=== PATIENT | female | born 1985 | race African-American/Black ===

== ENCOUNTER 2019-06-08 19:51 | Observation (INO) | payer MEDICARE, MEDICAID ==
[2019-06-08] MEDS ORDERED: Aspirin Chewable 81 MG TAB ONE (20:58)
[2019-06-08] MEDS ORDERED: Dextrose 50% Abboject 50 ML SYRINGE SLOW IVP PRN (22:31)
[2019-06-08] MEDS ORDERED: Dextrose 5% in Water 1,000 ML IV PRN (22:31)
[2019-06-08] MEDS ORDERED: HumaLOG 300 UNITS/3 ML VIAL SC PRN ×2 (22:31)
[2019-06-08] MEDS ORDERED: Aspirin 325 mg Enteric Coated Tablet PO SCH (22:45)
--- NOTE | 2019-06-08 23:50 | HP ---
PRIMARY CARE PHYSICIAN: Unknown. CHIEF COMPLAINT: Altered mental status. HISTORY OF PRESENT ILLNESS: This is a 33-year-old obese female, who is a bilateral above-knee amputee for unclear reasons with past medical history of stroke, ESRD, on hemodialysis, and with colostomy and urostomy in place, who was initially sent to [facility] for evaluation of altered mental status while at the dialysis unit and brought to the ER for further evaluation. The patient reports her blood sugar was 35 this morning, but reliability is unclear. She was reported to have an initial NIH Stroke Scale of 10, which improved to [address] without contrast and CTA head and neck were negative. The patient was transferred to [facility] ER for further evaluation. Empiric blood cultures were obtained and the patient was administered 1 g IV vancomycin and oral aspirin 324 mg. According to ER records, the patient actually had an initial NIH Stroke Scale of 15, which significantly improved, but upon ER evaluation, the patient was noted to have episodes of repetitive speech, but no other focal deficits of upper extremity noted. Initial Accu-Chek was euglycemic. Blood pressures ranged from 180s to 200s over 90s to 120s. At bedside, the patient is oriented to person and place. She intermittently answers questions appropriately, but then is noted to have repetitive speech and deviates into tangential conversation. She denies any acute complaints of pain. She denies any headaches. Multiple attempts to obtain collateral information from the patient are difficult. The patient denies any illicit drug use. A toxicology screen for alcohol, Tylenol, and salicylate were negative. Chemistries were unremarkable. No fevers were noted. PAST MEDICAL HISTORY: Morbid obesity, stroke, ESRD on hemodialysis, bilateral above-knee amputation for unclear reasons with notable colostomy and urostomy, and stroke. PAST SURGICAL HISTORY: Bilateral above-knee amputation. Right chest wall tunneled dialysis catheter, colostomy, urostomy, and prior PEG. SOCIAL HISTORY: The patient reports that she lives at home with her mother. She denies tobacco, alcohol, illicit drug use. ALLERGIES: NONE DOCUMENTED. REVIEW OF SYSTEMS: Limited due to patient's mentation. Pertinent positives as per HPI. Remainder of review of systems negative. MEDICATIONS: Home medications are currently unavailable, but will need to be reviewed as per admission medication reconciliation. FAMILY HISTORY: Unable to obtain from the patient at this time. PHYSICAL EXAMINATION: VITAL SIGNS: Temperature maximum, afebrile, 98.0, pulse 94 to 96, sinus rhythm, blood pressure 182/94 to 195/126, oxygen saturation 99% on room air, respirations 18, unlabored. GENERAL APPEARANCE: This is a young obese female, who is awake, alert, oriented, who intermittently speaks fluently, but then is noted to have repetitive speech and tangential conversation, difficult to understand. HEENT: Normocephalic, atraumatic. No facial asymmetry. Pupils equally round. Extraocular muscles intact. Moist mucous membranes. NECK: Supple. CARDIOVASCULAR: S1 and S2. Regular rate and rhythm. No harsh murmurs. No chest wall tenderness to palpation. There is a right chest wall tunneled dialysis catheter noted. LUNGS: Bilateral equal air entry on anterior auscultation. Nonlabored respiration. No wheezing or rales. ABDOMEN: Soft, nontender, nondistended. There is evidence of prior PEG site scar noted. There is a left lower quadrant colostomy. There is a right lower quadrant urostomy. EXTREMITIES: No edema of the bilateral upper extremities. There is bilateral lower extremity above-knee amputations noted with no obvious skin breakdown and back was not visualized. SKIN: Warm to touch without any obvious rash or pallor or abrasions with again noted right chest wall tunneled dialysis catheter. NEUROLOGIC: On evaluation, no facial asymmetry. Symmetrical smile. Symmetrical muscle facial expression. No drift of upper extremities. 2+ hand border measurer intact. Speech fluent, but often times with repetitive speech noted. LABORATORY DATA: WBC 8.7, H and H 11.3/37.7, platelets 248. Sodium 139, potassium 4.3, chloride 95, bicarb 28, glucose 152, BUN and creatinine 60/3.25, GFR 20, albumin 3.8, and TSH 3.69. Toxicology, salicylate level is less than 8. Tylenol level is less than 6. Alcohol level less than 10. Coagulation profile, INR 1.0. IMAGIN. Noncontrast head CT on 06/08/2019, reveals no acute intracranial abnormality. 2. CTA of the head and neck with and without contrast reveals no significant stenosis, occlusion, or areas of malformation. ASSESSMENT: 1. Altered mental status of unspecified etiology. The patient will be admitted to stroke telemetry floor unit. We will continue serial neurological checks to evaluate for acute focal neurological deficits. An initial noncontrast head CT and CTA head and neck with contrast were both unremarkable. We will obtain noncontrast MRI brain to evaluate for acute stroke. Noted history of prior stroke and unclear what anti-platelet agent the patient was previously on. We will monitor Accu-Cheks for euglycemia. Blood cultures were obtained in the ER and we will follow to evaluate for infection. We will monitor for improvement in mentation. Limited history obtained from the patient. ER notes the patient completed a full session of hemodialysis today and no obvious signs of uremia or metabolic acidosis. 2. End-stage renal disease, on hemodialysis. The patient completed a full round of hemodialysis on 06/08/2019. We will consult Nephrology for routine hemodialysis. I think the patient received contrast dye for CTA head and neck. 3. History of stroke, unspecified etiology. 4. History of bilateral above-knee amputation, but unclear etiology. 5. History of colostomy and urostomy status. 6. Morbid obesity, unspecified BMI. 7. Deep venous thrombosis prophylaxis: Subcutaneous heparin. 8. Check a.m. labs, 06/09/2019. 9. Code status: Full code. DISPOSITION: Admitted as observation status and placed on telemetry monitoring. Job ID: [id number]
[2019-06-09] MEDS: Acetaminophen 325 MG TAB PO PRN (04:05)
[2019-06-09] MEDS ORDERED: Aspirin 325 mg Enteric Coated Tablet PO SCH (09:00)
[2019-06-09] MEDS ORDERED: FLU VACC QS2019-20(6MOS UP)/PF 60 MCG/0.5 ML SYRINGE IM ONE (09:00)
[2019-06-09] MEDS: Heparin 5,000 UNITS/ML VIAL SC SCH ×2 (11:50→21:35)
--- NOTE | 2019-06-09 13:26 | MRI ---
Exam: Brain MRI without contrast HISTORY: Altered mental status. History of stroke. COMPARISON: None FINDINGS: Limited evaluation multiple sequences due to motion degradation Calvarial marrow signal intensity: Appropriate T1 signal Gradient echo sequence: No hemorrhage Brain parenchyma: No obvious mass, mass effect or midline shift. Brain volume, age-appropriate. Cortical barrow-white matter differentiation: Grossly preserved Restricted diffusion: Central arterial flow voids are maintained. Absent restricted diffusion White matter signal intensities: T2, FLAIR white matter hyperintensities due to chronic small vessel ischemic changes Sinuses: Adequate aeration of the paranasal sinuses and mastoid air cells. IMPRESSION: Limited evaluation due to motion degradation. Absent restricted diffusion. No definite acute infarct.
[2019-06-09 14:11] VITALS: BMI 27.2
--- NOTE | 2019-06-09 16:31 | PDOC.HOSPP ---
- Subjective Encounter Date: 06/09/19 Encounter Time: 16:29 Subjective: Ms. Richard was seen today in follow-up of altered mental status. She appears to be back to her baseline. She does not have any complaints. - Objective Vital Signs & Weight: Vital Signs (12 hours) Temp Pulse Resp BP Pulse Ox 06/09/19 16:05 99.4 F 103 H 18 198/83 H 98 06/09/19 12:00 98.7 F 99 18 189/118 H 97 06/09/19 08:50 98.6 F 98 22 H 150/101 H 93 L Weight Admit Weight 148 lb 12.8 oz Weight 148 lb 12.8 oz I&O: 06/08/19 06/09/19 06/10/19 06:59 06:59 06:59 Intake Total 100 Output Total 200 Balance -100 Additional Labs: Accuchecks 06/09/19 06/09/19 06/08/19 11:15 05:57 23:16 POC Glucose 88 106 198 H Hospitalist ROS - Medication Medications: Active Medications Generic Name Dose Route Start Last Admin Trade Name Freq PRN Reason Stop Dose Admin Acetaminophen 650 mg 06/08/19 22:28 06/09/19 04:05 Tylenol PO 650 mg Q4H PRN Administration Headache/Fever/Mild Pain (1-3) Aspirin 325 mg 06/09/19 09:00 06/09/19 11:50 Ecotrin PO 325 mg DAILY NICOLASA Administration Heparin Sodium (Porcine) 5,000 units 06/09/19 09:00 06/09/19 11:50 Heparin SC 5,000 units BID NICOLASA Administration - Exam Eye: PERRL Heart: RRR, no murmur, no gallops, no rubs, normal peripheral pulses Respiratory: CTAB, no wheezes, no rales, no ronchi, normal chest expansion, no tachypnea, normal percussion Gastrointestinal: soft, non-tender, non-distended, normal bowel sounds Hosp A/P (1) Metabolic encephalopathy Code(s): G93.41 - METABOLIC ENCEPHALOPATHY Status: Acute (2) Hypoglycemia Code(s): E16.2 - HYPOGLYCEMIA, UNSPECIFIED Status: Acute (3) Diabetes mellitus treated with insulin Code(s): E11.9 - TYPE 2 DIABETES MELLITUS WITHOUT COMPLICATIONS; Z79.4 - CUSTODIAL (CURRENT) USE OF INSULIN Status: Acute (4) End stage renal disease on dialysis Code(s): N18.6 - END STAGE RENAL DISEASE; Z99.2 - DEPENDENCE ON RENAL DIALYSIS Status: Acute (5) Hypertension Code(s): I10 - ESSENTIAL (PRIMARY) HYPERTENSION Status: Chronic - Plan * Metabolic encephalopathy- likely due to hypoglycemia. The patient admits that she did not eat much yesterday morning * MRI- was not an ideal study, but no obvious infarct was seen * HTN- blood pressure is very elevated- she does not have any blood pressure medications listed in her home medications- will start Amlodipine * ESRD- continue dialysis as indicated * Still await final culture results * Hopefully home tomorrow
[2019-06-09] MEDS: Labetalol HCl 100 MG/20 ML VIAL SLOW IVP PRN (19:55)
[2019-06-09] MEDS ORDERED: Insulin Glargine 20 UNITS in Pre-Filled Syringe 1 EACH SC SCH (21:00)
[2019-06-09] MEDS: Gabapentin 300 MG CAP PO SCH (21:34)
[2019-06-09] MEDS: Aggrenox 200-25mg CAP PO SCH (21:34)
[2019-06-10] MEDS: Labetalol HCl 100 MG/20 ML VIAL SLOW IVP PRN (03:52)
[2019-06-10] MEDS: Acetaminophen 325 MG TAB PO PRN (03:52)
[2019-06-10] MEDS ORDERED: Morphine 4 MG/ML VIAL SLOW IVP PRN (05:19)
[2019-06-10] MEDS ORDERED: cloNIDine 0.1 MG TAB PO PRN (05:20)
[2019-06-10] MEDS ORDERED: Non-Formulary Item 1 EACH (Insulin Detemir [Levemir] 18 UNIT) SQ SCH (09:00)
[2019-06-10] MEDS ORDERED: Alogliptin 6.25 MG TAB PO SCH (09:00)
[2019-06-10] MEDS ORDERED: Amlodipine 5 MG TAB PO SCH (09:00)
[2019-06-10] MEDS ORDERED: DULoxetine 60 MG CAP PO SCH (09:00)
[2019-06-10] MEDS ORDERED: Labetalol 100 MG TAB PO SCH (09:00)
[2019-06-10] MEDS ORDERED: Insulin Glargine 18 UNITS in Pre-Filled Syringe 1 EACH SC SCH (09:00)
--- NOTE | 2019-06-10 09:52 | PDOC.HOSPP ---
- Subjective Encounter Date: 06/10/19 Encounter Time: 09:50 Subjective: Ms. Menjivar was seen today in follow-up of metabolic encephalopathy. She does not have any new complaints. She is anxious to be discharged. She has a birthday alliance party planned at the longterm. - Objective Vital Signs & Weight: Vital Signs (12 hours) Temp Pulse Resp BP BP Pulse Ox 06/10/19 07:11 198/112 H 06/10/19 04:00 98.1 F 96 18 201/94 H 94 L 06/10/19 03:52 100 201/94 H 06/10/19 00:00 98.6 F 100 20 167/80 H 97 Weight Admit Weight 148 lb 12.8 oz Weight 148 lb 12.8 oz I&O: 06/09/19 06/10/19 06/11/19 06:59 06:59 06:59 Intake Total 100 1130 Output Total 200 11 Balance -100 1119 Additional Labs: Accuchecks 06/10/19 06/09/19 06/09/19 06:22 20:20 16:41 POC Glucose 89 230 H 254 H 06/09/19 11:15 POC Glucose 88 Hospitalist ROS - Medication Medications: Active Medications Generic Name Dose Route Start Last Admin Trade Name Freq PRN Reason Stop Dose Admin Acetaminophen 650 mg 06/08/19 22:28 06/10/19 03:52 Tylenol PO 650 mg Q4H PRN Administration Headache/Fever/Mild Pain (1-3) Clonidine 0.1 mg 06/10/19 05:20 06/10/19 07:11 Catapres PO 0.1 mg Q8H PRN Administration Hypertension Dipyridamole/Aspirin 1 cap 06/09/19 21:00 06/09/19 21:34 Aggrenox PO 1 cap BID NICOLASA Administration Gabapentin 600 mg 06/09/19 21:00 06/09/19 21:34 Neurontin PO 600 mg BID NICOLASA Administration Heparin Sodium (Porcine) 5,000 units 06/09/19 09:00 06/09/19 21:35 Heparin SC 5,000 units BID NICOLASA Administration Insulin Glargine 20 units/ 0.2 mls @ 0 mls/hr 06/09/19 21:00 06/09/19 21:33 Miscellaneous Medication SC 0.2 mls HS NICOLASA Administration Insulin Human Lispro 0 units 06/08/19 22:31 06/09/19 18:18 Humalog SC 4 unit .MILD SLIDING SCALE PRN Administration Mild Correctional Scale Labetalol HCl 10 mg 06/08/19 22:32 06/10/19 03:52 Normodyne SLOW IVP 10 mg Q4H PRN Administration Hypertension Morphine Sulfate 4 mg 06/10/19 05:19 06/10/19 05:32 Morphine SLOW IVP 4 mg Q4H PRN Administration Severe Pain (7-10) - Exam Eye: PERRL Heart: RRR, no murmur, no gallops, no rubs, normal peripheral pulses Respiratory: CTAB, no wheezes, no rales, no ronchi, normal chest expansion, no tachypnea, normal percussion Gastrointestinal: soft, non-tender, non-distended, normal bowel sounds, no palpable masses, no hepatomegaly Extremities: no edema (bilateral AKA) Hosp A/P (1) Metabolic encephalopathy Code(s): G93.41 - METABOLIC ENCEPHALOPATHY Status: Acute (2) Hypoglycemia Code(s): E16.2 - HYPOGLYCEMIA, UNSPECIFIED Status: Acute (3) Diabetes mellitus treated with insulin Code(s): E11.9 - TYPE 2 DIABETES MELLITUS WITHOUT COMPLICATIONS; 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 resolved- and blood glucose is stable * HTN- blood pressure is elevated- she has not been in her blood pressure medications- will contact the facility to find out what she was taking * ESRD- continue dialysis as indicated * Culture results- demonstrate 1/2 coag negative staph- this is likely a contaminant * Home today
[2019-06-10 10:02] VITALS: TEMP 98.9
[2019-06-10] MEDS: Heparin 5,000 UNITS/ML VIAL SC SCH (10:05)
[2019-06-10] MEDS: Aggrenox 200-25mg CAP PO SCH (10:06)
[2019-06-10] MEDS: Gabapentin 300 MG CAP PO SCH (10:06)
[2019-06-10 12:15] VITALS: BP 168/92
--- NOTE | 2019-06-11 14:10 | DIS ---
DATE OF ADMISSION: 06/08/2019 DATE OF DISCHARGE: 06/10/2019 DISCHARGE DISPOSITION: Back to the [facility]. DISCHARGE DIAGNOSES: 1. Metabolic encephalopathy, resolved. 2. Hypoglycemia. 3. End-stage renal disease, on hemodialysis. 4. Hypertension, uncontrolled. 5. History of bilateral [id number] amputations due to necrotizing fasciitis. 6. Status post colostomy and urostomy, these were done as a diverting colostomy and urostomy due to the infections. DISCHARGE MEDICATIONS: The patient will be placed on; 1. Amlodipine 5 mg daily as well as clonidine 0.1 mg q.8 as needed. 2. Continue;. a. Januvia 25 mg daily. b. Renvela 2.4 g with meals and at bedtime. c. Levemir insulin 18 units in the a.m. and 20 units in the p.m. d. daily. e. Gabapentin 600 mg p.o. twice daily. f. Folic acid and vitamin D one tablet daily. g. Pepcid 20 mg daily. h. Cymbalta 60 mg daily. i. Vitamin D3 of 5000 units daily. j. Aggrenox 1 capsule twice a day. IMAGING DONE DURING HOSPITAL STAY: The patient had an echocardiogram in which the ejection fraction was estimated at 50% to 55%. There was mild mitral regurgitation as well as mild tricuspid regurgitation. The patient had an MRI of the brain. The study was difficult due to motion artifact, but there was no evidence of any acute infarct. HOSPITAL COURSE: Ms. Menjivar is a pleasant 34-year-old female, who has a history of long-standing diabetes mellitus. According to the patient's mother, she has been diabetic since age 11. She also has a history of bilateral [id number] amputations. Her mother states this was the result of an infection in her foot that spread due to necrotizing fasciitis and ultimately lead to bilateral [id number] amputations. She also had a wound that went posteriorly and for this reason, she had to have a diverting colostomy as well as urostomy. She says her daughter was in the hospital for over several months. She resides in a nursing facility and she was sent over from the nursing facility due to an episode of altered mental status after dialysis. It was also noted that she was hypoglycemic with her blood sugars in the 50s. She was brought into observation. There was concern for possible stroke-like symptoms, and for this reason, an MRI was obtained and blood cultures were also obtained to rule out infection. Her symptoms resolved after her blood sugar was improved and on further questioning, the patient admits that she had fairly poor oral intake prior to the episode. We will keep her insulin doses the same. It was noted that her blood pressure was elevated and that she was not on any medications from the [place] [facility] for blood pressure. For this reason, we added amlodipine as well as a p.r.n. clonidine to her regimen and at the time of discharge, she was anxious to go home. Today was her birthday, and she had a birthday celebration planned at the nursing facility. Job ID: [id number]
== END 2019-06-10 12:56 ==
LOC: ERS 19:51 → INTOOBSV 22:31 → 2SE 22:31
PROVIDERS: ADMIT Hospitalist; ATTEND Hospitalist
DX: G93.41 Metabolic encephalopathy (principal); I12.0 Hypertensive chronic kidney disease with stage 5 chronic kidney disease or end stage renal disease; E11.649 Type 2 diabetes mellitus with hypoglycemia without coma; E11.22 Type 2 diabetes mellitus with diabetic chronic kidney disease; N18.6 End stage renal disease; Z79.4 Long term (current) use of insulin; Z79.82 Long term (current) use of aspirin; Z79.899 Other long term (current) drug therapy; Z89.611 Acquired absence of right leg above knee; Z89.612 Acquired absence of left leg above knee; Z99.2 Dependence on renal dialysis
CPT/HCPCS: 70551; 82962 ×3; 87040; 87149 ×2; 93005; 93306; 96365; 96372 ×2; 96375 ×2; 96376; 97139; 99285; G0378 ×3; 36415; 36416; J1644; J1815; J2270; J3370

== ENCOUNTER 2020-03-19 10:28 | Inpatient (IN) | payer MEDICARE, MEDICAID, OTHER ==
[2020-03-19] MEDS ORDERED: Vancomycin 1 GM/200 ML BAG ONE (10:53)
[2020-03-19] MEDS ORDERED: Cefepime 2 GM VIAL ONE (10:53)
[2020-03-19] MEDS ORDERED: Clindamycin/D5W 900 mg/50 ml Premix Bag ONE ×2 (10:53→13:01)
[2020-03-19 11:03] LABS: Bacteria/HPF 4+ HPF (None Seen); Bilirubin Negative (Negative); Blood, Urine 1+ (Negative); Clarity Extra Turbid (Clear); Glucose, Urine (Dipstick) Normal (Negative); Ketone, Urine Negative (Negative); Leukocyte 75 Leu/uL (Negative); Nitrite Negative (Negative); Protein, Urine (Dipstick) 200 mg/dL (Neg-Trace); Specific Gravity, Urine 1.007 (1.002-1.036); Squamous Epithelial 0-3 HPF (0-3); Urobilinogen Normal mg/dL (Less than 2)
[2020-03-19] MEDS ORDERED: Vancomycin 1.5 GRAM/300 ML BAG 1.5 GM in Premix Bag 1 BAG IVPB SCH (11:15)
[2020-03-19 11:44] LABS: #Monocytes 0.7 thou/uL (0.11-0.59); #Neutrophils 4.5 thou/uL (1.40-6.50); %Basophils 0.5 % (0.0-1.0); %Eosinophils 0.7 % (0.0-10.0); %Lymphocytes 16.3 % (21.0-51.0); %Monocytes 11.7 % (0.0-10.0); %Neutrophils 70.7 % (42.0-75.0); Mean Corpuscular HGB CONC 30.1 g/dL (32.0-36.0); Mean Corpuscular Volume 92.8 fL (78.0-98.0); Mean Platelet Volume 9.2 fL (7.4-10.4); Platelet Count 184 thou/uL (130-400); RBC Distribution Width 16.9 % (11.5-14.5); Red Blood Cell (RBC) Count 3.21 mill/uL (4.20-5.40); White Blood Cell (WBC) Count 6.3 thou/uL (4.8-10.8)
[2020-03-19 11:53] LABS: ALT (SGPT) 34 U/L (8-55); AST (SGOT) 32 U/L (5-34); Albumin 3.5 g/dL (3.5-5.0); Alkaline Phosphatase 86 U/L (40-110); Anion Gap 21 mmol/L (10-20); BUN (Urea Nitrogen) 59 mg/dL (7.0-18.7); Bilirubin, Total 0.3 mg/dL (0.2-1.2); Calc. Creatinine Clearance 0 mL/min (70-130); Carbon Dioxide 23 mmol/L (22-29); Chloride 102 mmol/L (98-107); Estimated GFR-MDRD 7; Globulin 3.8 g/dL (2.4-3.5); Glucose 72 mg/dL (70-105); Potassium 5.6 mmol/L (3.5-5.1); Protein, Total 7.3 g/dL (6.0-8.3); Sodium 140 mmol/L (136-145)
--- NOTE | 2020-03-19 11:58 | RAD ---
EXAM: CHEST ONE VIEW HISTORY: Cough. COMPARISON: 02/06/2020 FINDINGS: Right-sided hemodialysis catheter remains in place. This examination is obtained in a shallow depth i nspiration which in combination with portable technique accentuates the cardiac silhouette and bronchovascular markings. However, there are increased perihilar interstitial and patchy parenchymal airspace opacities greater in the right upper lung zone and in the left midlung zone and left lung base. Findings may be related to asymmetric pulmonary edema or possibly infectious process. No other interval change. IMPRESSION: Patchy parenchymal airspace opacities bilaterally which could be related to asymmetric pulmonary joshua a versus infectious process. Follow-up evaluation is recommended to ensure resolution.
[2020-03-19 13:43] LABS: Troponin I 0.063 ng/mL (< 0.028)
[2020-03-19] MEDS ORDERED: EPINEPHrine 1 MG/10 ML Abboject SYRINGE ONE ×2 (14:22→18:45)
[2020-03-19] MEDS ORDERED: Sodium Bicarb 50 MEQ/50 ML Abboject 8.4% SYRINGE ONE ×2 (14:22→19:02)
[2020-03-19] MEDS ORDERED: Calcium Chloride 1 GM/10 ML Abboject SYRINGE ONE ×2 (14:22→19:42)
[2020-03-19 15:40] LABS: SARS-CoV-2 NAA Rapid Test DETECTED (NotDetected)
[2020-03-19] MEDS ORDERED: Norepinephrine 8 MG/0.9% NS 250 ML ONE (18:34)
[2020-03-19] MEDS ORDERED: Calcium Gluc 4.6 MEQ/10 ML (100 MG/ML) ONE (18:51)
[2020-03-19] MEDS ORDERED: Ketamine 50 MG/ML (10ML VIAL) ONE (19:12)
[2020-03-19] MEDS ORDERED: Rocuronium Bromide 10 MG/ML (10ML VIAL) ONE (19:12)
[2020-03-19] MEDS ORDERED: Hydrocortisone Sod Succ/PF 100 mg/2 ml Vial ONE (19:41)
[2020-03-19 19:56] LABS: Actual Bicarbonate (HCO3a) 19.7 mEq/L (22-28); Analyzer IN Cardio ER; Base Excess (BEa) -8.9 mEq/L (-2.0 to +3.0); CO2 Tension 56.3 mmHg (35.0-45.0); Calcium, Ionized (arterial) 1.54 mmol/L (1.12-1.30); Carboxyhemoglobin (COHb) 0.2 gm% (0.0-3.0); O2 Tension (PaO2), arterial 158.6 mmHg (80.0-100.0); Potassium - ABG Lab 5.23 mmol/L (3.70-5.30)
[2020-03-19 19:58] LABS: Puncture Site RRA; pH, Arterial 7.16 (7.35-7.45)
[2020-03-19 19:59] LABS: ALV-art Gradient 484.025 mmHg (0-20)
[2020-03-19] MEDS ORDERED: fentaNYL Citrate/PF 2,000 MCG in Sodium Chloride 0.9% 60 ML IV SCH (20:15)
--- NOTE | 2020-03-19 20:22 | RAD ---
Chest AP view INDICATION: History of intubation COMPARISON: Prior exam dated March 19, 2020 at 11:31 AM FINDINGS: Lungs: There is worsening bilateral airspace disease. Cardiac silhouette: There is persisting cardiomegaly Pulmonary vasculature: There is worsening pulmonary vascular congestion Pleural spaces: There are small bilateral pleural effusions that persist. Upper abdomen: No abnormality seen. Osseous structures: No acute osseous abnormality. Additional findings: Patient is intubated. ET tube tip is seen 1.1 cm above the level of the gil. There is a new left IJ central venous catheter projecting region the right atrium. Right IJ dialysis catheter is unchanged in position. Gastric catheter projects below the left hemidiaphragm an d beyond the [id number]. There is a pacer pads now overlying the right anterior chest wall. IMPRESSION: Interval intubation with gastric catheter and left IJ central venous catheter placement. Worsening bi lateral perihilar airspace disease suspicious for worsening edema or pneumonia. Persistent cardiomegaly with small bilateral pleural effusions. No pneumothorax demonstrated.
[2020-03-19] MEDS ORDERED: Cefepime 2 GM VIAL IVPB SCH (20:35)
[2020-03-19] MEDS ORDERED: Dextrose 5% in Water 1,000 ML IV PRN (20:35)
[2020-03-19] MEDS ORDERED: Acetaminophen 650 MG Suppository PR PRN (20:35)
[2020-03-19] MEDS ORDERED: Dextrose 50% Abboject 50 ML SYRINGE SLOW IVP PRN (20:35)
[2020-03-19] MEDS ORDERED: Ondansetron ODT 4 MG TAB PO PRN (20:35)
[2020-03-19] MEDS ORDERED: [UNRECOGNIZED DRUG - REMARK] FS PRN (20:35)
[2020-03-19] MEDS ORDERED: Ondansetron PF 4 MG/2 ML Vial IVP PRN (20:35)
[2020-03-19] MEDS ORDERED: Ventilator Sedation Protocol 1 EACH FS ONE (20:35)
[2020-03-19] MEDS ORDERED: Electrolyte Replacement Protoc 1 EACH EACH FS PRN (20:43)
[2020-03-19 21:25] LABS: Magnesium 1.6 mg/dL (1.6-2.6); Phosphorus 8.8 mg/dL (2.3-4.7)
[2020-03-19] MEDS ORDERED: Propofol BOLUS 1,000 MG/100 ML VIAL IV PRN (21:30)
[2020-03-19] MEDS ORDERED: DISCONTINUE PREVIOUS NARCOTIC PAIN MEDICATIONS AND BENZODIAZEPINES FS SCH (21:30)
[2020-03-19] MEDS ORDERED: Morphine 2 MG/ML VIAL SLOW IVP PRN (21:30)
[2020-03-19] MEDS ORDERED: Fentanyl BOLUS 250 ML IVPB PRN (21:30)
[2020-03-19] MEDS ORDERED: Heparin 10,000 UNITS/ 10 ML VIAL ONE (22:07)
--- NOTE | 2020-03-19 22:07 | HP ---
PRIMARY CARE PROVIDER: Mio Mitchell. CHIEF COMPLAINT: Hypotension. HISTORY OF PRESENT ILLNESS: This is a 34-year-old female, who presented to [facility] Emergency Room and transferred by EMS personnel from [facility] in [place] after halfway personnel noted the patient with low blood pressure. The patient is a known dialysis patient and underwent hemodialysis on 03/18/2020 and apparently has not missed any dialysis sessions. The halfway reports the patient has been refusing to take her medicines because she is" tired of taking medicine." The patient admitted to [facility] for several days, however, underwent coronavirus testing within the last 24 hours and apparently was reported as negative. This history is obtained after review of the electronic medical record as well as discussions with the ER attending and ER staff as well as review of the electronic medical record as patient is currently unable to provide any history due to severe respiratory distress. No history of vomiting, diarrhea, or exposure history. The patient's history is significant for end-stage renal disease, on hemodialysis as well as diabetes mellitus with peripheral vascular disease, status post bilateral AKA. The patient has also history of colostomy and urostomy placement and chronic decubitus ulceration in the sacral region. In the emergency room, patient underwent sepsis screening and met all criteria, receiving aggressive IV fluid hydration of 2 L en route with an additional third liter of normal saline in the emergency room. The patient also received IV clindamycin, vancomycin, and cefepime due to concern for potential skin source of the sepsis. Chest imaging was also concerning for bilateral infiltrates as potential source. COVID screening in the emergency room was positive and patient was placed on precautions. During patient's ER stay, patient continued to decompensate with hypotension requiring a repeat bolus of normal saline as well as initiation on Levophed. The patient continued to have respiratory compromise and hypotension, at which point, patient underwent placement of a left internal jugular central venous catheter. The patient continued to decompensate and required intubation due to respiratory failure and acidosis. The patient went into cardiac arrest and pulseless electrical activity necessitating ACLS protocol in the emergency room. The patient received multiple rounds of epinephrine, vasopressin, and increased dosing of Levophed to mitigate hypotension. The patient also received multiple amps of sodium bicarbonate and calcium gluconate. Repeat chest imaging showed appropriate positioning of the endotracheal tube and central line placement. The patient with diffuse pulmonary infiltrates on repeat chest imaging. The patient will be transferred to the Critical Care Unit for further evaluation. PAST MEDICAL HISTORY: 1. End-stage renal disease with hemodialysis. 2. Morbid obesity and bed-bound status. 3. History of CVA. 4. Diabetes mellitus type 2 with peripheral vascular disease. 5. Gastroesophageal reflux disease. 6. Hypertension. PAST SURGICAL HISTORY: 1. Status post bilateral [id number] amputations due to severe peripheral vascular disease and gangrene and sepsis. 2. Status post urostomy. 3. Status post colostomy. 4. Status post hemodialysis catheter placement with AV fistula. CURRENT MEDICATIONS: 1. Abilify 2 mg p.o. daily. 2. Aggrenox 25/200 mg one tablet p.o. b.i.d. 3. Amlodipine 5 mg p.o. daily. 4. Calcium acetate 667 mg p.o. b.i.d. 5. Cymbalta 60 mg p.o. daily. 6. Gabapentin 600 mg p.o. b.i.d. 7. NPH insulin 34 units subcutaneously daily. 8. Medroxyprogesterone 10 mg p.o. daily. 9. Nephrocaps 1 mg p.o. daily. 10. Tradjenta 5 mg p.o. daily. 11. Vitamin D3 of 1000 units p.o. daily. 12. Albuterol/ipratropium nebulized solution 0.5/2.5 mg nebulized q.4 hours p.r.n. ALLERGIES: NO KNOWN DRUG ALLERGIES. FAMILY HISTORY: Positive for hypertension and diabetes mellitus. SOCIAL HISTORY: Resides in [facility] in [place], [place]. No current alcohol, tobacco, or illicit drug use. Bedbound status. Mother is medical power of collections attorney. REVIEW OF SYSTEMS: Unobtainable due to patient's respiratory failure. PHYSICAL EXAMINATION: VITAL SIGNS: On admission, blood pressure 90/56, pulse 110, respiratory rate 35, temperature 99.9 degrees Fahrenheit, O2 saturation 89% on Ventimask. GENERAL APPEARANCE: This is a 34-year-old female, obtunded, in respiratory distress, minimally responsive to painful stimuli in the emergency room. HEENT: Pupils are minimally reactive to light and accommodation. Extraocular muscles intact. No scleral icterus. Scalp atraumatic. OP is clear. Oral mucosa dry. Oxygen face mask in place. NECK: Supple. No cervical adenopathy. No thyromegaly. Left internal jugular central venous catheter in progress of placement. No JVD. CHEST: Coarse breath sounds bilaterally with diminished breath sounds bilaterally in all wynn. Positive crackles diffusely. Accessory muscle use. CARDIOVASCULAR: S1, S2 with tachycardia. No murmur appreciated. Distant heart sounds. ABDOMEN: Obese with urostomy and colostomy in place. Landmarks are difficult to palpate due to patient's body habitus. No fluid wave appreciated. EXTREMITIES: Bilateral [id number] amputation with intact stumps. NEUROLOGIC: Obtunded, minimally responsive to painful stimuli. Capillary refill less than 2 seconds. PERTINENT LABORATORY AND X-RAY FINDINGS: Sodium 140, potassium 5.6, chloride 102, CO2 of 23, BUN 59, creatinine 7.89, estimated GFR of 7, glucose 72, lactic acid level 1.2, calcium 8.0. LFTs within normal limits. Troponin I ranged between 0.050 to 0.063. Albumin 3.5. CBC showed a white blood cell count of 6.3, hemoglobin 9, hematocrit 30, platelet count 184 with 71% neutrophils. ABGs dated 03/19/2020 at 1910 showed a pH of 7.16, pCO2 of 56, PO2 of 159, bicarb 19.7, O2 saturation 98% on 100% FiO2. Urinalysis showed a turbid specimen with positive protein, blood, and leukocyte esterase with 11 to 20 rbc's per high-power field, 7 to 10 wbc's per high-power field, 4+ bacteria. COVID-19 PCR positive on 03/19/2020. Portable chest x-ray dated 03/19/2020 initially in the emergency room showed bilateral infiltrates, questionable asymmetric pulmonary edema versus infectious process. Repeat portable chest x-ray dated 03/19/2020 showed endotracheal tube in appropriate positioning. Left internal jugular central venous catheter in place. Worsening bilateral perihilar infiltrates. EKG dated 03/19/2020, by my interpretation shows sinus tachycardia with heart rates in the low 100s. Attenuated R-waves noted in the precordial leads. Normal axis. No acute ST-T wave changes noted. ASSESSMENT AND PLAN: 1. Cardiac arrest with return of spontaneous circulation. The patient will be admitted to the Critical Care Unit. Suspect secondarily to severe sepsis and respiratory failure with acidosis. We will continue aggressive cardiac support as outlined below. Consult Cardiology Service in the a.m. Check 2D transthoracic echocardiogram in the a.m. 2. Severe sepsis with septic shock. Continue sepsis protocol after initial IV fluid resuscitation in the emergency room. We will continue pressor support with Levophed and vasopressin. Continue IV antibiotic therapy with cefepime 1 g IV q.12 hours with additional Levaquin 750 mg IV q.48 hours. Blood and urine cultures pending. Serial lactic acid per protocol. 3. Acute hypoxic hypercapnic respiratory failure. Suspect multifactorial including developing pneumonia, likely due to COVID-19. We will continue mechanical ventilation with SIMV with FiO2 of 60%, PEEP of 5, pressure support of 10, and respiratory rate of 20. Consult Pulmonology Critical Care Service in the a.m. Repeat portable chest x-ray and ABGs in the a.m. 4. Pneumonia due to COVID-19. We will continue IV antibiotic therapy as outlined previously. Start Zithromax 500 mg IV daily, dexamethasone 10 mg IV daily. Add vitamin C and zinc per OG tube. Consult Infectious Disease Service in the a.m. for initiation of remdesivir. Consider convalescent plasma. Isolation protocol. 5. End-stage renal disease with hemodialysis. Consult Nephrology Service in the a.m. for timing of next hemodialysis session. The patient received last hemodialysis on 03/18/2020. 6. Diabetes mellitus type 2, insulin requiring. Insulin sliding scale for reflexive coverage. N.p.o. status currently. Serial Accu-Cheks q.2 hours. 7. Prophylaxis. SCDs. Heparin 5000 units subcutaneously b.i.d., Protonix 40 mg IV daily. Isolation protocol. CODE STATUS: Full. Surrogate medical decision maker is patient's mother. Total critical care time provided by me was 60 minutes. Job ID: [id number]
[2020-03-20] MEDS: Norepinephrine 8 MG/0.9% NS 250 ML IVPB SCH ×5 (00:11→22:44)
[2020-03-20] MEDS ORDERED: Propofol BOLUS 1,000 MG/100 ML VIAL IV PRN (00:15)
[2020-03-20] MEDS ORDERED: Morphine 2 MG/ML VIAL SLOW IVP PRN (00:15)
[2020-03-20] MEDS ORDERED: Fentanyl BOLUS 250 ML IVPB PRN (00:15)
[2020-03-20] MEDS ORDERED: Lorazepam 2 MG/ML VIAL SLOW IVP PRN (00:15)
[2020-03-20] MEDS ORDERED: DISCONTINUE PREVIOUS NARCOTIC PAIN MEDICATIONS AND BENZODIAZEPINES FS SCH (00:15)
[2020-03-20] MEDS ORDERED: Propofol 1,000 MG/100 ML VIAL IV PRN (00:15)
[2020-03-20] MEDS: Heparin 5,000 UNITS/ML VIAL SC SCH ×3 (02:21→21:58)
[2020-03-20] MEDS: Acetaminophen 650 MG/20.3 ML UDCUP PO PRN ×3 (02:22→16:39)
[2020-03-20 04:50] LABS: ALT (SGPT) 80 U/L (8-55); AST (SGOT) 77 U/L (5-34); Albumin 3.2 g/dL (3.5-5.0); Alkaline Phosphatase 92 U/L (40-110); Anion Gap 27 mmol/L (10-20); BUN (Urea Nitrogen) 69 mg/dL (7.0-18.7); Bilirubin, Total 0.5 mg/dL (0.2-1.2); Calc. Creatinine Clearance 15 mL/min (70-130); Calcium 8.7 mg/dL (7.8-10.44); Carbon Dioxide 17 mmol/L (22-29); Chloride 104 mmol/L (98-107); Estimated GFR-MDRD 7; Globulin 3.7 g/dL (2.4-3.5); Glucose 166 mg/dL (70-105); Potassium 5.3 mmol/L (3.5-5.1); Protein, Total 6.9 g/dL (6.0-8.3); Sodium 143 mmol/L (136-145)
[2020-03-20 04:57] LABS: Band 51 % (5-11); Eosinophils 1 % (0-10); Hemoglobin 10.2 g/dL (12.0-16.0); Lymphocytes 7 % (21-51); MDiff Complete? YES; Mean Corpuscular Hemoglobin 28.2 pg (27.0-31.0); Mean Corpuscular Volume 91.2 fL (78.0-98.0); Mean Platelet Volume 9.3 fL (7.4-10.4); Monocytes 4 % (0-10); Neutrophil 37 % (42-75); Platelet Count 253 thou/uL (130-400); Platelet Morphology Comment Appears Adequate; RBC Distribution Width 16.7 % (11.5-14.5); Red Blood Cell (RBC) Count 3.63 mill/uL (4.20-5.40); Reflex for Review?? NO
[2020-03-20] MEDS: Amiodarone 450 MG in Dextrose 5% in Water 250 ML IVPB SCH ×2 (05:10→22:44)
[2020-03-20] MEDS: fentaNYL Citrate/PF 2,000 MCG in Sodium Chloride 0.9% 60 ML IV SCH ×2 (05:55→16:30)
--- NOTE | 2020-03-20 08:17 | RAD ---
Portable frontal chest radiograph: 03/20/2020 COMPARISON: 03/19/2020 HISTORY: Respiratory failure, pneumonia FINDINGS: Endotracheal tube, nasogastric tube, left vascular catheter and right dialysis catheter not ed, in stable position. Blunting of the costophrenic angles noted, consistent with bilateral pleural effusions, stable. Extensive consolidative change/airspace disease is noted bilaterally as be fore, most prominent in the mid left lung zone/left perihilar region and within the right perihilar region/right upper lobe. IMPRESSION: Extensive airspace disease/consolidation with associated pleural effusions. Stable lines and tubes.
[2020-03-20] MEDS ORDERED: Prevnar 13-Val Conj/PF 0.5 ML SYRINGE IM ONE (09:00)
[2020-03-20] MEDS ORDERED: FLU VACC QS2020-21(6MOS UP)/PF 60 MCG/0.5 ML SYRINGE IM ONE (09:00)
[2020-03-20] MEDS: Pantoprazole 40 MG VIAL IVP SCH (09:28)
[2020-03-20] MEDS: Zinc Sulfate 220 MG CAP PER TUBE SCH (09:29)
[2020-03-20] MEDS: Ascorbic Acid 500 mg Chewable Tablet PER TUBE SCH (09:30)
[2020-03-20] MEDS: Dexamethasone 10 MG in Sodium Chloride 0.9% 50 ML IVPB SCH (09:35)
[2020-03-20] MEDS ORDERED: Cefepime 0.5 GM, Admixture Fee 1 EACH in Sodium Chloride 0.9% 100 ML IVPB SCH (11:00)
[2020-03-20 11:09] LABS: Actual Bicarbonate (HCO3a) 14.4 mEq/L (22-28); Base Excess (BEa) -11.7 mEq/L (-2.0 to +3.0); CO2 Tension 33.3 mmHg (35.0-45.0); Calcium, Ionized (arterial) 1.16 mmol/L (1.12-1.30); Carboxyhemoglobin (COHb) 1.1 gm% (0.0-3.0); Hemoglobin (Hb) 11.8 g/dL (12.0-16.0); Potassium - ABG Lab 4.98 mmol/L (3.70-5.30)
[2020-03-20 11:10] LABS: pH, Arterial 7.25 (7.35-7.45)
[2020-03-20 11:11] LABS: ALV-art Gradient 326.375 mmHg (0-20); O2 Tension (PaO2), arterial 59.8 mmHg (80.0-100.0); Puncture Site RRA
--- NOTE | 2020-03-20 14:06 | PDOC.HOSPP ---
- Subjective Encounter Date: 03/20/20 Encounter Time: 13:40 Subjective: f/u s/p cardiac arrest with ROSC/COVID PNA/UTI/Sepsis/Resp Failure on mech ventilation. Remains on vent with minimal response to voice/tactile stimulation. Receiving Levophed/Amiodarone currently. - Objective Vital Signs & Weight: Vital Signs (12 hours) Temp Pulse BP 03/20/20 10:42 109 H 108/63 03/20/20 08:00 101.9 F H 03/20/20 07:30 109 H 101/50 L 03/20/20 05:00 102.5 F H 03/20/20 02:07 120 H Weight Admit Weight 212 lb Weight 212 lb 11.937 oz Most Recent Monitor Data Heart Rate from ECG 110 NIBP 136/68 NIBP BP-Mean 90 Respiration from ECG 20 SpO2 99 I&O: 03/19/20 03/20/20 03/21/20 06:59 06:59 06:59 Intake Total 773.0 Output Total 0 Balance 773.0 0 Result Diagrams: 03/20/20 04:15 03/20/20 04:15 Additional Labs: Accuchecks 03/20/20 03/19/20 00:28 19:46 POC Glucose 136 H 82 Microbiology 03/19/20 10:49 Urine voided Urine Culture - Preliminary Gram Negative Jackson Presumptive Pseudomonas 03/19/20 10:47 Venous blood - Right Hand Blood Culture - Preliminary Specimen has been received and culture in progress. No Growth to date. 03/19/20 10:47 Venous blood - Right Arm Blood Culture - Preliminary Specimen has been received and culture in progress. No Growth to date. Laboratory Tests 03/19/20 03/19/20 03/19/20 11:12 11:12 13:53 WBC 6.3 Hgb 9.0 L Band Neuts % (Manual) Bicarbonate Actual ABG pH ABG pCO2 ABG pO2 ABG O2 Sat (Measured) Potassium 5.6 H Lactic Acid Phosphorus Magnesium AST 32 ALT 34 Procalcitonin SARS-CoV-2 Rap RNA(RT-PCR) DETECTED A* 03/19/20 03/19/20 03/19/20 20:46 20:46 20:46 WBC Hgb Band Neuts % (Manual) Bicarbonate Actual ABG pH ABG pCO2 ABG pO2 ABG O2 Sat (Measured) Potassium Lactic Acid 1.1 Phosphorus 8.8 H Magnesium 1.6 AST ALT Procalcitonin 1.87 SARS-CoV-2 Rap RNA(RT-PCR) 03/20/20 03/20/20 03/20/20 04:15 04:15 11:00 WBC Hgb Band Neuts % (Manual) 51 H Bicarbonate Actual 14.4 L ABG pH 7.25 L* ABG pCO2 33.3 L ABG pO2 59.8 L* ABG O2 Sat (Measured) 87.7 L Potassium Lactic Acid Phosphorus Magnesium AST 77 H ALT 80 H Procalcitonin SARS-CoV-2 Rap RNA(RT-PCR) Radiology Reviewed by me: Yes (PCXR - extensive bilat infiltrates, effusions, lines/tubes in place) EKG Reviewed by me: Yes (Tele - sinus tach in 110's) Hospitalist ROS - Medication Medications: Active Medications Generic Name Dose Route Start Last Admin Trade Name Freq PRN Reason Stop Dose Admin Acetaminophen 650 mg 03/20/20 01:14 03/20/20 09:29 Acetaminophen 650 Mg/20.3 Ml Udcup PO 650 mg Q4H PRN Administration Fever>101/(Mi/Mod/Sev) Pain Ascorbic Acid 1,000 mg 03/20/20 09:00 03/20/20 09:30 Ascorbic Acid 500 Mg Chewable Tablet PER TUBE 1,000 mg DAILY NICOLASA Administration Heparin Sodium (Porcine) 5,000 units 03/19/20 21:00 03/20/20 09:27 Heparin 5,000 Units/Ml Vial SC 5,000 units BID NICOLASA Administration Norepinephrine Bitartrate 250 mls @ 0 mls/hr 03/19/20 20:35 03/20/20 10:59 Levophed IVPB 250 mls INF NICOLASA Administration Protocol Titrate Amiodarone HCl 450 mg/ 259 mls @ 0 mls/hr 03/19/20 21:15 03/20/20 05:10 Dextrose/Water IVPB 259 mls INF NICOLASA Administration Protocol Per Protocol Dexamethasone 10 mg/ Sodium 51 mls @ 100 mls/hr 03/20/20 09:00 03/20/20 09:35 Chloride IVPB 51 mls DAILY NICOLASA Administration Fentanyl Citrate 2,000 mcg/ 100 mls @ 0 mls/hr 03/20/20 00:15 03/20/20 05:55 Sodium Chloride IV 04/19/20 00:15 100 mls INF NICOLASA Administration Protocol Per Protocol Pantoprazole Sodium 40 mg 03/20/20 09:00 03/20/20 09:28 Pantoprazole 40 Mg Vial IVP 40 mg DAILY NICOLASA Administration Zinc Sulfate 220 mg 03/20/20 09:00 03/20/20 09:29 Zinc Sulfate 220 Mg Cap PER TUBE 220 mg DAILY NICOLASA Administration - Exam General - other findings: sedate on [facility] ventilation Eye: PERRL, anicteric sclera Eye - other findings: blinks to hand ENT: normocephalic atraumatic, no oropharyngeal lesions ENT - other findings: ETT/OGT in place Neck: supple, symmetric, no JVD, no thyromegaly, no lymphadenopathy Heart: no murmur, no gallops, no rubs, normal peripheral pulses Heart - other findings: S1, S2 tachycardic Respiratory: no tachypnea Respiratory - other findings: coarse sounds bilat, diminished in bases Gastrointestinal: soft, normal bowel sounds, no guarding, no rigidity Gastrointestinal - other findings: obese, urostomy, colostomy in place Extremities: no cyanosis, no clubbing, no edema Extremities - other findings: Bilat AKA with intact stumps Skin: normal turgor Neurological - other findings: blinks eyes, minimal movement of the head Psychiatric: flat affect, somnolent, lethargic Hosp A/P (1) Cardiac arrest Code(s): I46.9 - CARDIAC ARREST, CAUSE UNSPECIFIED Status: Acute Plan: s/p cardiac arrest with ROSC, continue cardiac support, Cardiology consult, co ntinue Amiodarone gtt (2) Severe sepsis with septic shock Code(s): A41.9 - SEPSIS, UNSPECIFIED ORGANISM; R65.21 - SEVERE SEPSIS WITH SEPTIC SHOCK Status: Acute Plan: Continue Zithromax/Levaquin/Cefepime, Levophed for pressor support (3) Acute respiratory failure with hypoxia and hypercapnia Code(s): J96.01 - ACUTE RESPIRATORY FAILURE WITH HYPOXIA; J96.02 - ACUTE RESPIRATORY FAILURE WITH HYPERCAPNIA Status: Acute Plan: Continue [facility] ventilation, unable to wean, serial PCXR/ABG, consult Pulmonology service (4) Pneumonia due to COVID-19 virus Code(s): U07.1 - COVID-19; J12.89 - OTHER VIRAL PNEUMONIA Status: Acute Plan: Continue Zithromax, consult ID/Pulmonology, Remdesivir per protocol, Heparin 5K sc BID (5) UTI (urinary tract infection) Status: Acute Plan: Ucx with GNR and Pseudomonas spp, continue Cefepime/Levaquin (6) End stage renal disease on dialysis Code(s): N18.6 - END STAGE RENAL DISEASE; Z99.2 - DEPENDENCE ON RENAL DIALYSIS Status: Chronic Plan: Consult Nephrology for timing of next HD (7) Metabolic encephalopathy Code(s): G93.41 - METABOLIC ENCEPHALOPATHY Status: Acute Plan: Multifactorial, consider Neurology evaluation - Plan plan discussed w/ family, continue antibiotics, social media editor, respiratory therapy, DVT proph w/SCDs Continue aggressive critical care Continue Amiodarone gtt Continue Levophed for pressor support Continue Cefepime/Levaquin/Zithromax Consider Neurology consultation Consider Remdesivir AM lab: CMP, CBC, Ferritin/CRP/D-dimer, ABG PCXR in am Discussed with pt's mother/MPOA
[2020-03-20] MEDS ORDERED: Heparin 10,000 UNITS/ 10 ML VIAL ONE (14:43)
[2020-03-20] MEDS: Cefepime 0.5 GM, Admixture Fee 1 EACH in Sodium Chloride 0.9% 100 ML IVPB SCH (17:29)
--- NOTE | 2020-03-20 19:08 | CON ---
DATE OF CONSULTATION: 03/20/2020 HISTORY OF PRESENT ILLNESS: Ms. Menjivar is a 34-year-old female with severe peripheral vascular disease. She is a double amputee. She transferred from [place] for hypotension. Apparently, she has been noncompliant and not taking medicine. She reportedly had a COVID screen there. It was negative, but here it was positive. She is intubated and actually coded in the emergency department. PAST MEDICAL HISTORY: Remarkable for; 1. Dialysis. 2. History of CVA, being bed bound. 3. Diabetes. 4. Reflux disease. 5. Obesity. 6. Hypertension. 7. History of bilateral iwrdd-[id number] amputations. 8. Status post urostomy. 9. Status post colostomy. 10. History of hemodialysis catheter placement. She has history of hypertension and diabetes in her family. ALLERGIES: SHE REPORTS NO DRUG ALLERGIES. SOCIAL HISTORY: Not a smoker, not a drinker. PHYSICAL EXAMINATION: VITAL SIGNS: Heart rate is 110, blood pressure is 130/64, respiratory rate is 20. HEAD AND NECK: Unremarkable. LUNGS: Clear anteriorly. HEART: Regular rhythm. ABDOMEN: Soft. She is bilateral crtzg-owt-pkwf amputee. LABORATORY DATA: White count 20, hemoglobin 10.2, platelets 253. Sodium 143, potassium 5.3, chloride 104, bicarb 17, BUN 69, creatinine 8.05. pH 7.25, CO2 of 33, PO2 of 59. pH last night was 7.16, CO2 of 56, PO2 of 158. IMPRESSION: 1. Respiratory failure, status post respiratory arrest. 2. COVID pneumonia. 3. End-stage renal disease. 4. Bilateral lower extremity amputations. 5. Pseudomonas isolated from her urine. If she has a chronic indwelling catheter, this may just be a colonizer. Her blood cultures are negative so far. 6. If she is bed-bound and not taking medicines in a full-time care environment, it is very likely that she is intravascularly volume depleted. We will continue with current support. Prognosis is terrible. This is a 70 min consult with greater than 50% of the time spent on the unit with coordination of care. Job ID: [id number] MTDD
--- NOTE | 2020-03-20 19:08 | CON ---
DATE OF CONSULTATION: 03/20/2020 REASON FOR CONSULTATION: COVID pneumonia. HISTORY OF PRESENT ILLNESS: A 34-year-old with history of end-stage renal disease, hypertension, peripheral vascular disease with bilateral AKAs, cardiomyopathy, and prior CVAs, who is a [facility] resident and developed hypotension, had not been taking medications or drinking much for the past 2 days before admission. She was having also some respiratory symptoms with coughing spells for the past few days, had a coronavirus test, not exactly sure what type of test, negative the day before [facility] done at the [facility]. The patient has a colostomy and a urostomy. The patient has a tunneled catheter in the right IJ location. On arrival; BP 87/34, pulse 107, and O2 saturation 95 on 2 L. She was given IV fluids. The blood pressure improved to 170, but was very labile and then she has sustained a cardiac arrest and lost her pulse, had to have epinephrine and CPR with recovery, not clear if it was ventricular fibrillation or a different rhythm. She was then intubated and transferred to the ICU. Currently, she is sedated. She is starting to move a little bit and opened her eyes, but does not establish eye contact yet. Does not follow commands. MEDICAL HISTORY: 1. End-stage renal disease. 2. Obesity. 3. Hypertension. 4. Cardiomyopathy. 5. Peripheral vascular disease. 6. Bilateral AKAs. 7. Type 2 diabetes. 8. Schizophrenia. 9. CVA. ALLERGIES: NONE. MEDICATIONS: She had been on: 1. Abilify. 2. Aggrenox. 3. Norvasc. 4. Calcium. 5. Cymbalta. 6. Gabapentin. 7. Insulin. 8. Inhalers. 9. Megace. 10. Tradjenta. Here, she is receivin. Amiodarone. 2. Azithromycin. 3. Cefepime. 4. Decadron. 5. Levofloxacin. SOCIAL HISTORY: A [facility] resident. No smoking history. FAMILY HISTORY: Diabetes type 2 and coronary artery disease. PHYSICAL EXAMINATION: VITAL SIGNS: T-max 103.5 and 101.1 at the moment, BP 130/60, heart rate 110, respiratory rate 20, and O2 saturation 99. SKIN: The right-sided urostomy and the left-sided colostomy. She has a tunneled catheter in the right IJ position. No lymphadenopathy. HEENT: Ocular movements are conjugate. No chemosis. Pupils are equal, constricted. Orotracheal intubation. LUNGS: Diminished breath sounds at the bases with faint inspiratory crackles. HEART: S1 and S2 with a soft aortic murmur. ABDOMEN: Not distended. No ascites. No organomegaly or bladder distention. EXTREMITIES: Bilateral AKAs with healed amputation sites. NEUROLOGIC: Not feasible at the moment. LABORATORY DATA: White cell count 6.3 yesterday at 11:00 a.m. and now is 20,000, the bands went up to 51, hemoglobin 10, and platelets 253. A pH of 7.25, pCO2 of 33, PO2 of 59. Creatinine 8.05, sodium 143, AST 77, ALT 80, and albumin 3.2. Urinalysis, 7-10 wbc's. SARS-CoV RNA PCR detected. Urine culture, gram- negative rods and presumptively Pseudomonas. Two sets of blood cultures pending. Chest x-ray with bilateral airspace disease, pleural effusions. Abdomen and pelvis CT, this was done in January, about a month ago, with chronic appearing findings including IVC filter, calcification of branches of the abdominal aorta. There is a lymph node, which is mildly enlarged. Spinal dysraphism, which is congenital. ASSESSMENT: End-stage renal disease secondary to type 2 diabetes. SARS-CoV infection for the past few days' duration, probably around 7 days approximately with initial negative test [facility] and then progression in admission, during which process the patient developed cardiac arrhythmia with cardiac arrest and responded to advanced cardiac life support intervention. The patient has been intubated, now is in the ICU. She is a not eligible for antiviral treatment and not a lot of options for management other than supportive care plus corticosteroids and antimicrobial therapy due to possible associated pneumonia. The bandemia is likely a response to the aftermath of the cardiac arrest in view of the findings immediately before the event on the . Job ID: [id number] [facility]
[2020-03-20] MEDS: Azithromycin 500 MG in Sodium Chloride 0.9% 250 ML 250 ML IVPB SCH (21:59)
[2020-03-21 00:06] LABS: HBSAg Index 0.14 S/CO (0-0.99); Hep B Surf Ag NonReactive S/CO (NonReactive)
--- NOTE | 2020-03-21 00:23 | CON ---
DATE OF CONSULTATION: CONSULTING PHYSICIAN: Shayla Weaver MD. REQUESTING PHYSICIAN: Dr. Ellison. REASON FOR CONSULTATION: Need for maintenance dialysis in a patient with end-stage renal disease. IMPRESSION: 1. End-stage renal disease, the schedule is unknown. 2. Hyperkalemia in the context of problem #1. 3. Metabolic acidosis. 4. Cardiopulmonary failure in the context of COVID infection. 5. Type 2 diabetes. PLAN: 1. The patient to be dialyzed today to address the hyperkalemia and metabolic acidosis. 2. Renally dose all medications. 3. Further management will be dependent on the clinical course. HISTORY OF PRESENT ILLNESS: History is that of a 34-year-old female patient with end-stage renal disease, who necessarily does not have any particular date for her dialysis treatment, hypertension, peripheral vascular disease, cardiomyopathy with prior CVAs, residential resident, became hypotensive with some cough and respiratory symptoms, presented here and tested positive for COVID. The patient is currently intubated and on life support, will not offer much of any further history. ALLERGIES: NONE. MEDICATIONS: As documented in [employer]. SOCIAL HISTORY: group home resident. No tobacco. FAMILY HISTORY: Nonsignificantly related to present illness. REVIEW OF SYSTEMS: Could not be obtained given the fact that this patient is on life support. PHYSICAL EXAMINATION: GENERAL: Patient noted with the following vital signs; blood pressure 121/56, pulse of 109, O2 sat 100% on FiO2 of 60. HEENT EXAMINATION: Unremarkable. CARDIOVASCULAR SYSTEM: First and second heart sounds were heard. RESPIRATORY SYSTEM: Reveals vented sounds. DIGESTIVE SYSTEM: Reveals a benign abdomen with positive bowel sounds. EXTREMITIES: No peripheral edema. In summary, a 34-year-old female patient with end-stage renal disease, hemodialysis dependent, now on life support secondary to cardiopulmonary failure from COVID infestation. Thank you for this consultation. We will follow with you. Job ID: [id number]
[2020-03-21] MEDS: fentaNYL Citrate/PF 2,000 MCG in Sodium Chloride 0.9% 60 ML IV SCH ×3 (02:39→22:24)
[2020-03-21 05:09] LABS: ALT (SGPT) 58 U/L (8-55); AST (SGOT) 53 U/L (5-34); Albumin 3.2 g/dL (3.5-5.0); Alkaline Phosphatase 98 U/L (40-110); Anion Gap 28 mmol/L (10-20); BUN (Urea Nitrogen) 47 mg/dL (7.0-18.7); Bilirubin, Total 0.5 mg/dL (0.2-1.2); Calc. Creatinine Clearance 18 mL/min (70-130); Calcium 9.1 mg/dL (7.8-10.44); Carbon Dioxide 16 mmol/L (22-29); Chloride 102 mmol/L (98-107); Estimated GFR-MDRD 8; Globulin 3.8 g/dL (2.4-3.5); Glucose 147 mg/dL (70-105); Potassium 4.7 mmol/L (3.5-5.1); Sodium 141 mmol/L (136-145)
[2020-03-21 05:43] LABS: Anisocytosis SLIGHT = 6-15 cells (100X) (0-5/hpf); Band 41 % (5-11); Hemoglobin 9.7 g/dL (12.0-16.0); Lymphocytes 5 % (21-51); MDiff Complete? YES; Mean Corpuscular HGB CONC 29.6 g/dL (32.0-36.0); Mean Corpuscular Hemoglobin 26.7 pg (27.0-31.0); Mean Corpuscular Volume 90.1 fL (78.0-98.0); Mean Platelet Volume 10.3 fL (7.4-10.4); Monocytes 1 % (0-10); Myelocyte 1 % (0-0); Neutrophil 52 % (42-75); Platelet Count 234 thou/uL (130-400); RBC Distribution Width 17.2 % (11.5-14.5); Red Blood Cell (RBC) Count 3.62 mill/uL (4.20-5.40); White Blood Cell (WBC) Count 26.4 thou/uL (4.8-10.8)
[2020-03-21] MEDS: Heparin 5,000 UNITS/ML VIAL SC SCH ×2 (07:33→22:23)
[2020-03-21] MEDS: Zinc Sulfate 220 MG CAP PER TUBE SCH (07:34)
[2020-03-21] MEDS: Ascorbic Acid 500 mg Chewable Tablet PER TUBE SCH (07:34)
[2020-03-21] MEDS: Pantoprazole 40 MG VIAL IVP SCH (07:35)
--- NOTE | 2020-03-21 09:08 | RAD ---
CHEST 1 VIEW: Date: 03/21/2020 HISTORY: Respiratory failure. Pneumonia. COMPARISON: Radiograph prior day. FINDINGS: Endotracheal tube tip above the gil 2.3 cm. Improved aeration of the right upper lobe. Similar con solidation of the remainder of the lungs. Effusions are similar. IMPRESSION: 1. Slight interval increased lung aeration right upper lobe. Remainder of exam is similar. 2. Similar appearance of the endotracheal, enteric, and left IJ central venous catheters, as well as right IJ dialysis catheter. POS: HOME
[2020-03-21] MEDS: Norepinephrine 8 MG/0.9% NS 250 ML IVPB SCH ×2 (09:40→16:45)
[2020-03-21] MEDS: Dexamethasone 10 MG in Sodium Chloride 0.9% 50 ML IVPB SCH (09:40)
--- NOTE | 2020-03-21 12:02 | PRG ---
DATE OF SERVICE: 03/21/2020 SUBJECTIVE: Ms. Menjivar is stable overnight. She is not following commands. OBJECTIVE: VITAL SIGNS: Heart rate is 105, blood pressure , respiratory rate is 20. LUNGS: Distant and clear. HEART: Regular rhythm. ABDOMEN: Soft. EXTREMITIES: She has bilateral extremity amputations. LABORATORY DATA: White count 26.4, hemoglobin 9.7, platelets 234. Sodium 141, potassium 4.7, chloride 102, bicarb 16, BUN 47, creatinine 6.67. IMAGING: Chest x-ray is reviewed. She has diffuse bilateral infiltrates. IMPRESSION: 1. Status post cardiorespiratory arrest. 2. COVID-19 pneumonia. 3. Renal failure that is chronic on dialysis. 4. Hypertension. 5. History of cardiomyopathy. 6. History of bilateral [id number] amputations. 7. Diabetes. 8. History of cerebrovascular accident. 9. History of being chronically bedridden. 10. She has a prognosis that is not consistent with survival in my opinion. My feeling is that the best option would be to proceed forward with comfort care, if family can be located and this can be sorted out. No other suggestions at this time. Job ID: [id number]
[2020-03-21] MEDS: Acetaminophen 650 MG/20.3 ML UDCUP PO PRN (13:55)
[2020-03-21] MEDS ORDERED: Heparin 10,000 UNITS/ 10 ML VIAL ONE (14:39)
--- NOTE | 2020-03-21 15:55 | PDOC.HOSPP ---
- Subjective Encounter Date: 03/21/20 Encounter Time: 15:30 Subjective: f/u for COVID PNA/Sepsis with shock/s/p Cardiac arrest with ROSC/ESRD with HD. Receiving HD currently remaining on Levophed/Amiodarone gtt. - Objective Vital Signs & Weight: Vital Signs (12 hours) Temp Pulse Resp BP Pulse Ox 03/21/20 14:00 101.3 F H 03/21/20 12:32 103 H 139/97 H 03/21/20 12:00 102.3 F H 03/21/20 10:00 20 03/21/20 09:00 101.5 F H 03/21/20 08:00 20 96 03/21/20 04:00 100.7 F H Weight Admit Weight 212 lb Weight 212 lb 11.937 oz Most Recent Monitor Data Heart Rate from ECG 101 NIBP 121/83 NIBP BP-Mean 95 Respiration from ECG 20 SpO2 94 I&O: 03/20/20 03/21/20 03/22/20 06:59 06:59 06:59 Intake Total 773.0 1759.3 100 Output Total 100 105 Balance 773.0 1659.3 -5 Result Diagrams: 03/21/20 04:14 03/21/20 04:14 Additional Labs: Accuchecks 03/20/20 16:55 POC Glucose 172 H Microbiology 03/19/20 10:49 Urine voided Urine Culture - Preliminary Gram Negative Jackson Presumptive Pseudomonas 03/19/20 10:47 Venous blood - Right Hand Blood Culture - Preliminary Specimen has been received and culture in progress. No Growth to date. 03/19/20 10:47 Venous blood - Right Arm Blood Culture - Preliminary Specimen has been received and culture in progress. No Growth to date. Laboratory Tests 03/19/20 03/19/20 03/19/20 11:12 11:12 13:53 WBC 6.3 Hgb 9.0 L Band Neuts % (Manual) Bicarbonate Actual ABG pH ABG pCO2 ABG pO2 ABG O2 Sat (Measured) Potassium 5.6 H Lactic Acid Phosphorus Magnesium AST 32 ALT 34 Procalcitonin SARS-CoV-2 Rap RNA(RT-PCR) DETECTED A* 03/19/20 03/19/20 03/19/20 20:46 20:46 20:46 WBC Hgb Band Neuts % (Manual) Bicarbonate Actual ABG pH ABG pCO2 ABG pO2 ABG O2 Sat (Measured) Potassium Lactic Acid 1.1 Phosphorus 8.8 H Magnesium 1.6 AST ALT Procalcitonin 1.87 SARS-CoV-2 Rap RNA(RT-PCR) 03/20/20 03/20/20 03/20/20 04:15 04:15 11:00 WBC Hgb Band Neuts % (Manual) 51 H Bicarbonate Actual 14.4 L ABG pH 7.25 L* ABG pCO2 33.3 L ABG pO2 59.8 L* ABG O2 Sat (Measured) 87.7 L Potassium Lactic Acid Phosphorus Magnesium AST 77 H ALT 80 H Procalcitonin SARS-CoV-2 Rap RNA(RT-PCR) Radiology Reviewed by me: Yes (PCXR - diffuse infiltrates bilat, lines/tubes in place) EKG Reviewed by me: Yes (Tele - SR) Hospitalist ROS - Medication Medications: Active Medications Generic Name Dose Route Start Last Admin Trade Name Freq PRN Reason Stop Dose Admin Acetaminophen 650 mg 03/20/20 01:14 03/21/20 13:55 Acetaminophen 650 Mg/20.3 Ml Udcup PO 650 mg Q4H PRN Administration Fever>101/(Mi/Mod/Sev) Pain Ascorbic Acid 1,000 mg 03/20/20 09:00 03/21/20 07:34 Ascorbic Acid 500 Mg Chewable Tablet PER TUBE 1,000 mg DAILY NICOLASA Administration Heparin Sodium (Porcine) 5,000 units 03/19/20 21:00 03/21/20 07:33 Heparin 5,000 Units/Ml Vial SC 5,000 units BID NICOLASA Administration Norepinephrine Bitartrate 250 mls @ 0 mls/hr 03/19/20 20:35 03/21/20 09:40 Levophed IVPB 250 mls INF NICOLASA Administration Protocol Titrate Azithromycin 500 mg/ Sodium 250 mls @ 250 mls/hr 03/20/20 21:00 03/20/20 21:59 Chloride IVPB 250 mls 2100 NICOLASA Administration Amiodarone HCl 450 mg/ 259 mls @ 0 mls/hr 03/19/20 21:15 03/20/20 22:44 Dextrose/Water IVPB 259 mls INF NICOLASA Administration Protocol Per Protocol Dexamethasone 10 mg/ Sodium 51 mls @ 100 mls/hr 03/20/20 09:00 03/21/20 09:40 Chloride IVPB 51 mls DAILY NICOLASA Administration Fentanyl Citrate 2,000 mcg/ 100 mls @ 0 mls/hr 03/20/20 00:15 03/21/20 12:36 Sodium Chloride IV 04/19/20 00:15 100 mls INF NICOLASA Administration Protocol Per Protocol Cefepime HCl 0.5 gm/ 100 mls @ 200 mls/hr 03/20/20 17:00 03/20/20 17:29 Miscellaneous Medication 1 IVPB Not Given each/ Sodium Chloride 1700 NICOLASA Pantoprazole Sodium 40 mg 03/20/20 09:00 03/21/20 07:35 Pantoprazole 40 Mg Vial IVP 40 mg DAILY NICOLASA Administration Zinc Sulfate 220 mg 03/20/20 09:00 03/21/20 07:34 Zinc Sulfate 220 Mg Cap PER TUBE 220 mg DAILY NICOLASA Administration - Exam General - other findings: eyes open/blinks to hand Eye: PERRL, anicteric sclera ENT: normocephalic atraumatic, no oropharyngeal lesions ENT - other findings: ETT/OGT in place Neck: supple, symmetric, no JVD, no thyromegaly, no lymphadenopathy Heart: RRR, no gallops, no rubs, normal peripheral pulses Heart - other findings: S1, S2 Respiratory: no tachypnea Respiratory - other findings: coarse sounds bilat, no wheezes Gastrointestinal: soft, non-distended, normal bowel sounds, no palpable masses Gastrointestinal - other findings: urostomy/colostomy in place, obese Extremities: no cyanosis, no clubbing Extremities - other findings: bilat AKA, stumps intact Skin: normal turgor Neurological - other findings: blinks spontaneously and to startle Psychiatric: somnolent, lethargic Hosp A/P (1) Cardiac arrest Code(s): I46.9 - CARDIAC ARREST, CAUSE UNSPECIFIED Status: Acute Plan: s/p continue cardiac support, Amiodarone gtt (2) Severe sepsis with septic shock Code(s): A41.9 - SEPSIS, UNSPECIFIED ORGANISM; R65.21 - SEVERE SEPSIS WITH SEPTIC SHOCK Status: Acute Plan: Continue Zithromax/Levaquin/Cefepime, continue Levophed gtt (3) Acute respiratory failure with hypoxia and hypercapnia Code(s): J96.01 - ACUTE RESPIRATORY FAILURE WITH HYPOXIA; J96.02 - ACUTE RESPIRATORY FAILURE WITH HYPERCAPNIA Status: Acute Plan: Continue SIMV, pulmonary support, serial PCXR, not weanable (4) Pneumonia due to COVID-19 virus Code(s): U07.1 - COVID-19; J12.89 - OTHER VIRAL PNEUMONIA Status: Acute Plan: continue Dexamethasone/Zithromax/Vit C/Zinc, not a candidate for Remdesivir due to ESRD (5) UTI (urinary tract infection) Status: Acute (6) End stage renal disease on dialysis Code(s): N18.6 - END STAGE RENAL DISEASE; Z99.2 - DEPENDENCE ON RENAL DIALYSIS Status: Chronic Plan: HD per Renal service (7) Metabolic encephalopathy Code(s): G93.41 - METABOLIC ENCEPHALOPATHY Status: Acute - Plan continue antibiotics, social welfare administrator, respiratory therapy Consults: Palliative Care Continue aggressive critical care Continue Amiodarone gtt Continue Levophed for pressor support Continue Cefepime/Levaquin/Zithromax Consider Neurology consultation Not a candidate for Remdesivir due to ESRD AM lab: CMP, CBC, Ferritin/CRP/D-dimer, ABG PCXR in am
[2020-03-21] MEDS: Cefepime 0.5 GM, Admixture Fee 1 EACH in Sodium Chloride 0.9% 100 ML IVPB SCH (16:45)
[2020-03-21] MEDS: Azithromycin 500 MG in Sodium Chloride 0.9% 250 ML 250 ML IVPB SCH (22:23)
[2020-03-22] MEDS: Norepinephrine 8 MG/0.9% NS 250 ML IVPB SCH ×2 (00:12→20:59)
[2020-03-22] MEDS: HumaLOG 300 UNITS/3 ML VIAL SC PRN ×4 (00:18→23:43)
[2020-03-22] MEDS: Acetaminophen 650 MG/20.3 ML UDCUP PO PRN ×3 (00:22→23:23)
[2020-03-22] MEDS: Amiodarone 450 MG in Dextrose 5% in Water 250 ML IVPB SCH ×2 (02:53→18:25)
[2020-03-22 04:35] LABS: ALT (SGPT) 51 U/L (8-55); AST (SGOT) 62 U/L (5-34); Alkaline Phosphatase 109 U/L (40-110); Anion Gap 21 mmol/L (10-20); BUN (Urea Nitrogen) 39 mg/dL (7.0-18.7); Bilirubin, Total 0.5 mg/dL (0.2-1.2); Calc. Creatinine Clearance 24 mL/min (70-130); Calcium 9.4 mg/dL (7.8-10.44); Carbon Dioxide 21 mmol/L (22-29); Chloride 98 mmol/L (98-107); Estimated GFR-MDRD 12; Globulin 4.1 g/dL (2.4-3.5); Glucose 239 mg/dL (70-105); Potassium 3.7 mmol/L (3.5-5.1); Protein, Total 7.1 g/dL (6.0-8.3); Sodium 136 mmol/L (136-145)
[2020-03-22 04:38] LABS: Band 36 % (5-11); Hemoglobin 9.6 g/dL (12.0-16.0); Lymphocytes 4 % (21-51); MDiff Complete? YES; Mean Corpuscular HGB CONC 31.3 g/dL (32.0-36.0); Mean Corpuscular Hemoglobin 28.3 pg (27.0-31.0); Mean Corpuscular Volume 90.6 fL (78.0-98.0); Mean Platelet Volume 10.2 fL (7.4-10.4); Monocytes 2 % (0-10); Neutrophil 58 % (42-75); Platelet Count 216 thou/uL (130-400); RBC Distribution Width 17.3 % (11.5-14.5); White Blood Cell (WBC) Count 20.7 thou/uL (4.8-10.8)
[2020-03-22] MEDS: Ascorbic Acid 500 mg Chewable Tablet PER TUBE SCH (08:15)
[2020-03-22] MEDS: Zinc Sulfate 220 MG CAP PER TUBE SCH (08:15)
[2020-03-22] MEDS: Heparin 5,000 UNITS/ML VIAL SC SCH ×2 (08:16→20:59)
[2020-03-22] MEDS: Pantoprazole 40 MG VIAL IVP SCH (08:16)
[2020-03-22] MEDS: fentaNYL Citrate/PF 2,000 MCG in Sodium Chloride 0.9% 60 ML IV SCH (08:37)
--- NOTE | 2020-03-22 09:08 | PDOC.HOSPP ---
- Subjective Encounter Date: 03/22/20 Encounter Time: 11:00 non-verbal Subjective: Patient a bit more responsive on the vent. Weaning down Levophed. - Objective Vital Signs & Weight: Vital Signs (12 hours) Temp Pulse Resp BP 03/22/20 07:23 91 03/22/20 06:00 20 03/22/20 04:00 101.3 F H 20 03/22/20 03:15 101 H 03/22/20 02:00 20 03/22/20 00:01 100 126/73 03/22/20 00:00 101.5 F H 20 03/21/20 22:00 20 Weight Admit Weight 212 lb Weight 212 lb 11.937 oz Most Recent Monitor Data Heart Rate from ECG 93 NIBP 123/82 NIBP BP-Mean 95 Respiration from ECG 20 SpO2 89 I&O: 03/21/20 03/22/20 03/23/20 06:59 06:59 06:59 Intake Total 1759.3 1338 Output Total 100 205 Balance 1659.3 1133 Result Diagrams: 03/22/20 03:43 03/22/20 03:43 Additional Labs: Accuchecks 03/22/20 03/22/20 05:35 00:21 POC Glucose 190 H 246 H Hospitalist ROS - Review of Systems ROS unobtainable: due to endotracheal tube - Medication Medications: Active Medications Generic Name Dose Route Start Last Admin Trade Name Freq PRN Reason Stop Dose Admin Acetaminophen 650 mg 03/20/20 01:14 03/22/20 08:16 Acetaminophen 650 Mg/20.3 Ml Udcup PO 650 mg Q4H PRN Administration Fever>101/(Mi/Mod/Sev) Pain Ascorbic Acid 1,000 mg 03/20/20 09:00 03/22/20 08:15 Ascorbic Acid 500 Mg Chewable Tablet PER TUBE 1,000 mg DAILY NICOLASA Administration Heparin Sodium (Porcine) 5,000 units 03/19/20 21:00 03/22/20 08:16 Heparin 5,000 Units/Ml Vial SC 5,000 units BID NICOLASA Administration Levofloxacin 500 mg/ Device 100 mls @ 100 mls/hr 03/21/20 21:00 03/21/20 22:23 IVPB 100 mls Q2D NICOLASA Administration Norepinephrine Bitartrate 250 mls @ 0 mls/hr 03/19/20 20:35 03/22/20 00:12 Levophed IVPB 250 mls INF NICOLASA Administration Protocol Titrate Azithromycin 500 mg/ Sodium 250 mls @ 250 mls/hr 03/20/20 21:00 03/21/20 22:23 Chloride IVPB 250 mls 2100 NICOLASA Administration Amiodarone HCl 450 mg/ 259 mls @ 0 mls/hr 03/19/20 21:15 03/22/20 02:53 Dextrose/Water IVPB 259 mls INF NICOLASA Administration Protocol Per Protocol Dexamethasone 10 mg/ Sodium 51 mls @ 100 mls/hr 03/20/20 09:00 03/21/20 09:40 Chloride IVPB 51 mls DAILY NICOLASA Administration Fentanyl Citrate 2,000 mcg/ 100 mls @ 0 mls/hr 03/20/20 00:15 03/22/20 08:37 Sodium Chloride IV 04/19/20 00:15 100 mls INF NICOLASA Administration Protocol Per Protocol Cefepime HCl 0.5 gm/ 100 mls @ 200 mls/hr 03/20/20 17:00 03/21/20 16:45 Miscellaneous Medication 1 IVPB 100 mls each/ Sodium Chloride 1700 NICOLASA Administration Insulin Human Lispro 0 units 03/19/20 20:35 03/22/20 05:45 Humalog 300 Units/3 Ml Vial SC 2 unit .MILD SLIDING SCALE PRN Administration Mild Correctional Scale Pantoprazole Sodium 40 mg 03/20/20 09:00 03/22/20 08:16 Pantoprazole 40 Mg Vial IVP 40 mg DAILY NICOLASA Administration Zinc Sulfate 220 mg 03/20/20 09:00 03/22/20 08:15 Zinc Sulfate 220 Mg Cap PER TUBE 220 mg DAILY NICOLASA Administration - Exam General Appearance: ill appearing General - other findings: on vent, opening and moving eyes, not really following commands Heart: RRR, no murmur, no gallops, no rubs Respiratory: CTAB, no wheezes, no rales, no ronchi Gastrointestinal: soft, non-tender, non-distended, normal bowel sounds Extremities - other findings: Bilateral lower extremites amputated up to hips Psychiatric - other findings: moving some but not following commands Hosp A/P (1) Cardiac arrest Code(s): I46.9 - CARDIAC ARREST, CAUSE UNSPECIFIED Status: Acute (2) Acute respiratory failure with hypoxia and hypercapnia Code(s): J96.01 - ACUTE RESPIRATORY FAILURE WITH HYPOXIA; J96.02 - ACUTE RESPIRATORY FAILURE WITH HYPERCAPNIA Status: Acute (3) Pneumonia due to COVID-19 virus Code(s): U07.1 - COVID-19; J12.89 - OTHER VIRAL PNEUMONIA Status: Acute (4) Severe sepsis with septic shock Code(s): A41.9 - SEPSIS, UNSPECIFIED ORGANISM; R65.21 - SEVERE SEPSIS WITH SEPTIC SHOCK Status: Acute (5) UTI (urinary tract infection) Status: Ruled-out (6) Metabolic encephalopathy Code(s): G93.41 - METABOLIC ENCEPHALOPATHY Status: Acute (7) End stage renal disease on dialysis Code(s): N18.6 - END STAGE RENAL DISEASE; Z99.2 - DEPENDENCE ON RENAL DIALYSIS Status: Chronic - Plan continue antibiotics, executive secretary social welfare, respiratory therapy Consults: Palliative Care- spoke with VASQUEZ patient's mother Continue aggressive critical care Continue Amiodarone gtt Continue Levophed for pressor support Continue Cefepime/Levaquin/Zithromax Not a candidate for Remdesivir due to ESRD Prognosis grave, unlikely to recover
[2020-03-22] MEDS: Dexamethasone 10 MG in Sodium Chloride 0.9% 50 ML IVPB SCH (10:26)
--- NOTE | 2020-03-22 10:26 | RAD ---
XR Chest 1 View Portable History: Respiratory failure. Pneumonia Comparison: Radiograph prior day Findings: Worsening lung aeration with diffuse airspace opacities. Small effusions. Dialysis catheter tip inferior SVC. Endotracheal tube tip above the gil. Enteric tube tip below diaphragm although out of field of vie w. Left IJ central venous catheter tip projects over the right atrium. Impression: Worsening diffuse airspace consolidation.
--- NOTE | 2020-03-22 10:56 | PRG ---
DATE OF SERVICE: 03/22/2020 35 minutes critical care time SUBJECTIVE: This patient remains intubated on mechanical ventilation, receiving dialysis for COVID-19 pneumonia. OBJECTIVE: VITAL SIGNS: Her temperature is 101.3 with a T-max of 102.3, heart rate of 93, blood pressure 123/82, O2 saturation in the low 90s. She had a total of 1759 in yesterday and 1800 out via dialysis. Neurologically, she will open her eyes and blink, but does not follow any commands. She is intubated orally. NECK: No JVD. LUNGS: Coarse breath sounds. CARDIOVASCULAR: S1 and S2. Regular. ABDOMEN: Obese, soft. She has an ileostomy, urostomy and looks like a colostomy. EXTREMITIES: She has no legs. LABORATORY DATA: White blood cell count 20.7, hematocrit 30.8, and platelet count 216, with 58% neutrophils, 36% bands. D-dimer is 14.7, pH 7.25, pCO2 of 33, pO2 of 59, on SIMV rate 18, tidal volume 500, PEEP 10, pressure support 10, and FiO2 of 60%. Sodium 136, potassium 3.7, chloride 98, CO2 of 21, BUN 39, creatinine 4.5, glucose 239. Ferritin . C-reactive protein 15. Her x-ray demonstrates almost total opacification of both lungs. ASSESSMENT: 1. COVID-19 pneumonia. 2. Status post prolonged cardiopulmonary arrest. 3. History of chronic renal failure requiring dialysis. 4. History of cardiomyopathy. 5. Severe peripheral vascular disease. 6. Likely anoxic brain injury. PLAN: I think Ms. Menjivar has an almost zero chance of surviving current illness. She is being treated appropriately with broad-spectrum IV antibiotics, vasopressors, anticoagulation, anti- arrhythmics, and IV corticosteroids. Her mechanical ventilation is now on bilevel ventilation with maximum support. There really is not much more to add or to escalate in terms of care. Apparently, her family wants everything done, so we will continue with current measures. Job ID: [id number]
[2020-03-22] MEDS ORDERED: Heparin 10,000 UNITS/ 10 ML VIAL ONE (14:30)
[2020-03-22] MEDS: Cefepime 0.5 GM, Admixture Fee 1 EACH in Sodium Chloride 0.9% 100 ML IVPB SCH (18:25)
--- NOTE | 2020-03-22 19:36 | PRG ---
DATE OF SERVICE: 03/22/2020 SUBJECTIVE: The patient is seen and examined, still on life support. Noted with the following vital signs. OBJECTIVE: VITAL SIGNS: Afebrile, blood pressure 128/60, heart rate of 92, O2 saturation of 95%. HEENT: Remarkable for endotracheal tube in place. CARDIOVASCULAR SYSTEM: First and second heart sounds were heard. RESPIRATORY SYSTEM: Revealed vented sounds. DIGESTIVE SYSTEM: Revealed a benign abdomen with positive bowel sounds. EXTREMITIES: No significant peripheral edema. SKIN: No new gross rash. LYMPHATICS: No peripheral lymphadenopathy. LABORATORY INVESTIGATION: Showed a white count of 20,700, with hemoglobin of 9.6. Chemistry showed creatinine down to 4.96 with BUN of 39. IMPRESSION: 1. End-stage renal disease, on dialysis. 2. Cardiopulmonary failure in the context of COVID infestation. 3. Mild metabolic acidosis. 4. Anemia of chronic kidney disease. PLAN: 1. The patient did undergo hemodialysis today. We will likely allow this patient to rest tomorrow and allow re-equilibration of the body and mobilization of fluid prior to reinitiating hemodialysis on Tuesday with ultrafiltration as tolerated by hemodynamics. 2. Further management will be dependent on the clinical course. The prognosis of this patient is very poor. Job ID: [id number]
[2020-03-22] MEDS: Azithromycin 500 MG in Sodium Chloride 0.9% 250 ML 250 ML IVPB SCH (20:59)
[2020-03-23] MEDS: fentaNYL Citrate/PF 2,000 MCG in Sodium Chloride 0.9% 60 ML IV SCH ×2 (03:55→23:13)
[2020-03-23] MEDS: Acetaminophen 650 MG/20.3 ML UDCUP PO PRN ×2 (04:30→09:49)
[2020-03-23 04:42] LABS: #Basophils 0.2 thou/uL (0.0-0.2); #Lymphocytes 0.5 thou/uL (1.20-3.40); #Monocytes 0.4 thou/uL (0.11-0.59); #Neutrophils 16.4 thou/uL (1.40-6.50); %Basophils 0.9 % (0.0-1.0); %Monocytes 2.5 % (0.0-10.0); %Neutrophils 93.5 % (42.0-75.0); Hemoglobin 9.6 g/dL (12.0-16.0); Mean Corpuscular HGB CONC 31.3 g/dL (32.0-36.0); Mean Corpuscular Hemoglobin 28.4 pg (27.0-31.0); Mean Corpuscular Volume 90.8 fL (78.0-98.0); Mean Platelet Volume 10.5 fL (7.4-10.4); Platelet Count 215 thou/uL (130-400); RBC Distribution Width 17.4 % (11.5-14.5); Red Blood Cell (RBC) Count 3.37 mill/uL (4.20-5.40); White Blood Cell (WBC) Count 17.5 thou/uL (4.8-10.8)
[2020-03-23 05:03] LABS: ALT (SGPT) 37 U/L (8-55); AST (SGOT) 57 U/L (5-34); Albumin 3.1 g/dL (3.5-5.0); Alkaline Phosphatase 120 U/L (40-110); Anion Gap 21 mmol/L (10-20); BUN (Urea Nitrogen) 36 mg/dL (7.0-18.7); Bilirubin, Total 0.4 mg/dL (0.2-1.2); Calc. Creatinine Clearance 30 mL/min (70-130); Calcium 9.5 mg/dL (7.8-10.44); Carbon Dioxide 23 mmol/L (22-29); Chloride 98 mmol/L (98-107); Estimated GFR-MDRD 16; Glucose 262 mg/dL (70-105); Potassium 3.6 mmol/L (3.5-5.1); Protein, Total 7.1 g/dL (6.0-8.3); Sodium 138 mmol/L (136-145)
[2020-03-23] MEDS: HumaLOG 300 UNITS/3 ML VIAL SC PRN ×3 (06:17→23:54)
[2020-03-23 07:24] LABS: CO2 Tension 47.6 mmHg (35.0-45.0); Calcium, Ionized (arterial) 1.18 mmol/L (1.12-1.30); Carboxyhemoglobin (COHb) 0.9 gm% (0.0-3.0); Hemoglobin (Hb) 10.6 g/dL (12.0-16.0); Potassium - ABG Lab 3.42 mmol/L (3.70-5.30); pH, Arterial 7.34 (7.35-7.45)
[2020-03-23 07:50] LABS: O2 Tension (PaO2), arterial 46.6 mmHg (80.0-100.0)
[2020-03-23 07:51] LABS: Puncture Site RRAD
--- NOTE | 2020-03-23 08:30 | RAD ---
XR Chest 1 View Portable History: Respiratory failure with pneumonia Comparison: Radiograph prior day Findings: Left IJ central venous catheter tip projects over the right atrium. Endotracheal tube tip a rosita the gil 2.3 cm. Enteric tube tip below diaphragm although out of field of view. Dialysis catheter is similar. Slightly improved right lung aeration. Left lung aeration is similar. Small effusions. Impression: Slight improvement right lung aeration.
--- NOTE | 2020-03-23 09:12 | PDOC.HOSPP ---
- Subjective Encounter Date: 03/23/20 Encounter Time: 10:30 Subjective: Patient remains on the vent. Will open eyes and look around. - Objective Vital Signs & Weight: Vital Signs (12 hours) Temp Pulse Resp BP 03/23/20 07:51 84 03/23/20 06:00 20 03/23/20 04:00 101.5 F H 03/23/20 03:54 88 99/34 L 03/23/20 02:00 20 03/23/20 00:00 101.2 F H 03/22/20 23:18 91 03/22/20 22:00 20 Weight Admit Weight 212 lb Weight 212 lb 11.937 oz Most Recent Monitor Data Heart Rate from ECG 83 NIBP 105/53 NIBP BP-Mean 70 Respiration from ECG 20 SpO2 94 I&O: 03/22/20 03/23/20 03/24/20 06:59 06:59 06:59 Intake Total 1338 1151 Output Total 205 350 Balance 1133 801 Result Diagrams: 03/23/20 04:02 03/23/20 04:02 Additional Labs: Accuchecks 03/23/20 03/22/20 03/22/20 06:09 23:33 18:35 POC Glucose 243 H 233 H 252 H 03/22/20 03/21/20 03/21/20 11:12 10:16 10:07 POC Glucose 141 H 113 H 167 H 03/21/20 04:27 POC Glucose 146 H Hospitalist ROS - Review of Systems ROS unobtainable: due to endotracheal tube - Medication Medications: Active Medications Generic Name Dose Route Start Last Admin Trade Name Freq PRN Reason Stop Dose Admin Acetaminophen 650 mg 03/20/20 01:14 03/23/20 04:30 Acetaminophen 650 Mg/20.3 Ml Udcup PO 650 mg Q4H PRN Administration Fever>101/(Mi/Mod/Sev) Pain Ascorbic Acid 1,000 mg 03/20/20 09:00 03/22/20 08:15 Ascorbic Acid 500 Mg Chewable Tablet PER TUBE 1,000 mg DAILY NICOLASA Administration Heparin Sodium (Porcine) 5,000 units 03/19/20 21:00 03/22/20 20:59 Heparin 5,000 Units/Ml Vial SC 5,000 units BID NICOLASA Administration Levofloxacin 500 mg/ Device 100 mls @ 100 mls/hr 03/21/20 21:00 03/21/20 22:23 IVPB 100 mls Q2D NICOLASA Administration Norepinephrine Bitartrate 250 mls @ 0 mls/hr 03/19/20 20:35 03/22/20 20:59 Levophed IVPB 250 mls INF NICOLASA Administration Protocol Titrate Azithromycin 500 mg/ Sodium 250 mls @ 250 mls/hr 03/20/20 21:00 03/22/20 20:59 Chloride IVPB 250 mls 2100 NICOLASA Administration Amiodarone HCl 450 mg/ 259 mls @ 0 mls/hr 03/19/20 21:15 03/22/20 18:25 Dextrose/Water IVPB 259 mls INF NICOLASA Administration Protocol Per Protocol Dexamethasone 10 mg/ Sodium 51 mls @ 100 mls/hr 03/20/20 09:00 03/22/20 10:26 Chloride IVPB 51 mls DAILY NICOLASA Administration Fentanyl Citrate 2,000 mcg/ 100 mls @ 0 mls/hr 03/20/20 00:15 03/23/20 03:55 Sodium Chloride IV 04/19/20 00:15 100 mls INF NICOLASA Administration Protocol Per Protocol Cefepime HCl 0.5 gm/ 100 mls @ 200 mls/hr 03/20/20 17:00 03/22/20 18:25 Miscellaneous Medication 1 IVPB 100 mls each/ Sodium Chloride 1700 NICOLASA Administration Insulin Human Lispro 0 units 03/19/20 20:35 03/23/20 06:17 Humalog 300 Units/3 Ml Vial SC 3 unit .MILD SLIDING SCALE PRN Administration Mild Correctional Scale Pantoprazole Sodium 40 mg 03/20/20 09:00 03/22/20 08:16 Pantoprazole 40 Mg Vial IVP 40 mg DAILY NICOLASA Administration Zinc Sulfate 220 mg 03/20/20 09:00 03/22/20 08:15 Zinc Sulfate 220 Mg Cap PER TUBE 220 mg DAILY NICOLASA Administration - Exam General - other findings: sedated on vent, opens eyes some ENT: moist mucosa Heart: RRR, no murmur, no gallops, no rubs Respiratory: CTAB, no wheezes, no rales, no ronchi Gastrointestinal: soft, non-tender, non-distended, normal bowel sounds Extremities - other findings: lower extremities absent Psychiatric - other findings: opens eyes, not following commands for me Hosp A/P (1) Cardiac arrest Code(s): I46.9 - CARDIAC ARREST, CAUSE UNSPECIFIED Status: Acute (2) Acute respiratory failure with hypoxia and hypercapnia Code(s): J96.01 - ACUTE RESPIRATORY FAILURE WITH HYPOXIA; J96.02 - ACUTE RESPIRATORY FAILURE WITH HYPERCAPNIA Status: Acute (3) Pneumonia due to COVID-19 virus Code(s): U07.1 - COVID-19; J12.89 - OTHER VIRAL PNEUMONIA Status: Acute (4) Severe sepsis with septic shock Code(s): A41.9 - SEPSIS, UNSPECIFIED ORGANISM; R65.21 - SEVERE SEPSIS WITH SEPTIC SHOCK Status: Acute (5) UTI (urinary tract infection) Status: Ruled-out (6) Metabolic encephalopathy Code(s): G93.41 - METABOLIC ENCEPHALOPATHY Status: Acute (7) End stage renal disease on dialysis Code(s): N18.6 - END STAGE RENAL DISEASE; Z99.2 - DEPENDENCE ON RENAL DIALYSIS Status: Chronic - Plan continue antibiotics, social service agency director, respiratory therapy Consults: Palliative Care- spoke with VASQUEZ patient's mother Patient declining overnight with decreased sats on full ventilatory support, doing better now Continue aggressive critical care Continue Amiodarone gtt Continue Levophed for pressor support Continue Cefepime/Levaquin/Zithromax Not a candidate for Remdesivir due to ESRD Prognosis grave, unlikely to recover
[2020-03-23] MEDS: Dexamethasone 10 MG in Sodium Chloride 0.9% 50 ML IVPB SCH (09:46)
[2020-03-23] MEDS: Pantoprazole 40 MG VIAL IVP SCH (09:46)
[2020-03-23] MEDS: Zinc Sulfate 220 MG CAP PER TUBE SCH (09:47)
[2020-03-23] MEDS: Heparin 5,000 UNITS/ML VIAL SC SCH ×2 (09:47→20:40)
[2020-03-23] MEDS: Ascorbic Acid 500 mg Chewable Tablet PER TUBE SCH (09:47)
--- NOTE | 2020-03-23 11:28 | PRG ---
DATE OF SERVICE: 03/23/2020 35 minutes of critical care time. SUBJECTIVE: This patient remains intubated on mechanical ventilation. I believe she does wake up. She is tracking me across the room. I did get her to move her left hand to command. OBJECTIVE: VITAL SIGNS: Temperature is 101.5 with low-grade fever most of the night, pulse 83, blood pressure 105/53, O2 saturation 94%, 24-hour intake 1151, output 350. HEENT: Unremarkable. NECK: No JVD. LUNGS: Coarse breath sounds. CARDIAC: S1 and S2. Regular. ABDOMEN: Soft. EXTREMITIES: . DIAGNOSTIC STUDIES: She has an x-ray, which shows bilateral infiltrates-unchanged from yesterday. LABORATORY DATA: White blood cell count 17.5, hematocrit 30.6, and platelet count 215. D-dimer is 9.9. PH 7.34, pCO2 of 47, pO2 of 46. Sodium 138, potassium 3.6, chloride 98, CO2 of 23, BUN 36, creatinine 3.9, glucose 262. Ferritin 10,653 and C-reactive protein 34. ASSESSMENT: 1. COVID-19 pneumonia. 2. Acute respiratory failure requiring mechanical ventilation. 3. peripheral vascular disease. 4. Acute renal failure with stable potassium and slightly decreased BUN and creatinine. PLAN: 1. Not weanable at this time. 2. Continue steroids, anticoagulation, and other supportive care. Prognosis remains poor. Job ID: [id number]
[2020-03-23] MEDS: Cefepime 0.5 GM, Admixture Fee 1 EACH in Sodium Chloride 0.9% 100 ML IVPB SCH (16:47)
--- NOTE | 2020-03-23 20:04 | PRG ---
DATE OF SERVICE: 03/23/2020 SUBJECTIVE: The patient is seen and examined. Feeling better today with the following vital signs. OBJECTIVE: VITAL SIGNS: Blood pressure 124/74, heart rate of 82, respiratory rate of 20, O2 saturation of 100%. HEENT EXAMINATION: Unremarkable. CARDIOVASCULAR SYSTEM: First and second heart sounds were heard. RESPIRATORY SYSTEM: Clear to auscultation. DIGESTIVE SYSTEM: Revealed a benign abdomen. EXTREMITIES: No peripheral edema. SKIN EXAMINATION: Showed evidence of recent fistula placement with thrill. IMPRESSION: 1. End-stage renal disease, hemodialysis dependent. 2. Anemia of chronic kidney disease. 3. Secondary hyperparathyroidism with hypocalcemia. PLAN: 1. We will begin the coordination of outpatient dialysis placement with the correctional case records supervisor tomorrow. Suspect this patient is going to pose some degree of disposition challenge given the insurance status of this patient. 2. Continue with active vitamin D supplementation. 3. Further management to be dependent on the clinical course. Job ID: [id number]
--- NOTE | 2020-03-23 20:14 | PRG ---
DATE OF SERVICE: 03/23/2020 SUBJECTIVE: The patient is noted with the following vital signs afebrile. OBJECTIVE: VITAL SIGNS: Afebrile, blood pressure 124/74, pulse of 72, respiratory rate of 18, O2 saturation of 100% on life support. HEENT: Remarkable for endotracheal tube in place. CARDIOVASCULAR SYSTEM: First and second heart sounds were heard. EXTREMITIES: No peripheral edema. SKIN: No new gross rash. LYMPHATIC: No peripheral lymphadenopathy. IMPRESSION: 1. End-stage renal disease. 2. Cardiopulmonary failure in the context of COVID infection. PLAN: 1. The patient will continue with COVID-19 supportive measures. 2. Outpatient Nephrology followup status post discharge recommended. Job ID: [id number]
[2020-03-23] MEDS: Azithromycin 500 MG in Sodium Chloride 0.9% 250 ML 250 ML IVPB SCH (20:40)
[2020-03-23] MEDS: Amiodarone 450 MG in Dextrose 5% in Water 250 ML IVPB SCH (23:30)
[2020-03-24] MEDS: HumaLOG 300 UNITS/3 ML VIAL SC PRN ×3 (03:55→23:00)
--- NOTE | 2020-03-24 08:09 | PDOC.HOSPP ---
- Subjective Encounter Date: 03/24/20 Encounter Time: 10:00 Subjective: Patient remains sedated on the vent. Is opening her eyes and tracking around the room. - Objective Vital Signs & Weight: Vital Signs (12 hours) Temp Pulse Resp BP Pulse Ox 03/24/20 07:00 100.1 F H 03/24/20 06:00 20 03/24/20 04:00 100.2 F H 03/24/20 02:46 73 113/55 L 03/24/20 02:00 20 03/24/20 00:00 100.2 F H 03/23/20 23:50 71 03/23/20 22:00 20 03/23/20 20:30 90 L Weight Admit Weight 212 lb Weight 212 lb 11.937 oz Most Recent Monitor Data Heart Rate from ECG 74 NIBP 101/77 NIBP BP-Mean 85 Respiration from ECG 19 SpO2 92 I&O: 03/23/20 03/24/20 03/25/20 06:59 06:59 06:59 Intake Total 1151 1652.8 Output Total 350 525 Balance 801 1127.8 Result Diagrams: 03/23/20 04:02 03/23/20 04:02 Additional Labs: Accuchecks 03/24/20 03/23/20 03/23/20 03:46 23:40 15:31 POC Glucose 223 H 257 H 228 H Hospitalist ROS - Review of Systems ROS unobtainable: due to endotracheal tube - Medication Medications: Active Medications Generic Name Dose Route Start Last Admin Trade Name Freq PRN Reason Stop Dose Admin Acetaminophen 650 mg 03/20/20 01:14 03/23/20 09:49 Acetaminophen 650 Mg/20.3 Ml Udcup PO 650 mg Q4H PRN Administration Fever>101/(Mi/Mod/Sev) Pain Ascorbic Acid 1,000 mg 03/20/20 09:00 03/23/20 09:47 Ascorbic Acid 500 Mg Chewable Tablet PER TUBE 1,000 mg DAILY NICOLASA Administration Heparin Sodium (Porcine) 5,000 units 03/19/20 21:00 03/23/20 20:40 Heparin 5,000 Units/Ml Vial SC 5,000 units BID NICOLASA Administration Levofloxacin 500 mg/ Device 100 mls @ 100 mls/hr 03/21/20 21:00 03/23/20 20:40 IVPB 100 mls Q2D NICOLASA Administration Norepinephrine Bitartrate 250 mls @ 0 mls/hr 03/19/20 20:35 03/22/20 20:59 Levophed IVPB 250 mls INF NICOLASA Administration Protocol Titrate Azithromycin 500 mg/ Sodium 250 mls @ 250 mls/hr 03/20/20 21:00 03/23/20 20:40 Chloride IVPB 250 mls 2100 NICOLASA Administration Amiodarone HCl 450 mg/ 259 mls @ 0 mls/hr 03/19/20 21:15 03/23/20 23:30 Dextrose/Water IVPB 259 mls INF NICOLASA Administration Protocol Per Protocol Dexamethasone 10 mg/ Sodium 51 mls @ 100 mls/hr 03/20/20 09:00 03/23/20 09:46 Chloride IVPB 51 mls DAILY NICOLASA Administration Fentanyl Citrate 2,000 mcg/ 100 mls @ 0 mls/hr 03/20/20 00:15 03/23/20 23:13 Sodium Chloride IV 04/19/20 00:15 100 mls INF NICOLASA Administration Protocol Per Protocol Cefepime HCl 0.5 gm/ 100 mls @ 200 mls/hr 03/20/20 17:00 03/23/20 16:47 Miscellaneous Medication 1 IVPB 100 mls each/ Sodium Chloride 1700 NICOLASA Administration Insulin Human Lispro 0 units 03/19/20 20:35 03/24/20 03:55 Humalog 300 Units/3 Ml Vial SC 3 unit .MILD SLIDING SCALE PRN Administration Mild Correctional Scale Pantoprazole Sodium 40 mg 03/20/20 09:00 03/23/20 09:46 Pantoprazole 40 Mg Vial IVP 40 mg DAILY NICOLASA Administration Zinc Sulfate 220 mg 03/20/20 09:00 03/23/20 09:47 Zinc Sulfate 220 Mg Cap PER TUBE 220 mg DAILY NICOLASA Administration - Exam General - other findings: sedated, arousable on the vent ENT: moist mucosa Heart: RRR, no murmur, no gallops, no rubs Respiratory - other findings: coarse breath sounds worse on the right than the left Gastrointestinal: soft, non-tender, non-distended, normal bowel sounds Psychiatric - other findings: sedated on the vent Hosp A/P (1) Cardiac arrest Code(s): I46.9 - CARDIAC ARREST, CAUSE UNSPECIFIED Status: Acute (2) Acute respiratory failure with hypoxia and hypercapnia Code(s): J96.01 - ACUTE RESPIRATORY FAILURE WITH HYPOXIA; J96.02 - ACUTE RESPIRATORY FAILURE WITH HYPERCAPNIA Status: Acute (3) Pneumonia due to COVID-19 virus Code(s): U07.1 - COVID-19; J12.89 - OTHER VIRAL PNEUMONIA Status: Acute (4) Severe sepsis with septic shock Code(s): A41.9 - SEPSIS, UNSPECIFIED ORGANISM; R65.21 - SEVERE SEPSIS WITH SE PTIC SHOCK Status: Acute (5) UTI (urinary tract infection) Status: Ruled-out (6) Metabolic encephalopathy Code(s): G93.41 - METABOLIC ENCEPHALOPATHY Status: Acute (7) End stage renal disease on dialysis Code(s): N18.6 - END STAGE RENAL DISEASE; Z99.2 - DEPENDENCE ON RENAL DIALYSIS Status: Chronic - Plan continue antibiotics, neonatal social worker, respiratory therapy Consults: Palliative Care- spoke with [facility] [place] patient's mother Patient still requiring full ventilatory support Continue aggressive critical care Continue Amiodarone gtt Continue Levophed for pressor support Continue Cefepime/Levaquin/Zithromax Not a candidate for Remdesivir due to ESRD Prognosis grave, unlikely to recover
[2020-03-24] MEDS: Pantoprazole 40 MG VIAL IVP SCH (09:03)
[2020-03-24] MEDS: Zinc Sulfate 220 MG CAP PER TUBE SCH (09:03)
[2020-03-24] MEDS: Heparin 5,000 UNITS/ML VIAL SC SCH ×2 (09:03→20:58)
[2020-03-24] MEDS: Ascorbic Acid 500 mg Chewable Tablet PER TUBE SCH (09:03)
[2020-03-24] MEDS: Dexamethasone 10 MG in Sodium Chloride 0.9% 50 ML IVPB SCH (09:04)
[2020-03-24] MEDS ORDERED: Heparin 10,000 UNITS/ 10 ML VIAL ONE (10:05)
--- NOTE | 2020-03-24 15:12 | PRG ---
DATE OF SERVICE: 03/24/2020 SUBJECTIVE: Razia Menjivar remains mechanically ventilated. Hemodynamics are stable. OBJECTIVE: LUNGS: Unchanged. HEART: Unchanged. ABDOMEN: Unchanged. LABORATORY DATA: Glucose has been between 146 and 257. Blood gas yesterday showed pH of 7.34, CO2 of 47, pO2 of 46 on 100% oxygen. IMPRESSION: COVID pneumonia. She has extremely poor prognosis for surviving this given her multiple medical problems. We will continue supportive care. Job ID: [id number]
[2020-03-24] MEDS: fentaNYL Citrate/PF 2,000 MCG in Sodium Chloride 0.9% 60 ML IV SCH (15:23)
[2020-03-24] MEDS: Cefepime 0.5 GM, Admixture Fee 1 EACH in Sodium Chloride 0.9% 100 ML IVPB SCH (16:38)
--- NOTE | 2020-03-24 18:45 | PRG ---
DATE OF SERVICE: 03/24/2020 SUBJECTIVE: The patient is still on life support. Noted with the following vital signs. OBJECTIVE: VITAL SIGNS: Blood pressure 101/50, heart rate of 86, HEENT: Remarkable for endotracheal tube in place. CARDIOVASCULAR SYSTEM: First and second heart sounds were heard. RESPIRATORY SYSTEM: Revealed vented sounds. DIGESTIVE SYSTEM: Revealed an obese abdomen. EXTREMITIES: Upper extremities, no peripheral edema. IMPRESSION: 1. End-stage renal disease, on hemodialysis. 2. COVID pneumonitis. 3. Respiratory failure in the context of problem #2. PLAN: The patient to be dialyzed today, and we will continue to monitor on daily basis for continued need for dialysis. Job ID: [id number]
[2020-03-24] MEDS: Mometasone 200 MCG/Formoterol 5 MCG 120 PUFF INHALER INH SCH (19:05)
[2020-03-24] MEDS: PROVENTIL INHALER 6.7 G (200 INHALATIONS) INH SCH (19:06)
[2020-03-24] MEDS: Azithromycin 500 MG in Sodium Chloride 0.9% 250 ML 250 ML IVPB SCH (20:58)
--- NOTE | 2020-03-24 22:00 | RAD ---
PORTABLE CHEST: Indications: Assess ET tube placement. Comparison: 03-23-2020 FINDINGS: ET tube has tip above the gil. NG tube is in place. Both lungs show diffuse bilateral alveolar infiltrates. Not significantly changed in appearance. POS: AGW
[2020-03-25] MEDS: PROVENTIL INHALER 6.7 G (200 INHALATIONS) INH SCH ×4 (00:22→18:59)
[2020-03-25] MEDS: Amiodarone 450 MG in Dextrose 5% in Water 250 ML IVPB SCH ×2 (05:40→20:01)
[2020-03-25] MEDS: HumaLOG 300 UNITS/3 ML VIAL SC PRN ×4 (06:16→22:45)
[2020-03-25] MEDS: Mometasone 200 MCG/Formoterol 5 MCG 120 PUFF INHALER INH SCH ×2 (08:01→18:59)
--- NOTE | 2020-03-25 08:14 | PDOC.HOSPP ---
- Subjective Encounter Date: 03/25/20 Encounter Time: 10:30 Subjective: Patient unchanged on the vent. No longer on pressors. - Objective Vital Signs & Weight: Vital Signs (12 hours) Temp Pulse Resp BP 03/25/20 08:02 73 111/45 L 03/25/20 06:00 26 H 03/25/20 04:00 99.1 F 23 H 03/25/20 02:49 70 03/25/20 02:00 24 H 03/25/20 00:26 75 138/90 03/25/20 00:00 99.5 F 20 03/24/20 22:00 26 H Weight Admit Weight 212 lb Weight 212 lb 11.937 oz Most Recent Monitor Data Heart Rate from ECG 73 NIBP 99/59 NIBP BP-Mean 72 Respiration from ECG 20 SpO2 89 I&O: 03/24/20 03/25/20 03/26/20 06:59 06:59 06:59 Intake Total 1652.8 1480 Output Total 525 100 Balance 1127.8 1380 Result Diagrams: 03/23/20 04:02 03/23/20 04:02 Additional Labs: Accuchecks 03/24/20 03/24/20 03/24/20 21:20 15:20 15:20 POC Glucose 285 H 300 H 300 H 03/24/20 03/23/20 03/20/20 11:10 12:23 10:28 POC Glucose 146 H 203 H 151 H Hospitalist ROS - Review of Systems ROS unobtainable: due to endotracheal tube - Medication Medications: Active Medications Generic Name Dose Route Start Last Admin Trade Name Freq PRN Reason Stop Dose Admin Acetaminophen 650 mg 03/20/20 01:14 03/23/20 09:49 Acetaminophen 650 Mg/20.3 Ml Udcup PO 650 mg Q4H PRN Administration Fever>101/(Mi/Mod/Sev) Pain Albuterol Sulfate 4 puff 03/24/20 19:00 03/25/20 08:01 Proventil Inhaler 6.7 G (200 Inhalations) INH 4 puff [id number] NICOLASA Administration Ascorbic Acid 1,000 mg 03/20/20 09:00 03/24/20 09:03 Ascorbic Acid 500 Mg Chewable Tablet PER TUBE 1,000 mg DAILY NICOLASA Administration Heparin Sodium (Porcine) 5,000 units 03/19/20 21:00 03/24/20 20:58 Heparin 5,000 Units/Ml Vial SC 5,000 units BID NICOLASA Administration Levofloxacin 500 mg/ Device 100 mls @ 100 mls/hr 03/21/20 21:00 03/23/20 20:40 IVPB 100 mls Q2D NICOLASA Administration Norepinephrine Bitartrate 250 mls @ 0 mls/hr 03/19/20 20:35 03/22/20 20:59 Levophed IVPB 250 mls INF NICOLASA Administration Protocol Titrate Azithromycin 500 mg/ Sodium 250 mls @ 250 mls/hr 03/20/20 21:00 03/24/20 20:58 Chloride IVPB 250 mls 2100 NICOLASA Administration Amiodarone HCl 450 mg/ 259 mls @ 0 mls/hr 03/19/20 21:15 03/25/20 05:40 Dextrose/Water IVPB 259 mls INF NICOLASA Administration Protocol Per Protocol Dexamethasone 10 mg/ Sodium 51 mls @ 100 mls/hr 03/20/20 09:00 03/24/20 09:04 Chloride IVPB 51 mls DAILY NICOLASA Administration Fentanyl Citrate 2,000 mcg/ 100 mls @ 0 mls/hr 03/20/20 00:15 03/24/20 15:23 Sodium Chloride IV 04/19/20 00:15 100 mls INF NICOLASA Administration Protocol Per Protocol Cefepime HCl 0.5 gm/ 100 mls @ 200 mls/hr 03/20/20 17:00 03/24/20 16:38 Miscellaneous Medication 1 IVPB 100 mls each/ Sodium Chloride 1700 NICOLASA Administration Insulin Human Lispro 0 units 03/19/20 20:35 03/25/20 06:16 Humalog 300 Units/3 Ml Vial SC 3 unit .MILD SLIDING SCALE PRN Administration Mild Correctional Scale Mometasone Furoate/Formoterol Fumar 2 puff 03/24/20 18:30 03/25/20 08:01 Mometasone 200 Mcg/Formoterol 5 Mcg 120 Puff Inhaler INH 2 puff BID-RT NICOLASA Administration Pantoprazole Sodium 40 mg 03/20/20 09:00 03/24/20 09:03 Pantoprazole 40 Mg Vial IVP 40 mg DAILY NICOLASA Administration Zinc Sulfate 220 mg 03/20/20 09:00 03/24/20 09:03 Zinc Sulfate 220 Mg Cap PER TUBE 220 mg DAILY NICOLASA Administration - Exam General - other findings: sedated on vent, opens eyes and looks around ENT: moist mucosa Heart: RRR, no murmur, no gallops, no rubs Respiratory: no wheezes, no ronchi Respiratory - other findings: coarse breath sounds bilaterally Gastrointestinal: soft, non-tender, non-distended, normal bowel sounds Neurological - other findings: moving both arms some Psychiatric - other findings: sedated on vent Hosp A/P (1) Cardiac arrest Code(s): I46.9 - CARDIAC ARREST, CAUSE UNSPECIFIED Status: Acute (2) Acute respiratory failure with hypoxia and hypercapnia Code(s): J96.01 - ACUTE RESPIRATORY FAILURE WITH HYPOXIA; J96.02 - ACUTE RESPIRATORY FAILURE WITH HYPERCAPNIA Status: Acute (3) Pneumonia due to COVID-19 virus Code(s): U07.1 - COVID-19; J12.89 - OTHER VIRAL PNEUMONIA Status: Acute (4) Severe sepsis with septic shock Code(s): A41.9 - SEPSIS, UNSPECIFIED ORGANISM; R65.21 - SEVERE SEPSIS WITH SEPTIC SHOCK Status: Acute (5) UTI (urinary tract infection) Status: Ruled-out (6) Metabolic encephalopathy Code(s): G93.41 - METABOLIC ENCEPHALOPATHY Status: Acute (7) End stage renal disease on dialysis Code(s): N18.6 - END STAGE RENAL DISEASE; Z99.2 - DEPENDENCE ON RENAL DIALYSIS Status: Chronic - Plan continue antibiotics, licensed clinical social worker, respiratory therapy Consults: Palliative Care- [facility] [place] Patient still requiring full ventilatory support, off pressors Continue aggressive critical care Continue Amiodarone gtt Continue Cefepime/Levaquin/Zithromax Not a candidate for Remdesivir due to ESRD Prognosis grave, unlikely to recover
[2020-03-25] MEDS ORDERED: Heparin 10,000 UNITS/ 10 ML VIAL ONE (09:35)
[2020-03-25] MEDS: Heparin 5,000 UNITS/ML VIAL SC SCH ×2 (10:05→20:01)
[2020-03-25] MEDS: Zinc Sulfate 220 MG CAP PER TUBE SCH (10:05)
[2020-03-25] MEDS: Dexamethasone 10 MG in Sodium Chloride 0.9% 50 ML IVPB SCH (10:06)
[2020-03-25] MEDS: Pantoprazole 40 MG VIAL IVP SCH (10:06)
[2020-03-25] MEDS: Ascorbic Acid 500 mg Chewable Tablet PER TUBE SCH (10:18)
[2020-03-25] MEDS: fentaNYL Citrate/PF 2,000 MCG in Sodium Chloride 0.9% 60 ML IV SCH ×2 (10:23→23:04)
[2020-03-25] MEDS: Cefepime 0.5 GM, Admixture Fee 1 EACH in Sodium Chloride 0.9% 100 ML IVPB SCH ×2 (17:00→18:27)
--- NOTE | 2020-03-25 19:32 | PRG ---
DATE OF SERVICE: 03/25/2020 SUBJECTIVE: Ms. Menjivar remains mechanically ventilated on high-flow oxygen. Her FiO2 is 100%. OBJECTIVE: VITAL SIGNS: Blood pressure 115/79, heart rate is in 80s. LUNGS: Unchanged. HEART: Unchanged. ABDOMEN: Unchanged. LABORATORY DATA: White count is at 17.5 two days ago. We will get labs tomorrow. IMPRESSION: 1. COVID pneumonia. 2. Bedridden. 3. Bilateral amputee. PROGNOSIS: Close to zero for survival given her inability to ambulate and exercise to recover from this. Family apparently still wants everything done. Job ID: [id number]
[2020-03-25] MEDS: Azithromycin 500 MG in Sodium Chloride 0.9% 250 ML 250 ML IVPB SCH (20:01)
--- NOTE | 2020-03-25 21:46 | PRG ---
DATE OF SERVICE: 03/25/2020 SUBJECTIVE: The patient is still on life support with following vital signs. OBJECTIVE: VITAL SIGNS: Blood pressure 115/59, heart rate of 70, O2 saturation 98%. HEENT: Remarkable for endotracheal tube in place. CARDIOVASCULAR SYSTEM: First and second heart sounds were heard. RESPIRATORY SYSTEM: Reveals vented sounds. DIGESTIVE SYSTEM: Reveals an obese abdomen. IMPRESSION: 1. End-stage renal disease, on hemodialysis. 2. Cardiopulmonary failure in the context of . 3. COVID pneumonitis. PLAN: 1. Patient's dialysis today will every other day, Tuesday, Tuesday, Tuesday with ultrafiltration only on Tuesday's and 's. 2. Further management to be dependent on the clinical course. Condition of patient still remains critical. Job ID: [id number]
[2020-03-26] MEDS: PROVENTIL INHALER 6.7 G (200 INHALATIONS) INH SCH ×4 (01:56→18:27)
[2020-03-26 05:24] LABS: Anion Gap 20 mmol/L (10-20); BUN (Urea Nitrogen) 63 mg/dL (7.0-18.7); Calc. Creatinine Clearance 26 mL/min (70-130); Calcium 9.5 mg/dL (7.8-10.44); Carbon Dioxide 21 mmol/L (22-29); Chloride 97 mmol/L (98-107); Estimated GFR-MDRD 13; Glucose 296 mg/dL (70-105); Potassium 3.9 mmol/L (3.5-5.1); Sodium 134 mmol/L (136-145)
[2020-03-26 05:30] LABS: Band 13 % (5-11); Hemoglobin 7.7 g/dL (12.0-16.0); Hypochromia SLIGHT = 6-15 cells (100X) (0-5/hpf); Lymphocytes 6 % (21-51); MDiff Complete? YES; Mean Corpuscular HGB CONC 31.4 g/dL (32.0-36.0); Mean Corpuscular Hemoglobin 28.1 pg (27.0-31.0); Mean Corpuscular Volume 89.7 fL (78.0-98.0); Mean Platelet Volume 11.1 fL (7.4-10.4); Monocytes 6 % (0-10); Neutrophil 75 % (42-75); Platelet Count 247 thou/uL (130-400); RBC Distribution Width 17.2 % (11.5-14.5); Red Blood Cell (RBC) Count 2.73 mill/uL (4.20-5.40); Target Cells SLIGHT = 2-5 cells (100X) (0-1/hpf); White Blood Cell (WBC) Count 16.8 thou/uL (4.8-10.8)
[2020-03-26] MEDS: HumaLOG 300 UNITS/3 ML VIAL SC PRN ×3 (06:46→23:38)
[2020-03-26] MEDS: Mometasone 200 MCG/Formoterol 5 MCG 120 PUFF INHALER INH SCH ×2 (07:32→18:27)
--- NOTE | 2020-03-26 08:02 | RAD ---
Portable frontal chest radiograph: 03/26/2020 COMPARISON: 03/24/2020 HISTORY: Pneumonia, intubated patient FINDINGS: Body habitus and portable technique limits detailed assessment. Stable endotracheal tube, n asogastric tube, right-sided dialysis catheter, and left-sided vascular catheter. Stable prominence of the cardiac silhouette. Extensive interstitial and alveolar opacity noted bilaterally with small bilateral pleural effusions suspected, not significantly changed. IMPRESSION: No significant interval change.
[2020-03-26] MEDS ORDERED: Heparin 10,000 UNITS/ 10 ML VIAL ONE (08:57)
[2020-03-26] MEDS: Heparin 5,000 UNITS/ML VIAL SC SCH ×2 (09:32→20:24)
[2020-03-26] MEDS: Ascorbic Acid 500 mg Chewable Tablet PER TUBE SCH (09:32)
[2020-03-26] MEDS: Zinc Sulfate 220 MG CAP PER TUBE SCH (09:32)
[2020-03-26] MEDS: Pantoprazole 40 MG VIAL IVP SCH (09:33)
[2020-03-26] MEDS: Dexamethasone 10 MG in Sodium Chloride 0.9% 50 ML IVPB SCH (09:35)
--- NOTE | 2020-03-26 16:44 | PRG ---
DATE OF SERVICE: 03/26/2020 SUBJECTIVE: Razia Menjivar was dialyzed today. OBJECTIVE: VITAL SIGNS: Blood pressure 118/51, heart rate 72, respiratory rate per mechanical ventilation, oximetry is in the mid 90s. FiO2 was turned down to 90%. LUNGS: Unchanged. HEART: Unchanged. ABDOMEN: Unchanged. LABORATORY DATA: White count 16.8, hemoglobin 7.7, and platelets 247. Sodium 134, potassium 3.9, chloride 97, bicarb 21, BUN 63, and creatinine 4.6. IMPRESSION: 1. Double amputee. 2. COVID pneumonia. 3. End-stage renal disease. 4. Diabetes. PLAN: Continue supportive care. Prognosis is quite guarded. Job ID: [id number]
[2020-03-26] MEDS: Cefepime 0.5 GM, Admixture Fee 1 EACH in Sodium Chloride 0.9% 100 ML IVPB SCH (17:04)
--- NOTE | 2020-03-26 17:09 | PDOC.HOSPP ---
- Subjective Encounter Date: 03/26/20 Encounter Time: 17:00 Subjective: f/u for COVID PNA/Resp failure/s/p cardiac arrest/ESRD [facility]. - Objective Vital Signs & Weight: Vital Signs (12 hours) Temp Pulse Resp BP Pulse Ox 03/26/20 16:00 98.5 F 20 03/26/20 15:23 72 118/51 L 03/26/20 14:00 20 03/26/20 13:00 98.7 F 03/26/20 12:57 70 115/51 L 03/26/20 12:00 20 03/26/20 10:15 80 03/26/20 10:00 98.6 F 20 03/26/20 08:00 98.7 F 20 95 03/26/20 07:33 69 113/67 03/26/20 06:00 20 Weight Admit Weight 212 lb Weight 212 lb 11.937 oz Most Recent Monitor Data Heart Rate from ECG 77 NIBP 122/57 NIBP BP-Mean 78 Respiration from ECG 10 SpO2 93 I&O: 03/25/20 03/26/20 03/27/20 06:59 06:59 06:59 Intake Total 1480 2056.5 240 Output Total 100 80 0 Balance 1380 1976.5 240 Result Diagrams: 03/26/20 04:20 03/26/20 04:20 Additional Labs: Accuchecks 03/26/20 03/25/20 03/25/20 09:59 18:38 05:47 POC Glucose 185 H 264 H 213 H Microbiology 03/19/20 10:49 Urine voided Urine Culture - Preliminary Gram Negative Jackson Presumptive Pseudomonas 03/19/20 10:47 Venous blood - Right Hand Blood Culture - Preliminary Specimen has been received and culture in progress. No Growth to date. 03/19/20 10:47 Venous blood - Right Arm Blood Culture - Preliminary Specimen has been received and culture in progress. No Growth to date. Laboratory Tests 03/19/20 03/19/20 03/19/20 11:12 11:12 13:53 WBC 6.3 Hgb 9.0 L Band Neuts % (Manual) D-Dimer Bicarbonate Actual ABG pH ABG pCO2 ABG pO2 ABG O2 Sat (Measured) Potassium 5.6 H Lactic Acid Phosphorus Magnesium Ferritin AST 32 ALT 34 C-Reactive Protein Procalcitonin SARS-CoV-2 Rap RNA(RT-PCR) DETECTED A* 03/19/20 03/19/20 03/19/20 20:46 20:46 20:46 WBC Hgb Band Neuts % (Manual) D-Dimer Bicarbonate Actual ABG pH ABG pCO2 ABG pO2 ABG O2 Sat (Measured) Potassium Lactic Acid 1.1 Phosphorus 8.8 H Magnesium 1.6 Ferritin AST ALT C-Reactive Protein Procalcitonin 1.87 SARS-CoV-2 Rap RNA(RT-PCR) 03/20/20 03/20/20 03/20/20 04:15 04:15 11:00 WBC Hgb Band Neuts % (Manual) 51 H D-Dimer Bicarbonate Actual 14.4 L ABG pH 7.25 L* ABG pCO2 33.3 L ABG pO2 59.8 L* ABG O2 Sat (Measured) 87.7 L Potassium Lactic Acid Phosphorus Magnesium Ferritin AST 77 H ALT 80 H C-Reactive Protein Procalcitonin SARS-CoV-2 Rap RNA(RT-PCR) 03/22/20 03/22/20 03/22/20 03:43 03:43 03:43 WBC 20.7 H Hgb 9.6 L Band Neuts % (Manual) 36 H D-Dimer Bicarbonate Actual ABG pH ABG pCO2 ABG pO2 ABG O2 Sat (Measured) Potassium Lactic Acid Phosphorus Magnesium Ferritin 8484.27 H AST ALT C-Reactive Protein 50.02 H Procalcitonin SARS-CoV-2 Rap RNA(RT-PCR) 03/22/20 03/23/20 03/23/20 03:43 04:02 04:02 WBC 17.5 H Hgb 9.6 L Band Neuts % (Manual) D-Dimer 14.77 H Bicarbonate Actual ABG pH ABG pCO2 ABG pO2 ABG O2 Sat (Measured) Potassium Lactic Acid Phosphorus Magnesium Ferritin AST ALT C-Reactive Protein 34.61 H Procalcitonin SARS-CoV-2 Rap RNA(RT-PCR) 03/23/20 03/23/20 03/24/20 04:02 04:02 03:27 WBC Hgb Band Neuts % (Manual) D-Dimer 9.98 H Bicarbonate Actual ABG pH ABG pCO2 ABG pO2 ABG O2 Sat (Measured) Potassium Lactic Acid Phosphorus Magnesium Ferritin 70551.38 H AST ALT C-Reactive Protein 20.02 H Procalcitonin SARS-CoV-2 Rap RNA(RT-PCR) 03/24/20 03/24/20 03/26/20 03:27 03:27 04:20 WBC Hgb Band Neuts % (Manual) 13 H D-Dimer 7.27 H Bicarbonate Actual ABG pH ABG pCO2 ABG pO2 ABG O2 Sat (Measured) Potassium Lactic Acid Phosphorus Magnesium Ferritin 21366.65 H AST ALT C-Reactive Protein Procalcitonin SARS-CoV-2 Rap RNA(RT-PCR) Radiology Reviewed by me: Yes (PCXR - diffuse bilat infiltrates, lines/tubes in place) EKG Reviewed by me: Yes (Tele - SR) Hospitalist ROS - Medication Medications: Active Medications Generic Name Dose Route Start Last Admin Trade Name Freq PRN Reason Stop Dose Admin Acetaminophen 650 mg 03/20/20 01:14 03/23/20 09:49 Acetaminophen 650 Mg/20.3 Ml Udcup PO 650 mg Q4H PRN Administration Fever>101/(Mi/Mod/Sev) Pain Albuterol Sulfate 4 puff 03/24/20 19:00 03/26/20 12:56 Proventil Inhaler 6.7 G (200 Inhalations) INH 4 puff [id number] NICOLASA Administration Ascorbic Acid 1,000 mg 03/20/20 09:00 03/26/20 09:32 Ascorbic Acid 500 Mg Chewable Tablet PER TUBE 1,000 mg DAILY NICOLASA Administration Heparin Sodium (Porcine) 5,000 units 03/19/20 21:00 03/26/20 09:32 Heparin 5,000 Units/Ml Vial SC 5,000 units BID NICOLASA Administration Levofloxacin 500 mg/ Device 100 mls @ 100 mls/hr 03/21/20 21:00 03/25/20 20:00 IVPB 03/27/20 21:59 100 mls Q2D NICOLASA Administration Norepinephrine Bitartrate 250 mls @ 0 mls/hr 03/19/20 20:35 03/22/20 20:59 Levophed IVPB 250 mls INF NICOLASA Administration Protocol Titrate Azithromycin 500 mg/ Sodium 250 mls @ 250 mls/hr 03/20/20 21:00 03/25/20 20:01 Chloride IVPB 03/26/20 23:59 250 mls 2100 NICOLASA Administration Amiodarone HCl 450 mg/ 259 mls @ 0 mls/hr 03/19/20 21:15 03/25/20 20:01 Dextrose/Water IVPB 259 mls INF NICOLASA Administration Protocol Per Protocol Dexamethasone 10 mg/ Sodium 51 mls @ 100 mls/hr 03/20/20 09:00 03/26/20 09:35 Chloride IVPB 51 mls DAILY NICOLASA Administration Fentanyl Citrate 2,000 mcg/ 100 mls @ 0 mls/hr 03/20/20 00:15 03/25/20 23:04 Sodium Chloride IV 04/19/20 00:15 100 mls INF NICOLASA Administration Protocol Per Protocol Cefepime HCl 0.5 gm/ 100 mls @ 200 mls/hr 03/20/20 17:00 03/26/20 17:04 Miscellaneous Medication 1 IVPB 03/26/20 21:00 100 mls each/ Sodium Chloride 1700 NICOLASA Administration Insulin Human Lispro 0 units 03/19/20 20:35 03/26/20 16:32 Humalog 300 Units/3 Ml Vial SC 2 unit .MILD SLIDING SCALE PRN Administration Mild Correctional Scale Mometasone Furoate/Formoterol Fumar 2 puff 03/24/20 18:30 03/26/20 07:32 Mometasone 200 Mcg/Formoterol 5 Mcg 120 Puff Inhaler INH 2 puff BID-RT NICOLASA Administration Pantoprazole Sodium 40 mg 03/20/20 09:00 03/26/20 09:33 Pantoprazole 40 Mg Vial IVP 40 mg DAILY NICOLASA Administration Zinc Sulfate 220 mg 03/20/20 09:00 03/26/20 09:32 Zinc Sulfate 220 Mg Cap PER TUBE 220 mg DAILY NICOLASA Administration - Exam General Appearance: awake alert General - other findings: tracks with eyes, turns head, moves arms spontaneously Eye: PERRL, anicteric sclera ENT: normocephalic atraumatic, no oropharyngeal lesions ENT - other findings: ETT/OGT in place Neck: supple, symmetric, no JVD, no thyromegaly Heart: RRR, no gallops, no rubs, normal peripheral pulses Heart - other findings: S1, S2 Respiratory: normal chest expansion Respiratory - other findings: coarse sounds bilat, diminished in bases Gastrointestinal: soft, non-tender, non-distended, normal bowel sounds, no palpable masses Gastrointestinal - other findings: colostomy in place Extremities: no cyanosis Extremities - other findings: Bilat AKA, stumps intact Skin: normal turgor Neurological: no new deficit Neurological - other findings: tracks with eyes, rotates head Musculoskeletal: generalized weakness Psychiatric: oriented to person, flat affect, somnolent Hosp A/P (1) Cardiac arrest Code(s): I46.9 - CARDIAC ARREST, CAUSE UNSPECIFIED Status: Acute Plan: s/p cardiac arrest with ROSC (2) Severe sepsis with septic shock Code(s): A41.9 - SEPSIS, UNSPECIFIED ORGANISM; R65.21 - SEVERE SEPSIS WITH SEPTIC SHOCK Status: Acute Plan: Continue IV Cefepime/Levaquin/Zithromax, off pressor support (3) Acute respiratory failure with hypoxia and hypercapnia Code(s): J96.01 - ACUTE RESPIRATORY FAILURE WITH HYPOXIA; J96.02 - ACUTE RESPIRATORY FAILURE WITH HYPERCAPNIA Status: Acute Plan: Remains on mech vent with BiLevel with FIO2 90% (4) Pneumonia due to COVID-19 virus Code(s): U07.1 - COVID-19; J12.89 - OTHER VIRAL PNEUMONIA Status: Acute Plan: See above, continue Dexamethasone/Vit C/Zinc/Zithromax (5) UTI (urinary tract infection) Status: Ruled-out Plan: mixed cx (6) End stage renal disease on dialysis Code(s): N18.6 - END STAGE RENAL DISEASE; Z99.2 - DEPENDENCE ON RENAL DIALYSIS Status: Chronic Plan: Continue HD per Renal service (7) Metabolic encephalopathy Code(s): G93.41 - METABOLIC ENCEPHALOPATHY Status: Acute - Plan continue antibiotics, social work program coordinator, respiratory therapy Continue aggressive critical care Continue Amiodarone gtt Continue Cefepime/Levaquin/Zithromax Not a candidate for Remdesivir due to ESRD Nutritional support with TF's AM lab: CMP, CBC, Ferritin/CRP/D-dimer PCXR in am
--- NOTE | 2020-03-26 17:51 | PDOC.PALPN ---
Palliative Progress Note - Subjective Status post respiratory failure/cardiac arrest. Mechanical ventilation. Tolerated dialysis today. Covid pneumonia - Objective Vital Signs: Vital Signs - Most Recent Temp Pulse Resp BP Pulse Ox 98.5 F 72 20 118/51 L 95 03/26/20 16:00 03/26/20 15:23 03/26/20 16:00 03/26/20 15:23 03/26/20 08:00 - Physical Exam Constitutional: ill appearing HEENT: EOMI, sclera anicteric Deviation from normal: Tracks to voice with eyes Respiratory: diminished lung sound Deviation from normal: Mildly adventicious bilaterally Cardiovascular: RRR Gastrointestinal: soft Deviation from normal: mildly distended, ostomy Deviation from normal: ostomy Deviation from normal: bilateral amputation to lower extremities above the knee Deviation from normal: Moves upper extremities Skin: fragile Deviation from normal: wound to sacrum, wound photo - Assessment (1) Palliative care encounter Code(s): Z51.5 - ENCOUNTER FOR PALLIATIVE CARE Current Visit: Yes Status: Acute (2) Acute respiratory failure with hypoxia and hypercapnia Code(s): J96.01 - ACUTE RESPIRATORY FAILURE WITH HYPOXIA; J96.02 - ACUTE RESPIRATORY FAILURE WITH HYPERCAPNIA Current Visit: Yes Status: Acute (3) Cardiac arrest Code(s): I46.9 - CARDIAC ARREST, CAUSE UNSPECIFIED Current Visit: Yes Status: Acute (4) Pneumonia due to COVID-19 virus Code(s): U07.1 - COVID-19; J12.89 - OTHER VIRAL PNEUMONIA Current Visit: Yes Status: Acute (5) Diabetes mellitus treated with insulin Code(s): E11.9 - TYPE 2 DIABETES MELLITUS WITHOUT COMPLICATIONS; Z79.4 - SKILLED NURSING (CURRENT) USE OF INSULIN Current Visit: No Status: Acute (6) Metabolic encephalopathy Code(s): G93.41 - METABOLIC ENCEPHALOPATHY Current Visit: No Status: Acute (7) End stage renal disease on dialysis Code(s): N18.6 - END STAGE RENAL DISEASE; Z99.2 - DEPENDENCE ON RENAL DIALYSIS Current Visit: No Status: Chronic - Plan Plan: Spoke with patient MPOA/Mother Marysol. Reviewed current status. No questions, grateful for care. Reviewed patient directive to physician, patient mother confirms to continue to pursue all aggressive measures to sustain patient life. Goal of care is to discharge to a SNF. Discussed that Carinas prognosis is guarded and we may need to revisit Goal of care depending on trajectory of disease processes. Patient mother is caring for patients three young children. Spiritual care consult placed. [55] minutes spent on this encounter with >50% of the time in counseling and coordination of care. - ROS Non Response: due to endotracheal tube
--- NOTE | 2020-03-26 18:50 | PRG ---
DATE OF SERVICE: 03/26/2020 SUBJECTIVE: The patient is still on life support. Noted with the following vital signs. OBJECTIVE: VITAL SIGNS: Afebrile, temperature 98.5, blood pressure 122/57. HEENT: Remarkable for endotracheal tube in place. CARDIOVASCULAR SYSTEM: First and second heart sounds were heard. RESPIRATORY SYSTEM: Revealed vented sounds. DIGESTIVE SYSTEM: Revealed obese abdomen. IMPRESSION: 1. End-stage renal disease, on hemodialysis. The patient to be dialyzed today with ultrafiltration as tolerated by hemodynamics. 2. Renally dose all medications. 3. We will initiate erythropoiesis-stimulating agent to address the anemia of chronic kidney disease. 4. Further management to be dependent on the clinical course. Job ID: [id number]
[2020-03-26] MEDS: fentaNYL Citrate/PF 2,000 MCG in Sodium Chloride 0.9% 60 ML IV SCH (20:20)
[2020-03-26] MEDS: Azithromycin 500 MG in Sodium Chloride 0.9% 250 ML 250 ML IVPB SCH (21:22)
[2020-03-27] MEDS: Amiodarone 450 MG in Dextrose 5% in Water 250 ML IVPB SCH ×2 (00:21→13:13)
[2020-03-27] MEDS: PROVENTIL INHALER 6.7 G (200 INHALATIONS) INH SCH ×4 (00:23→18:36)
[2020-03-27] MEDS: HumaLOG 300 UNITS/3 ML VIAL SC PRN ×4 (05:47→23:54)
[2020-03-27 06:52] LABS: Chloride 98 mmol/L (98-107); Potassium 3.3 mmol/L (3.5-5.1); Sodium 137 mmol/L (136-145)
[2020-03-27 06:53] LABS: Calcium 9.3 mg/dL (7.8-10.44); Glucose 211 mg/dL (70-105)
[2020-03-27 06:55] LABS: Anion Gap 17 mmol/L (10-20); Carbon Dioxide 25 mmol/L (22-29)
[2020-03-27 06:57] LABS: Calc. Creatinine Clearance 33 mL/min (70-130); Estimated GFR-MDRD 17
[2020-03-27 06:58] LABS: BUN (Urea Nitrogen) 41 mg/dL (7.0-18.7)
[2020-03-27] MEDS: Mometasone 200 MCG/Formoterol 5 MCG 120 PUFF INHALER INH SCH ×2 (07:35→18:36)
[2020-03-27 07:37] LABS: Anisocytosis SLIGHT = 6-15 cells (100X) (0-5/hpf); Band 8 % (5-11); Hemoglobin 7.5 g/dL (12.0-16.0); Hypochromia SLIGHT = 6-15 cells (100X) (0-5/hpf); Lymphocytes 5 % (21-51); MDiff Complete? YES; Mean Corpuscular HGB CONC 31.5 g/dL (32.0-36.0); Mean Corpuscular Hemoglobin 28.1 pg (27.0-31.0); Mean Corpuscular Volume 89.2 fL (78.0-98.0); Mean Platelet Volume 10.5 fL (7.4-10.4); Metamyelocyte 3 % (0-0); Monocytes 6 % (0-10); Neutrophil 78 % (42-75); Platelet Count 259 thou/uL (130-400); Platelet Morphology Comment Appears Adequate; RBC Distribution Width 16.8 % (11.5-14.5); Red Blood Cell (RBC) Count 2.66 mill/uL (4.20-5.40); White Blood Cell (WBC) Count 13.6 thou/uL (4.8-10.8)
[2020-03-27] MEDS: EPOETIN ALFA-EPBX (ESRD) 4,000 UNIT/ML VIAL IVP SCH ×2 (09:59→12:40)
[2020-03-27] MEDS ORDERED: Heparin 10,000 UNITS/ 10 ML VIAL ONE (10:01)
[2020-03-27] MEDS: Ascorbic Acid 500 mg Chewable Tablet PER TUBE SCH (10:06)
[2020-03-27] MEDS: Pantoprazole 40 MG VIAL IVP SCH (10:06)
[2020-03-27] MEDS: Zinc Sulfate 220 MG CAP PER TUBE SCH (10:06)
[2020-03-27] MEDS: Heparin 5,000 UNITS/ML VIAL SC SCH ×2 (10:06→19:35)
[2020-03-27] MEDS: Dexamethasone 10 MG in Sodium Chloride 0.9% 50 ML IVPB SCH (10:10)
[2020-03-27] MEDS: Lorazepam 2 MG/ML VIAL SLOW IVP PRN ×2 (10:40→19:35)
[2020-03-27] MEDS: fentaNYL Citrate/PF 2,000 MCG in Sodium Chloride 0.9% 60 ML IV SCH (15:15)
--- NOTE | 2020-03-27 16:27 | PRG ---
DATE OF SERVICE: 03/27/2020 SUBJECTIVE: Ms. Menjivar remains mechanically ventilated. OBJECTIVE: VITAL SIGNS: Blood pressure 118/57, heart rates in the 60s, respiratory rate per mechanical ventilation. LUNGS: Unchanged. HEART: Unchanged. ABDOMEN: Unchanged. LABORATORY DATA: White count 13.6, hemoglobin 7.5, platelets 259. Sodium 137, potassium 3.3, chloride 98, bicarb 25, BUN 41, creatinine 3.59, glucose 211. Blood gas had not been done since the . We will get a blood gas in the morning. IMPRESSION: 1. COVID pneumonia with respiratory failure. 2. Double amputee, bedridden. 3. Obesity. 4. Diabetes. 5. End-stage renal disease, on dialysis. PLAN: Continue current care. Prognosis is quite guarded. Job ID: [id number]
[2020-03-27] MEDS ORDERED: Sterile Water 10 ML VIAL IVP SCH (17:15)
[2020-03-27] MEDS ORDERED: Activase 2 MG VIAL CATH SCH (17:15)
[2020-03-27] MEDS: Propofol 1,000 MG/100 ML VIAL IV PRN (19:34)
--- NOTE | 2020-03-27 20:38 | PDOC.HOSPP ---
- Subjective Encounter Date: 03/27/20 Encounter Time: 20:35 Subjective: f/u for COVID PNA/Sepsis/ESRD on HD/Resp failure on mech ventilation receiving Levaquin/Dexamethasone/Vit C/Zinc. Unable to wean off ventilatory support. - Objective Vital Signs & Weight: Vital Signs (12 hours) Temp Pulse Resp BP 03/27/20 18:24 66 145/61 H 03/27/20 18:00 20 03/27/20 16:00 98.5 F 03/27/20 14:33 69 118/57 L 03/27/20 14:00 20 03/27/20 12:00 98.9 F 03/27/20 10:50 73 101/84 03/27/20 10:30 73 101/54 L 03/27/20 10:00 20 03/27/20 09:00 84 101/54 L Weight Admit Weight 212 lb Weight 212 lb 11.937 oz Most Recent Monitor Data Heart Rate from ECG 71 NIBP 138/81 NIBP BP-Mean 100 Respiration from ECG 16 SpO2 97 I&O: 03/26/20 03/27/20 03/28/20 06:59 06:59 06:59 Intake Total 2056.5 1530.4 905.5 Output Total 80 520 Balance 1976.5 1010.4 905.5 Result Diagrams: 03/27/20 06:10 03/27/20 06:10 Additional Labs: Accuchecks 03/26/20 22:51 POC Glucose 157 H Microbiology 03/19/20 10:49 Urine voided Urine Culture - Preliminary Gram Negative Jackson Presumptive Pseudomonas 03/19/20 10:47 Venous blood - Right Hand Blood Culture - Preliminary Specimen has been received and culture in progress. No Growth to date. 03/19/20 10:47 Venous blood - Right Arm Blood Culture - Preliminary Specimen has been received and culture in progress. No Growth to date. Laboratory Tests 03/19/20 03/19/20 03/19/20 11:12 11:12 13:53 WBC 6.3 Hgb 9.0 L Band Neuts % (Manual) D-Dimer Bicarbonate Actual ABG pH ABG pCO2 ABG pO2 ABG O2 Sat (Measured) Sodium Potassium 5.6 H Lactic Acid Phosphorus Magnesium Ferritin AST 32 ALT 34 C-Reactive Protein Procalcitonin SARS-CoV-2 Rap RNA(RT-PCR) DETECTED A* 03/19/20 03/19/20 03/19/20 20:46 20:46 20:46 WBC Hgb Band Neuts % (Manual) D-Dimer Bicarbonate Actual ABG pH ABG pCO2 ABG pO2 ABG O2 Sat (Measured) Sodium Potassium Lactic Acid 1.1 Phosphorus 8.8 H Magnesium 1.6 Ferritin AST ALT C-Reactive Protein Procalcitonin 1.87 SARS-CoV-2 Rap RNA(RT-PCR) 03/20/20 03/20/20 03/20/20 04:15 04:15 11:00 WBC Hgb Band Neuts % (Manual) 51 H D-Dimer Bicarbonate Actual 14.4 L ABG pH 7.25 L* ABG pCO2 33.3 L ABG pO2 59.8 L* ABG O2 Sat (Measured) 87.7 L Sodium Potassium Lactic Acid Phosphorus Magnesium Ferritin AST 77 H ALT 80 H C-Reactive Protein Procalcitonin SARS-CoV-2 Rap RNA(RT-PCR) 03/22/20 03/22/20 03/22/20 03:43 03:43 03:43 WBC 20.7 H Hgb 9.6 L Band Neuts % (Manual) 36 H D-Dimer Bicarbonate Actual ABG pH ABG pCO2 ABG pO2 ABG O2 Sat (Measured) Sodium Potassium Lactic Acid Phosphorus Magnesium Ferritin 8484.27 H AST ALT C-Reactive Protein 50.02 H Procalcitonin SARS-CoV-2 Rap RNA(RT-PCR) 03/22/20 03/23/20 03/23/20 03:43 04:02 04:02 WBC 17.5 H Hgb 9.6 L Band Neuts % (Manual) D-Dimer 14.77 H Bicarbonate Actual ABG pH ABG pCO2 ABG pO2 ABG O2 Sat (Measured) Sodium Potassium Lactic Acid Phosphorus Magnesium Ferritin AST ALT C-Reactive Protein 34.61 H Procalcitonin SARS-CoV-2 Rap RNA(RT-PCR) 03/23/20 03/23/20 03/24/20 04:02 04:02 03:27 WBC Hgb Band Neuts % (Manual) D-Dimer 9.98 H Bicarbonate Actual ABG pH ABG pCO2 ABG pO2 ABG O2 Sat (Measured) Sodium Potassium Lactic Acid Phosphorus Magnesium Ferritin 99149.38 H AST ALT C-Reactive Protein 20.02 H Procalcitonin SARS-CoV-2 Rap RNA(RT-PCR) 03/24/20 03/24/20 03/26/20 03:27 03:27 04:20 WBC Hgb Band Neuts % (Manual) D-Dimer 7.27 H Bicarbonate Actual ABG pH ABG pCO2 ABG pO2 ABG O2 Sat (Measured) Sodium 134 L Potassium 3.9 Lactic Acid Phosphorus Magnesium Ferritin 69524.65 H AST ALT C-Reactive Protein Procalcitonin SARS-CoV-2 Rap RNA(RT-PCR) 03/26/20 04:20 WBC 16.8 H Hgb 7.7 L Band Neuts % (Manual) 13 H D-Dimer Bicarbonate Actual ABG pH ABG pCO2 ABG pO2 ABG O2 Sat (Measured) Sodium Potassium Lactic Acid Phosphorus Magnesium Ferritin AST ALT C-Reactive Protein Procalcitonin SARS-CoV-2 Rap RNA(RT-PCR) EKG Reviewed by me: Yes (Tele - SR) Hospitalist ROS - Medication Medications: Active Medications Generic Name Dose Route Start Last Admin Trade Name Freq PRN Reason Stop Dose Admin Acetaminophen 650 mg 03/20/20 01:14 03/23/20 09:49 Acetaminophen 650 Mg/20.3 Ml Udcup PO 650 mg Q4H PRN Administration Fever>101/(Mi/Mod/Sev) Pain Albuterol Sulfate 4 puff 03/24/20 19:00 03/27/20 18:36 Proventil Inhaler 6.7 G (200 Inhalations) INH 4 puff [id number] NICOLASA Administration Ascorbic Acid 1,000 mg 03/20/20 09:00 03/27/20 10:06 Ascorbic Acid 500 Mg Chewable Tablet PER TUBE 1,000 mg DAILY NICOLASA Administration Epoetin Raman-epbx 7,500 unit 03/27/20 09:00 03/27/20 12:40 Epoetin Raman-Epbx (Esrd) 4,000 Unit/Ml Vial IVP 7,500 unit TuThSa NICOLASA Administration Heparin Sodium (Porcine) 5,000 units 03/19/20 21:00 03/27/20 19:35 Heparin 5,000 Units/Ml Vial SC 5,000 units BID NICOLASA Administration Levofloxacin 500 mg/ Device 100 mls @ 100 mls/hr 03/21/20 21:00 03/25/20 20:00 IVPB 03/27/20 21:59 100 mls Q2D NICOLASA Administration Norepinephrine Bitartrate 250 mls @ 0 mls/hr 03/19/20 20:35 03/22/20 20:59 Levophed IVPB 250 mls INF NICOLASA Administration Protocol Titrate Amiodarone HCl 450 mg/ 259 mls @ 0 mls/hr 03/19/20 21:15 03/27/20 13:13 Dextrose/Water IVPB 259 mls INF NICOLASA Administration Protocol Per Protocol Dexamethasone 10 mg/ Sodium 51 mls @ 100 mls/hr 03/20/20 09:00 03/27/20 10:10 Chloride IVPB 51 mls DAILY NICOLASA Administration Fentanyl Citrate 2,000 mcg/ 100 mls @ 0 mls/hr 03/20/20 00:15 03/27/20 15:15 Sodium Chloride IV 04/19/20 00:15 100 mls INF NICOLASA Administration Protocol Per Protocol Insulin Human Lispro 0 units 03/19/20 20:35 03/27/20 12:10 Humalog 300 Units/3 Ml Vial SC 2 unit .MILD SLIDING SCALE PRN Administration Mild Correctional Scale Lorazepam 2 mg 03/19/20 21:30 03/27/20 19:35 Lorazepam 2 Mg/Ml Vial SLOW IVP 04/18/20 21:30 2 mg Q1H PRN Administration Breakthrough agitation Mometasone Furoate/Formoterol Fumar 2 puff 03/24/20 18:30 03/27/20 18:36 Mometasone 200 Mcg/Formoterol 5 Mcg 120 Puff Inhaler INH 2 puff BID-RT NICOLASA Administration Pantoprazole Sodium 40 mg 03/20/20 09:00 03/27/20 10:06 Pantoprazole 40 Mg Vial IVP 40 mg DAILY NICOLASA Administration Propofol 1,000 mg 03/19/20 21:30 03/27/20 19:34 Propofol 1,000 Mg/100 Ml Vial IV 04/18/20 21:30 1,000 mg INF PRN Administration TO ACHIEVE GOAL RASS Protocol Zinc Sulfate 220 mg 03/20/20 09:00 03/27/20 10:06 Zinc Sulfate 220 Mg Cap PER TUBE 220 mg DAILY NICOLASA Administration - Exam General - other findings: sedate on mech ventilation, opens eyes to name Eye: PERRL, anicteric sclera ENT: normocephalic atraumatic, no oropharyngeal lesions ENT - other findings: ETT/OGT in place Neck: supple, symmetric, no JVD, no thyromegaly Heart: RRR, no gallops, no rubs, normal peripheral pulses Heart - other findings: S1, S2 Respiratory: no wheezes Respiratory - other findings: diminished bilat wynn Gastrointestinal: soft, non-tender, non-distended, normal bowel sounds, no palpable masses Gastrointestinal - other findings: + colostomy/urostomy in place Extremities - other findings: bilat AKA with intact stumps Skin: normal turgor Neurological: no new deficit Psychiatric: oriented to person, flat affect, somnolent, lethargic Hosp A/P (1) Pneumonia due to COVID-19 virus Code(s): U07.1 - COVID-19; J12.89 - OTHER VIRAL PNEUMONIA Status: Acute Plan: Continue Levaquin/Dexamethasone/Mech ventilation/Vit C/Zinc (2) Acute respiratory failure with hypoxia and hypercapnia Code(s): J96.01 - ACUTE RESPIRATORY FAILURE WITH HYPOXIA; J96.02 - ACUTE RESPIRATORY FAILURE WITH HYPERCAPNIA Status: Acute Plan: Unable to wean off mech ventilation (3) Severe sepsis with septic shock Code(s): A41.9 - SEPSIS, UNSPECIFIED ORGANISM; R65.21 - SEVERE SEPSIS WITH SEPTIC SHOCK Status: Acute Plan: Resolving, continue Levaquin (4) Cardiac arrest Code(s): I46.9 - CARDIAC ARREST, CAUSE UNSPECIFIED Status: Acute (5) UTI (urinary tract infection) Status: Ruled-out Plan: Suspected but no dominant organism identified (6) End stage renal disease on dialysis Code(s): N18.6 - END STAGE RENAL DISEASE; Z99.2 - DEPENDENCE ON RENAL DIALYSIS Status: Chronic Plan: HD per Renal service (7) Metabolic encephalopathy Code(s): G93.41 - METABOLIC ENCEPHALOPATHY Status: Acute - Plan continue antibiotics, [employer]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
--- NOTE | 2020-03-27 21:01 | PRG ---
DATE OF SERVICE: 03/27/2020 SUBJECTIVE: The patient is seen and examined, seems still on life support, still requiring high oxygen to weaning down. Noted with following vital signs. OBJECTIVE: VITAL SIGNS: Pulse of 66 and blood pressure 145/61. HEENT: Remarkable for endotracheal tube in place. CARDIOVASCULAR SYSTEM: First and second heart sounds were heard. RESPIRATORY SYSTEM: Event revealed vented sounds. DIGESTIVE SYSTEM: Revealed a benign abdomen. EXTREMITIES: No peripheral edema. SKIN: No new gross rash. LYMPHATICS: No peripheral lymphadenopathy. LABORATORY INVESTIGATION: Showed hemoglobin of 7.5. Chemistry showed a potassium of 3.3, creatinine of 3.59. IMPRESSION: 1. End-stage renal disease. 2. Cardiopulmonary failure. 3. Hypokalemia. 4. COVID pneumonitis. PLAN: 1. The patient to be dialyzed with ultrafiltration today hours given the level of hemodynamics of this patient. 2. Replete potassium, possibly dialyze this patient with high potassium bath. 3. Further management to be dependent on the clinical course. We will continue with erythropoiesis stimulating agent. Job ID: [id number]
[2020-03-28] MEDS: PROVENTIL INHALER 6.7 G (200 INHALATIONS) INH SCH ×4 (00:26→18:19)
[2020-03-28] MEDS: Amiodarone 450 MG in Dextrose 5% in Water 250 ML IVPB SCH ×2 (02:56→19:59)
[2020-03-28] MEDS: Propofol 1,000 MG/100 ML VIAL IV PRN ×2 (03:01→20:30)
[2020-03-28 04:00] LABS: Anion Gap 20 mmol/L (10-20); BUN (Urea Nitrogen) 61 mg/dL (7.0-18.7); Calc. Creatinine Clearance 27 mL/min (70-130); Calcium 9.3 mg/dL (7.8-10.44); Carbon Dioxide 21 mmol/L (22-29); Chloride 95 mmol/L (98-107); Estimated GFR-MDRD 14; Glucose 303 mg/dL (70-105); Potassium 3.6 mmol/L (3.5-5.1); Sodium 132 mmol/L (136-145)
[2020-03-28 04:02] LABS: Band 1 % (5-11); Hemoglobin 9.1 g/dL (12.0-16.0); Hypochromia SLIGHT = 6-15 cells (100X) (0-5/hpf); Lymphocytes 8 % (21-51); MDiff Complete? YES; Mean Corpuscular HGB CONC 31.6 g/dL (32.0-36.0); Mean Corpuscular Hemoglobin 28.2 pg (27.0-31.0); Mean Platelet Volume 10.8 fL (7.4-10.4); Monocytes 9 % (0-10); Neutrophil 82 % (42-75); Platelet Count 227 thou/uL (130-400); Platelet Morphology Comment Appears Adequate; RBC Distribution Width 16.8 % (11.5-14.5); Red Blood Cell (RBC) Count 3.22 mill/uL (4.20-5.40); White Blood Cell (WBC) Count 11.1 thou/uL (4.8-10.8)
[2020-03-28] MEDS: HumaLOG 300 UNITS/3 ML VIAL SC PRN ×3 (04:51→21:50)
[2020-03-28 07:30] LABS: Base Excess (BEa) -2.7 mEq/L (-2.0 to +3.0); CO2 Tension 31.2 mmHg (35.0-45.0); Calcium, Ionized (arterial) 1.12 mmol/L (1.12-1.30); Carboxyhemoglobin (COHb) 1.5 gm% (0.0-3.0); Hemoglobin (Hb) 7.6 g/dL (12.0-16.0); O2 Tension (PaO2), arterial 123.8 mmHg (80.0-100.0); Potassium - ABG Lab 3.77 mmol/L (3.70-5.30); pH, Arterial 7.45 (7.35-7.45)
[2020-03-28 07:31] LABS: Puncture Site LRA
[2020-03-28] MEDS: Mometasone 200 MCG/Formoterol 5 MCG 120 PUFF INHALER INH SCH ×2 (07:35→18:19)
[2020-03-28] MEDS: Heparin 5,000 UNITS/ML VIAL SC SCH ×2 (09:42→19:57)
[2020-03-28] MEDS: Zinc Sulfate 220 MG CAP PER TUBE SCH (09:43)
[2020-03-28] MEDS: Pantoprazole 40 MG VIAL IVP SCH (09:43)
[2020-03-28] MEDS: Ascorbic Acid 500 mg Chewable Tablet PER TUBE SCH (09:43)
[2020-03-28] MEDS: Dexamethasone 10 MG in Sodium Chloride 0.9% 50 ML IVPB SCH (09:49)
--- NOTE | 2020-03-28 09:51 | PRG ---
DATE OF SERVICE: 03/28/2020 SUBJECTIVE: Ms. Menjivar is stable. Gas exchange appears to be improving. OBJECTIVE: VITAL SINGS: Blood pressure 137/92, heart rate 70, FiO2 is down to 60%. LUNGS: ABDOMEN: Unchanged. LABORATORY DATA: White count 11.1, hemoglobin 9.1, platelets 227. Sodium 132, potassium 3.6, chloride 95, bicarb 21, BUN 61, creatinine 4.45. PH 7.45, CO2 of 31, PO2 of 123. We will decrease her bilevel support, decrease her FiO2 today. IMPRESSION: 1. COVID pneumonia. 2. Double amputee, above the knees. 3. Obesity. 4. End-stage renal disease. PLAN: Continue supportive care. Job ID: [id number]
[2020-03-28] MEDS: fentaNYL Citrate/PF 2,000 MCG in Sodium Chloride 0.9% 60 ML IV SCH (12:47)
[2020-03-28] MEDS ORDERED: Heparin 10,000 UNITS/ 10 ML VIAL ONE (13:52)
--- NOTE | 2020-03-28 17:57 | PRG ---
DATE OF SERVICE: 03/28/2020 SUBJECTIVE: The patient is still on life support. Noted with the following vital signs. OBJECTIVE: VITAL SIGNS: Blood pressure 126/83, pulse of 82. HEENT: Remarkable for endotracheal tube in place. CARDIOVASCULAR SYSTEM: First and second heart sounds were heard. RESPIRATORY SYSTEM: Revealed vented sounds. DIGESTIVE SYSTEM: Revealed an obese abdomen. IMPRESSION: 1. End-stage renal disease, on dialysis. 2. Cardiopulmonary failure in the context of COVID pneumonitis. 3. COVID pneumonitis. PLAN: Continue hemodialysis with ultrafiltration as tolerated by hemodynamics. Job ID: [id number]
[2020-03-28] MEDS: Lorazepam 2 MG/ML VIAL SLOW IVP PRN (19:58)
[2020-03-29] MEDS: PROVENTIL INHALER 6.7 G (200 INHALATIONS) INH SCH ×4 (01:06→18:15)
[2020-03-29 04:04] LABS: Band 12 % (5-11); Hemoglobin 7.6 g/dL (12.0-16.0); Lymphocytes 2 % (21-51); MDiff Complete? YES; Mean Corpuscular HGB CONC 32.3 g/dL (32.0-36.0); Mean Corpuscular Hemoglobin 28.2 pg (27.0-31.0); Mean Corpuscular Volume 87.5 fL (78.0-98.0); Mean Platelet Volume 10.5 fL (7.4-10.4); Metamyelocyte 3 % (0-0); Monocytes 3 % (0-10); Neutrophil 80 % (42-75); Platelet Count 249 thou/uL (130-400); Platelet Morphology Comment Appears Adequate; RBC Distribution Width 16.9 % (11.5-14.5); Red Blood Cell (RBC) Count 2.67 mill/uL (4.20-5.40); White Blood Cell (WBC) Count 15.1 thou/uL (4.8-10.8)
[2020-03-29 04:12] LABS: Anion Gap 21 mmol/L (10-20); BUN (Urea Nitrogen) 46 mg/dL (7.0-18.7); Calc. Creatinine Clearance 36 mL/min (70-130); Calcium 9.1 mg/dL (7.8-10.44); Carbon Dioxide 22 mmol/L (22-29); Chloride 94 mmol/L (98-107); Estimated GFR-MDRD 19; Glucose 251 mg/dL (70-105); Potassium 3.5 mmol/L (3.5-5.1); Sodium 133 mmol/L (136-145)
[2020-03-29] MEDS: Propofol 1,000 MG/100 ML VIAL IV PRN ×3 (04:25→23:46)
[2020-03-29] MEDS: HumaLOG 300 UNITS/3 ML VIAL SC PRN ×4 (04:56→22:15)
[2020-03-29] MEDS: Mometasone 200 MCG/Formoterol 5 MCG 120 PUFF INHALER INH SCH ×2 (06:47→18:16)
[2020-03-29 06:58] LABS: Actual Bicarbonate (HCO3a) 20.4 mEq/L (22-28); Base Excess (BEa) -3.5 mEq/L (-2.0 to +3.0); CO2 Tension 31.7 mmHg (35.0-45.0); Calcium, Ionized (arterial) 1.16 mmol/L (1.12-1.30); Carboxyhemoglobin (COHb) 2.2 gm% (0.0-3.0); Hemoglobin (Hb) 7.7 g/dL (12.0-16.0); pH, Arterial 7.43 (7.35-7.45)
[2020-03-29 07:48] LABS: O2 Tension (PaO2), arterial 54.8 mmHg (80.0-100.0)
[2020-03-29 07:49] LABS: Puncture Site LRA
[2020-03-29 07:51] LABS: ALV-art Gradient 262.075 mmHg (0-20)
[2020-03-29] MEDS: Ascorbic Acid 500 mg Chewable Tablet PER TUBE SCH (09:51)
[2020-03-29] MEDS: Zinc Sulfate 220 MG CAP PER TUBE SCH (09:52)
[2020-03-29] MEDS: Heparin 5,000 UNITS/ML VIAL SC SCH ×2 (09:52→20:36)
[2020-03-29] MEDS: Pantoprazole 40 MG VIAL IVP SCH (09:52)
[2020-03-29] MEDS: EPOETIN ALFA-EPBX (ESRD) 4,000 UNIT/ML VIAL IVP SCH (09:59)
[2020-03-29] MEDS: Dexamethasone 10 MG in Sodium Chloride 0.9% 50 ML IVPB SCH (10:01)
[2020-03-29] MEDS: fentaNYL Citrate/PF 2,000 MCG in Sodium Chloride 0.9% 60 ML IV SCH (10:33)
[2020-03-29] MEDS: Amiodarone 450 MG in Dextrose 5% in Water 250 ML IVPB SCH ×2 (10:34→11:01)
[2020-03-29] MEDS ORDERED: Heparin 10,000 UNITS/ 10 ML VIAL ONE (13:55)
--- NOTE | 2020-03-29 14:50 | PRG ---
DATE OF SERVICE: 03/29/2020 SUBJECTIVE: There has been no significant exchange teller the course of the night. She remains on a rate of 20, with bilevel support 33/12 with FiO2 of 50%. PHYSICAL EXAMINATION: VITAL SIGNS: Blood pressure 97/66, FiO2 of 50%, heart rate is 77, pulse ox is 92. GENERAL: There is no JVD. LUNGS: Show bilateral coarse rales without wheezes. HEART: Regular rate and rhythm. ABDOMEN: Soft, obese, no organomegaly. EXTREMITIES: She has bilateral [id number] amputation. LABORATORY DATA: White count 15,100, hemoglobin is 7.6 with hematocrit 23.4, and platelet count 249,000. Differential includes 80 segs and 12 bands. Blood gas includes pH 7.43, CO2 of 32, pO2 of 55, and bicarbonate 20. Electrolytes include sodium 133, potassium 3.5, chloride 94, CO2 is 22, BUN 46, creatinine 3.3. This is improved actually compared to earlier this day. She has not had an x-ray in approximately one week. IMPRESSION: 1. COVID pneumonia. 2. History of severe peripheral vascular disease with bilateral [id number] amputation. 3. Renal insufficiency, on maintenance hemodialysis. PLAN: We will continue current therapies. We will monitor her hemoglobin and hematocrit and transfusion may be required. Unfortunately, her prognosis is very poor in light of severe multisystemic disease and superimposed COVID at such a young age. No changes made in her ventilator at this time. ADDENDUM: Critical care, 33 minutes. Job ID: [id number]
--- NOTE | 2020-03-29 15:14 | PDOC.HOSPP ---
- Subjective Encounter Date: 03/28/20 Encounter Time: 15:00 Subjective: pt intubated - Objective Vital Signs & Weight: Vital Signs (12 hours) Temp Pulse Resp BP Pulse Ox 03/29/20 14:26 75 144/66 H 03/29/20 14:00 20 03/29/20 12:00 98.4 F 20 03/29/20 10:01 77 97/66 03/29/20 10:00 20 03/29/20 08:00 98.0 F 20 98 03/29/20 06:48 75 87/67 L 03/29/20 06:00 20 03/29/20 04:00 20 Weight Admit Weight 212 lb Weight 202 lb 9.677 oz Most Recent Monitor Data Heart Rate from ECG 78 NIBP 104/66 NIBP BP-Mean 78 Respiration from ECG 20 SpO2 94 I&O: 03/28/20 03/29/20 03/30/20 06:59 06:59 05:59 Intake Total 1520.8 1847.3 240 Output Total 0 Balance 1520.8 1847.3 240 Result Diagrams: 03/30/20 04:05 03/30/20 04:05 Additional Labs: Accuchecks 03/29/20 03/28/20 03/28/20 11:22 21:41 18:14 POC Glucose 199 H 247 H 249 H 03/28/20 03/27/20 03/27/20 14:24 23:19 16:27 POC Glucose 132 H 262 H 222 H 03/27/20 03/27/20 12:08 04:15 POC Glucose 186 H 223 H Hospitalist ROS - Medication Medications: Active Medications Generic Name Dose Route Start Last Admin Trade Name Freq PRN Reason Stop Dose Admin Acetaminophen 650 mg 03/20/20 01:14 03/23/20 09:49 Acetaminophen 650 Mg/20.3 Ml Udcup PO 650 mg Q4H PRN Administration Fever>101/(Mi/Mod/Sev) Pain Albuterol Sulfate 4 puff 03/24/20 19:00 03/29/20 13:26 Proventil Inhaler 6.7 G (200 Inhalations) INH 4 puff [id number] NICOLASA Administration Ascorbic Acid 1,000 mg 03/20/20 09:00 03/29/20 09:51 Ascorbic Acid 500 Mg Chewable Tablet PER TUBE 1,000 mg DAILY NICOLASA Administration Epoetin Raman-epbx 7,500 unit 03/27/20 09:00 03/29/20 09:59 Epoetin Raman-Epbx (Esrd) 4,000 Unit/Ml Vial IVP Not Given TuThSa NICOLASA Heparin Sodium (Porcine) 5,000 units 03/19/20 21:00 03/29/20 09:52 Heparin 5,000 Units/Ml Vial SC 5,000 units BID NICOLASA Administration Norepinephrine Bitartrate 250 mls @ 0 mls/hr 03/19/20 20:35 03/22/20 20:59 Levophed IVPB 250 mls INF NICOLASA Administration Protocol Titrate Amiodarone HCl 450 mg/ 259 mls @ 0 mls/hr 03/19/20 21:15 03/29/20 11:01 Dextrose/Water IVPB 259 mls INF NICOLASA Administration Protocol Per Protocol Dexamethasone 10 mg/ Sodium 51 mls @ 100 mls/hr 03/20/20 09:00 03/29/20 10:01 Chloride IVPB 51 mls DAILY NICOLASA Administration Fentanyl Citrate 2,000 mcg/ 100 mls @ 0 mls/hr 03/20/20 00:15 03/29/20 10:33 Sodium Chloride IV 04/19/20 00:15 100 mls INF NICOLASA Administration Protocol Per Protocol Insulin Human Lispro 0 units 03/19/20 20:35 03/29/20 11:30 Humalog 300 Units/3 Ml Vial SC 2 unit .MILD SLIDING SCALE PRN Administration Mild Correctional Scale Lorazepam 2 mg 03/19/20 21:30 03/28/20 19:58 Lorazepam 2 Mg/Ml Vial SLOW IVP 04/18/20 21:30 2 mg Q1H PRN Administration Breakthrough agitation Mometasone Furoate/Formoterol Fumar 2 puff 03/24/20 18:30 03/29/20 06:47 Mometasone 200 Mcg/Formoterol 5 Mcg 120 Puff Inhaler INH 2 puff BID-RT NICOLASA Administration Pantoprazole Sodium 40 mg 03/20/20 09:00 03/29/20 09:52 Pantoprazole 40 Mg Vial IVP 40 mg DAILY NICOLASA Administration Propofol 1,000 mg 03/19/20 21:30 03/29/20 15:08 Propofol 1,000 Mg/100 Ml Vial IV 04/18/20 21:30 1,000 mg INF PRN Administration TO ACHIEVE GOAL RASS Protocol Zinc Sulfate 220 mg 03/20/20 09:00 03/29/20 09:52 Zinc Sulfate 220 Mg Cap PER TUBE 220 mg DAILY NICOLASA Administration Hosp A/P (1) Acute respiratory failure with hypoxia and hypercapnia Code(s): J96.01 - ACUTE RESPIRATORY FAILURE WITH HYPOXIA; J96.02 - ACUTE RESPIRATORY FAILURE WITH HYPERCAPNIA Status: Acute (2) Pneumonia due to COVID-19 virus Code(s): U07.1 - COVID-19; J12.89 - OTHER VIRAL PNEUMONIA Status: Acute (3) Severe sepsis with septic shock Code(s): A41.9 - SEPSIS, UNSPECIFIED ORGANISM; R65.21 - SEVERE SEPSIS WITH SEPTIC SHOCK Status: Acute (4) Diabetes mellitus treated with insulin Code(s): E11.9 - TYPE 2 DIABETES MELLITUS WITHOUT COMPLICATIONS; Z79.4 - MCC (CURRENT) USE OF INSULIN Status: Acute (5) End stage renal disease on dialysis Code(s): N18.6 - END STAGE RENAL DISEASE; Z99.2 - DEPENDENCE ON RENAL DIALYSIS Status: Chronic (6) Hypertension Code(s): I10 - ESSENTIAL (PRIMARY) HYPERTENSION Status: Chronic - Plan pt intubated. will continue abx for now. ESRD on dialysis.
--- NOTE | 2020-03-29 16:30 | PDOC.HOSPP ---
- Subjective Encounter Date: 03/29/20 Subjective: Remains intubated. - Objective Vital Signs & Weight: Vital Signs (12 hours) Temp Pulse Resp BP Pulse Ox 03/29/20 16:00 20 03/29/20 14:26 75 144/66 H 03/29/20 14:00 20 03/29/20 12:00 98.4 F 20 03/29/20 10:01 77 97/66 03/29/20 10:00 20 03/29/20 08:00 98.0 F 20 98 03/29/20 06:48 75 87/67 L 03/29/20 06:00 20 Weight Admit Weight 212 lb Weight 202 lb 9.677 oz Most Recent Monitor Data Heart Rate from ECG 77 NIBP 120/67 NIBP BP-Mean 84 Respiration from ECG 20 SpO2 91 I&O: 03/28/20 03/29/20 03/30/20 06:59 06:59 05:59 Intake Total 1520.8 1847.3 360 Output Total 0 Balance 1520.8 1847.3 360 Result Diagrams: 03/29/20 03:11 03/29/20 03:11 Additional Labs: Accuchecks 03/29/20 03/28/20 03/28/20 11:22 21:41 18:14 POC Glucose 199 H 247 H 249 H 03/28/20 03/27/20 03/27/20 14:24 23:19 16:27 POC Glucose 132 H 262 H 222 H 03/27/20 03/27/20 12:08 04:15 POC Glucose 186 H 223 H Hospitalist ROS - Medication Medications: Active Medications Generic Name Dose Route Start Last Admin Trade Name Freq PRN Reason Stop Dose Admin Acetaminophen 650 mg 03/20/20 01:14 03/23/20 09:49 Acetaminophen 650 Mg/20.3 Ml Udcup PO 650 mg Q4H PRN Administration Fever>101/(Mi/Mod/Sev) Pain Albuterol Sulfate 4 puff 03/24/20 19:00 03/29/20 13:26 Proventil Inhaler 6.7 G (200 Inhalations) INH 4 puff [id number] NICOLASA Administration Ascorbic Acid 1,000 mg 03/20/20 09:00 03/29/20 09:51 Ascorbic Acid 500 Mg Chewable Tablet PER TUBE 1,000 mg DAILY NICOLASA Administration Epoetin Raman-epbx 7,500 unit 03/27/20 09:00 03/29/20 09:59 Epoetin Raman-Epbx (Esrd) 4,000 Unit/Ml Vial IVP Not Given TuThSa NICOLASA Heparin Sodium (Porcine) 5,000 units 03/19/20 21:00 03/29/20 09:52 Heparin 5,000 Units/Ml Vial SC 5,000 units BID NICOLASA Administration Norepinephrine Bitartrate 250 mls @ 0 mls/hr 03/19/20 20:35 03/22/20 20:59 Levophed IVPB 250 mls INF NICOLASA Administration Protocol Titrate Amiodarone HCl 450 mg/ 259 mls @ 0 mls/hr 03/19/20 21:15 03/29/20 11:01 Dextrose/Water IVPB 259 mls INF NICOLASA Administration Protocol Per Protocol Dexamethasone 10 mg/ Sodium 51 mls @ 100 mls/hr 03/20/20 09:00 03/29/20 10:01 Chloride IVPB 51 mls DAILY NICOLASA Administration Fentanyl Citrate 2,000 mcg/ 100 mls @ 0 mls/hr 03/20/20 00:15 03/29/20 10:33 Sodium Chloride IV 04/19/20 00:15 100 mls INF NICOLASA Administration Protocol Per Protocol Insulin Human Lispro 0 units 03/19/20 20:35 03/29/20 11:30 Humalog 300 Units/3 Ml Vial SC 2 unit .MILD SLIDING SCALE PRN Administration Mild Correctional Scale Lorazepam 2 mg 03/19/20 21:30 03/28/20 19:58 Lorazepam 2 Mg/Ml Vial SLOW IVP 04/18/20 21:30 2 mg Q1H PRN Administration Breakthrough agitation Mometasone Furoate/Formoterol Fumar 2 puff 03/24/20 18:30 03/29/20 06:47 Mometasone 200 Mcg/Formoterol 5 Mcg 120 Puff Inhaler INH 2 puff BID-RT NICOLASA Administration Pantoprazole Sodium 40 mg 03/20/20 09:00 03/29/20 09:52 Pantoprazole 40 Mg Vial IVP 40 mg DAILY NICOLASA Administration Propofol 1,000 mg 03/19/20 21:30 03/29/20 15:08 Propofol 1,000 Mg/100 Ml Vial IV 04/18/20 21:30 1,000 mg INF PRN Administration TO ACHIEVE GOAL RASS Protocol Zinc Sulfate 220 mg 03/20/20 09:00 03/29/20 09:52 Zinc Sulfate 220 Mg Cap PER TUBE 220 mg DAILY NICOLASA Administration Hosp A/P - Plan Hosp A/P (1) Pneumonia due to COVID-19 virus Code(s): U07.1 - COVID-19; J12.89 - OTHER VIRAL PNEUMONIA Status: Acute Plan: Continue Levaquin/Dexamethasone/Mech ventilation/Vit C/Zinc (2) Acute respiratory failure with hypoxia and hypercapnia Code(s): J96.01 - ACUTE RESPIRATORY FAILURE WITH HYPOXIA; J96.02 - ACUTE RESPIRATORY FAILURE WITH HYPERCAPNIA Status: Acute Plan: Unable to wean off mech ventilation (3) Severe sepsis with septic shock Code(s): A41.9 - SEPSIS, UNSPECIFIED ORGANISM; R65.21 - SEVERE SEPSIS WITH SEPTIC SHOCK Status: Acute Plan: Resolving, continue Levaquin (4) Cardiac arrest Code(s): I46.9 - CARDIAC ARREST, CAUSE UNSPECIFIED Status: Acute (5) UTI (urinary tract infection) Status: Ruled-out Plan: Suspected but no dominant organism identified (6) End stage renal disease on dialysis Code(s): N18.6 - END STAGE RENAL DISEASE; Z99.2 - DEPENDENCE ON RENAL DIALYSIS Status: Chronic Plan: HD per Renal service (7) Metabolic encephalopathy Code(s): G93.41 - METABOLIC ENCEPHALOPATHY Status: Acute - Plan The patient remains on the ventilator. Continue management per critical care team. She is requiring 50% FiO2. Continue dexamethasone. Continue heparin for DVT phylaxis.
[2020-03-30] MEDS: Amiodarone 450 MG in Dextrose 5% in Water 250 ML IVPB SCH ×2 (00:48→15:13)
[2020-03-30] MEDS: PROVENTIL INHALER 6.7 G (200 INHALATIONS) INH SCH ×4 (01:18→18:18)
[2020-03-30 04:54] LABS: Band 3 % (5-11); Lymphocytes 7 % (21-51); MDiff Complete? YES; Mean Corpuscular HGB CONC 33.3 g/dL (32.0-36.0); Mean Corpuscular Hemoglobin 28.9 pg (27.0-31.0); Mean Corpuscular Volume 86.9 fL (78.0-98.0); Mean Platelet Volume 10.4 fL (7.4-10.4); Metamyelocyte 1 % (0-0); Monocytes 5 % (0-10); Neutrophil 83 % (42-75); Platelet Count 256 thou/uL (130-400); Platelet Morphology Comment Appears Adequate; RBC Distribution Width 17.2 % (11.5-14.5); RBC Morphology Normal; Red Blood Cell (RBC) Count 2.41 mill/uL (4.20-5.40); White Blood Cell (WBC) Count 17.4 thou/uL (4.8-10.8)
[2020-03-30 04:57] LABS: Anion Gap 19 mmol/L (10-20); BUN (Urea Nitrogen) 63 mg/dL (7.0-18.7); Calc. Creatinine Clearance 27 mL/min (70-130); Calcium 8.4 mg/dL (7.8-10.44); Carbon Dioxide 20 mmol/L (22-29); Chloride 96 mmol/L (98-107); Estimated GFR-MDRD 15; Glucose 233 mg/dL (70-105); Potassium 3.4 mmol/L (3.5-5.1); Sodium 132 mmol/L (136-145)
[2020-03-30] MEDS: HumaLOG 300 UNITS/3 ML VIAL SC PRN ×4 (05:58→21:22)
[2020-03-30] MEDS ORDERED: Fentanyl BOLUS 250 ML IVPB PRN (06:06)
[2020-03-30] MEDS: fentaNYL Citrate/PF 2,000 MCG in Sodium Chloride 0.9% 60 ML IV SCH (06:30)
[2020-03-30] MEDS: Mometasone 200 MCG/Formoterol 5 MCG 120 PUFF INHALER INH SCH ×2 (06:53→18:19)
[2020-03-30 07:01] LABS: Actual Bicarbonate (HCO3a) 20.9 mEq/L (22-28); Base Excess (BEa) -3.6 mEq/L (-2.0 to +3.0); CO2 Tension 34.8 mmHg (35.0-45.0); Calcium, Ionized (arterial) 1.14 mmol/L (1.12-1.30); Carboxyhemoglobin (COHb) 1.6 gm% (0.0-3.0); Hemoglobin (Hb) 6.6 g/dL (12.0-16.0); O2 Tension (PaO2), arterial 72.3 mmHg (80.0-100.0)
[2020-03-30 07:02] LABS: Puncture Site LRA
[2020-03-30] MEDS: Propofol 1,000 MG/100 ML VIAL IV PRN ×2 (08:41→19:15)
[2020-03-30] MEDS: Ascorbic Acid 500 mg Chewable Tablet PER TUBE SCH (09:28)
[2020-03-30] MEDS: Pantoprazole 40 MG VIAL IVP SCH (09:29)
[2020-03-30] MEDS: Zinc Sulfate 220 MG CAP PER TUBE SCH (09:29)
[2020-03-30] MEDS: Heparin 5,000 UNITS/ML VIAL SC SCH ×2 (09:32→20:39)
[2020-03-30] MEDS: Dexamethasone 10 MG in Sodium Chloride 0.9% 50 ML IVPB SCH (09:36)
--- NOTE | 2020-03-30 11:36 | PRG ---
DATE OF SERVICE: 03/30/2020 SUBJECTIVE: There has been no significant change in her status overnight. She continues to require significant ventilatory support with a rate of 20, bilevel 33/12, and FiO2 of 0.8. OBJECTIVE: VITAL SIGNS: Blood pressure 100/45. LUNGS: Coarse rhonchi, but no wheezing. HEART: Regular rate and rhythm. Rate is 71. ABDOMEN: Soft. There is no cords or tenderness. EXTREMITIES: Bilateral lower extremities, bilateral [id number] amputation. LABORATORY DATA: White count 17,400, hemoglobin is 7 with hematocrit of 21, she was about 9, when she was admitted and has been running in the 7 since. Blood gas includes pH of 7.4, CO2 of 34.8, pO2 of 72, and bicarbonate of 21. Sodium 132, potassium 2.4, chloride 96, CO2 is 20, BUN 63, and creatinine 4.2. This was 8 upon admission improved down to 3.3 and now is trending upward again. No x-ray today. IMPRESSION: COVID pneumonia requiring ventilatory support. Renal failure on maintenance hemodialysis. PLAN: We will continue current therapies. Prognosis remains very poor. Critical care, 32 minutes. Job ID: [id number]
--- NOTE | 2020-03-30 15:18 | PDOC.HOSPP ---
- Subjective Encounter Date: 03/30/20 non-verbal (Remains on the ventilator) - Objective Vital Signs & Weight: Vital Signs (12 hours) Temp Pulse Resp BP Pulse Ox 03/30/20 14:24 75 127/65 03/30/20 12:00 99.2 F 20 03/30/20 10:10 71 100/45 L 03/30/20 10:00 20 03/30/20 08:00 98.8 F 20 99 03/30/20 06:53 64 115/72 03/30/20 06:00 20 03/30/20 04:19 66 03/30/20 04:00 98.7 F 20 Weight Admit Weight 212 lb Weight 202 lb 9.677 oz Most Recent Monitor Data Heart Rate from ECG 67 NIBP 127/86 NIBP BP-Mean 99 Respiration from ECG 20 SpO2 96 I&O: 03/29/20 03/30/20 03/31/20 07:59 06:59 06:59 Intake Total Output Total 1 Balance -1 Result Diagrams: 03/30/20 04:05 03/30/20 04:05 Additional Labs: Accuchecks 03/29/20 18:14 POC Glucose 334 H Hospitalist ROS - Medication Medications: Active Medications Generic Name Dose Route Start Last Admin Trade Name Freq PRN Reason Stop Dose Admin Acetaminophen 650 mg 03/20/20 01:14 03/23/20 09:49 Acetaminophen 650 Mg/20.3 Ml Udcup PO 650 mg Q4H PRN Administration Fever>101/(Mi/Mod/Sev) Pain Albuterol Sulfate 4 puff 03/24/20 19:00 03/30/20 14:24 Proventil Inhaler 6.7 G (200 Inhalations) INH 4 puff [id number] NICOLASA Administration Ascorbic Acid 1,000 mg 03/20/20 09:00 03/30/20 09:28 Ascorbic Acid 500 Mg Chewable Tablet PER TUBE 1,000 mg DAILY NICOLASA Administration Epoetin Raman-epbx 7,500 unit 03/27/20 09:00 03/29/20 09:59 Epoetin Raman-Epbx (Esrd) 4,000 Unit/Ml Vial IVP Not Given TuTa [facility] Heparin Sodium (Porcine) 5,000 units 03/19/20 21:00 03/30/20 09:32 Heparin 5,000 Units/Ml Vial SC 5,000 units BID NICOLASA Administration Norepinephrine Bitartrate 250 mls @ 0 mls/hr 03/19/20 20:35 03/22/20 20:59 Levophed IVPB 250 mls INF NICOLASA Administration Protocol Titrate Amiodarone HCl 450 mg/ 259 mls @ 0 mls/hr 03/19/20 21:15 03/30/20 15:13 Dextrose/Water IVPB 259 mls INF NICOLASA Administration Protocol Per Protocol Dexamethasone 10 mg/ Sodium 51 mls @ 100 mls/hr 03/20/20 09:00 03/30/20 09:36 Chloride IVPB 51 mls DAILY NICOLASA Administration Fentanyl Citrate 2,000 mcg/ 100 mls @ 0 mls/hr 03/30/20 06:15 03/30/20 06:30 Sodium Chloride IV 100 mls INF NICOLASA Administration Protocol Per Protocol Insulin Human Lispro 0 units 03/19/20 20:35 03/30/20 05:58 Humalog 300 Units/3 Ml Vial SC 3 unit .MILD SLIDING SCALE PRN Administration Mild Correctional Scale Mometasone Furoate/Formoterol Fumar 2 puff 03/24/20 18:30 03/30/20 06:53 Mometasone 200 Mcg/Formoterol 5 Mcg 120 Puff Inhaler INH 2 puff BID-RT NICOLASA Administration Pantoprazole Sodium 40 mg 03/20/20 09:00 03/30/20 09:29 Pantoprazole 40 Mg Vial IVP 40 mg DAILY NICOLASA Administration Propofol 1,000 mg 03/19/20 21:30 03/30/20 08:41 Propofol 1,000 Mg/100 Ml Vial IV 04/18/20 21:30 1,000 mg INF PRN Administration TO ACHIEVE GOAL RASS Protocol Zinc Sulfate 220 mg 03/20/20 09:00 03/30/20 09:29 Zinc Sulfate 220 Mg Cap PER TUBE 220 mg DAILY NICOLASA Administration Hosp A/P - Plan Hosp A/P (1) Pneumonia due to COVID-19 virus Code(s): U07.1 - COVID-19; J12.89 - OTHER VIRAL PNEUMONIA Status: Acute Plan: Continue Levaquin/Dexamethasone/Mech ventilation/Vit C/Zinc (2) Acute respiratory failure with hypoxia and hypercapnia Code(s): J96.01 - ACUTE RESPIRATORY FAILURE WITH HYPOXIA; J96.02 - ACUTE RESPIRATORY FAILURE WITH HYPERCAPNIA Status: Acute Plan: Unable to wean off mech ventilation (3) Severe sepsis with septic shock Code(s): A41.9 - SEPSIS, UNSPECIFIED ORGANISM; R65.21 - SEVERE SEPSIS WITH SEPTIC SHOCK Status: Acute Plan: Resolving, continue Levaquin (4) Cardiac arrest Code(s): I46.9 - CARDIAC ARREST, CAUSE UNSPECIFIED Status: Acute (5) UTI (urinary tract infection) Status: Ruled-out Plan: Suspected but no dominant organism identified (6) End stage renal disease on dialysis Code(s): N18.6 - END STAGE RENAL DISEASE; Z99.2 - DEPENDENCE ON RENAL DIALYSIS Status: Chronic Plan: HD per Renal service (7) Metabolic encephalopathy Code(s): G93.41 - METABOLIC ENCEPHALOPATHY Status: Acute - Plan The patient remains on the ventilator. Continue management per critical care team. Continue dialysis per nephrology. Continue dexamethasone. Continue heparin for DVT phylaxis.
[2020-03-30] MEDS: Scopolamine 1.5 mg/72 hour Patch TOP SCH (17:20)
--- NOTE | 2020-03-30 21:00 | PRG ---
DATE OF SERVICE: 03/30/2020 SUBJECTIVE: The patient is seen, still on life support. Noted with the following vital signs. OBJECTIVE: VITAL SIGNS: Blood pressure /73, pulse of 72, respiratory rate of 18, O2 saturation 100% HEENT: Remarkable for endotracheal tube in place. CARDIOVASCULAR SYSTEM: First and second heart sounds were heard. RESPIRATORY SYSTEM: Revealed vented sounds. DIGESTIVE SYSTEM: Obese abdomen. LABORATORY INVESTIGATIONS: 7.0. White count is 17,000. Chemistry showed a potassium of 3.4, sodium of 132, creatinine 4.17, BUN of 63. IMPRESSION: 1. End-stage renal disease. 2. Cardiopulmonary failure in the context of COVID. 3. COVID pneumonitis. 4. Morbid obesity. 5. Anemia. 6. Mild hypokalemia. PLAN: 1. No dialysis today. We will plan on dialyzing this patient tomorrow with ultrafiltration as tolerated by hemodynamics. 2. Erythropoiesis, stimulating agents to be continued. 3. Further management to be dependent on the clinical course. Job ID: [id number]
[2020-03-31] MEDS: Propofol 1,000 MG/100 ML VIAL IV PRN ×2 (01:20→19:27)
[2020-03-31] MEDS: PROVENTIL INHALER 6.7 G (200 INHALATIONS) INH SCH ×4 (01:44→18:29)
[2020-03-31] MEDS: fentaNYL Citrate/PF 2,000 MCG in Sodium Chloride 0.9% 60 ML IV SCH ×2 (02:35→23:00)
[2020-03-31 05:00] LABS: Band 8 % (5-11); Hemoglobin 7.5 g/dL (12.0-16.0); Lymphocytes 8 % (21-51); MDiff Complete? YES; Mean Corpuscular HGB CONC 33.5 g/dL (32.0-36.0); Mean Corpuscular Hemoglobin 28.8 pg (27.0-31.0); Mean Platelet Volume 10.5 fL (7.4-10.4); Metamyelocyte 4 % (0-0); Monocytes 4 % (0-10); Myelocyte 1 % (0-0); Neutrophil 75 % (42-75); Platelet Count 284 thou/uL (130-400); Platelet Morphology Comment Appears Adequate; RBC Distribution Width 16.9 % (11.5-14.5); Red Blood Cell (RBC) Count 2.62 mill/uL (4.20-5.40); White Blood Cell (WBC) Count 20.8 thou/uL (4.8-10.8)
[2020-03-31 05:05] LABS: Carbon Dioxide 19 mmol/L (22-29); Chloride 91 mmol/L (98-107); Potassium 3.4 mmol/L (3.5-5.1); Sodium 129 mmol/L (136-145)
[2020-03-31 05:06] LABS: Anion Gap 22 mmol/L (10-20); BUN (Urea Nitrogen) 87 mg/dL (7.0-18.7); Calc. Creatinine Clearance 22 mL/min (70-130); Calcium 8.9 mg/dL (7.8-10.44); Estimated GFR-MDRD 11; Glucose 219 mg/dL (70-105)
[2020-03-31] MEDS: HumaLOG 300 UNITS/3 ML VIAL SC PRN ×2 (05:25→22:20)
[2020-03-31] MEDS: Heparin 5,000 UNITS/ML VIAL SC SCH ×2 (08:26→21:34)
[2020-03-31] MEDS: Ascorbic Acid 500 mg Chewable Tablet PER TUBE SCH (08:27)
[2020-03-31] MEDS: Dexamethasone 10 MG in Sodium Chloride 0.9% 50 ML IVPB SCH (08:28)
[2020-03-31] MEDS: Zinc Sulfate 220 MG CAP PER TUBE SCH (08:32)
[2020-03-31] MEDS: Pantoprazole 40 MG VIAL IVP SCH (08:33)
[2020-03-31] MEDS: Mometasone 200 MCG/Formoterol 5 MCG 120 PUFF INHALER INH SCH ×2 (09:07→18:29)
[2020-03-31 09:32] LABS: Actual Bicarbonate (HCO3a) 19.6 mEq/L (22-28); Base Excess (BEa) -5.4 mEq/L (-2.0 to +3.0); CO2 Tension 35.6 mmHg (35.0-45.0); Calcium, Ionized (arterial) 1.11 mmol/L (1.12-1.30); Carboxyhemoglobin (COHb) 0.8 gm% (0.0-3.0); Hemoglobin (Hb) 7.9 g/dL (12.0-16.0); O2 Tension (PaO2), arterial 60.6 mmHg (80.0-100.0); Potassium - ABG Lab 3.26 mmol/L (3.70-5.30); pH, Arterial 7.36 (7.35-7.45)
[2020-03-31 09:34] LABS: Puncture Site LB
[2020-03-31] MEDS ORDERED: Heparin 10,000 UNITS/ 10 ML VIAL ONE (11:42)
[2020-03-31] MEDS ORDERED: Amiodarone 200 MG TAB PO SCH ×2 (14:00→21:00)
--- NOTE | 2020-03-31 14:35 | PDOC.HOSPP ---
- Subjective Encounter Date: 03/31/20 non-verbal - Objective Vital Signs & Weight: Vital Signs (12 hours) Temp Pulse Resp BP Pulse Ox 03/31/20 13:20 64 142/91 H 03/31/20 10:00 20 03/31/20 09:07 63 106/77 03/31/20 08:00 98.8 F 20 100 03/31/20 06:00 20 03/31/20 04:00 98.4 F 20 03/31/20 03:31 73 Weight Admit Weight 212 lb Weight 201 lb 11.567 oz Most Recent Monitor Data Heart Rate from ECG 69 NIBP 138/92 NIBP BP-Mean 107 Respiration from ECG 20 SpO2 100 I&O: 03/30/20 03/31/20 04/01/20 06:59 06:59 06:59 Intake Total 1407 45 Output Total 51 0 Balance 1356 45 Result Diagrams: 03/31/20 04:30 03/31/20 04:30 Additional Labs: Accuchecks 03/30/20 03/30/20 03/30/20 21:05 18:08 10:44 POC Glucose 298 H 320 H 195 H 03/29/20 22:11 POC Glucose 297 H Hospitalist ROS - Medication Medications: Active Medications Generic Name Dose Route Start Last Admin Trade Name Freq PRN Reason Stop Dose Admin Acetaminophen 650 mg 03/20/20 01:14 03/23/20 09:49 Acetaminophen 650 Mg/20.3 Ml Udcup PO 650 mg Q4H PRN Administration Fever>101/(Mi/Mod/Sev) Pain Albuterol Sulfate 4 puff 03/24/20 19:00 03/31/20 13:20 Proventil Inhaler 6.7 G (200 Inhalations) INH 4 puff [id number] NICOLASA Administration Ascorbic Acid 1,000 mg 03/20/20 09:00 03/31/20 08:27 Ascorbic Acid 500 Mg Chewable Tablet PER TUBE 1,000 mg DAILY NICOLASA Administration Epoetin Raman-epbx 7,500 unit 03/27/20 09:00 03/29/20 09:59 Epoetin Raman-Epbx (Esrd) 4,000 Unit/Ml Vial IVP Not Given TuTa [facility] Heparin Sodium (Porcine) 5,000 units 03/19/20 21:00 11/02/20 08:26 Heparin 5,000 Units/Ml Vial SC 5,000 units BID NICOLASA Administration Norepinephrine Bitartrate 250 mls @ 0 mls/hr 03/19/20 20:35 03/22/20 20:59 Levophed IVPB 250 mls INF NICOLASA Administration Protocol Titrate Dexamethasone 10 mg/ Sodium 51 mls @ 100 mls/hr 03/20/20 09:00 03/31/20 08:28 Chloride IVPB 51 mls DAILY NICOLASA Administration Fentanyl Citrate 2,000 mcg/ 100 mls @ 0 mls/hr 03/30/20 06:15 03/31/20 02:35 Sodium Chloride IV 100 mls INF NICOLASA Administration Protocol Per Protocol Insulin Human Lispro 0 units 03/19/20 20:35 03/31/20 05:25 Humalog 300 Units/3 Ml Vial SC 3 unit .MILD SLIDING SCALE PRN Administration Mild Correctional Scale Mometasone Furoate/Formoterol Fumar 2 puff 03/24/20 18:30 03/31/20 09:07 Mometasone 200 Mcg/Formoterol 5 Mcg 120 Puff Inhaler INH 2 puff BID-RT NICOLASA Administration Pantoprazole Sodium 40 mg 03/20/20 09:00 03/31/20 08:33 Pantoprazole 40 Mg Vial IVP 40 mg DAILY NICOLASA Administration Propofol 1,000 mg 03/19/20 21:30 03/31/20 01:20 Propofol 1,000 Mg/100 Ml Vial IV 04/18/20 21:30 1,000 mg INF PRN Administration TO ACHIEVE GOAL RASS Protocol Scopolamine 1.5 mg 03/30/20 15:00 03/30/20 17:20 Scopolamine 1.5 Mg/72 Hour Patch TOP 1.5 mg Q3D NICOLASA Administration Zinc Sulfate 220 mg 03/20/20 09:00 03/31/20 08:32 Zinc Sulfate 220 Mg Cap PER TUBE 220 mg DAILY NICOLASA Administration Hosp A/P - Plan Hosp A/P (1) Pneumonia due to COVID-19 virus Code(s): U07.1 - COVID-19; J12.89 - OTHER VIRAL PNEUMONIA Status: Acute Plan: Continue Levaquin/Dexamethasone/Mech ventilation/Vit C/Zinc (2) Acute respiratory failure with hypoxia and hypercapnia Code(s): J96.01 - ACUTE RESPIRATORY FAILURE WITH HYPOXIA; J96.02 - ACUTE RESPIRATORY FAILURE WITH HYPERCAPNIA Status: Acute Plan: Unable to wean off mech ventilation (3) Severe sepsis with septic shock Code(s): A41.9 - SEPSIS, UNSPECIFIED ORGANISM; R65.21 - SEVERE SEPSIS WITH SEPTIC SHOCK Status: Acute Plan: Resolving, continue Levaquin (4) Cardiac arrest Code(s): I46.9 - CARDIAC ARREST, CAUSE UNSPECIFIED Status: Acute (5) UTI (urinary tract infection) Status: Ruled-out Plan: Suspected but no dominant organism identified (6) End stage renal disease on dialysis Code(s): N18.6 - END STAGE RENAL DISEASE; Z99.2 - DEPENDENCE ON RENAL DIALYSIS Status: Chronic Plan: HD per Renal service (7) Metabolic encephalopathy Code(s): G93.41 - METABOLIC ENCEPHALOPATHY Status: Acute - Plan The patient remains on the ventilator. Continue management per critical care team. Continue dialysis per nephrology. Continue dexamethasone. Continue heparin for DVT phylaxis. There is no evidence of arrhythmias. IV amiodarone has been discontinued.
--- NOTE | 2020-03-31 16:42 | PRG ---
DATE OF SERVICE: 03/31/2020 OBJECTIVE: VITAL SIGNS: The patient is noted with the following vital signs, blood pressure 127/79, respiratory rate of 20, O2 saturation 100%. HEENT: Remarkable for endotracheal tube in place. CARDIOVASCULAR SYSTEM: First and second heart sounds were heard. RESPIRATORY SYSTEM: Showed vented sounds. DIGESTIVE SYSTEM: Revealed obese abdomen. IMPRESSION: 1. End-stage renal disease, on dialysis. Plan, the patient to be dialyzed today in accordance with the schedule with ultrafiltration as tolerated by hemodynamics. 2. COVID pneumonitis. 3. Cardiopulmonary failure secondary to problem #2. Job ID: [id number]
--- NOTE | 2020-03-31 20:49 | PRG ---
DATE OF SERVICE: 03/31/2020 SUBJECTIVE: Razia Menjivar remains ventilated. OBJECTIVE: VITAL SIGNS: Heart rate 70, blood pressure 140/54, and respiratory rate is 20. LUNGS: Clear. HEART: Regular rhythm. ABDOMEN: Soft. LABORATORY DATA: White count hemoglobin 7.5, platelets 284,000. Sodium 129, potassium 3.4, chloride 91, bicarb 19, BUN 87, creatinine 5.17. IMPRESSION: 1. COVID pneumonia, respiratory failure. 2. End-stage renal disease. 3. Bilateral mjtat-eik-yizp amputations. 4. Life-threatening obesity. Surprisingly, her gas exchange is gradually improving. PH 7.36, CO2 35, PO2 of 60. Her FiO2 is down to 50%. She is still on bilevel of 33/12. We will continue supportive care. CRITICAL CARE TIME: 30 minutes. Job ID: [id number]
[2020-04-01] MEDS: PROVENTIL INHALER 6.7 G (200 INHALATIONS) INH SCH ×4 (00:12→18:47)
[2020-04-01 04:33] LABS: Hemoglobin 7.5 g/dL (12.0-16.0); Mean Corpuscular HGB CONC 32.7 g/dL (32.0-36.0); Mean Corpuscular Hemoglobin 28.2 pg (27.0-31.0); Mean Corpuscular Volume 86.2 fL (78.0-98.0); Mean Platelet Volume 10.2 fL (7.4-10.4); Platelet Count 303 thou/uL (130-400); RBC Distribution Width 17.1 % (11.5-14.5); Red Blood Cell (RBC) Count 2.67 mill/uL (4.20-5.40); White Blood Cell (WBC) Count 18.3 thou/uL (4.8-10.8)
[2020-04-01 04:34] LABS: Band 5 % (5-11); Hypochromia SLIGHT = 6-15 cells (100X) (0-5/hpf); Lymphocytes 9 % (21-51); MDiff Complete? YES; Metamyelocyte 1 % (0-0); Monocytes 20 % (0-10); Neutrophil 62 % (42-75); Platelet Morphology Comment Appears Adequate; Polychromasia SLIGHT = 2-3 cells (100X) (0-2/hpf); Reactive Lymphocytes 3 % (0-10)
[2020-04-01 04:43] LABS: Anion Gap 19 mmol/L (10-20); BUN (Urea Nitrogen) 49 mg/dL (7.0-18.7); Calc. Creatinine Clearance 32 mL/min (70-130); Calcium 9.3 mg/dL (7.8-10.44); Carbon Dioxide 23 mmol/L (22-29); Chloride 95 mmol/L (98-107); Estimated GFR-MDRD 18; Glucose 140 mg/dL (70-105); Sodium 134 mmol/L (136-145)
[2020-04-01] MEDS: Mometasone 200 MCG/Formoterol 5 MCG 120 PUFF INHALER INH SCH ×2 (07:10→18:47)
[2020-04-01 07:17] LABS: Actual Bicarbonate (HCO3a) 21.7 mEq/L (22-28); Base Excess (BEa) -1.3 mEq/L (-2.0 to +3.0); Calcium, Ionized (arterial) 1.13 mmol/L (1.12-1.30); Carboxyhemoglobin (COHb) 0.7 gm% (0.0-3.0); Hemoglobin (Hb) 7.7 g/dL (12.0-16.0); pH, Arterial 7.49 (7.35-7.45)
[2020-04-01 07:22] LABS: Puncture Site RRA
[2020-04-01] MEDS: Heparin 5,000 UNITS/ML VIAL SC SCH ×2 (07:44→20:20)
[2020-04-01] MEDS: Pantoprazole 40 MG VIAL IVP SCH (07:44)
[2020-04-01] MEDS: Zinc Sulfate 220 MG CAP PER TUBE SCH (07:44)
[2020-04-01] MEDS: Ascorbic Acid 500 mg Chewable Tablet PER TUBE SCH (07:44)
[2020-04-01] MEDS: EPOETIN ALFA-EPBX (ESRD) 4,000 UNIT/ML VIAL IVP SCH (08:56)
[2020-04-01] MEDS: Dexamethasone 10 MG in Sodium Chloride 0.9% 50 ML IVPB SCH (09:02)
[2020-04-01] MEDS: Potassium Chloride 20 MEQ TAB PO SCH ×2 (09:03→17:02)
[2020-04-01] MEDS ORDERED: Heparin 10,000 UNITS/ 10 ML VIAL ONE (13:30)
[2020-04-01] MEDS: Propofol 1,000 MG/100 ML VIAL IV PRN (14:45)
--- NOTE | 2020-04-01 16:29 | PRG ---
DATE OF SERVICE: 04/01/2020 SUBJECTIVE: Razia Menjivar remains unchanged. OBJECTIVE: VITAL SIGNS: Heart rate is 80, respiratory rate is 20, FiO2 is at 50%. We have turned her PEEP down today, blood pressure 136/62. Intake and outputs, positive 991. LUNGS: Remarkable for coarse equal breath sounds. HEART: Regular rhythm. ABDOMEN: Soft. EXTREMITIES: Still double amputee. IMPRESSION: 1. COVID pneumonia, slowly improving. 2. End-stage renal disease. 3. Bilateral hrglu-zdb-pjdt amputations. 4. Obesity, this is life threatening. PLAN: We will continue supportive care and slow weaning from ventilation. Job ID: [id number]
--- NOTE | 2020-04-01 16:30 | PDOC.HOSPP ---
- Subjective Encounter Date: 04/01/20 non-verbal (Intubated) - Objective Vital Signs & Weight: Vital Signs (12 hours) Temp Pulse Resp BP Pulse Ox 04/01/20 14:25 80 04/01/20 14:00 20 04/01/20 12:00 98.2 F 20 04/01/20 10:30 80 110/61 04/01/20 10:00 20 04/01/20 08:00 98.3 F 20 99 04/01/20 07:10 71 04/01/20 06:00 20 Weight Admit Weight 212 lb Weight 201 lb 11.567 oz Most Recent Monitor Data Heart Rate from ECG 76 NIBP 136/62 NIBP BP-Mean 86 Respiration from ECG 20 SpO2 100 I&O: 03/31/20 04/01/20 04/02/20 06:59 06:59 06:59 Intake Total 1407 1191 240 Output Total 51 200 Balance 1356 991 240 Result Diagrams: 04/01/20 03:00 04/01/20 03:00 Additional Labs: Accuchecks 04/01/20 04/01/20 04/01/20 10:15 10:12 03:37 POC Glucose 138 H 118 H 125 H 03/31/20 03/31/20 21:44 12:29 POC Glucose 191 H 228 H Hospitalist ROS - Medication Medications: Active Medications Generic Name Dose Route Start Last Admin Trade Name Freq PRN Reason Stop Dose Admin Acetaminophen 650 mg 03/20/20 01:14 03/23/20 09:49 Acetaminophen 650 Mg/20.3 Ml Udcup PO 650 mg Q4H PRN Administration Fever>101/(Mi/Mod/Sev) Pain Albuterol Sulfate 4 puff 03/24/20 19:00 04/01/20 14:20 Proventil Inhaler 6.7 G (200 Inhalations) INH 4 puff [id number] NICOLASA Administration Ascorbic Acid 1,000 mg 03/20/20 09:00 04/01/20 07:44 Ascorbic Acid 500 Mg Chewable Tablet PER TUBE 1,000 mg DAILY NICOLASA Administration Epoetin Raman-epbx 7,500 unit 03/27/20 09:00 04/01/20 08:56 Epoetin Raman-Epbx (Esrd) 4,000 Unit/Ml Vial IVP 7,500 unit TuThSa NICOLASA Administration Heparin Sodium (Porcine) 5,000 units 03/19/20 21:00 04/01/20 07:44 Heparin 5,000 Units/Ml Vial SC 5,000 units BID NICOLASA Administration Norepinephrine Bitartrate 250 mls @ 0 mls/hr 03/19/20 20:35 03/22/20 20:59 Levophed IVPB 250 mls INF NICOLASA Administration Protocol Titrate Dexamethasone 10 mg/ Sodium 51 mls @ 100 mls/hr 03/20/20 09:00 04/01/20 09:02 Chloride IVPB 51 mls DAILY NICOLASA Administration Fentanyl Citrate 2,000 mcg/ 100 mls @ 0 mls/hr 03/30/20 06:15 03/31/20 23:00 Sodium Chloride IV 100 mls INF NICOLASA Administration Protocol Per Protocol Insulin Human Lispro 0 units 03/19/20 20:35 03/31/20 22:20 Humalog 300 Units/3 Ml Vial SC 2 unit .MILD SLIDING SCALE PRN Administration Mild Correctional Scale Mometasone Furoate/Formoterol Fumar 2 puff 03/24/20 18:30 04/01/20 07:10 Mometasone 200 Mcg/Formoterol 5 Mcg 120 Puff Inhaler INH 2 puff BID-RT NICOLASA Administration Pantoprazole Sodium 40 mg 03/20/20 09:00 04/01/20 07:44 Pantoprazole 40 Mg Vial IVP 40 mg DAILY NICOLASA Administration Potassium Chloride 40 meq 04/01/20 08:00 04/01/20 09:03 Potassium Chloride 20 Meq Tab PO 04/01/20 21:00 40 meq BID-WM NICOLASA Administration Propofol 1,000 mg 03/19/20 21:30 04/01/20 14:45 Propofol 1,000 Mg/100 Ml Vial IV 04/18/20 21:30 1,000 mg INF PRN Administration TO ACHIEVE GOAL RASS Protocol Scopolamine 1.5 mg 03/30/20 15:00 03/30/20 17:20 Scopolamine 1.5 Mg/72 Hour Patch TOP 1.5 mg Q3D NICOLASA Administration Zinc Sulfate 220 mg 03/20/20 09:00 04/01/20 07:44 Zinc Sulfate 220 Mg Cap PER TUBE 220 mg DAILY NICOLASA Administration Hosp A/P - Plan Hosp A/P (1) Pneumonia due to COVID-19 virus Code(s): U07.1 - COVID-19; J12.89 - OTHER VIRAL PNEUMONIA Status: Acute Plan: Continue Levaquin/Dexamethasone/Mech ventilation/Vit C/Zinc (2) Acute respiratory failure with hypoxia and hypercapnia Code(s): J96.01 - ACUTE RESPIRATORY FAILURE WITH HYPOXIA; J96.02 - ACUTE RESPIRATORY FAILURE WITH HYPERCAPNIA Status: Acute Plan: Unable to wean off mech ventilation (3) Severe sepsis with septic shock Code(s): A41.9 - SEPSIS, UNSPECIFIED ORGANISM; R65.21 - SEVERE SEPSIS WITH SEPTIC SHOCK Status: Acute Plan: Resolving, continue Levaquin (4) Cardiac arrest Code(s): I46.9 - CARDIAC ARREST, CAUSE UNSPECIFIED Status: Acute (5) UTI (urinary tract infection) Status: Ruled-out Plan: Suspected but no dominant organism identified (6) End stage renal disease on dialysis Code(s): N18.6 - END STAGE RENAL DISEASE; Z99.2 - DEPENDENCE ON RENAL DIALYSIS Status: Chronic Plan: HD per Renal service (7) Metabolic encephalopathy Code(s): G93.41 - METABOLIC ENCEPHALOPATHY Status: Acute - Plan The patient is on 50% FiO2 today. The patient remains on the ventilator. Continue management per critical care team. Continue dialysis per nephrology. Continue dexamethasone. Continue heparin for DVT phylaxis. There is no evidence of arrhythmias. IV amiodarone has been discontinued.
[2020-04-01] MEDS: HumaLOG 300 UNITS/3 ML VIAL SC PRN ×2 (17:50→21:13)
--- NOTE | 2020-04-01 19:26 | PRG ---
DATE OF SERVICE: 04/01/2020 SUBJECTIVE: The patient is still on life support. Noted with the following vital signs. OBJECTIVE: VITAL SIGNS: Afebrile, temperature 98.4, pulse 72, respiratory rate of 20, and blood pressure 131/82. HEENT: Remarkable for endotracheal tube in place. CARDIOVASCULAR SYSTEM: First and second heart sounds were heard. RESPIRATORY SYSTEM: Revealed vented sounds. DIGESTIVE SYSTEM: Revealed obese abdomen. LABORATORY INVESTIGATION: Showed a potassium of 3.0, BUN 49, and creatinine 3.54. CBC showed hemoglobin of 7.5 with a white count of 18,000. IMPRESSION: 1. Cardiopulmonary failure in the context of problem #2. 2. COVID pneumonitis. 3. End-stage renal disease. 4. Anemia of chronic kidney disease. 5. Hypokalemia. PLAN: 1. Replete potassium. 2. Erythropoiesis stimulating agents as ordered. 3. Dialysis on a Tuesday, Tuesday, and Tuesday schedule. 4. Further management to be dependent on the clinical course. Job ID: [id number]
[2020-04-02] MEDS: PROVENTIL INHALER 6.7 G (200 INHALATIONS) INH SCH ×5 (00:41→23:36)
[2020-04-02] MEDS: Propofol 1,000 MG/100 ML VIAL IV PRN ×2 (03:31→08:08)
[2020-04-02] MEDS: HumaLOG 300 UNITS/3 ML VIAL SC PRN ×3 (04:50→23:15)
[2020-04-02 05:01] LABS: Band 7 % (5-11); Hemoglobin 7.9 g/dL (12.0-16.0); Lymphocytes 8 % (21-51); MDiff Complete? YES; Mean Corpuscular HGB CONC 32.7 g/dL (32.0-36.0); Mean Corpuscular Hemoglobin 28.3 pg (27.0-31.0); Mean Corpuscular Volume 86.5 fL (78.0-98.0); Mean Platelet Volume 10.3 fL (7.4-10.4); Metamyelocyte 4 % (0-0); Monocytes 4 % (0-10); Myelocyte 1 % (0-0); Neutrophil 76 % (42-75); Platelet Count 279 thou/uL (130-400); Platelet Morphology Comment Appears Adequate; RBC Distribution Width 17.4 % (11.5-14.5); Red Blood Cell (RBC) Count 2.79 mill/uL (4.20-5.40); White Blood Cell (WBC) Count 20.6 thou/uL (4.8-10.8)
[2020-04-02 05:17] LABS: Anion Gap 21 mmol/L (10-20); BUN (Urea Nitrogen) 66 mg/dL (7.0-18.7); Calc. Creatinine Clearance 25 mL/min (70-130); Calcium 9.4 mg/dL (7.8-10.44); Carbon Dioxide 21 mmol/L (22-29); Chloride 95 mmol/L (98-107); Estimated GFR-MDRD 13; Glucose 209 mg/dL (70-105); Potassium 4.3 mmol/L (3.5-5.1); Sodium 133 mmol/L (136-145)
[2020-04-02] MEDS: Mometasone 200 MCG/Formoterol 5 MCG 120 PUFF INHALER INH SCH ×2 (06:45→19:23)
[2020-04-02 07:39] LABS: Base Excess (BEa) -3.1 mEq/L (-2.0 to +3.0); CO2 Tension 33.6 mmHg (35.0-45.0); Calcium, Ionized (arterial) 1.19 mmol/L (1.12-1.30); Carboxyhemoglobin (COHb) 0.8 gm% (0.0-3.0); Hemoglobin (Hb) 8.4 g/dL (12.0-16.0); O2 Tension (PaO2), arterial 98.7 mmHg (80.0-100.0); Potassium - ABG Lab 4.19 mmol/L (3.70-5.30); pH, Arterial 7.41 (7.35-7.45)
[2020-04-02] MEDS: Heparin 5,000 UNITS/ML VIAL SC SCH ×2 (07:53→21:36)
[2020-04-02] MEDS: Zinc Sulfate 220 MG CAP PER TUBE SCH (07:53)
[2020-04-02] MEDS: Pantoprazole 40 MG VIAL IVP SCH (07:53)
[2020-04-02] MEDS: Ascorbic Acid 500 mg Chewable Tablet PER TUBE SCH (07:54)
[2020-04-02] MEDS: Dexamethasone 10 MG in Sodium Chloride 0.9% 50 ML IVPB SCH (08:46)
[2020-04-02] MEDS ORDERED: Activase 2 MG VIAL CATH SCH (11:30)
[2020-04-02] MEDS ORDERED: Sterile Water 10 ML VIAL IVP SCH (11:30)
[2020-04-02 12:39] LABS: Puncture Site L.B.
[2020-04-02] MEDS: Scopolamine 1.5 mg/72 hour Patch TOP SCH (14:31)
--- NOTE | 2020-04-02 15:53 | PRG ---
DATE OF SERVICE: 04/02/2020 SUBJECTIVE: Razia Menjivar remains hemodynamically stable. OBJECTIVE: VITAL SIGNS: Blood pressure 141/87, heart rates in 70s, respiratory rates in the teens to low 20s. LUNGS: Remarkable for coarse equal breath sounds. HEART: Regular rhythm. ABDOMEN: Soft. LABORATORY DATA: White count 20.6, hemoglobin 7.9, platelets 279. Sodium 133, potassium 4.3, chloride 95, bicarb 21, BUN 66, creatinine 4.53. PH 7.41, pCO2 of 33, pO2 of 98. She remains on 33/10 bilevel support. She is not really following commands. She did have a in the emergency department, but woke up several days later, but now certainly is not alert. Precedex started yesterday to try to eliminate other drugs. At some point, she may need an EEG to make sure she is not having seizures, although it seems unlikely. She is clinically improved. Her prognosis is extremely guarded, given her multiple medical problems. Job ID: [id number]
--- NOTE | 2020-04-02 16:42 | PDOC.HOSPP ---
- Subjective Encounter Date: 04/02/20 non-verbal (Remains on the vent.) - Objective Vital Signs & Weight: Vital Signs (12 hours) Temp Pulse Resp BP Pulse Ox 04/02/20 14:00 75 139/90 04/02/20 11:58 98 F 04/02/20 11:00 98 F 04/02/20 10:50 74 123/68 04/02/20 07:59 98.9 F 04/02/20 07:14 22 H 98 04/02/20 07:00 98.9 F 04/02/20 06:45 65 148/65 H 04/02/20 06:00 20 04/02/20 05:00 96.9 F L Weight Admit Weight 212 lb Weight 202 lb 13.204 oz Most Recent Monitor Data Heart Rate from ECG 67 NIBP 146/88 NIBP BP-Mean 107 Respiration from ECG 20 SpO2 97 I&O: 04/01/20 04/02/20 04/03/20 06:59 06:59 06:59 Intake Total 1191 939.5 180 Output Total 200 215 400 Balance 991 724.5 -220 Result Diagrams: 04/02/20 03:30 04/02/20 03:30 Additional Labs: Accuchecks 04/02/20 04/02/20 04/01/20 10:09 04:31 20:57 POC Glucose 161 H 191 H 252 H 04/01/20 17:43 POC Glucose 262 H Hospitalist ROS - Medication Medications: Active Medications Generic Name Dose Route Start Last Admin Trade Name Freq PRN Reason Stop Dose Admin Acetaminophen 650 mg 03/20/20 01:14 03/23/20 09:49 Acetaminophen 650 Mg/20.3 Ml Udcup PO 650 mg Q4H PRN Administration Fever>101/(Mi/Mod/Sev) Pain Albuterol Sulfate 4 puff 03/24/20 19:00 04/02/20 13:59 Proventil Inhaler 6.7 G (200 Inhalations) INH 4 puff [id number] NICOLASA Administration Ascorbic Acid 1,000 mg 03/20/20 09:00 04/02/20 07:54 Ascorbic Acid 500 Mg Chewable Tablet PER TUBE 1,000 mg DAILY NICOALSA Administration Epoetin Raman-epbx 7,500 unit 03/27/20 09:00 04/01/20 08:56 Epoetin Raman-Epbx (Esrd) 4,000 Unit/Ml Vial IVP 7,500 unit TuThSa NICOLASA Administration Heparin Sodium (Porcine) 5,000 units 03/19/20 21:00 04/02/20 07:53 Heparin 5,000 Units/Ml Vial SC 5,000 units BID NICOLASA Administration Norepinephrine Bitartrate 250 mls @ 0 mls/hr 03/19/20 20:35 03/22/20 20:59 Levophed IVPB 250 mls INF NICOLASA Administration Protocol Titrate Dexamethasone 10 mg/ Sodium 51 mls @ 100 mls/hr 03/20/20 09:00 04/02/20 08:46 Chloride IVPB 51 mls DAILY NICOLASA Administration Dexmedetomidine HCl 400 mcg/ 100 mls @ 0 mls/hr 04/01/20 13:45 04/02/20 13:54 Sodium Chloride IVPB 100 mls INF NICOLASA Administration Protocol Per Protocol Insulin Human Lispro 0 units 03/19/20 20:35 04/02/20 16:37 Humalog 300 Units/3 Ml Vial SC 4 unit .MILD SLIDING SCALE PRN Administration Mild Correctional Scale Mometasone Furoate/Formoterol Fumar 2 puff 03/24/20 18:30 04/02/20 06:45 Mometasone 200 Mcg/Formoterol 5 Mcg 120 Puff Inhaler INH 2 puff BID-RT NICOLASA Administration Pantoprazole Sodium 40 mg 03/20/20 09:00 04/02/20 07:53 Pantoprazole 40 Mg Vial IVP 40 mg DAILY NICOLASA Administration Scopolamine 1.5 mg 03/30/20 15:00 04/02/20 14:31 Scopolamine 1.5 Mg/72 Hour Patch TOP 1.5 mg Q3D NICOLASA Administration Zinc Sulfate 220 mg 03/20/20 09:00 04/02/20 07:53 Zinc Sulfate 220 Mg Cap PER TUBE 220 mg DAILY NICOLASA Administration Hosp A/P - Plan Hosp A/P (1) Pneumonia due to COVID-19 virus Code(s): U07.1 - COVID-19; J12.89 - OTHER VIRAL PNEUMONIA Status: Acute Plan: Continue Levaquin/Dexamethasone/Mech ventilation/Vit C/Zinc (2) Acute respiratory failure with hypoxia and hypercapnia Code(s): J96.01 - ACUTE RESPIRATORY FAILURE WITH HYPOXIA; J96.02 - ACUTE RESPIRATORY FAILURE WITH HYPERCAPNIA Status: Acute Plan: [facility] (3) Severe sepsis with septic shock Code(s): A41.9 - SEPSIS, UNSPECIFIED ORGANISM; R65.21 - SEVERE SEPSIS WITH SEPTIC SHOCK Status: Acute Plan: Resolving, continue Levaquin (4) Cardiac arrest Code(s): I46.9 - CARDIAC ARREST, CAUSE UNSPECIFIED Status: Acute (5) UTI (urinary tract infection) Status: Ruled-out Plan: Suspected but no dominant organism identified (6) End stage renal disease on dialysis Code(s): N18.6 - END STAGE RENAL DISEASE; Z99.2 - DEPENDENCE ON RENAL DIALYSIS Status: Chronic Plan: HD per Renal service (7) Metabolic encephalopathy Code(s): G93.41 - METABOLIC ENCEPHALOPATHY Status: Acute - Plan The patient is on 50% FiO2 today. The patient remains on the ventilator. Continue management per critical care team. She is getting hemodialysis today. Continue dexamethasone. Continue heparin for DVT phylaxis. There is no evidence of arrhythmias. IV amiodarone was discontinued.
--- NOTE | 2020-04-02 18:41 | PRG ---
DATE OF SERVICE: 04/02/2020 SUBJECTIVE: The patient noted with the following vital signs. OBJECTIVE: GENERAL: Still on life support. VITAL SIGNS: Blood pressure 152/89, pulse 68, respiratory rate of 20, O2 saturation of 100%, on life support. HEENT: Remarkable for endotracheal tube in place. CARDIOVASCULAR SYSTEM: First and second heart sounds. RESPIRATORY SYSTEM: Vented sounds. DIGESTIVE SYSTEM: Revealed an obese abdomen. IMPRESSION: 1. End-stage renal disease. 2. Cardiopulmonary failure . 3. COVID pneumonitis. PLAN: 1. The patient undergoing dialysis today. However, the catheter stopped working, so dialysis was cut short by almost 2 hours. We will plan on and plan on dialyzing this patient tomorrow again, possibly with emphasis on ultrafiltration. 2. Further management to be dependent on the clinical course. Job ID: [id number]
[2020-04-03 05:01] LABS: Band 1 % (5-11); Hemoglobin 7.9 g/dL (12.0-16.0); Hypochromia SLIGHT = 6-15 cells (100X) (0-5/hpf); Lymphocytes 11 % (21-51); MDiff Complete? YES; Mean Corpuscular HGB CONC 32.8 g/dL (32.0-36.0); Mean Corpuscular Hemoglobin 28.8 pg (27.0-31.0); Mean Corpuscular Volume 87.9 fL (78.0-98.0); Mean Platelet Volume 10.1 fL (7.4-10.4); Metamyelocyte 1 % (0-0); Monocytes 15 % (0-10); Neutrophil 72 % (42-75); Platelet Count 263 thou/uL (130-400); Platelet Morphology Comment Appears Adequate; Polychromasia SLIGHT = 2-3 cells (100X) (0-2/hpf); RBC Distribution Width 17.4 % (11.5-14.5); Red Blood Cell (RBC) Count 2.73 mill/uL (4.20-5.40); White Blood Cell (WBC) Count 17.7 thou/uL (4.8-10.8)
[2020-04-03 05:03] LABS: Anion Gap 20 mmol/L (10-20); BUN (Urea Nitrogen) 51 mg/dL (7.0-18.7); Calc. Creatinine Clearance 28 mL/min (70-130); Calcium 9.5 mg/dL (7.8-10.44); Carbon Dioxide 21 mmol/L (22-29); Chloride 96 mmol/L (98-107); Estimated GFR-MDRD 15; Glucose 205 mg/dL (70-105); Sodium 133 mmol/L (136-145)
[2020-04-03] MEDS: HumaLOG 300 UNITS/3 ML VIAL SC PRN ×2 (05:46→21:45)
[2020-04-03] MEDS: Mometasone 200 MCG/Formoterol 5 MCG 120 PUFF INHALER INH SCH ×2 (08:19→19:30)
[2020-04-03] MEDS: PROVENTIL INHALER 6.7 G (200 INHALATIONS) INH SCH ×4 (08:20→23:15)
[2020-04-03] MEDS ORDERED: Amlodipine 10 MG TAB PO SCH (09:00)
[2020-04-03] MEDS: Dexamethasone 10 MG in Sodium Chloride 0.9% 50 ML IVPB SCH (09:05)
[2020-04-03] MEDS: Ascorbic Acid 500 mg Chewable Tablet PER TUBE SCH (09:29)
[2020-04-03] MEDS: Zinc Sulfate 220 MG CAP PER TUBE SCH (09:29)
[2020-04-03] MEDS: Pantoprazole 40 MG VIAL IVP SCH (09:29)
[2020-04-03] MEDS: Heparin 5,000 UNITS/ML VIAL SC SCH ×2 (09:29→21:17)
--- NOTE | 2020-04-03 11:09 | PRG ---
DATE OF SERVICE: 04/03/2020 SUBJECTIVE: Razia Menjivar awakens easily, makes eye contact and tracks. She weakly follows commands. OBJECTIVE: VITAL SIGNS: Blood pressure 140/80, heart rate 67, respiratory rate 23. LUNGS: Clear. HEART: Regular rhythm. ABDOMEN: Soft. Given that she had a cough 3 to 4 days prior to her admission, she probably had a false negative COVID screen at that time. I suspect she is 18 or 19 days into this illness and probably this weekend, we can discontinue her isolation. We are switching her to volume ventilation, see how she does. LABORATORY DATA: White count 17.7, hemoglobin 7.9, and platelets 263. Sodium 133, potassium 4, chloride 96, bicarb 21, BUN 51, creatinine 4.03. It would be nice if you could avoid a tracheostomy in her, but given her extreme deconditioning and morbid obesity, it is likely she will require successfully wean from mechanical ventilation. We will continue to follow closely. Critical care time 30 min. Job ID: [id number] MTDD
[2020-04-03] MEDS: EPOETIN ALFA-EPBX (ESRD) 4,000 UNIT/ML VIAL IVP SCH ×2 (12:51→12:53)
[2020-04-03] MEDS ORDERED: Midazolam HCl 2 mg/2 ml Vial ONE (14:09)
[2020-04-03] MEDS ORDERED: Lidocaine 1% w/Epinephrine 1:100K 20 ML VIAL ONE (14:14)
[2020-04-03] MEDS ORDERED: Vecuronium 10 MG VIAL ONE (16:34)
--- NOTE | 2020-04-03 17:05 | RAD ---
Portable frontal chest radiograph: 04/03/2020 COMPARISON: 03/26/2020 HISTORY: Pneumonia, intubated patient, line placement FINDINGS: Stable endotracheal tube and nasogastric tube. Left-sided vascular catheter present, distal tip overlying the region of the proximal right atrium. Right-sided dialysis catheter present distal tip overlying the lower right atrium. There is dense consolidation in the right upper lobe, mi d right lung zone, right lung base, and the medial aspect of the left base. Bilateral pleural effusions are suspected, stable. IMPRESSION: Lines and tubes as detailed above. Findings suggesting bilateral pleural effusions with nonspecific multi lobar dense consolidation/airs pace disease.
--- NOTE | 2020-04-03 17:14 | PDOC.HOSPP ---
- Subjective Encounter Date: 04/03/20 non-verbal (Intubated) - Objective Vital Signs & Weight: Vital Signs (12 hours) Temp Pulse Resp BP Pulse Ox 04/03/20 14:53 70 168/88 H 04/03/20 13:34 69 147/76 H 04/03/20 11:20 70 142/64 H 04/03/20 08:01 70 147/113 H 04/03/20 08:00 100 04/03/20 07:57 20 04/03/20 07:00 98 F 04/03/20 06:00 20 Weight Admit Weight 212 lb Weight 201 lb 15.095 oz Most Recent Monitor Data Heart Rate from ECG 69 NIBP 165/89 NIBP BP-Mean 114 Respiration from ECG 23 SpO2 100 I&O: 04/02/20 04/03/20 04/04/20 06:59 06:59 06:59 Intake Total 939.5 1367 Output Total 215 700 0 Balance 724.5 667 0 Result Diagrams: 04/03/20 04:00 04/03/20 04:00 Additional Labs: Accuchecks 04/03/20 04/02/20 04/02/20 11:30 21:52 16:35 POC Glucose 189 H 203 H 260 H Hospitalist ROS - Medication Medications: Active Medications Generic Name Dose Route Start Last Admin Trade Name Freq PRN Reason Stop Dose Admin Acetaminophen 650 mg 03/20/20 01:14 03/23/20 09:49 Acetaminophen 650 Mg/20.3 Ml Udcup PO 650 mg Q4H PRN Administration Fever>101/(Mi/Mod/Sev) Pain Albuterol Sulfate 4 puff 03/24/20 19:00 04/03/20 13:34 Proventil Inhaler 6.7 G (200 Inhalations) INH 4 puff [id number] NICOLASA Administration Ascorbic Acid 1,000 mg 03/20/20 09:00 04/03/20 09:29 Ascorbic Acid 500 Mg Chewable Tablet PER TUBE 1,000 mg DAILY NICOLASA Administration Epoetin Raman-epbx 7,500 unit 03/27/20 09:00 04/03/20 12:53 Epoetin Raman-Epbx (Esrd) 4,000 Unit/Ml Vial IVP 7,500 unit TuThSa NICOLASA Administration Heparin Sodium (Porcine) 5,000 units 03/19/20 21:00 04/03/20 09:29 Heparin 5,000 Units/Ml Vial SC 5,000 units BID NICOLASA Administration Norepinephrine Bitartrate 250 mls @ 0 mls/hr 03/19/20 20:35 03/22/20 20:59 Levophed IVPB 250 mls INF NICOLASA Administration Protocol Titrate Dexamethasone 10 mg/ Sodium 51 mls @ 100 mls/hr 03/20/20 09:00 04/03/20 09:05 Chloride IVPB 51 mls DAILY NICOLASA Administration Dexmedetomidine HCl 400 mcg/ 100 mls @ 0 mls/hr 04/01/20 13:45 04/03/20 14:21 Sodium Chloride IVPB 100 mls INF NICOLASA Administration Protocol Per Protocol Insulin Human Lispro 0 units 03/19/20 20:35 04/03/20 05:46 Humalog 300 Units/3 Ml Vial SC 3 unit .MILD SLIDING SCALE PRN Administration Mild Correctional Scale Mometasone Furoate/Formoterol Fumar 2 puff 03/24/20 18:30 04/03/20 08:19 Mometasone 200 Mcg/Formoterol 5 Mcg 120 Puff Inhaler INH 2 puff BID-RT NICOLASA Administration Pantoprazole Sodium 40 mg 03/20/20 09:00 04/03/20 09:29 Pantoprazole 40 Mg Vial IVP 40 mg DAILY NICOLASA Administration Scopolamine 1.5 mg 03/30/20 15:00 04/02/20 14:31 Scopolamine 1.5 Mg/72 Hour Patch TOP 1.5 mg Q3D NICOLASA Administration Zinc Sulfate 220 mg 03/20/20 09:00 04/03/20 09:29 Zinc Sulfate 220 Mg Cap PER TUBE 220 mg DAILY NICOLASA Administration Hosp A/P - Plan Hosp A/P (1) Pneumonia due to COVID-19 virus Code(s): U07.1 - COVID-19; J12.89 - OTHER VIRAL PNEUMONIA Status: Acute Plan: Continue Levaquin/Dexamethasone/Mech ventilation/Vit C/Zinc (2) Acute respiratory failure with hypoxia and hypercapnia Code(s): J96.01 - ACUTE RESPIRATORY FAILURE WITH HYPOXIA; J96.02 - ACUTE RESPIRATORY FAILURE WITH HYPERCAPNIA Status: Acute Plan: Unable to wean off mech ventilation (3) Severe sepsis with septic shock Code(s): A41.9 - SEPSIS, UNSPECIFIED ORGANISM; R65.21 - SEVERE SEPSIS WITH SEPTIC SHOCK Status: Acute Plan: Resolving, continue Levaquin (4) Cardiac arrest Code(s): I46.9 - CARDIAC ARREST, CAUSE UNSPECIFIED Status: Acute (5) UTI (urinary tract infection) Status: Ruled-out Plan: Suspected but no dominant organism identified (6) End stage renal disease on dialysis Code(s): N18.6 - END STAGE RENAL DISEASE; Z99.2 - DEPENDENCE ON RENAL DIALYSIS Status: Chronic Plan: HD per Renal service (7) Metabolic encephalopathy Code(s): G93.41 - METABOLIC ENCEPHALOPATHY Status: Acute - Plan Chest x-ray showing bilateral infiltrates and effusions. The patient remains on the ventilator. Continue management per critical care team. She is getting hemodialysis today. Continue dexamethasone. Continue heparin for DVT phylaxis. There is no evidence of arrhythmias. IV amiodarone was discontinued.
--- NOTE | 2020-04-03 18:42 | PRG ---
DATE OF SERVICE: 04/03/2020 OBJECTIVE: VITAL SIGNS: The patient noted with the following vital signs. Blood pressure 165/89, pulse of 70, O2 saturation is 100%. HEENT: Endotracheal tube in place. CARDIOVASCULAR SYSTEM: First and second heart sounds. RESPIRATORY SYSTEM: Revealed vented sounds. DIGESTIVE SYSTEM: Revealed an obese abdomen. IMPRESSION: 1. End-stage renal disease. 2. Clotted dialysis access. 3. COVID pneumonitis . 4. Cardiopulmonary failure. 5. Obesity. PLAN: 1. We will consult the access surgeon today to possibly replace the dialysis catheter as the patient did not have to declog the catheter. 2. Dialysis is on hold pending when access is established. Job ID: [id number]
[2020-04-03] MEDS ORDERED: Midazolam HCl 2 mg/2 ml Vial SLOW IVP PRN (20:17)
[2020-04-03] MEDS: Propofol 1,000 MG/100 ML VIAL IV PRN (20:35)
[2020-04-03] MEDS ORDERED: Heparin 10,000 UNITS/ 10 ML VIAL CATH SCH (20:45)
--- NOTE | 2020-04-04 00:04 | CON ---
DATE OF CONSULTATION: HISTORY OF PRESENT ILLNESS: Razia Menjivar is a 34-year-old black female, bilateral high [id number] amputations with a cuffed tunneled dialysis catheter placed elsewhere. She has a left IJ central line. She is intubated from COVID pneumonia. I have been asked to see her regarding the dysfunctional right IJ cuffed tunneled dialysis catheter. She has a colostomy and urostomy. The patient is intubated, sedated, and there is no family available and history taken from the chart. She has been hospitalized at multiple hospitals around the [facility]. She lives in [facility] in [place]. PAST MEDICAL HISTORY: End-stage renal disease, on maintenance dialysis; morbid obesity; immobile; history of stroke; diabetes mellitus; GERD; hypertension. PAST SURGICAL HISTORY: Bilateral high [id number] amputations, urostomy, colostomy, hemodialysis catheter right IJ. Family has requested everything be done. Mother has power of commercial litigation attorney. Consents have been obtained for hemodialysis catheter. PHYSICAL EXAMINATION: VITAL SIGNS: Blood pressure 168/88, heart rate 69. GENERAL: The patient is on the ventilator, sedated, hemodialysis catheter cuffed tunneled right IJ, left IJ central line, urostomy, colostomy. LUNGS: Clear to auscultation. Rhonchi. No wheezing. CARDIAC: Regular rate and rhythm. ABDOMEN: Obese, soft. EXTREMITIES: Bilateral high bylgk-juo-[id number] amputations. ASSESSMENT AND PLAN: End-stage renal disease with dysfunctional hemodialysis catheter. Apparently, there is no fistula in her arm. I am uncertain how long she has been on dialysis. Due to her COVID pneumonia and to avoid trips to OR, we will remove her old hemodialysis catheter and place a new cuffed tunneled hemodialysis catheter as I do not feel that I am able to place a femoral vein catheter due to her large pannus and high AKAs and ostomy appliances. Job ID: [id number]
[2020-04-04] MEDS ORDERED: Amlodipine 5 MG TAB PO SCH (00:15)
[2020-04-04 04:43] LABS: Anion Gap 21 mmol/L (10-20); BUN (Urea Nitrogen) 68 mg/dL (7.0-18.7); Calc. Creatinine Clearance 23 mL/min (70-130); Calcium 9.5 mg/dL (7.8-10.44); Carbon Dioxide 20 mmol/L (22-29); Chloride 97 mmol/L (98-107); Estimated GFR-MDRD 12; Glucose 177 mg/dL (70-105); Potassium 4.1 mmol/L (3.5-5.1); Sodium 134 mmol/L (136-145)
[2020-04-04 05:32] LABS: Band 4 % (5-11); Hemoglobin 8.2 g/dL (12.0-16.0); Large Platelets SLIGHT; Lymphocytes 8 % (21-51); MDiff Complete? YES; Mean Corpuscular HGB CONC 32.2 g/dL (32.0-36.0); Mean Corpuscular Hemoglobin 28.4 pg (27.0-31.0); Mean Corpuscular Volume 88.1 fL (78.0-98.0); Mean Platelet Volume 10.4 fL (7.4-10.4); Metamyelocyte 5 % (0-0); Monocytes 4 % (0-10); Myelocyte 2 % (0-0); Neutrophil 77 % (42-75); Platelet Count 264 thou/uL (130-400); Platelet Morphology Comment Appears Adequate; RBC Distribution Width 17.5 % (11.5-14.5); Red Blood Cell (RBC) Count 2.89 mill/uL (4.20-5.40); White Blood Cell (WBC) Count 16.3 thou/uL (4.8-10.8)
[2020-04-04] MEDS: HumaLOG 300 UNITS/3 ML VIAL SC PRN ×3 (05:35→22:02)
[2020-04-04] MEDS: Mometasone 200 MCG/Formoterol 5 MCG 120 PUFF INHALER INH SCH ×2 (08:21→18:40)
[2020-04-04] MEDS: PROVENTIL INHALER 6.7 G (200 INHALATIONS) INH SCH ×3 (08:21→18:40)
[2020-04-04] MEDS: Heparin 5,000 UNITS/ML VIAL SC SCH ×2 (08:25→19:45)
[2020-04-04] MEDS: Pantoprazole 40 MG VIAL IVP SCH (08:25)
[2020-04-04] MEDS: Ascorbic Acid 500 mg Chewable Tablet PER TUBE SCH (08:26)
[2020-04-04] MEDS: Zinc Sulfate 220 MG CAP PER TUBE SCH (08:26)
[2020-04-04] MEDS: Dexamethasone 10 MG in Sodium Chloride 0.9% 50 ML IVPB SCH (08:51)
--- NOTE | 2020-04-04 09:12 | OP ---
DATE OF PROCEDURE: 04/03/2020 PREOPERATIVE DIAGNOSES: End-stage renal disease, COVID pneumonia, dysfunctional hemodialysis catheter right IJ, morbid obesity, colostomy, urostomy, high [id number] amputations. POSTOPERATIVE DIAGNOSES: End-stage renal disease, COVID pneumonia, dysfunctional hemodialysis catheter right IJ, morbid obesity, colostomy, urostomy, high [id number] amputations. PROCEDURES PERFORMED: Removal of right IJ cuffed tunneled dialysis catheter. Placement of new right IJ cuffed tunneled dialysis catheter. ANESTHESIA: 1% Xylocaine with epinephrine. Paralytic, Versed and propofol sedation. DESCRIPTION OF PROCEDURE: With the patient at bedside in the ICU, the old sutures removed from her cuffed tunneled dialysis catheter. The cuff was free. The area prepared with ChloraPrep and draped in routine fashion. Local anesthetic was infiltrated in the skin and subcutaneous tissue. Using sterile technique, an incision was made over the lower right neck above the clavicle, carried out down to the skin, platysma, dissecting the old catheter free, pulling it up into the wound, transecting, and controlling the other one with a hemostat, removing the old catheter and prepping the area with ChloraPrep again. A new stab incision was made infraclavicular right, and using a tunneling device, the pre-curved [employer] cuffed tunneled hemodialysis catheter tunneled between the 2 incisions, placed the fabric cuff beneath the skin exit site. Catheter secured with 2 interrupted sutures of 3-0 nylon and a CHD dressing applied. With the catheter controlled with a hemostat, J-wire was inserted. Catheter removed over the J wire. The dilator and Peel-Away sheath placed and dilator and J-wire removed. Catheter placed with Peel-Away sheath. Peel-Away sheath removed. Platysma was approximated with 4-0 Monocryl, skin with subdermal 4-0 Monocryl, and [place] glue applied. Each port aspirated with blood, flushed with saline solution and heparinized saline solution. Sterile dressings applied. Chest x-ray confirmed placement. Job ID: [id number]
[2020-04-04] MEDS ORDERED: Heparin 10,000 UNITS/ 10 ML VIAL ONE (13:01)
[2020-04-04] MEDS ORDERED: DISCONTINUE PREVIOUS NARCOTIC PAIN MEDICATIONS AND BENZODIAZEPINES FS SCH (13:15)
[2020-04-04] MEDS ORDERED: Propofol BOLUS 1,000 MG/100 ML VIAL IV PRN (13:15)
[2020-04-04] MEDS ORDERED: Propofol 1,000 MG/100 ML VIAL IV PRN (13:15)
[2020-04-04] MEDS ORDERED: Fentanyl BOLUS 250 ML IVPB PRN (13:15)
[2020-04-04] MEDS: Lorazepam 2 MG/ML VIAL SLOW IVP PRN (13:19)
--- NOTE | 2020-04-04 17:10 | PDOC.HOSPP ---
- Subjective Encounter Date: 04/04/20 non-verbal (Remains intubated) - Objective Vital Signs & Weight: Vital Signs (12 hours) Temp Pulse Resp BP Pulse Ox 04/04/20 16:00 98.9 F 18 04/04/20 14:24 68 152/90 H 04/04/20 14:00 20 04/04/20 12:00 98.2 F 30 H 04/04/20 10:32 74 152/114 H 04/04/20 10:00 31 H 04/04/20 08:22 65 158/87 H 04/04/20 08:00 29 H 100 04/04/20 06:00 32 H Weight Admit Weight 212 lb Weight 199 lb 1.239 oz Most Recent Monitor Data Heart Rate from ECG 66 NIBP 163/94 NIBP BP-Mean 117 Respiration from ECG 17 SpO2 100 I&O: 04/03/20 04/04/20 04/05/20 06:59 06:59 06:59 Intake Total 1367 1030 150 Output Total 700 295 50 Balance 667 735 100 Result Diagrams: 04/04/20 03:55 04/04/20 03:55 Additional Labs: Accuchecks 04/04/20 04/04/20 04/03/20 16:21 10:12 21:37 POC Glucose 253 H 148 H 248 H 04/03/20 17:29 POC Glucose 284 H Hospitalist ROS - Medication Medications: Active Medications Generic Name Dose Route Start Last Admin Trade Name Freq PRN Reason Stop Dose Admin Acetaminophen 650 mg 03/20/20 01:14 03/23/20 09:49 Acetaminophen 650 Mg/20.3 Ml Udcup PO 650 mg Q4H PRN Administration Fever>101/(Mi/Mod/Sev) Pain Albuterol Sulfate 4 puff 03/24/20 19:00 04/04/20 14:24 Proventil Inhaler 6.7 G (200 Inhalations) INH 4 puff [id number] NICOLASA Administration Ascorbic Acid 1,000 mg 03/20/20 09:00 04/04/20 08:26 Ascorbic Acid 500 Mg Chewable Tablet PER TUBE 1,000 mg DAILY NICOLASA Administration Epoetin Raman-epbx 7,500 unit 03/27/20 09:00 04/03/20 12:53 Epoetin Raman-Epbx (Esrd) 4,000 Unit/Ml Vial IVP 7,500 unit TuThSa NICOLASA Administration Heparin Sodium (Porcine) 5,000 units 03/19/20 21:00 04/04/20 08:25 Heparin 5,000 Units/Ml Vial SC 5,000 units BID NICOLASA Administration Norepinephrine Bitartrate 250 mls @ 0 mls/hr 03/19/20 20:35 03/22/20 20:59 Levophed IVPB 250 mls INF NICOLASA Administration Protocol Titrate Dexamethasone 10 mg/ Sodium 51 mls @ 100 mls/hr 03/20/20 09:00 04/04/20 08:51 Chloride IVPB 51 mls DAILY NICOLASA Administration Dexmedetomidine HCl 400 mcg/ 100 mls @ 0 mls/hr 04/01/20 13:45 04/04/20 12:06 Sodium Chloride IVPB 100 mls INF NICOLASA Administration Protocol Per Protocol Insulin Human Lispro 0 units 03/19/20 20:35 04/04/20 05:35 Humalog 300 Units/3 Ml Vial SC 2 unit .MILD SLIDING SCALE PRN Administration Mild Correctional Scale Lorazepam 2 mg 04/04/20 13:15 04/04/20 13:19 Lorazepam 2 Mg/Ml Vial SLOW IVP 05/04/20 13:15 2 mg Q1H PRN Administration Breakthrough agitation Mometasone Furoate/Formoterol Fumar 2 puff 03/24/20 18:30 04/04/20 08:21 Mometasone 200 Mcg/Formoterol 5 Mcg 120 Puff Inhaler INH 2 puff BID-RT NICOLASA Administration Pantoprazole Sodium 40 mg 03/20/20 09:00 04/04/20 08:25 Pantoprazole 40 Mg Vial IVP 40 mg DAILY NICOLASA Administration Scopolamine 1.5 mg 03/30/20 15:00 04/02/20 14:31 Scopolamine 1.5 Mg/72 Hour Patch TOP 1.5 mg Q3D NICOLASA Administration Zinc Sulfate 220 mg 03/20/20 09:00 04/04/20 08:26 Zinc Sulfate 220 Mg Cap PER TUBE 220 mg DAILY NICOLASA Administration Hosp A/P - Plan Hosp A/P (1) Pneumonia due to COVID-19 virus Code(s): U07.1 - COVID-19; J12.89 - OTHER VIRAL PNEUMONIA Status: Acute Plan: Continue Levaquin/Dexamethasone/Mech ventilation/Vit C/Zinc (2) Acute respiratory failure with hypoxia and hypercapnia Code(s): J96.01 - ACUTE RESPIRATORY FAILURE WITH HYPOXIA; J96.02 - ACUTE RESPIRATORY FAILURE WITH HYPERCAPNIA Status: Acute Plan: Unable to wean off mech ventilation (3) Severe sepsis with septic shock Code(s): A41.9 - SEPSIS, UNSPECIFIED ORGANISM; R65.21 - SEVERE SEPSIS WITH SEPTIC SHOCK Status: Acute Plan: Resolving, continue Levaquin (4) Cardiac arrest Code(s): I46.9 - CARDIAC ARREST, CAUSE UNSPECIFIED Status: Acute (5) UTI (urinary tract infection) Status: Ruled-out Plan: Suspected but no dominant organism identified (6) End stage renal disease on dialysis Code(s): N18.6 - END STAGE RENAL DISEASE; Z99.2 - DEPENDENCE ON RENAL DIALYSIS Status: Chronic Plan: HD per Renal service (7) Metabolic encephalopathy Code(s): G93.41 - METABOLIC ENCEPHALOPATHY Status: Acute - Plan The patient is agitated despite being on Precedex. Start ICU sedation protocol. Surgery replaced the dysfunctional hemodialysis catheter today. Chest x-ray showing bilateral infiltrates and effusions. The patient remains on the ventilator. Continue management per critical care team. She is getting hemodialysis today. Continue dexamethasone. Continue heparin for DVT phylaxis. There is no evidence of arrhythmias. IV amiodarone was discontinued.
--- NOTE | 2020-04-04 17:11 | PRG ---
DATE OF SERVICE: 04/04/2020 SUBJECTIVE: Ms. Menjivar is clinically unchanged. OBJECTIVE: VITAL SIGNS: She is afebrile. Respiratory rate is 18, FiO2 is at 50, heart rate is in 70s, and blood pressures have been stable. LUNGS: Clear. HEART: Regular rhythm. ABDOMEN: Soft. EXTREMITIES: She has a new right internal jugular cuffed tunneled dialysis catheter placed today. PLAN: Because of her obesity and deconditioning, it is highly likely she will require tracheostomy next week to wean from mechanical ventilation. Job ID: [id number] [facility]
[2020-04-04] MEDS: Morphine 2 MG/ML VIAL SLOW IVP PRN (18:37)
[2020-04-05] MEDS: PROVENTIL INHALER 6.7 G (200 INHALATIONS) INH SCH ×5 (00:40→23:36)
[2020-04-05 03:58] LABS: Anion Gap 16 mmol/L (10-20); BUN (Urea Nitrogen) 38 mg/dL (7.0-18.7); Calc. Creatinine Clearance 34 mL/min (70-130); Calcium 9.5 mg/dL (7.8-10.44); Carbon Dioxide 27 mmol/L (22-29); Chloride 99 mmol/L (98-107); Estimated GFR-MDRD 20; Glucose 175 mg/dL (70-105); Potassium 3.9 mmol/L (3.5-5.1); Sodium 138 mmol/L (136-145)
[2020-04-05 04:10] LABS: Band 11 % (5-11); Hemoglobin 7.7 g/dL (12.0-16.0); Lymphocytes 10 % (21-51); MDiff Complete? YES; Mean Corpuscular HGB CONC 32.3 g/dL (32.0-36.0); Mean Corpuscular Hemoglobin 28.8 pg (27.0-31.0); Mean Corpuscular Volume 89.2 fL (78.0-98.0); Mean Platelet Volume 10.1 fL (7.4-10.4); Monocytes 6 % (0-10); Myelocyte 1 % (0-0); Neutrophil 72 % (42-75); Platelet Count 224 thou/uL (130-400); RBC Distribution Width 17.8 % (11.5-14.5); Red Blood Cell (RBC) Count 2.66 mill/uL (4.20-5.40); White Blood Cell (WBC) Count 13.3 thou/uL (4.8-10.8)
[2020-04-05] MEDS: Pantoprazole 40 MG VIAL IVP SCH (07:29)
[2020-04-05] MEDS: Heparin 5,000 UNITS/ML VIAL SC SCH ×2 (07:29→19:29)
[2020-04-05] MEDS: Ascorbic Acid 500 mg Chewable Tablet PER TUBE SCH (07:30)
[2020-04-05] MEDS: Zinc Sulfate 220 MG CAP PER TUBE SCH (07:30)
[2020-04-05] MEDS: Mometasone 200 MCG/Formoterol 5 MCG 120 PUFF INHALER INH SCH ×2 (08:09→19:10)
[2020-04-05] MEDS: Dexamethasone 10 MG in Sodium Chloride 0.9% 50 ML IVPB SCH (09:13)
[2020-04-05] MEDS: EPOETIN ALFA-EPBX (ESRD) 4,000 UNIT/ML VIAL IVP SCH (09:46)
[2020-04-05] MEDS: HumaLOG 300 UNITS/3 ML VIAL SC PRN ×3 (09:53→21:51)
--- NOTE | 2020-04-05 12:25 | PRG ---
DATE OF SERVICE: 04/05/2020 SUBJECTIVE: Ms. Menjivar remains mechanically ventilated. OBJECTIVE: VITAL SIGNS: Blood pressure 125/86, heart rate 73, respiratory rate 14. Intake and output are positive 1027. LUNGS: Remarkable for coarse equal breath sounds. HEART: Regular rhythm. ABDOMEN: Soft. LABORATORY DATA: White count 13.3, hemoglobin 7.7, and platelets 224. Sodium 138, potassium 3.9, chloride 99, bicarb 27, BUN 38, and creatinine 3.24. IMPRESSION: 1. Respiratory failure with COVID pneumonia. 2. End-stage renal disease. She is 17 days in the hospital with symptomatic several days prior, so she is likely no longer infectious. She will need a tracheostomy and a feeding tube early next week. Job ID: [id number]
[2020-04-05] MEDS: Morphine 2 MG/ML VIAL SLOW IVP PRN ×2 (12:51→16:57)
[2020-04-05] MEDS ORDERED: Heparin 10,000 UNITS/ 10 ML VIAL ONE (12:58)
--- NOTE | 2020-04-05 13:09 | EKG ---
Test Reason : Blood Pressure : / mmHG Vent. Rate : 102 BPM Atrial Rate : 102 BPM P-R Int : 122 ms QRS Dur : 086 ms QT Int : 348 ms P-R-T Axes : 057 005 060 degrees QTc Int : 453 ms Sinus tachycardia Otherwise normal ECG Confirmed by CARL REVELES DO ([id number]), editor producer RJ DEMPSEY ([id number]) on 04/05/2020 1:08:35 PM Referred By: Confirmed By:CARL REVELES DO
[2020-04-05] MEDS: Scopolamine 1.5 mg/72 hour Patch TOP SCH (14:50)
--- NOTE | 2020-04-05 17:20 | PDOC.HOSPP ---
- Subjective Subjective: pt remains intubated, but open her eyes, followed some commands - Objective Vital Signs & Weight: Vital Signs (12 hours) Temp Pulse Resp BP Pulse Ox 04/05/20 14:00 24 H 04/05/20 13:27 63 157/63 H 04/05/20 12:00 98.8 F 16 04/05/20 10:37 60 127/73 04/05/20 10:00 26 H 04/05/20 08:07 64 159/99 H 04/05/20 08:00 98.1 F 04/05/20 07:51 16 100 04/05/20 06:00 18 Weight Admit Weight 212 lb Weight 199 lb 1.239 oz Most Recent Monitor Data Heart Rate from ECG 66 NIBP 150/95 NIBP BP-Mean 113 Respiration from ECG 1 SpO2 100 I&O: 04/04/20 04/05/20 04/06/20 06:59 06:59 06:59 Intake Total 1030 1077 170 Output Total 295 50 100 Balance 735 1027 70 Result Diagrams: 04/05/20 03:11 04/05/20 03:11 Additional Labs: Accuchecks 04/05/20 04/05/20 04/04/20 17:01 09:41 21:53 POC Glucose 278 H 222 H 221 H Radiology Reviewed by me: Yes EKG Reviewed by me: Yes Hospitalist ROS - Medication Medications: Active Medications Generic Name Dose Route Start Last Admin Trade Name Freq PRN Reason Stop Dose Admin Acetaminophen 650 mg 03/20/20 01:14 03/23/20 09:49 Acetaminophen 650 Mg/20.3 Ml Udcup PO 650 mg Q4H PRN Administration Fever>101/(Mi/Mod/Sev) Pain Albuterol Sulfate 4 puff 03/24/20 19:00 04/05/20 13:30 Proventil Inhaler 6.7 G (200 Inhalations) INH 4 puff [id number] NICOLASA Administration Ascorbic Acid 1,000 mg 03/20/20 09:00 04/05/20 07:30 Ascorbic Acid 500 Mg Chewable Tablet PER TUBE 1,000 mg DAILY NICOLASA Administration Epoetin Raman-epbx 7,500 unit 03/27/20 09:00 04/05/20 09:46 Epoetin Raman-Epbx (Esrd) 4,000 Unit/Ml [facility] Administration Heparin Sodium (Porcine) 5,000 units 03/19/20 21:00 04/05/20 07:29 Heparin 5,000 Units/Ml Vial SC 5,000 units BID NICOLASA Administration Norepinephrine Bitartrate 250 mls @ 0 mls/hr 03/19/20 20:35 03/22/20 20:59 Levophed IVPB 250 mls INF NICOLASA Administration Protocol Titrate Dexamethasone 10 mg/ Sodium 51 mls @ 100 mls/hr 03/20/20 09:00 04/05/20 09:13 Chloride IVPB 51 mls DAILY NICOLASA Administration Dexmedetomidine HCl 400 mcg/ 100 mls @ 0 mls/hr 04/01/20 13:45 04/05/20 14:35 Sodium Chloride IVPB 100 mls INF NICOLASA Administration Protocol Per Protocol Insulin Human Lispro 0 units 03/19/20 20:35 04/05/20 09:53 Humalog 300 Units/3 Ml Vial SC 3 unit .MILD SLIDING SCALE PRN Administration Mild Correctional Scale Lorazepam 2 mg 04/04/20 13:15 04/04/20 13:19 Lorazepam 2 Mg/Ml Vial SLOW IVP 05/04/20 13:15 2 mg Q1H PRN Administration Breakthrough agitation Mometasone Furoate/Formoterol Fumar 2 puff 03/24/20 18:30 04/05/20 08:09 Mometasone 200 Mcg/Formoterol 5 Mcg 120 Puff Inhaler INH 2 puff BID-RT NICOLSAA Administration Morphine Sulfate 2 mg 04/04/20 13:15 04/05/20 16:57 Morphine 2 Mg/Ml Vial SLOW IVP 05/04/20 13:15 2 mg Q1H PRN Administration Breakthrough Pain/Agitation Pantoprazole Sodium 40 mg 03/20/20 09:00 04/05/20 07:29 Pantoprazole 40 Mg Vial IVP 40 mg DAILY NICOLASA Administration Scopolamine 1.5 mg 03/30/20 15:00 04/05/20 14:50 Scopolamine 1.5 Mg/72 Hour Patch TOP 1.5 mg Q3D NICOLASA Administration Zinc Sulfate 220 mg 03/20/20 09:00 04/05/20 07:30 Zinc Sulfate 220 Mg Cap PER TUBE 220 mg DAILY NICOLASA Administration - Exam General - other findings: remains intubated Eye: PERRL ENT: normocephalic atraumatic Neck: supple Heart: RRR Respiratory: CTAB Gastrointestinal: soft Extremities - other findings: b/l amputee Skin: normal turgor Musculoskeletal: normal tone Psychiatric: normal affect Hosp A/P - Plan (1) Pneumonia due to COVID-19 virus Code(s): U07.1 - COVID-19; J12.89 - OTHER VIRAL PNEUMONIA Status: Acute (2) Acute respiratory failure with hypoxia and hypercapnia Code(s): J96.01 - ACUTE RESPIRATORY FAILURE WITH HYPOXIA; J96.02 - ACUTE RESPIRATORY FAILURE WITH HYPERCAPNIA Status: Acute Plan: (3) Severe sepsis with septic shock Code(s): A41.9 - SEPSIS, UNSPECIFIED ORGANISM; R65.21 - SEVERE SEPSIS WITH SEPTIC SHOCK Status: Acute (4) Cardiac arrest Code(s): I46.9 - CARDIAC ARREST, CAUSE UNSPECIFIED Status: Acute (5) UTI (urinary tract infection) (6) End stage renal disease on dialysis Code(s): N18.6 - END STAGE RENAL DISEASE; Z99.2 - DEPENDENCE ON RENAL DIALYSIS Status: Chronic (7) Metabolic encephalopathy Code(s): G93.41 - METABOLIC ENCEPHALOPATHY Status: Acute - Plan The patient remains on the ventilator. Continue management per critical care team. Possible trach and peg next week She is getting hemodialysis today. Continue dexamethasone. Continue heparin for DVT phylaxis. Resume home psych medications
[2020-04-05] MEDS: Gabapentin 300 MG CAP PO SCH (19:29)
[2020-04-05] MEDS: DULoxetine 60 MG CAP PO SCH (19:30)
[2020-04-05] MEDS: Aripiprazole 2 MG TAB PO SCH (19:30)
[2020-04-05] MEDS ORDERED: Aggrenox 200-25mg CAP PO SCH (21:00)
[2020-04-06 04:40] LABS: Band 3 % (5-11); Hemoglobin 7.7 g/dL (12.0-16.0); Lymphocytes 16 % (21-51); MDiff Complete? YES; Mean Corpuscular HGB CONC 32.3 g/dL (32.0-36.0); Mean Corpuscular Hemoglobin 29.3 pg (27.0-31.0); Mean Corpuscular Volume 90.9 fL (78.0-98.0); Mean Platelet Volume 9.8 fL (7.4-10.4); Monocytes 5 % (0-10); Neutrophil 76 % (42-75); Platelet Count 199 thou/uL (130-400); RBC Distribution Width 17.2 % (11.5-14.5); Red Blood Cell (RBC) Count 2.64 mill/uL (4.20-5.40); White Blood Cell (WBC) Count 12.1 thou/uL (4.8-10.8)
[2020-04-06 04:44] LABS: Anion Gap 17 mmol/L (10-20); BUN (Urea Nitrogen) 53 mg/dL (7.0-18.7); Calc. Creatinine Clearance 26 mL/min (70-130); Calcium 9.3 mg/dL (7.8-10.44); Carbon Dioxide 25 mmol/L (22-29); Chloride 98 mmol/L (98-107); Estimated GFR-MDRD 14; Glucose 182 mg/dL (70-105); Potassium 4.1 mmol/L (3.5-5.1); Sodium 136 mmol/L (136-145)
[2020-04-06] MEDS: Mometasone 200 MCG/Formoterol 5 MCG 120 PUFF INHALER INH SCH ×2 (08:17→18:23)
[2020-04-06] MEDS: PROVENTIL INHALER 6.7 G (200 INHALATIONS) INH SCH ×4 (08:17→23:44)
[2020-04-06] MEDS: Dexamethasone 10 MG in Sodium Chloride 0.9% 50 ML IVPB SCH (09:37)
[2020-04-06] MEDS: Ascorbic Acid 500 mg Chewable Tablet PER TUBE SCH (09:38)
[2020-04-06] MEDS: Pantoprazole 40 MG VIAL IVP SCH (09:38)
[2020-04-06] MEDS: Heparin 5,000 UNITS/ML VIAL SC SCH ×2 (09:38→21:57)
[2020-04-06] MEDS: Gabapentin 300 MG CAP PO SCH ×2 (09:38→21:56)
[2020-04-06] MEDS: Zinc Sulfate 220 MG CAP PER TUBE SCH (09:40)
[2020-04-06] MEDS: HumaLOG 300 UNITS/3 ML VIAL SC PRN ×3 (10:00→23:10)
--- NOTE | 2020-04-06 15:43 | PDOC.HOSPP ---
- Subjective Subjective: pt was seen and examined at bedside. discussed with nursing staff. Pt appears more calm since her psych meds resumed. - Objective Vital Signs & Weight: Vital Signs (12 hours) Temp Pulse Resp BP Pulse Ox 04/06/20 14:57 78 04/06/20 14:00 30 H 04/06/20 13:30 77 126/81 04/06/20 12:00 33 H 04/06/20 11:20 69 121/70 04/06/20 10:00 32 H 04/06/20 08:18 72 132/108 H 04/06/20 08:00 97.0 F L 28 H 100 04/06/20 06:00 12 04/06/20 04:00 97.7 F 12 Weight Admit Weight 212 lb Weight 199 lb 1.239 oz Most Recent Monitor Data Heart Rate from ECG 78 NIBP 157/92 NIBP BP-Mean 113 Respiration from ECG 7 SpO2 98 I&O: 04/05/20 04/06/20 04/07/20 06:59 06:59 06:59 Intake Total 1077 1431 120 Output Total 50 100 55 Balance 1027 1331 65 Result Diagrams: 04/06/20 03:48 04/06/20 03:48 Additional Labs: Accuchecks 04/06/20 04/05/20 04/05/20 09:51 21:46 17:01 POC Glucose 184 H 213 H 278 H Radiology Reviewed by me: Yes EKG Reviewed by me: Yes Hospitalist ROS - Medication Medications: Active Medications Generic Name Dose Route Start Last Admin Trade Name Freq PRN Reason Stop Dose Admin Acetaminophen 650 mg 03/20/20 01:14 03/23/20 09:49 Acetaminophen 650 Mg/20.3 Ml Udcup PO 650 mg Q4H PRN Administration Fever>101/(Mi/Mod/Sev) Pain Albuterol Sulfate 4 puff 03/24/20 19:00 04/06/20 13:57 Proventil Inhaler 6.7 G (200 Inhalations) INH 4 puff [id number] NICOLASA Administration Aripiprazole 2 mg 04/05/20 21:00 04/05/20 19:30 Aripiprazole 2 Mg Tab PO 2 mg HS NICOLASA Administration Ascorbic Acid 1,000 mg 03/20/20 09:00 04/06/20 09:38 Ascorbic Acid 500 Mg Chewable Tablet PER TUBE 1,000 mg DAILY NICOLASA Administration Duloxetine HCl 60 mg 04/05/20 21:00 04/05/20 19:30 Duloxetine 60 Mg Cap PO 60 mg HS NICOLASA Administration Epoetin Raman-epbx 7,500 unit 03/27/20 09:00 04/05/20 09:46 Epoetin Raman-Epbx (Esrd) 4,000 Unit/Ml Vial IVP 7,500 unit [facility] NICOLASA Administration Gabapentin 600 mg 04/05/20 21:00 04/06/20 09:38 Gabapentin 300 Mg Cap PO 600 mg BID NICOLASA Administration Heparin Sodium (Porcine) 5,000 units 03/19/20 21:00 04/06/20 09:38 Heparin 5,000 Units/Ml Vial SC 5,000 units BID NICOLASA Administration Norepinephrine Bitartrate 250 mls @ 0 mls/hr 03/19/20 20:35 03/22/20 20:59 Levophed IVPB 250 mls INF NICOLASA Administration Protocol Titrate Dexamethasone 10 mg/ Sodium 51 mls @ 100 mls/hr 03/20/20 09:00 04/06/20 09:37 Chloride IVPB 51 mls DAILY NICOLASA Administration Dexmedetomidine HCl 400 mcg/ 100 mls @ 0 mls/hr 04/01/20 13:45 04/06/20 09:38 Sodium Chloride IVPB 100 mls INF NICOLASA Administration Protocol Per Protocol Insulin Human Lispro 0 units 03/19/20 20:35 04/06/20 10:00 Humalog 300 Units/3 Ml Vial SC 2 unit .MILD SLIDING SCALE PRN Administration Mild Correctional Scale Lorazepam 2 mg 04/04/20 13:15 04/04/20 13:19 Lorazepam 2 Mg/Ml Vial SLOW IVP 05/04/20 13:15 2 mg Q1H PRN Administration Breakthrough agitation Mometasone Furoate/Formoterol Fumar 2 puff 03/24/20 18:30 04/06/20 08:17 Mometasone 200 Mcg/Formoterol 5 Mcg 120 Puff Inhaler INH 2 puff BID-RT NICOLASA Administration Morphine Sulfate 2 mg 04/04/20 13:15 04/05/20 16:57 Morphine 2 Mg/Ml Vial SLOW IVP 05/04/20 13:15 2 mg Q1H PRN Administration Breakthrough Pain/Agitation Pantoprazole Sodium 40 mg 03/20/20 09:00 11/08/20 09:38 Pantoprazole 40 Mg Vial IVP 40 mg DAILY NICOLASA Administration Scopolamine 1.5 mg 03/30/20 15:00 04/05/20 14:50 Scopolamine 1.5 Mg/72 Hour Patch TOP 1.5 mg Q3D NICOLASA Administration Zinc Sulfate 220 mg 03/20/20 09:00 04/06/20 09:40 Zinc Sulfate 220 Mg Cap PER TUBE 220 mg DAILY NICOLASA Administration - Exam General - other findings: intubated, follow some commands Eye: PERRL ENT: normocephalic atraumatic Neck: supple Heart: RRR Respiratory: CTAB Gastrointestinal: soft Extremities: no cyanosis Skin: normal turgor Psychiatric - other findings: intubated Hosp A/P - Plan (1) Pneumonia due to COVID-19 virus Code(s): U07.1 - COVID-19; J12.89 - OTHER VIRAL PNEUMONIA Status: Acute (2) Acute respiratory failure with hypoxia and hypercapnia Code(s): J96.01 - ACUTE RESPIRATORY FAILURE WITH HYPOXIA; J96.02 - ACUTE RESPIRATORY FAILURE WITH HYPERCAPNIA Status: Acute Plan: (3) Severe sepsis with septic shock Code(s): A41.9 - SEPSIS, UNSPECIFIED ORGANISM; R65.21 - SEVERE SEPSIS WITH SEPTIC SHOCK Status: Acute (4) Cardiac arrest Code(s): I46.9 - CARDIAC ARREST, CAUSE UNSPECIFIED Status: Acute (5) UTI (urinary tract infection) (6) End stage renal disease on dialysis Code(s): N18.6 - END STAGE RENAL DISEASE; Z99.2 - DEPENDENCE ON RENAL DIALYSIS Status: Chronic (7) Metabolic encephalopathy Code(s): G93.41 - METABOLIC ENCEPHALOPATHY Status: Acute - Plan The patient remains on the ventilator. Continue management per critical care team. Possible trach and peg next week Continue dialysis as per nephrology Continue dexamethasone. Continue heparin for DVT phylaxis. Resume home psych medications. Cont Supportive cares.
--- NOTE | 2020-04-06 17:58 | PRG ---
DATE OF SERVICE: 04/06/2020 SUBJECTIVE: Razia Menjivar remains hemodynamically stable. OBJECTIVE: VITAL SIGNS: Respiratory rates in 20s, FiO2 is at 40, blood pressure 158/98. Heart rates in the 80s. LUNGS: Clear. HEART: Regular rhythm. ABDOMEN: Soft. NEUROLOGICAL: She makes eye contact and nods. LABORATORY DATA: White count is 12.1, hemoglobin 7.7, platelets 199. Electrolytes are unremarkable. BUN 53, creatinine 4.3. IMPRESSION: COVID pneumonia with respiratory failure. Her isolation can probably be discontinued in the next 24-48 hours. She needs a tracheostomy to successfully wean and will likely need a percutaneous endoscopic gastrostomy as well. Job ID: [id number] [facility]
[2020-04-06] MEDS: DULoxetine 60 MG CAP PO SCH (21:57)
[2020-04-06] MEDS: Aripiprazole 2 MG TAB PO SCH (21:57)
[2020-04-07 03:58] LABS: Anion Gap 20 mmol/L (10-20); BUN (Urea Nitrogen) 68 mg/dL (7.0-18.7); Calc. Creatinine Clearance 22 mL/min (70-130); Calcium 9.3 mg/dL (7.8-10.44); Carbon Dioxide 21 mmol/L (22-29); Chloride 98 mmol/L (98-107); Estimated GFR-MDRD 12; Glucose 177 mg/dL (70-105); Potassium 4.2 mmol/L (3.5-5.1); Sodium 135 mmol/L (136-145)
[2020-04-07] MEDS: HumaLOG 300 UNITS/3 ML VIAL SC PRN ×3 (04:34→17:55)
[2020-04-07 06:00] LABS: Band 18 % (5-11); Hemoglobin 7.2 g/dL (12.0-16.0); Lymphocytes 6 % (21-51); MDiff Complete? YES; Mean Corpuscular Hemoglobin 28.6 pg (27.0-31.0); Mean Corpuscular Volume 89.3 fL (78.0-98.0); Monocytes 2 % (0-10); Neutrophil 74 % (42-75); Platelet Count 186 thou/uL (130-400); Red Blood Cell (RBC) Count 2.53 mill/uL (4.20-5.40); White Blood Cell (WBC) Count 34.8 thou/uL (4.8-10.8)
[2020-04-07] MEDS: PROVENTIL INHALER 6.7 G (200 INHALATIONS) INH SCH ×4 (08:23→23:59)
[2020-04-07] MEDS: Mometasone 200 MCG/Formoterol 5 MCG 120 PUFF INHALER INH SCH ×2 (08:23→18:45)
[2020-04-07] MEDS: Pantoprazole 40 MG VIAL IVP SCH (09:00)
[2020-04-07] MEDS ORDERED: Heparin 10,000 UNITS/ 10 ML VIAL ONE (09:29)
[2020-04-07] MEDS: Heparin 5,000 UNITS/ML VIAL SC SCH ×2 (10:00→20:57)
[2020-04-07] MEDS: Ascorbic Acid 500 mg Chewable Tablet PER TUBE SCH (10:00)
[2020-04-07] MEDS: Zinc Sulfate 220 MG CAP PER TUBE SCH (10:00)
[2020-04-07] MEDS: Dexamethasone 10 MG in Sodium Chloride 0.9% 50 ML IVPB SCH (10:01)
[2020-04-07] MEDS: Gabapentin 300 MG CAP PO SCH ×2 (10:01→20:56)
[2020-04-07] MEDS: Pantoprazole 40 MG GRANULES PACKET PER TUBE SCH (10:01)
--- NOTE | 2020-04-07 16:59 | PRG ---
DATE OF SERVICE: 04/07/2020 SUBJECTIVE: Ms. Menjivar makes eye contact. She is awake and alert. She moves left side more than the right. Hemodynamically, she has been stable. OBJECTIVE: LUNGS: Clear. HEART: Regular rhythm. ABDOMEN: Soft. VITAL SIGNS: Blood pressure 104/61, heart rate 84, FiO2 is at 40%. LABORATORY STUDIES: White count 34.8, hemoglobin 7.2, platelets 186,000, she has 18% bands on peripheral smear. Sodium 135, potassium 4.2, chloride 98, bicarb 21, BUN 68, and creatinine 5.05. Check a chest x-ray tomorrow. ASSESSMENT AND PLAN: With her increased white count, worried about secondary infection. Draw blood cultures today. At some point in time, she needs a tracheostomy and a PEG. Isolation can be discontinued. Job ID: [id number]
--- NOTE | 2020-04-07 17:20 | PDOC.HOSPP ---
- Subjective Subjective: remains intubated. worsened leukocytosis noted. afebrile. She is currently on IV steroid. - Objective Vital Signs & Weight: Vital Signs (12 hours) Temp Pulse Resp BP Pulse Ox 04/07/20 14:32 84 104/61 04/07/20 12:00 24 H 04/07/20 10:31 98.2 F 87 24 H 107/66 04/07/20 10:26 75 107/66 04/07/20 10:00 24 H 04/07/20 08:00 98.2 F 25 H 97 04/07/20 06:53 78 124/74 04/07/20 06:00 99.4 F 24 H Weight Admit Weight 212 lb Weight 199 lb 1.239 oz Most Recent Monitor Data Heart Rate from ECG 83 NIBP 112/85 NIBP BP-Mean 94 Respiration from ECG 26 SpO2 96 I&O: 04/06/20 04/07/20 04/08/20 06:59 06:59 06:59 Intake Total 1431 946 120 Output Total 100 115 Balance 1331 831 120 Result Diagrams: 04/07/20 03:30 04/07/20 03:30 Additional Labs: Accuchecks 04/07/20 04/06/20 04/06/20 12:03 22:37 17:20 POC Glucose 163 H 222 H 244 H Radiology Reviewed by me: Yes EKG Reviewed by me: Yes Hospitalist ROS - Medication Medications: Active Medications Generic Name Dose Route Start Last Admin Trade Name Freq PRN Reason Stop Dose Admin Acetaminophen 650 mg 03/20/20 01:14 03/23/20 09:49 Acetaminophen 650 Mg/20.3 Ml Udcup PO 650 mg Q4H PRN Administration Fever>101/(Mi/Mod/Sev) Pain Albuterol Sulfate 4 puff 03/24/20 19:00 04/07/20 14:32 Proventil Inhaler 6.7 G (200 Inhalations) INH Not Given [id number] NICOLASA Aripiprazole 2 mg 04/05/20 21:00 04/06/20 21:57 Aripiprazole 2 Mg Tab PO 2 mg HS NICOLASA Administration Ascorbic Acid 1,000 mg 03/20/20 09:00 04/07/20 10:00 Ascorbic Acid 500 Mg Chewable Tablet PER TUBE 1,000 mg DAILY NICOLASA Administration Duloxetine HCl 60 mg 04/05/20 21:00 04/06/20 21:57 Duloxetine 60 Mg Cap PO 60 mg HS NICOLASA Administration Epoetin Raman-epbx 7,500 unit 03/27/20 09:00 04/05/20 09:46 Epoetin Raman-Epbx (Esrd) 4,000 Unit/Ml Vial IVP 7,500 unit [facility] NICOLASA Administration Gabapentin 600 mg 04/05/20 21:00 04/07/20 10:01 Gabapentin 300 Mg Cap PO 600 mg BID NICOLASA Administration Heparin Sodium (Porcine) 5,000 units 03/19/20 21:00 04/07/20 10:00 Heparin 5,000 Units/Ml Vial SC 5,000 units BID NICOLASA Administration Norepinephrine Bitartrate 250 mls @ 0 mls/hr 03/19/20 20:35 03/22/20 20:59 Levophed IVPB 250 mls INF NICOLASA Administration Protocol Titrate Dexamethasone 10 mg/ Sodium 51 mls @ 100 mls/hr 03/20/20 09:00 04/07/20 10:01 Chloride IVPB 51 mls DAILY NICOLASA Administration Dexmedetomidine HCl 400 mcg/ 100 mls @ 0 mls/hr 04/01/20 13:45 04/07/20 14:59 Sodium Chloride IVPB 100 mls INF NICOLASA Administration Protocol Per Protocol Insulin Human Lispro 0 units 03/19/20 20:35 04/07/20 04:34 Humalog 300 Units/3 Ml Vial SC 2 unit .MILD SLIDING SCALE PRN Administration Mild Correctional Scale Lorazepam 2 mg 04/04/20 13:15 04/04/20 13:19 Lorazepam 2 Mg/Ml Vial SLOW IVP 05/04/20 13:15 2 mg Q1H PRN Administration Breakthrough agitation Mometasone Furoate/Formoterol Fumar 2 puff 03/24/20 18:30 04/07/20 08:23 Mometasone 200 Mcg/Formoterol 5 Mcg 120 Puff Inhaler INH 2 puff BID-RT NICOLASA Administration Morphine Sulfate 2 mg 04/04/20 13:15 04/05/20 16:57 Morphine 2 Mg/Ml Vial SLOW IVP 05/04/20 13:15 2 mg Q1H PRN Administration Breakthrough Pain/Agitation Pantoprazole Sodium 40 mg 04/07/20 09:00 04/07/20 10:01 Pantoprazole 40 Mg Granules Packet PER TUBE 40 mg DAILY NICOLASA Administration Scopolamine 1.5 mg 03/30/20 15:00 04/05/20 14:50 Scopolamine 1.5 Mg/72 Hour Patch TOP 1.5 mg Q3D NICOLASA Administration Zinc Sulfate 220 mg 03/20/20 09:00 04/07/20 10:00 Zinc Sulfate 220 Mg Cap PER TUBE 220 mg DAILY NICOLASA Administration - Exam General - other findings: awake, intubated. appears comfortable ENT: normocephalic atraumatic Neck: supple Heart: RRR Respiratory: CTAB Gastrointestinal: soft Extremities - other findings: b/l amputee Skin: normal turgor Psychiatric: A&O x 3 Hosp A/P (1) Leukocytosis (leucocytosis) Code(s): D72.829 - ELEVATED WHITE BLOOD CELL COUNT, UNSPECIFIED Status: Acute Qualifiers: Eosinophilia type: drug rash with eosinophilia and systemic symptoms (2) Acute respiratory failure with hypoxia and hypercapnia Code(s): J96.01 - ACUTE RESPIRATORY FAILURE WITH HYPOXIA; J96.02 - ACUTE RESPIRATORY FAILURE WITH HYPERCAPNIA Status: Acute (3) Cardiac arrest Code(s): I46.9 - CARDIAC ARREST, CAUSE UNSPECIFIED Status: Acute (4) Pneumonia due to COVID-19 virus Code(s): U07.1 - COVID-19; J12.89 - OTHER VIRAL PNEUMONIA Status: Acute (5) Severe sepsis with septic shock Code(s): A41.9 - SEPSIS, UNSPECIFIED ORGANISM; R65.21 - SEVERE SEPSIS WITH SEPTIC SHOCK Status: Acute (6) Diabetes mellitus treated with insulin Code(s): E11.9 - TYPE 2 DIABETES MELLITUS WITHOUT COMPLICATIONS; Z79.4 - RETIREMENT (CURRENT) USE OF INSULIN Status: Acute (7) Metabolic encephalopathy Code(s): G93.41 - METABOLIC ENCEPHALOPATHY Status: Acute (8) End stage renal disease on dialysis Code(s): N18.6 - END STAGE RENAL DISEASE; Z99.2 - DEPENDENCE ON RENAL DIALYSIS Status: Chronic (9) Hypertension Code(s): I10 - ESSENTIAL (PRIMARY) HYPERTENSION Status: Chronic - Plan Patient remains on ventilator. Her leukocytosis worsened this morning. Pt currently is on Decadron. Repeated blood cultures have been obtained. She r emained afebrile. She will require trach and PEG at some point whenever Dr. Qiu deems appropriate. Continue dialysis as per nephrology. Continue supportive cares. AM labs
--- NOTE | 2020-04-07 20:29 | ULT ---
ULTRASOUND VESSEL MAPPING DIALSYIS: History: End stage renal disease. Comparison: None FINDINGS: Real-time barrow scale and spectral analysis of the bilateral upper extremity venous system and arteria l systems were performed. Both the right and left subclavian veins were obscured by overlying badges. RIGHT UPPER EXTREMITY BRACHIAL ARTERY: 4.1 mm RADIAL ARTERY: 2.1 mm ULNAR ARTERY: 2.1 mm CEPHALIC VEIN Proximal Arm: 1.4 mm Mid Arm: 1.8 mm Distal Arm: 2.1 mm Antecubital Fossa: 1.7 mm Proximal Forearm: 0.8 mm Mid Forearm: 1.1 mm Distal Forearm: 0.7 mm BASILIC VEIN Proximal Arm: 2.2 mm Mid Arm: 1.9 mm Distal Arm: 2.4 mm Antecubital Fossa: 2.9 mm Proximal Forearm: 1.7 mm Mid Forearm: 1.5 mm Distal Forearm: not seen LEFT UPPER EXTREMITY BRACHIAL ARTERY: 4.7 mm RADIAL ARTERY: 2.8 mm ULNAR ARTERY: 1.8 mm CEPHALIC VEIN Proximal Arm: thrombosed Mid Arm: thrombosed Distal Arm: 2.1 mm Antecubital Fossa: 2.1 mm Proximal Forearm: thrombosed Mid Forearm: thrombosed Distal Forearm: thrombosed BASILIC VEIN Proximal Arm: 2.3 mm Mid Arm: 2.0 mm Distal Arm: 2.2 mm Antecubital Fossa: 2.0 mm Proximal Forearm: 1.1 mm Mid Forearm: 1.1 mm Distal Forearm: 1.7 mm IMPRESSION: 1. Thrombosed proximal and distal left cephalic vein. 2. Nonvisualization of the right distal basilic vein. 3. Nonvisualization of both subclavian veins due to obscuration from overlying bandages. IMPRESSION: POS: HOME
[2020-04-07] MEDS: Aripiprazole 2 MG TAB PO SCH (20:56)
[2020-04-07] MEDS: DULoxetine 60 MG CAP PO SCH (20:56)
--- NOTE | 2020-04-07 22:35 | PRG ---
DATE OF SERVICE: 04/07/2020 OBJECTIVE: VITAL SIGNS: The patient noted with the following vital signs. Blood pressure 125/92, pulse 85, respiratory rate of 22, O2 saturations . HEENT: Unremarkable except for endotracheal tube in place. CARDIOVASCULAR SYSTEM: First and second heart sounds were heard. RESPIRATORY SYSTEM: Revealed vented sounds. DIGESTIVE SYSTEM: Revealed an obese abdomen. IMPRESSION: 1. End-stage renal disease, on dialysis. 2. Cardiopulmonary failure secondary to COVID pneumonitis. 3. Life-threatening obesity. PLAN: 1. We will continue hemodialysis the patient for dialysis today with ultrafiltration as tolerated by hemodynamics. 2. Further management to be dependent on the clinical course. Job ID: [id number]
[2020-04-08 04:20] LABS: Anion Gap 20 mmol/L (10-20); BUN (Urea Nitrogen) 34 mg/dL (7.0-18.7); Calc. Creatinine Clearance 35 mL/min (70-130); Calcium 9.2 mg/dL (7.8-10.44); Carbon Dioxide 24 mmol/L (22-29); Chloride 97 mmol/L (98-107); Estimated GFR-MDRD 20; Glucose 178 mg/dL (70-105); Potassium 3.6 mmol/L (3.5-5.1); Sodium 137 mmol/L (136-145)
[2020-04-08 05:09] LABS: Band 6 % (5-11); Hemoglobin 7.1 g/dL (12.0-16.0); Lymphocytes 1 % (21-51); MDiff Complete? YES; Mean Corpuscular HGB CONC 31.2 g/dL (32.0-36.0); Mean Corpuscular Hemoglobin 28.4 pg (27.0-31.0); Mean Corpuscular Volume 91.1 fL (78.0-98.0); Mean Platelet Volume 9.9 fL (7.4-10.4); Monocytes 4 % (0-10); Neutrophil 89 % (42-75); Platelet Count 168 thou/uL (130-400); Red Blood Cell (RBC) Count 2.51 mill/uL (4.20-5.40); White Blood Cell (WBC) Count 31.2 thou/uL (4.8-10.8)
[2020-04-08] MEDS: HumaLOG 300 UNITS/3 ML VIAL SC PRN ×3 (06:15→22:17)
[2020-04-08] MEDS: PROVENTIL INHALER 6.7 G (200 INHALATIONS) INH SCH ×4 (08:20→23:38)
[2020-04-08] MEDS: Mometasone 200 MCG/Formoterol 5 MCG 120 PUFF INHALER INH SCH ×2 (08:20→18:39)
--- NOTE | 2020-04-08 08:23 | RAD ---
EXAM: Single view of the chest HISTORY: Covid pneumonia COMPARISON: 04/03/2020 FINDINGS: Single view of the chest shows an enlarged cardiomediastinal silhouette. The lines and tub es are unchanged in position. There are diffuse multifocal infiltrates in the lungs. This may have slightly worsened in the right lower lobe. No acute osseous abnormality. IMPRESSION: Multifocal pneumonia
[2020-04-08] MEDS: Gabapentin 300 MG CAP PO SCH ×2 (09:51→20:53)
[2020-04-08] MEDS: Pantoprazole 40 MG GRANULES PACKET PER TUBE SCH (09:51)
[2020-04-08] MEDS: Dexamethasone 10 MG in Sodium Chloride 0.9% 50 ML IVPB SCH (09:51)
[2020-04-08] MEDS: Heparin 5,000 UNITS/ML VIAL SC SCH ×2 (09:51→20:53)
[2020-04-08] MEDS: Ascorbic Acid 500 mg Chewable Tablet PER TUBE SCH (09:52)
[2020-04-08] MEDS: Zinc Sulfate 220 MG CAP PER TUBE SCH (09:52)
[2020-04-08] MEDS: EPOETIN ALFA-EPBX (ESRD) 4,000 UNIT/ML VIAL IVP SCH (09:55)
[2020-04-08] MEDS: Scopolamine 1.5 mg/72 hour Patch TOP SCH (14:26)
[2020-04-08] MEDS: Lorazepam 2 MG/ML VIAL SLOW IVP PRN (14:28)
--- NOTE | 2020-04-08 16:35 | PDOC.HOSPP ---
- Subjective Subjective: remains intubated, no new changed, wbc trending down slightly. no fever. rpt CXR showed multifocal PNA consistent with COVID. had dialysis done yesterday, about 800ml removed - Objective Vital Signs & Weight: Vital Signs (12 hours) Temp Pulse Resp Pulse Ox 04/08/20 15:00 98.8 F 04/08/20 14:37 100 04/08/20 14:00 33 H 04/08/20 12:00 23 H 04/08/20 11:08 88 04/08/20 11:00 98.6 F 04/08/20 10:00 26 H 04/08/20 08:21 88 04/08/20 08:00 33 H 94 L 04/08/20 07:00 98.7 F 04/08/20 05:59 35 H Weight Admit Weight 212 lb Weight 199 lb 1.239 oz Most Recent Monitor Data Heart Rate from ECG 93 NIBP 119/72 NIBP BP-Mean 87 Respiration from ECG 17 SpO2 95 I&O: 04/07/20 04/08/20 04/09/20 06:59 06:59 06:59 Intake Total 946 1247 50 Output Total 115 140 260 Balance 831 1107 -210 Result Diagrams: 04/08/20 03:30 04/08/20 03:30 Additional Labs: Accuchecks 04/08/20 04/07/20 10:27 17:49 POC Glucose 144 H 198 H Radiology Reviewed by me: Yes EKG Reviewed by me: Yes Hospitalist ROS - Medication Medications: Active Medications Generic Name Dose Route Start Last Admin Trade Name Freq PRN Reason Stop Dose Admin Acetaminophen 650 mg 03/20/20 01:14 03/23/20 09:49 Acetaminophen 650 Mg/20.3 Ml Udcup PO 650 mg Q4H PRN Administration Fever>101/(Mi/Mod/Sev) Pain Albuterol Sulfate 4 puff 03/24/20 19:00 04/08/20 14:37 Proventil Inhaler 6.7 G (200 Inhalations) INH 4 puff [id number] NICOLASA Administration Aripiprazole 2 mg 04/05/20 21:00 04/07/20 20:56 Aripiprazole 2 Mg Tab PO 2 mg HS NICOLASA Administration Ascorbic Acid 1,000 mg 03/20/20 09:00 04/08/20 09:52 Ascorbic Acid 500 Mg Chewable Tablet PER TUBE 1,000 mg DAILY NICOLASA Administration Duloxetine HCl 60 mg 04/05/20 21:00 04/07/20 20:56 Duloxetine 60 Mg Cap PO 60 mg HS NICOLASA Administration Epoetin Raman-epbx 7,500 unit 03/27/20 09:00 04/08/20 09:55 Epoetin Raman-Epbx (Esrd) 4,000 Unit/Ml Vial IVP 7,500 unit TuThSa NICOLASA Administration Gabapentin 600 mg 04/05/20 21:00 04/08/20 09:51 Gabapentin 300 Mg Cap PO 600 mg BID NICOLASA Administration Heparin Sodium (Porcine) 5,000 units 03/19/20 21:00 04/08/20 09:51 Heparin 5,000 Units/Ml Vial SC 5,000 units BID NICOLASA Administration Norepinephrine Bitartrate 250 mls @ 0 mls/hr 03/19/20 20:35 03/22/20 20:59 Levophed IVPB 250 mls INF NICOLASA Administration Protocol Titrate Dexamethasone 10 mg/ Sodium 51 mls @ 100 mls/hr 03/20/20 09:00 04/08/20 09:51 Chloride IVPB 51 mls DAILY NICOLASA Administration Dexmedetomidine HCl 400 mcg/ 100 mls @ 0 mls/hr 04/01/20 13:45 04/08/20 12:29 Sodium Chloride IVPB 100 mls INF NICOLASA Administration Protocol Per Protocol Insulin Human Lispro 0 units 03/19/20 20:35 04/08/20 06:15 Humalog 300 Units/3 Ml Vial SC 2 unit .MILD SLIDING SCALE PRN Administration Mild Correctional Scale Lorazepam 2 mg 04/04/20 13:15 04/08/20 14:28 Lorazepam 2 Mg/Ml Vial SLOW IVP 05/04/20 13:15 2 mg Q1H PRN Administration Breakthrough agitation Mometasone Furoate/Formoterol Fumar 2 puff 03/24/20 18:30 04/08/20 08:20 Mometasone 200 Mcg/Formoterol 5 Mcg 120 Puff Inhaler INH 2 puff BID-RT NICOLASA Administration Morphine Sulfate 2 mg 04/04/20 13:15 04/05/20 16:57 Morphine 2 Mg/Ml Vial SLOW IVP 05/04/20 13:15 2 mg Q1H PRN Administration Breakthrough Pain/Agitation Pantoprazole Sodium 40 mg 04/07/20 09:00 04/08/20 09:51 Pantoprazole 40 Mg Granules Packet PER TUBE 40 mg DAILY NICOLAAS Administration Scopolamine 1.5 mg 03/30/20 15:00 04/08/20 14:26 Scopolamine 1.5 Mg/72 Hour Patch TOP 1.5 mg Q3D NICOLASA Administration Zinc Sulfate 220 mg 03/20/20 09:00 04/08/20 09:52 Zinc Sulfate 220 Mg Cap PER TUBE 220 mg DAILY NICOLASA Administration - Exam General - other findings: pt is awake, appears comfortable. intubated. ENT: normocephalic atraumatic Neck: supple Heart: RRR Respiratory: rhonchi Gastrointestinal: soft Extremities - other findings: b/l amputee Hosp A/P (1) Acute respiratory failure with hypoxia and hypercapnia Code(s): J96.01 - ACUTE RESPIRATORY FAILURE WITH HYPOXIA; J96.02 - ACUTE RESPIRATORY FAILURE WITH HYPERCAPNIA Status: Acute (2) Pneumonia due to COVID-19 virus Code(s): U07.1 - COVID-19; J12.89 - OTHER VIRAL PNEUMONIA Status: Acute (3) Leukocytosis (leucocytosis) Code(s): D72.829 - ELEVATED WHITE BLOOD CELL COUNT, UNSPECIFIED Status: Acute Qualifiers: Eosinophilia type: drug rash with eosinophilia and systemic symptoms (4) Cardiac arrest Code(s): I46.9 - CARDIAC ARREST, CAUSE UNSPECIFIED Status: Acute (5) Severe sepsis with septic shock Code(s): A41.9 - SEPSIS, UNSPECIFIED ORGANISM; R65.21 - SEVERE SEPSIS WITH SEPTIC SHOCK Status: Acute (6) Diabetes mellitus treated with insulin Code(s): E11.9 - TYPE 2 DIABETES MELLITUS WITHOUT COMPLICATIONS; Z79.4 - TECHNICAL PROFESSIONAL (CURRENT) USE OF INSULIN Status: Acute (7) Metabolic encephalopathy Code(s): G93.41 - METABOLIC ENCEPHALOPATHY Status: Acute (8) End stage renal disease on dialysis Code(s): N18.6 - END STAGE RENAL DISEASE; Z99.2 - DEPENDENCE ON RENAL DIALYSIS Status: Chronic (9) Hypertension Code(s): I10 - ESSENTIAL (PRIMARY) HYPERTENSION Status: Chronic - Plan cont mechanical ventilatory support as per medical doctor nuclear medicine WBC is trending down, remains afebrile. Pt is on Decadron for COVID s/p dialysis yesterday BG stable. supportive cares.
--- NOTE | 2020-04-08 18:27 | PRG ---
DATE OF SERVICE: 04/08/2020 OBJECTIVE: VITAL SIGNS: The patient noted with the following vital signs. Blood pressure 137/74, respiratory rate of 28. HEENT: Remarkable for endotracheal tube in place. CARDIOVASCULAR SYSTEM: First and second heart sounds were heard. RESPIRATORY SYSTEM: Revealed vented sounds. DIGESTIVE SYSTEM: Revealed an obese abdomen. IMPRESSION: 1. End-stage renal disease. 2. Cardiopulmonary failure in the context of problem #3. 3. COVID pneumonitis. 4. Obesity. PLAN: Continue current hemodialysis schedule with ultrafiltration as tolerated by hemodynamics. Job ID: [id number]
--- NOTE | 2020-04-08 18:58 | PRG ---
DATE OF SERVICE: 04/08/2020 SUBJECTIVE: Ms. Menjivar remains clinically unchanged. OBJECTIVE: VITAL SIGNS: Respiratory rates in the 20s, FiO2 is 40, blood pressure 137/74, heart rate is 94, and oximetry is 99%. LUNGS: Clear. HEART: Regular rhythm. ABDOMEN: Soft. LABORATORY DATA: White count 31, hemoglobin 7, platelets 168. Electrolytes are unremarkable. BUN 34, creatinine 3.15, and potassium is 3.6. IMPRESSION: 1. COVID pneumonia with end-stage renal disease. 2. Bilateral kgkid-bbp-gbge amputations. 3. Diabetes. 4. History of a trach in the past. 5. Obesity. 6. Deconditioning. PLAN: We will continue with supportive care. She needs tracheostomy once she is out of isolation. She is far enough out of isolation now given that she is 20 days into this. Job ID: [id number]
[2020-04-08] MEDS: DULoxetine 60 MG CAP PO SCH (20:52)
[2020-04-08] MEDS: Aripiprazole 2 MG TAB PO SCH (20:52)
[2020-04-09 05:01] LABS: Anion Gap 17 mmol/L (10-20); BUN (Urea Nitrogen) 46 mg/dL (7.0-18.7); Calc. Creatinine Clearance 27 mL/min (70-130); Calcium 9.5 mg/dL (7.8-10.44); Carbon Dioxide 27 mmol/L (22-29); Chloride 97 mmol/L (98-107); Estimated GFR-MDRD 15; Glucose 169 mg/dL (70-105); Potassium 3.6 mmol/L (3.5-5.1); Sodium 137 mmol/L (136-145)
[2020-04-09 05:27] LABS: Band 15 % (5-11); Hemoglobin 6.7 g/dL (12.0-16.0); Lymphocytes 1 % (21-51); MDiff Complete? YES; Mean Corpuscular HGB CONC 31.1 g/dL (32.0-36.0); Mean Corpuscular Hemoglobin 28.9 pg (27.0-31.0); Mean Corpuscular Volume 92.9 fL (78.0-98.0); Mean Platelet Volume 9.8 fL (7.4-10.4); Monocytes 8 % (0-10); Myelocyte 1 % (0-0); Neutrophil 75 % (42-75); Platelet Count 156 thou/uL (130-400); RBC Distribution Width 16.8 % (11.5-14.5); Red Blood Cell (RBC) Count 2.33 mill/uL (4.20-5.40); White Blood Cell (WBC) Count 22.9 thou/uL (4.8-10.8)
[2020-04-09] MEDS: PROVENTIL INHALER 6.7 G (200 INHALATIONS) INH SCH ×3 (07:00→18:38)
[2020-04-09] MEDS: Mometasone 200 MCG/Formoterol 5 MCG 120 PUFF INHALER INH SCH ×2 (07:00→18:39)
[2020-04-09] MEDS: Gabapentin 300 MG CAP PO SCH ×2 (09:19→21:08)
[2020-04-09] MEDS: Heparin 5,000 UNITS/ML VIAL SC SCH ×2 (09:19→21:08)
[2020-04-09] MEDS: Pantoprazole 40 MG GRANULES PACKET PER TUBE SCH (09:20)
[2020-04-09] MEDS: Ascorbic Acid 500 mg Chewable Tablet PER TUBE SCH (09:20)
[2020-04-09] MEDS: Zinc Sulfate 220 MG CAP PER TUBE SCH (09:20)
[2020-04-09] MEDS: Lorazepam 2 MG/ML VIAL SLOW IVP PRN (10:17)
[2020-04-09] MEDS: Acetaminophen 650 MG/20.3 ML UDCUP PO PRN ×3 (10:30→21:14)
[2020-04-09] MEDS ORDERED: Heparin 10,000 UNITS/ 10 ML VIAL ONE (10:33)
[2020-04-09] MEDS: fentaNYL Citrate/PF 2,000 MCG in Sodium Chloride 0.9% 60 ML IV SCH (10:42)
[2020-04-09] MEDS: Dexamethasone 10 MG in Sodium Chloride 0.9% 50 ML IVPB SCH (11:07)
--- NOTE | 2020-04-09 11:29 | RAD ---
Exam: Chest one view HISTORY:Respiratory distress Comparison: 04/08/2020 FINDINGS: Lines and tubes: Redemonstration of endotracheal tube, incompletely evaluated nasogastric tube, right -sided HemoSplit dialysis catheter and left-sided. Minimal vascular catheter. Cardiac silhouette: Normal Aorta: Unremarkable Pulmonary vessels: Normal Costophrenic angles: Clear LUNGS: Worsening diffuse interstitial and alveolar opacities. Pneumothorax: None Osseous abnormalities: None IMPRESSION: Worsening interstitial and alveolar opacities. Correlate for multifocal pneumonia. Compon ent of pulmonary edema cannot be excluded.
[2020-04-09] MEDS: HumaLOG 300 UNITS/3 ML VIAL SC PRN ×3 (12:33→21:57)
[2020-04-09] MEDS: Norepinephrine 8 MG/0.9% NS 250 ML IVPB SCH (16:10)
--- NOTE | 2020-04-09 17:36 | PRG ---
DATE OF SERVICE: 04/09/2020 SUBJECTIVE: Razia Menjivar remains mechanically ventilated. She became more difficult to ventilate this afternoon and had to be switched back to pressure-controlled ventilation. She had to be sedated. She was awake prior. OBJECTIVE: LUNGS: Remarkable for coarse equal breath sounds. HEART: Regular rhythm. ABDOMEN: Soft. IMAGING STUDIES: Chest x-ray shows dense infiltrates consistent with pulmonary edema. IMPRESSION: 1. COVID pneumonia. 2. Volume overload. She is to have dialysis today. PLAN: Continue to support. Critical care time 30 min. Job ID: [id number] MTDD
--- NOTE | 2020-04-09 17:36 | PDOC.HOSPP ---
- Subjective Subjective: pt was seen and examined. d/w nursing staff. Leukocytosis is trending down, afebrile. CXR reviewed - multifocal PNA - Objective Vital Signs & Weight: Vital Signs (12 hours) Temp Pulse Resp Pulse Ox 04/09/20 16:25 101.5 F H 04/09/20 16:00 101.5 F H 04/09/20 14:43 119 H 04/09/20 14:00 40 H 04/09/20 12:14 116 H 04/09/20 12:00 100.4 F H 34 H 98 04/09/20 11:00 100.4 F H 04/09/20 10:30 100.3 F H 04/09/20 10:14 109 H 04/09/20 10:00 38 H 04/09/20 08:00 100.1 F H 35 H 95 04/09/20 07:00 102 H 04/09/20 06:00 34 H Weight Admit Weight 212 lb Weight 199 lb 1.239 oz Most Recent Monitor Data Heart Rate from ECG 106 NIBP 140/76 NIBP BP-Mean 97 Respiration from ECG 23 SpO2 98 I&O: 04/08/20 04/09/20 04/10/20 06:59 06:59 06:59 Intake Total 1247 881 320 Output Total 140 385 Balance 1107 496 320 Result Diagrams: 04/09/20 04:03 04/09/20 04:03 Additional Labs: Accuchecks 04/09/20 04/09/20 04/08/20 16:54 12:32 22:12 POC Glucose 264 H 290 H 217 H Radiology Reviewed by me: Yes EKG Reviewed by me: Yes Hospitalist ROS - Medication Medications: Active Medications Generic Name Dose Route Start Last Admin Trade Name Freq PRN Reason Stop Dose Admin Acetaminophen 650 mg 03/20/20 01:14 04/09/20 16:25 Acetaminophen 650 Mg/20.3 Ml Udcup PO 650 mg Q4H PRN Administration Fever>101/(Mi/Mod/Sev) Pain Albuterol Sulfate 4 puff 03/24/20 19:00 04/09/20 12:13 Proventil Inhaler 6.7 G (200 Inhalations) INH 4 puff [id number] NICOLASA Administration Aripiprazole 2 mg 04/05/20 21:00 04/08/20 20:52 Aripiprazole 2 Mg Tab PO 2 mg HS NICOLASA Administration Ascorbic Acid 1,000 mg 03/20/20 09:00 04/09/20 09:20 Ascorbic Acid 500 Mg Chewable Tablet PER TUBE 1,000 mg DAILY NICOLASA Administration Duloxetine HCl 60 mg 04/05/20 21:00 04/08/20 20:52 Duloxetine 60 Mg Cap PO 60 mg HS NICOLASA Administration Epoetin Raman-epbx 7,500 unit 03/27/20 09:00 04/08/20 09:55 Epoetin Arman-Epbx (Esrd) 4,000 Unit/Ml Vial IVP 7,500 unit TuThSa NICOLASA Administration Gabapentin 600 mg 04/05/20 21:00 04/09/20 09:19 Gabapentin 300 Mg Cap PO 600 mg BID NICOLASA Administration Heparin Sodium (Porcine) 5,000 units 03/19/20 21:00 04/09/20 09:19 Heparin 5,000 Units/Ml Vial SC 5,000 units BID NICOLASA Administration Norepinephrine Bitartrate 250 mls @ 0 mls/hr 03/19/20 20:35 04/09/20 16:10 Levophed IVPB 250 mls INF NICOLASA Administration Protocol Titrate Dexamethasone 10 mg/ Sodium 51 mls @ 100 mls/hr 03/20/20 09:00 04/09/20 11:07 Chloride IVPB 51 mls DAILY NICOLASA Administration Dexmedetomidine HCl 400 mcg/ 100 mls @ 0 mls/hr 04/01/20 13:45 04/09/20 16:50 Sodium Chloride IVPB 100 mls INF NICOLASA Administration Protocol Per Protocol Fentanyl Citrate 2,000 mcg/ 100 mls @ 0 mls/hr 04/04/20 13:15 04/09/20 10:42 Sodium Chloride IV 05/04/20 13:15 100 mls INF NICOLASA Administration Protocol Per Protocol Insulin Human Lispro 0 units 03/19/20 20:35 04/09/20 16:56 Humalog 300 Units/3 Ml Vial SC 4 unit .MILD SLIDING SCALE PRN Administration Mild Correctional Scale Insulin Human Lispro 0 units 03/19/20 20:35 04/08/20 22:17 Humalog 300 Units/3 Ml Vial SC 2 unit .BEDTIME SLIDING SC PRN Administration Bedtime Correctional Scale Lorazepam 2 mg 04/04/20 13:15 11/11/20 10:17 Lorazepam 2 Mg/Ml Vial SLOW IVP 05/04/20 13:15 2 mg Q1H PRN Administration Breakthrough agitation Mometasone Furoate/Formoterol Fumar 2 puff 03/24/20 18:30 04/09/20 07:00 Mometasone 200 Mcg/Formoterol 5 Mcg 120 Puff Inhaler INH 2 puff BID-RT NICOLASA Administration Morphine Sulfate 2 mg 04/04/20 13:15 04/05/20 16:57 Morphine 2 Mg/Ml Vial SLOW IVP 05/04/20 13:15 2 mg Q1H PRN Administration Breakthrough Pain/Agitation Pantoprazole Sodium 40 mg 04/07/20 09:00 04/09/20 09:20 Pantoprazole 40 Mg Granules Packet PER TUBE 40 mg DAILY NICOLASA Administration Scopolamine 1.5 mg 03/30/20 15:00 04/08/20 14:26 Scopolamine 1.5 Mg/72 Hour Patch TOP 1.5 mg Q3D NICOLASA Administration Sodium Chloride 10 ml 04/02/20 11:30 04/09/20 09:20 Flush - Normal Saline 10 Ml Syringe IVF 10 ml PRN PRN Administration Saline Flush Zinc Sulfate 220 mg 03/20/20 09:00 04/09/20 09:20 Zinc Sulfate 220 Mg Cap PER TUBE 220 mg DAILY NICOLASA Administration - Exam General - other findings: intubated, follow commands Eye: PERRL ENT: normocephalic atraumatic Neck: supple Heart: RRR Respiratory: CTAB Gastrointestinal: soft Extremities: no cyanosis Skin: normal turgor Neurological - other findings: intubated, follow commands Hosp A/P (1) Acute respiratory failure with hypoxia and hypercapnia Code(s): J96.01 - ACUTE RESPIRATORY FAILURE WITH HYPOXIA; J96.02 - ACUTE RESPIRATORY FAILURE WITH HYPERCAPNIA Status: Acute (2) Pneumonia due to COVID-19 virus Code(s): U07.1 - COVID-19; J12.89 - OTHER VIRAL PNEUMONIA Status: Acute (3) Leukocytosis (leucocytosis) Code(s): D72.829 - ELEVATED WHITE BLOOD CELL COUNT, UNSPECIFIED Status: Acute Qualifiers: Eosinophilia type: drug rash with eosinophilia and systemic symptoms (4) Cardiac arrest Code(s): I46.9 - CARDIAC ARREST, CAUSE UNSPECIFIED Status: Acute (5) Severe sepsis with septic shock Code(s): A41.9 - SEPSIS, UNSPECIFIED ORGANISM; R65.21 - SEVERE SEPSIS WITH SEPTIC SHOCK Status: Acute (6) Diabetes mellitus treated with insulin Code(s): E11.9 - TYPE 2 DIABETES MELLITUS WITHOUT COMPLICATIONS; Z79.4 - USP (CURRENT) USE OF INSULIN Status: Acute (7) Metabolic encephalopathy Code(s): G93.41 - METABOLIC ENCEPHALOPATHY Status: Acute (8) End stage renal disease on dialysis Code(s): N18.6 - END STAGE RENAL DISEASE; Z99.2 - DEPENDENCE ON RENAL DIALYSIS Status: Chronic (9) Hypertension Code(s): I10 - ESSENTIAL (PRIMARY) HYPERTENSION Status: Chronic - Plan cont mechanical ventilatory support as per manager business intelligence Pt will likely needs Trach and PEG when deems appropriate by Dr. Qiu WBC is trending down, remains afebrile. Pt is on Decadron for COVID Nephrology is following assisting with dialysis BG stable. supportive cares.
--- NOTE | 2020-04-09 18:50 | PRG ---
DATE OF SERVICE: 04/09/2020 SUBJECTIVE: The patient . OBJECTIVE: VITAL SIGNS: Blood pressure 129/74, respiratory rate up to 22, O2 saturations of 98%. HEENT: Remarkable for endotracheal tube in place. CARDIOVASCULAR SYSTEM: First and second heart sounds were heard. RESPIRATORY SYSTEM: Revealed vented sounds. DIGESTIVE SYSTEM: Revealed an obese abdomen. DIAGNOSTIC STUDIES: Chest x-ray showed worsening interstitial and alveolar opacities. IMPRESSION: 1. End-stage renal disease, on dialysis. 2. Cardiopulmonary failure in the context of COVID pneumonitis. 3. Obesity. PLAN: 1. The patient to undergo modified dialysis today to lay emphasis on ultrafiltration. Hopefully, we will be able to get up to 5 L of fluid off this patient today to hopefully improve the pulmonary status of this patient. 2. Further management to be dependent on the clinical course. Job ID: [id number]
[2020-04-09] MEDS: Aripiprazole 2 MG TAB PO SCH (21:08)
[2020-04-09] MEDS: DULoxetine 60 MG CAP PO SCH (21:08)
[2020-04-10] MEDS: PROVENTIL INHALER 6.7 G (200 INHALATIONS) INH SCH ×4 (00:21→18:25)
[2020-04-10 06:02] LABS: Anion Gap 21 mmol/L (10-20); BUN (Urea Nitrogen) 59 mg/dL (7.0-18.7); Calc. Creatinine Clearance 22 mL/min (70-130); Calcium 9.9 mg/dL (7.8-10.44); Carbon Dioxide 22 mmol/L (22-29); Chloride 97 mmol/L (98-107); Estimated GFR-MDRD 12; Glucose 229 mg/dL (70-105); Potassium 3.9 mmol/L (3.5-5.1); Sodium 136 mmol/L (136-145)
[2020-04-10 06:04] LABS: Band 11 % (5-11); Eosinophils 2 % (0-10); Lymphocytes 10 % (21-51); MDiff Complete? YES; Mean Corpuscular HGB CONC 31.9 g/dL (32.0-36.0); Mean Corpuscular Hemoglobin 29.1 pg (27.0-31.0); Mean Corpuscular Volume 91.2 fL (78.0-98.0); Mean Platelet Volume 10.4 fL (7.4-10.4); Monocytes 4 % (0-10); Neutrophil 73 % (42-75); Platelet Count 144 thou/uL (130-400); Red Blood Cell (RBC) Count 3.08 mill/uL (4.20-5.40); White Blood Cell (WBC) Count 19.7 thou/uL (4.8-10.8)
[2020-04-10] MEDS: HumaLOG 300 UNITS/3 ML VIAL SC PRN ×4 (06:17→22:02)
[2020-04-10] MEDS: Mometasone 200 MCG/Formoterol 5 MCG 120 PUFF INHALER INH SCH ×2 (07:13→18:26)
[2020-04-10] MEDS: Zinc Sulfate 220 MG CAP PER TUBE SCH (08:43)
[2020-04-10] MEDS: Gabapentin 300 MG CAP PO SCH ×2 (08:43→19:44)
[2020-04-10] MEDS: Dexamethasone 10 MG in Sodium Chloride 0.9% 50 ML IVPB SCH (08:43)
[2020-04-10] MEDS: Pantoprazole 40 MG GRANULES PACKET PER TUBE SCH (08:43)
[2020-04-10] MEDS: Heparin 5,000 UNITS/ML VIAL SC SCH ×2 (08:44→19:46)
[2020-04-10] MEDS: Ascorbic Acid 500 mg Chewable Tablet PER TUBE SCH (08:44)
[2020-04-10] MEDS: EPOETIN ALFA-EPBX (ESRD) 4,000 UNIT/ML VIAL IVP SCH (10:56)
[2020-04-10] MEDS: Acetaminophen 650 MG/20.3 ML UDCUP PO PRN (12:10)
[2020-04-10] MEDS ORDERED: Heparin 10,000 UNITS/ 10 ML VIAL ONE (13:42)
[2020-04-10] MEDS: Norepinephrine 8 MG/0.9% NS 250 ML IVPB SCH (15:08)
--- NOTE | 2020-04-10 17:49 | PDOC.HOSPP ---
- Subjective Subjective: pt was seen and examined. d/w nursing staff. afebrile. s/p HD - Objective Vital Signs & Weight: Vital Signs (12 hours) Temp Pulse Resp BP 04/10/20 16:00 99.2 F 04/10/20 14:51 97 94/63 04/10/20 12:10 101.1 F H 04/10/20 12:00 101.1 F H 04/10/20 10:23 102 H 155/71 H 04/10/20 10:00 24 H 04/10/20 09:00 99.4 F 04/10/20 08:00 22 H 04/10/20 07:14 99 114/86 04/10/20 06:00 22 H Weight Admit Weight 212 lb Weight 199 lb 1.239 oz Most Recent Monitor Data Heart Rate from ECG 102 NIBP 98/78 NIBP BP-Mean 84 Respiration from ECG 24 SpO2 100 I&O: 04/09/20 04/10/20 04/11/20 06:59 06:59 06:59 Intake Total 881 1861.5 240 Output Total 385 Balance 496 1861.5 240 Result Diagrams: 04/10/20 05:30 04/10/20 05:30 Additional Labs: Accuchecks 04/10/20 04/10/20 04/09/20 10:22 05:32 21:54 POC Glucose 174 H 212 H 303 H Radiology Reviewed by me: Yes EKG Reviewed by me: Yes Hospitalist ROS - Medication Medications: Active Medications Generic Name Dose Route Start Last Admin Trade Name Freq PRN Reason Stop Dose Admin Acetaminophen 650 mg 03/20/20 01:14 04/10/20 12:10 Acetaminophen 650 Mg/20.3 Ml Udcup PO 650 mg Q4H PRN Administration Fever>101/(Mi/Mod/Sev) Pain Albuterol Sulfate 4 puff 03/24/20 19:00 04/10/20 14:51 Proventil Inhaler 6.7 G (200 Inhalations) INH 4 puff [id number] NICOLASA Administration Aripiprazole 2 mg 04/05/20 21:00 04/09/20 21:08 Aripiprazole 2 Mg Tab PO 2 mg HS NICOLASA Administration Ascorbic Acid 1,000 mg 03/20/20 09:00 04/10/20 08:44 Ascorbic Acid 500 Mg Chewable Tablet PER TUBE 1,000 mg DAILY NICOLASA Administration Duloxetine HCl 60 mg 04/05/20 21:00 04/09/20 21:08 Duloxetine 60 Mg Cap PO 60 mg HS NICOLASA Administration Epoetin Raman-epbx 7,500 unit 03/27/20 09:00 04/10/20 10:56 Epoetin Raman-Epbx (Esrd) 4,000 Unit/Ml Vial IVP 7,500 unit TuThSa NICOLASA Administration Gabapentin 600 mg 04/05/20 21:00 04/10/20 08:43 Gabapentin 300 Mg Cap PO 600 mg BID NICOLASA Administration Heparin Sodium (Porcine) 5,000 units 03/19/20 21:00 04/10/20 08:44 Heparin 5,000 Units/Ml Vial SC 5,000 units BID NICOLASA Administration Norepinephrine Bitartrate 250 mls @ 0 mls/hr 03/19/20 20:35 04/10/20 15:08 Levophed IVPB 250 mls INF NICOLASA Administration Protocol Titrate Dexamethasone 10 mg/ Sodium 51 mls @ 100 mls/hr 03/20/20 09:00 04/10/20 08:43 Chloride IVPB 51 mls DAILY NICOLASA Administration Dexmedetomidine HCl 400 mcg/ 100 mls @ 0 mls/hr 04/01/20 13:45 04/10/20 12:08 Sodium Chloride IVPB 100 mls INF NICOLASA Administration Protocol Per Protocol Fentanyl Citrate 2,000 mcg/ 100 mls @ 0 mls/hr 04/04/20 13:15 04/09/20 10:42 Sodium Chloride IV 05/04/20 13:15 100 mls INF NICOLASA Administration Protocol Per Protocol Insulin Human Lispro 0 units 03/19/20 20:35 04/10/20 16:11 Humalog 300 Units/3 Ml Vial SC 3 unit .MILD SLIDING SCALE PRN Administration Mild Correctional Scale Insulin Human Lispro 0 units 03/19/20 20:35 04/08/20 22:17 Humalog 300 Units/3 Ml Vial SC 2 unit .BEDTIME SLIDING SC PRN Administration Bedtime Correctional Scale Lorazepam 2 mg 04/04/20 13:15 04/09/20 10:17 Lorazepam 2 Mg/Ml Vial SLOW IVP 05/04/20 13:15 2 mg Q1H PRN Administration Breakthrough agitation Mometasone Furoate/Formoterol Fumar 2 puff 03/24/20 18:30 04/10/20 07:13 Mometasone 200 Mcg/Formoterol 5 Mcg 120 Puff Inhaler INH 2 puff BID-RT NICOLASA Administration Morphine Sulfate 2 mg 04/04/20 13:15 04/05/20 16:57 Morphine 2 Mg/Ml Vial SLOW IVP 05/04/20 13:15 2 mg Q1H PRN Administration Breakthrough Pain/Agitation Pantoprazole Sodium 40 mg 04/07/20 09:00 04/10/20 08:43 Pantoprazole 40 Mg Granules Packet PER TUBE 40 mg DAILY NICOLASA Administration Scopolamine 1.5 mg 03/30/20 15:00 04/08/20 14:26 Scopolamine 1.5 Mg/72 Hour Patch TOP 1.5 mg Q3D NICOLASA Administration Sodium Chloride 10 ml 04/02/20 11:30 04/09/20 09:20 Flush - Normal Saline 10 Ml Syringe IVF 10 ml PRN PRN Administration Saline Flush Zinc Sulfate 220 mg 03/20/20 09:00 04/10/20 08:43 Zinc Sulfate 220 Mg Cap PER TUBE 220 mg DAILY NICOLASA Administration - Exam General - other findings: awake, follow command. intubated Eye: PERRL ENT: normocephalic atraumatic Neck: supple Heart: RRR Respiratory: CTAB Gastrointestinal: soft, non-tender Extremities: no cyanosis Skin: normal turgor Neurological - other findings: intubated, follow some commands Hosp A/P (1) Acute respiratory failure with hypoxia and hypercapnia Code(s): J96.01 - ACUTE RESPIRATORY FAILURE WITH HYPOXIA; J96.02 - ACUTE RESPIRATORY FAILURE WITH HYPERCAPNIA Status: Acute (2) Pneumonia due to COVID-19 virus Code(s): U07.1 - COVID-19; J12.89 - OTHER VIRAL PNEUMONIA Status: Acute (3) Leukocytosis (leucocytosis) Code(s): D72.829 - ELEVATED WHITE BLOOD CELL COUNT, UNSPECIFIED Status: Acute Qualifiers: Eosinophilia type: drug rash with eosinophilia and systemic symptoms (4) Cardiac arrest Code(s): I46.9 - CARDIAC ARREST, CAUSE UNSPECIFIED Status: Acute (5) Severe sepsis with septic shock Code(s): A41.9 - SEPSIS, UNSPECIFIED ORGANISM; R65.21 - SEVERE SEPSIS WITH SEPTIC SHOCK Status: Acute (6) Diabetes mellitus treated with insulin Code(s): E11.9 - TYPE 2 DIABETES MELLITUS WITHOUT COMPLICATIONS; Z79.4 - HALFWAY (CURRENT) USE OF INSULIN Status: Acute (7) Metabolic encephalopathy Code(s): G93.41 - METABOLIC ENCEPHALOPATHY Status: Acute (8) End stage renal disease on dialysis Code(s): N18.6 - END STAGE RENAL DISEASE; Z99.2 - DEPENDENCE ON RENAL DIALYSIS Status: Chronic (9) Hypertension Code(s): I10 - ESSENTIAL (PRIMARY) HYPERTENSION Status: Chronic - Plan cont mgt as per Dr. Qiu, possible trach/peg tomorrow WBC is trending down, remains afebrile. Pt is on Decadron for [facility] Nephrology is following assisting with dialysis BG stable. supportive cares.
[2020-04-10] MEDS: fentaNYL Citrate/PF 2,000 MCG in Sodium Chloride 0.9% 60 ML IV SCH (18:43)
--- NOTE | 2020-04-10 19:34 | PRG ---
DATE OF SERVICE: 04/10/2020 OBJECTIVE: VITAL SIGNS: The patient noted with the following vital signs; blood pressure 102/69, sats are 100% with FiO2 of 15. HEENT: Remarkable for endotracheal tube in place. CARDIOVASCULAR SYSTEM: First and second heart sounds were heard. RESPIRATORY SYSTEM: Revealed vented sounds. DIGESTIVE SYSTEM: Revealed obese abdomen. IMPRESSION: 1. End-stage renal disease. 2. Morbid obesity. 3. Cardiopulmonary failure in the context of COVID pneumonitis. PLAN: 1. The patient to undergo modified dialysis today with emphasis on ultrafiltration as tolerated by hemodynamics. 2. Further management to be dependent on the clinical course. Job ID: [id number]
[2020-04-10] MEDS: DULoxetine 60 MG CAP PO SCH (19:44)
[2020-04-10] MEDS: Aripiprazole 2 MG TAB PO SCH (19:44)
--- NOTE | 2020-04-10 19:46 | PRG ---
DATE OF SERVICE: 04/10/2020 SUBJECTIVE: Razia Menjivar makes eye contact and nods. She is tentatively on schedule for tracheostomy. Blood pressure 102/69, heart rate is 99. She required a low dose of Levophed for dialysis. Intake and output coming in today was positive 1860. OBJECTIVE: LUNGS: Remarkable for coarse equal breath sounds. HEART: Regular rhythm. ABDOMEN: Soft. She will have a tracheostomy tomorrow. We will probably go back to doing daily chest x-rays. Hopefully, she can make some progress with trach combined with frequent dialysis and keeping her in a negative fluid balance. Job ID: [id number]
[2020-04-11] MEDS: PROVENTIL INHALER 6.7 G (200 INHALATIONS) INH SCH ×4 (00:12→19:02)
[2020-04-11 05:06] LABS: Anion Gap 23 mmol/L (10-20); BUN (Urea Nitrogen) 74 mg/dL (7.0-18.7); Calc. Creatinine Clearance 20 mL/min (70-130); Calcium 10.3 mg/dL (7.8-10.44); Carbon Dioxide 20 mmol/L (22-29); Chloride 96 mmol/L (98-107); Estimated GFR-MDRD 11; Glucose 150 mg/dL (70-105); Sodium 135 mmol/L (136-145)
[2020-04-11 05:13] LABS: Band 19 % (5-11); Eosinophils 2 % (0-10); Hemoglobin 8.4 g/dL (12.0-16.0); Lymphocytes 6 % (21-51); MDiff Complete? YES; Mean Corpuscular HGB CONC 32.1 g/dL (32.0-36.0); Mean Corpuscular Hemoglobin 28.9 pg (27.0-31.0); Mean Corpuscular Volume 90.2 fL (78.0-98.0); Mean Platelet Volume 10.8 fL (7.4-10.4); Monocytes 4 % (0-10); Neutrophil 69 % (42-75); Platelet Count 147 thou/uL (130-400); Platelet Morphology Comment Appears Adequate; Red Blood Cell (RBC) Count 2.89 mill/uL (4.20-5.40); White Blood Cell (WBC) Count 18.4 thou/uL (4.8-10.8)
[2020-04-11] MEDS: Mometasone 200 MCG/Formoterol 5 MCG 120 PUFF INHALER INH SCH ×2 (07:14→19:02)
--- NOTE | 2020-04-11 08:18 | RAD ---
XR Chest 1 View Portable History: Ventilated patient Comparison: Radiograph 2 days prior Findings: Endotracheal tube tip at the clavicular level. Dialysis catheter tip in the right atrium. L eft IJ central venous catheter tip projects over the cavoatrial junction. Slight decreased volume overload. Improved pleural effusions and parenchymal opacities. Impression: Improving lung aeration.
[2020-04-11] MEDS ORDERED: Vancomycin 1 GM in Premix Bag 1 BAG IVPB SCH ×2 (09:00→10:00)
[2020-04-11] MEDS: Dexamethasone 10 MG in Sodium Chloride 0.9% 50 ML IVPB SCH (09:35)
[2020-04-11] MEDS: Ascorbic Acid 500 mg Chewable Tablet PER TUBE SCH (09:35)
[2020-04-11] MEDS: Heparin 5,000 UNITS/ML VIAL SC SCH ×2 (09:35→21:27)
[2020-04-11] MEDS: Pantoprazole 40 MG GRANULES PACKET PER TUBE SCH (09:37)
[2020-04-11] MEDS: Gabapentin 300 MG CAP PO SCH ×2 (09:37→21:28)
[2020-04-11] MEDS: Zinc Sulfate 220 MG CAP PER TUBE SCH (09:37)
[2020-04-11] MEDS: Acetaminophen 650 MG/20.3 ML UDCUP PO PRN ×2 (09:40→16:09)
[2020-04-11] MEDS ORDERED: VANCOMYCIN/CEFEPIME IVPB PRN (09:47)
[2020-04-11] MEDS ORDERED: Vancomycin HCl 1.25 GM in Sodium Chloride 0.9% 250 ML 250 ML IVPB SCH (10:00)
[2020-04-11] MEDS ORDERED: Vancomycin HCl 500 MG in Sodium Chloride 0.9% 100 ML IVPB SCH (10:00)
[2020-04-11] MEDS ORDERED: HOLD VANCOMYCIN FOR LEVEL >20 FS SCH (10:00)
[2020-04-11] MEDS ORDERED: Vancomycin HCl 750 MG in Sodium Chloride 0.9% 250 ML 250 ML IVPB SCH (10:00)
[2020-04-11] MEDS ORDERED: Vancomycin Sliding Scale 1 EACH FS ONE (10:00)
[2020-04-11] MEDS ORDERED: Vancomycin HCl 1.75 GM in Sodium Chloride 0.9% 500 ML IVPB SCH (12:00)
--- NOTE | 2020-04-11 14:24 | PRG ---
DATE OF SERVICE: 04/11/2020 SUBJECTIVE: Razia Menjivar is compliant today. On reviewing ventilator pressures, the volume ventilation is too poor to go downstairs for tracheostomy. I talked to Nephrology and they plan on continuing to take volume off every day with dialysis. I think this is the only way we can get her compliance down to an acceptable level where it would be safe to perform a tracheostomy. Hemodynamics have been reasonably stable. OBJECTIVE: LUNGS: Clear. HEART: Regular rhythm. ABDOMEN: Soft. NEUROLOGIC: She is awake and interacts and makes eye contact when I walk in the room. LABORATORY DATA: White count 18.4, hemoglobin 8.4, platelets 147. Sodium 135, potassium 4, chloride 96, bicarb 20, BUN 74, creatinine 5.45. IMPRESSION: COVID pneumonia with renal failure, bilateral lower extremity amputations above the knee, history of a CVA and pre-existing decubitus prior to admission. PLAN: Continue mechanical ventilation with daily dialysis over the weekend. Tracheostomy and PEG hopefully Tuesday or Tuesday. Job ID: [id number]
[2020-04-11] MEDS ORDERED: Heparin 10,000 UNITS/ 10 ML VIAL ONE (14:53)
[2020-04-11] MEDS: Scopolamine 1.5 mg/72 hour Patch TOP SCH (15:16)
--- NOTE | 2020-04-11 16:20 | PRG ---
DATE OF SERVICE: 04/11/2020 SUBJECTIVE: The patient noted with the following vital signs. OBJECTIVE: VITAL SIGNS: Blood pressure 124/61, pulse 86, and respiratory rate of 24. HEENT: Remarkable for endotracheal tube still in place. CARDIOVASCULAR SYSTEM: First and second heart sounds were heard. RESPIRATORY SYSTEM: Revealed vented sounds. DIGESTIVE SYSTEM: Revealed an obese abdomen. IMPRESSION: 1. End-stage renal disease. 2. Cardiopulmonary failure in the context of COVID pneumonitis. 3. Obesity. PLAN: 1. The patient to be dialyzed today with ultrafiltration as tolerated by hemodynamics. 2. The patient now remains on daily modified dialysis. Job ID: [id number]
[2020-04-11] MEDS: HumaLOG 300 UNITS/3 ML VIAL SC PRN ×2 (16:40→21:29)
[2020-04-11] MEDS ORDERED: Cefepime 1 GM in Sodium Chloride 0.9% 100 ML IVPB SCH (17:00)
--- NOTE | 2020-04-11 17:57 | PDOC.HOSPP ---
- Subjective Subjective: Patient still having intermittent fever, with a T-max of 102.7. Her trach and PEG was postponed due to poor lung compliance, and not safe to perform tracheotomy at this time. - Objective Vital Signs & Weight: Vital Signs (12 hours) Temp Pulse Resp BP Pulse Ox 04/11/20 16:00 24 H 04/11/20 14:23 93 100/61 04/11/20 14:00 25 H 04/11/20 12:00 101.9 F H 23 H 04/11/20 11:03 96 113/54 L 04/11/20 10:10 102.7 F H 95 22 H 112/63 04/11/20 10:00 22 H 04/11/20 09:40 101.3 F H 97 22 H 111/66 04/11/20 08:00 101.3 F H 22 H 100 04/11/20 07:16 97 104/53 L 04/11/20 06:00 22 H Weight Admit Weight 212 lb Weight 199 lb 1.239 oz Most Recent Monitor Data Heart Rate from ECG 103 NIBP 102/66 NIBP BP-Mean 78 Respiration from ECG 25 SpO2 100 I&O: 04/10/20 04/11/20 04/12/20 06:59 06:59 06:59 Intake Total 1861.5 891.3 330 Balance 1861.5 891.3 330 Result Diagrams: 04/11/20 04:05 04/11/20 04:05 Additional Labs: Accuchecks 04/11/20 04/11/20 04/10/20 16:33 10:46 21:59 POC Glucose 211 H 127 H 212 H 04/10/20 16:09 POC Glucose 244 H Radiology Reviewed by me: Yes EKG Reviewed by me: Yes Hospitalist ROS - Medication Medications: Active Medications Generic Name Dose Route Start Last Admin Trade Name Freq PRN Reason Stop Dose Admin Acetaminophen 650 mg 03/20/20 01:14 04/11/20 16:09 Acetaminophen 650 Mg/20.3 Ml Udcup PO 650 mg Q4H PRN Administration Fever>101/(Mi/Mod/Sev) Pain Albuterol Sulfate 4 puff 03/24/20 19:00 04/11/20 14:23 Proventil Inhaler 6.7 G (200 Inhalations) INH 4 puff [id number] NICOLASA Administration Aripiprazole 2 mg 04/05/20 21:00 04/10/20 19:44 Aripiprazole 2 Mg Tab PO 2 mg HS NICOLASA Administration Ascorbic Acid 1,000 mg 03/20/20 09:00 04/11/20 09:35 Ascorbic Acid 500 Mg Chewable Tablet PER TUBE 1,000 mg DAILY NICOLASA Administration Duloxetine HCl 60 mg 04/05/20 21:00 04/10/20 19:44 Duloxetine 60 Mg Cap PO 60 mg HS NICOLASA Administration Epoetin Raman-epbx 7,500 unit 03/27/20 09:00 04/10/20 10:56 Epoetin Raman-Epbx (Esrd) 4,000 Unit/Ml Vial IVP 7,500 unit TuThSa NICOLASA Administration Gabapentin 600 mg 04/05/20 21:00 04/11/20 09:37 Gabapentin 300 Mg Cap PO 600 mg BID NICOLASA Administration Heparin Sodium (Porcine) 5,000 units 03/19/20 21:00 04/11/20 09:35 Heparin 5,000 Units/Ml Vial SC 5,000 units BID NICOLASA Administration Norepinephrine Bitartrate 250 mls @ 0 mls/hr 03/19/20 20:35 04/10/20 15:08 Levophed IVPB 250 mls INF NICOLASA Administration Protocol Titrate Dexamethasone 10 mg/ Sodium 51 mls @ 100 mls/hr 03/20/20 09:00 04/11/20 09:35 Chloride IVPB 51 mls DAILY NICOLASA Administration Dexmedetomidine HCl 400 mcg/ 100 mls @ 0 mls/hr 04/01/20 13:45 04/11/20 14:25 Sodium Chloride IVPB 100 mls INF NICOLASA Administration Protocol Per Protocol Fentanyl Citrate 2,000 mcg/ 100 mls @ 0 mls/hr 04/04/20 13:15 04/10/20 18:43 Sodium Chloride IV 05/04/20 13:15 100 mls INF NICOLASA Administration Protocol Per Protocol Cefepime HCl 1 gm/ Sodium 100 mls @ 200 mls/hr 04/11/20 17:00 04/11/20 16:09 Chloride IVPB 04/11/20 20:00 100 mls 1700 NICOLASA Administration Insulin Human Lispro 0 units 03/19/20 20:35 04/11/20 16:40 Humalog 300 Units/3 Ml Vial SC 3 unit .MILD SLIDING SCALE PRN Administration Mild Correctional Scale Insulin Human Lispro 0 units 03/19/20 20:35 04/08/20 22:17 Humalog 300 Units/3 Ml Vial SC 2 unit .BEDTIME SLIDING SC PRN Administration Bedtime Correctional Scale Lorazepam 2 mg 04/04/20 13:15 04/09/20 10:17 Lorazepam 2 Mg/Ml Vial SLOW IVP 05/04/20 13:15 2 mg Q1H PRN Administration Breakthrough agitation Mometasone Furoate/Formoterol Fumar 2 puff 03/24/20 18:30 04/11/20 07:14 Mometasone 200 Mcg/Formoterol 5 Mcg 120 Puff Inhaler INH 2 puff BID-RT NICOLASA Administration Morphine Sulfate 2 mg 04/04/20 13:15 04/05/20 16:57 Morphine 2 Mg/Ml Vial SLOW IVP 05/04/20 13:15 2 mg Q1H PRN Administration Breakthrough Pain/Agitation Pantoprazole Sodium 40 mg 04/07/20 09:00 04/11/20 09:37 Pantoprazole 40 Mg Granules Packet PER TUBE 40 mg DAILY NICOLASA Administration Scopolamine 1.5 mg 03/30/20 15:00 04/11/20 15:16 Scopolamine 1.5 Mg/72 Hour Patch TOP 1.5 mg Q3D NICOLASA Administration Sodium Chloride 10 ml 04/02/20 11:30 04/09/20 09:20 Flush - Normal Saline 10 Ml Syringe IVF 10 ml PRN PRN Administration Saline Flush Zinc Sulfate 220 mg 03/20/20 09:00 04/11/20 09:37 Zinc Sulfate 220 Mg Cap PER TUBE 220 mg DAILY NICOLASA Administration - Exam General Appearance: NAD General - other findings: awake, follow command, intubated Eye: PERRL ENT: normocephalic atraumatic Neck: supple Heart: RRR Respiratory: rhonchi Gastrointestinal: soft, non-tender Extremities: no cyanosis, no clubbing, no edema Skin: normal turgor Neurological - other findings: awake, follow command, intubated Psychiatric: normal affect, normal behavior, A&O x 3 Hosp A/P (1) Acute respiratory failure with hypoxia and hypercapnia Code(s): J96.01 - ACUTE RESPIRATORY FAILURE WITH HYPOXIA; J96.02 - ACUTE RESPIRATORY FAILURE WITH HYPERCAPNIA Status: Acute (2) Pneumonia due to COVID-19 virus Code(s): U07.1 - COVID-19; J12.89 - OTHER VIRAL PNEUMONIA Status: Acute (3) Leukocytosis (leucocytosis) Code(s): D72.829 - ELEVATED WHITE BLOOD CELL COUNT, UNSPECIFIED Status: Acute Qualifiers: Eosinophilia type: drug rash with eosinophilia and systemic symptoms (4) Cardiac arrest Code(s): I46.9 - CARDIAC ARREST, CAUSE UNSPECIFIED Status: Acute (5) Severe sepsis with septic shock Code(s): A41.9 - SEPSIS, UNSPECIFIED ORGANISM; R65.21 - SEVERE SEPSIS WITH SEPTIC SHOCK Status: Acute (6) Diabetes mellitus treated with insulin Code(s): E11.9 - TYPE 2 DIABETES MELLITUS WITHOUT COMPLICATIONS; Z79.4 - NURSING HOME (CURRENT) USE OF INSULIN Status: Acute (7) Metabolic encephalopathy Code(s): G93.41 - METABOLIC ENCEPHALOPATHY Status: Acute (8) End stage renal disease on dialysis Code(s): N18.6 - END STAGE RENAL DISEASE; Z99.2 - DEPENDENCE ON RENAL DIALYSIS Status: Chronic (9) Hypertension Code(s): I10 - ESSENTIAL (PRIMARY) HYPERTENSION Status: Chronic - Plan Today is her hospital day#23. She remains intubated. Her trach and peg was scheduled for today but postponed d/t poor lung compliance. She was deemed not safe to perform that procedure at this time. She is still having intermittent fever with Tmax of 102.7. I would assume that she is no longer infectious from COVID-19 PNA; given her duration on ventilator, I'm concerning more of nosocomial infection. Will send respiratory culture and rpt BCx. start Cefepime/Vanc, consult pharmacy to dose and monitor Vanc trough rpt labs in AM Nephrology is following, assisting with dialysis appreciate nephrology and civil division deputy sheriff's help.
[2020-04-11] MEDS: DULoxetine 60 MG CAP PO SCH (21:29)
[2020-04-11] MEDS: Aripiprazole 2 MG TAB PO SCH (21:34)
[2020-04-12] MEDS: PROVENTIL INHALER 6.7 G (200 INHALATIONS) INH SCH ×4 (02:08→18:33)
[2020-04-12] MEDS: HumaLOG 300 UNITS/3 ML VIAL SC PRN ×4 (03:46→21:16)
[2020-04-12 04:16] LABS: #Lymphocytes 0.9 thou/uL (1.20-3.40); #Monocytes 1.2 thou/uL (0.11-0.59); #Neutrophils 15.5 thou/uL (1.40-6.50); %Basophils 0.2 % (0.0-1.0); %Eosinophils 0.2 % (0.0-10.0); %Neutrophils 87.5 % (42.0-75.0); Hemoglobin 8.4 g/dL (12.0-16.0); Mean Corpuscular HGB CONC 31.6 g/dL (32.0-36.0); Mean Corpuscular Hemoglobin 29.2 pg (27.0-31.0); Mean Corpuscular Volume 92.6 fL (78.0-98.0); Mean Platelet Volume 10.6 fL (7.4-10.4); Platelet Count 150 thou/uL (130-400); RBC Distribution Width 15.8 % (11.5-14.5); Red Blood Cell (RBC) Count 2.87 mill/uL (4.20-5.40); White Blood Cell (WBC) Count 17.7 thou/uL (4.8-10.8)
[2020-04-12 04:32] LABS: Anion Gap 22 mmol/L (10-20); BUN (Urea Nitrogen) 58 mg/dL (7.0-18.7); Calc. Creatinine Clearance 28 mL/min (70-130); Calcium 10.5 mg/dL (7.8-10.44); Carbon Dioxide 23 mmol/L (22-29); Chloride 96 mmol/L (98-107); Estimated GFR-MDRD 16; Glucose 202 mg/dL (70-105); Potassium 3.8 mmol/L (3.5-5.1); Sodium 137 mmol/L (136-145)
[2020-04-12] MEDS: Mometasone 200 MCG/Formoterol 5 MCG 120 PUFF INHALER INH SCH ×2 (07:43→18:33)
[2020-04-12] MEDS: Dexamethasone 10 MG in Sodium Chloride 0.9% 50 ML IVPB SCH (08:35)
[2020-04-12] MEDS: Gabapentin 300 MG CAP PO SCH ×2 (08:36→20:54)
[2020-04-12] MEDS: Ascorbic Acid 500 mg Chewable Tablet PER TUBE SCH (08:36)
[2020-04-12] MEDS: Pantoprazole 40 MG GRANULES PACKET PER TUBE SCH (08:37)
[2020-04-12] MEDS: Zinc Sulfate 220 MG CAP PER TUBE SCH (08:37)
[2020-04-12] MEDS: Heparin 5,000 UNITS/ML VIAL SC SCH ×2 (08:37→20:55)
--- NOTE | 2020-04-12 08:39 | RAD ---
CHEST 1 VIEW: Date: 04/12/2020 INDICATION: History of intubation. COMPARISON: Prior exam dated 04/11/2020. FINDINGS: There is worsening bilateral air space disease. Left IJ central venous catheter, ET tube, and gastric catheter are unchanged. No pneumothorax is evident. Osseous structures are unchanged. IMPRESSION: Worsening bilateral air space disease. POS: BH
[2020-04-12] MEDS: EPOETIN ALFA-EPBX (ESRD) 4,000 UNIT/ML VIAL IVP SCH (09:09)
[2020-04-12] MEDS: fentaNYL Citrate/PF 2,000 MCG in Sodium Chloride 0.9% 60 ML IV SCH (09:22)
[2020-04-12 09:38] LABS: Vancomycin, Random 16.1 ug/mL (See Comment)
--- NOTE | 2020-04-12 14:25 | PRG ---
DATE OF SERVICE: 04/12/2020 SUBJECTIVE: Ms. Menjivar continues to receive ventilatory support with bilevel at 36/8 with FiO2 of 50%. Saturation is adequate. She has continued to receive dialysis with a thought that she might ultimately be a candidate for trach and PEG, followed by LTAC. OBJECTIVE: VITAL SIGNS: Current blood pressure 143/77, heart rate is 89, respiratory rate 22, pulse ox 98%. She has been noted to have a low-grade fever of 100.4 degrees. GENERAL: She is orally intubated, not responsive to stimuli secondary to sedation. NECK: She has enlarged neck. LUNGS: Showed no wheezing. She does have a few scattered rhonchi. HEART: Regular rate and rhythm. ABDOMEN: Soft. EXTREMITIES: She has bilateral soyjq-nby-vyvi amputation. LABORATORY DATA: White count 17,700, hemoglobin is 8.4 with hematocrit of 26.6, and platelet count 150,000. No manual differential is done today, but she had previously been having low-grade band count of about 10%. Chemistries include sodium 137, potassium 3.8, chloride 96, CO2 is 23, BUN 58, creatinine 3.9. She is on dialysis. Her CRP is elevated at 26. IMPRESSION: 1. Respiratory failure, chronic, with hypoxia and continued need for ventilatory support. 2. COVID pneumonia, status post appropriate therapy without pulmonary recovery to the point of extubation. 3. Bilateral jxigq-loa-vhnl amputation. 4. Renal failure, requiring dialysis. PLAN: We will continue current ventilator support. At this point, it is anticipated that she will have a tracheostomy next week. I am quite concerned about her neurologic status and guarded recovery. Critical care time, 30 minutes. Job ID: [id number]
--- NOTE | 2020-04-12 14:45 | PDOC.HOSPP ---
- Subjective Encounter Date: 04/12/20 Encounter Time: 10:45 Subjective: Nursing at bedside. 1 out of 2 blood cultures positive with gram-negative bill. Patient still on vent. White count is trending down. Hemoglobin around 8.4. She was dialyzed yesterday. Anuric around 130 mL x 24 hours. - Objective Vital Signs & Weight: Vital Signs (12 hours) Temp Pulse Resp BP Pulse Ox 04/12/20 14:00 22 H 04/12/20 13:18 87 142/77 H 04/12/20 11:07 22 H 04/12/20 11:00 100.4 F H 04/12/20 10:39 85 04/12/20 10:00 22 H 04/12/20 08:00 22 H 100 04/12/20 07:43 83 04/12/20 07:00 98.3 F 04/12/20 06:00 22 H 04/12/20 04:00 99.8 F H 22 H Weight Admit Weight 212 lb Weight 199 lb 1.239 oz Most Recent Monitor Data Heart Rate from ECG 87 NIBP 140/74 NIBP BP-Mean 96 Respiration from ECG 22 SpO2 97 I&O: 04/11/20 04/12/20 04/13/20 06:59 06:59 06:59 Intake Total 891.3 1056 130 Output Total 0 3 Balance 891.3 1056 127 Result Diagrams: 04/12/20 03:46 04/12/20 03:46 Additional Labs: Accuchecks 04/12/20 04/11/20 04/11/20 03:45 21:25 16:33 POC Glucose 195 H 279 H 211 H Hospitalist ROS - Medication Medications: Active Medications Generic Name Dose Route Start Last Admin Trade Name Freq PRN Reason Stop Dose Admin Acetaminophen 650 mg 03/20/20 01:14 04/11/20 16:09 Acetaminophen 650 Mg/20.3 Ml Udcup PO 650 mg Q4H PRN Administration Fever>101/(Mi/Mod/Sev) Pain Albuterol Sulfate 4 puff 03/24/20 19:00 04/12/20 13:18 Proventil Inhaler 6.7 G (200 Inhalations) INH 4 puff [id number] NICOLASA Administration Aripiprazole 2 mg 04/05/20 21:00 04/11/20 21:34 Aripiprazole 2 Mg Tab PO 2 mg HS NICOLASA Administration Ascorbic Acid 1,000 mg 03/20/20 09:00 04/12/20 08:36 Ascorbic Acid 500 Mg Chewable Tablet PER TUBE 1,000 mg DAILY NICOLASA Administration Duloxetine HCl 60 mg 04/05/20 21:00 04/11/20 21:29 Duloxetine 60 Mg Cap PO 60 mg HS NICOLASA Administration Epoetin Raman-epbx 7,500 unit 03/27/20 09:00 04/12/20 09:09 Epoetin Raman-Epbx (Esrd) 4,000 Unit/Ml Vial IVP 7,500 unit TuThSa NICOLASA Administration Gabapentin 600 mg 04/05/20 21:00 04/12/20 08:36 Gabapentin 300 Mg Cap PO 600 mg BID NICOLASA Administration Heparin Sodium (Porcine) 5,000 units 03/19/20 21:00 04/12/20 08:37 Heparin 5,000 Units/Ml Vial SC 5,000 units BID NICOLASA Administration Norepinephrine Bitartrate 250 mls @ 0 mls/hr 03/19/20 20:35 04/10/20 15:08 Levophed IVPB 250 mls INF NICOLASA Administration Protocol Titrate Dexamethasone 10 mg/ Sodium 51 mls @ 100 mls/hr 03/20/20 09:00 04/12/20 08:35 Chloride IVPB 51 mls DAILY NICOLASA Administration Dexmedetomidine HCl 400 mcg/ 100 mls @ 0 mls/hr 04/01/20 13:45 04/12/20 03:10 Sodium Chloride IVPB 100 mls INF NICOLASA Administration Protocol Per Protocol Fentanyl Citrate 2,000 mcg/ 100 mls @ 0 mls/hr 04/04/20 13:15 04/12/20 09:22 Sodium Chloride IV 05/04/20 13:15 100 mls INF NICOLASA Administration Protocol Per Protocol Insulin Human Lispro 0 units 03/19/20 20:35 04/12/20 10:50 Humalog 300 Units/3 Ml Vial SC 3 unit .MILD SLIDING SCALE PRN Administration Mild Correctional Scale Insulin Human Lispro 0 units 03/19/20 20:35 04/08/20 22:17 Humalog 300 Units/3 Ml Vial SC 2 unit .BEDTIME SLIDING SC PRN Administration Bedtime Correctional Scale Lorazepam 2 mg 04/04/20 13:15 04/09/20 10:17 Lorazepam 2 Mg/Ml Vial SLOW IVP 12/06/20 13:15 2 mg Q1H PRN Administration Breakthrough agitation Mometasone Furoate/Formoterol Fumar 2 puff 03/24/20 18:30 04/12/20 07:43 Mometasone 200 Mcg/Formoterol 5 Mcg 120 Puff Inhaler INH 2 puff BID-RT NICOLASA Administration Morphine Sulfate 2 mg 04/04/20 13:15 04/05/20 16:57 Morphine 2 Mg/Ml Vial SLOW IVP 05/04/20 13:15 2 mg Q1H PRN Administration Breakthrough Pain/Agitation Pantoprazole Sodium 40 mg 04/07/20 09:00 04/12/20 08:37 Pantoprazole 40 Mg Granules Packet PER TUBE 40 mg DAILY NICOLASA Administration Scopolamine 1.5 mg 03/30/20 15:00 04/11/20 15:16 Scopolamine 1.5 Mg/72 Hour Patch TOP 1.5 mg Q3D NICOLASA Administration Sodium Chloride 10 ml 04/02/20 11:30 04/09/20 09:20 Flush - Normal Saline 10 Ml Syringe IVF 10 ml PRN PRN Administration Saline Flush Zinc Sulfate 220 mg 03/20/20 09:00 04/12/20 08:37 Zinc Sulfate 220 Mg Cap PER TUBE 220 mg DAILY NICOLASA Administration - Exam General - other findings: On vent Eye: PERRL ENT: normocephalic atraumatic Neck: supple Heart: RRR Respiratory: normal chest expansion, rhonchi Gastrointestinal: soft, normal bowel sounds Neurological: no new deficit Psychiatric: not oriented Hosp A/P - Plan Acute respiratory failure with hypoxia and hypercapnia Code(s): J96.01 - ACUTE RESPIRATORY FAILURE WITH HYPOXIA; J96.02 - ACUTE RESPIRATORY FAILURE WITH HYPERCAPNIA Status: Acute (2) Pneumonia due to COVID-19 virus -On Decadron (3) Leukocytosis (leucocytosis) Code(s): D72.829 - ELEVATED WHITE BLOOD CELL COUNT, UNSPECIFIED Status: Acute Qualifiers: Eosinophilia type: drug rash with eosinophilia and systemic symptoms (4) Cardiac arrest Code(s): I46.9 - CARDIAC ARREST, CAUSE UNSPECIFIED Status: Acute (5) Severe sepsis with septic shock Code(s): A41.9 - SEPSIS, UNSPECIFIED ORGANISM; R65.21 - SEVERE SEPSIS WITH SEPTIC SHOCK Status: Acute (6) Diabetes mellitus treated with insulin Code(s): E11.9 - TYPE 2 DIABETES MELLITUS WITHOUT COMPLICATIONS; Z79.4 - JAIL (CURRENT) USE OF INSULIN Status: Acute (7) Metabolic encephalopathy Code(s): G93.41 - METABOLIC ENCEPHALOPATHY Status: Acute (8) End stage renal disease on dialysis Code(s): N18.6 - END STAGE RENAL DISEASE; Z99.2 - DEPENDENCE ON RENAL DIALYSIS Status: Chronic (9) Hypertension Code(s): I10 - ESSENTIAL (PRIMARY) HYPERTENSION Status: Chronic - Plan Today is her hospital day#24. She remains intubated. Her trach and peg was postponed d/t poor lung compliance. -History of track placement in the past Intermittent fever with Tmax of 102.7. -unlikely infectious from COVID-19 PNA given the duration; Probable ventilator associated pneumonia --Blood cultures grew gram-negative bill. started on Cefepime/Vanc, consulted pharmacy to dose and monitor Vanc trough --We will repeat the blood culture tomorrow for follow-up. -Continue the antibiotics until repeat cultures are negative. Cardiorenal syndrome likely due to Covid pneumonia requiring dialysis. Dr. Mcguire following with us. -Got dialysis on . Anemia of kidney disease -On Retacrit Bilateral above-knee amputation Obesity and deconditioning Full code
[2020-04-12] MEDS: Cefepime 0.5 GM, Admixture Fee 1 EACH in Sodium Chloride 0.9% 100 ML IVPB SCH (16:55)
[2020-04-12] MEDS: Aripiprazole 2 MG TAB PO SCH (20:55)
[2020-04-12] MEDS: DULoxetine 60 MG CAP PO SCH (20:55)
[2020-04-12] MEDS: Acetaminophen 650 MG/20.3 ML UDCUP PO PRN (21:08)
[2020-04-13] MEDS: PROVENTIL INHALER 6.7 G (200 INHALATIONS) INH SCH ×4 (02:24→19:06)
[2020-04-13] MEDS: HumaLOG 300 UNITS/3 ML VIAL SC PRN ×4 (03:43→22:38)
[2020-04-13 04:16] LABS: Band 19 % (5-11); Eosinophils 4 % (0-10); Hemoglobin 8.1 g/dL (12.0-16.0); Lymphocytes 9 % (21-51); MDiff Complete? YES; Mean Corpuscular HGB CONC 31.3 g/dL (32.0-36.0); Mean Corpuscular Hemoglobin 28.7 pg (27.0-31.0); Mean Corpuscular Volume 91.7 fL (78.0-98.0); Mean Platelet Volume 11.2 fL (7.4-10.4); Monocytes 7 % (0-10); Neutrophil 61 % (42-75); Platelet Count 164 thou/uL (130-400); Platelet Morphology Comment Appears Adequate; RBC Distribution Width 15.8 % (11.5-14.5); Red Blood Cell (RBC) Count 2.83 mill/uL (4.20-5.40); White Blood Cell (WBC) Count 13.2 thou/uL (4.8-10.8)
[2020-04-13 04:25] LABS: Anion Gap 23 mmol/L (10-20); BUN (Urea Nitrogen) 82 mg/dL (7.0-18.7); Calc. Creatinine Clearance 23 mL/min (70-130); Calcium 10.8 mg/dL (7.8-10.44); Carbon Dioxide 21 mmol/L (22-29); Chloride 96 mmol/L (98-107); Estimated GFR-MDRD 12; Glucose 269 mg/dL (70-105); Potassium 4.1 mmol/L (3.5-5.1); Sodium 136 mmol/L (136-145)
[2020-04-13] MEDS: Mometasone 200 MCG/Formoterol 5 MCG 120 PUFF INHALER INH SCH ×2 (08:06→19:06)
--- NOTE | 2020-04-13 09:14 | RAD ---
CHEST ONE VIEW: INDICATIONS: History of intubation. COMPARISON: Prior exam dated 04/12/2020. FINDINGS: The EG tube, gastric catheter and left IJ central venous catheter is unchanged. Bilateral air space d isease is stable appearing. Small bilateral pleural effusions are stable. No pneumothorax is evident. dialysis catheter is stable appearing. IMPRESSION: Stable examination. POS: BH
[2020-04-13] MEDS: Dexamethasone 10 MG in Sodium Chloride 0.9% 50 ML IVPB SCH (09:57)
[2020-04-13] MEDS: Zinc Sulfate 220 MG CAP PER TUBE SCH (09:58)
[2020-04-13] MEDS: Ascorbic Acid 500 mg Chewable Tablet PER TUBE SCH (09:58)
[2020-04-13] MEDS: Gabapentin 300 MG CAP PO SCH ×2 (09:58→20:26)
[2020-04-13] MEDS: Heparin 5,000 UNITS/ML VIAL SC SCH ×2 (09:59→20:26)
[2020-04-13] MEDS: Pantoprazole 40 MG GRANULES PACKET PER TUBE SCH (09:59)
--- NOTE | 2020-04-13 14:29 | PDOC.HOSPP ---
- Subjective Encounter Date: 04/13/20 Encounter Time: 10:50 Subjective: Patient getting dialysis. Blood pressure on the low side. Vent dependent. She is anuric total input yesterday around 1127 mL. - Objective Vital Signs & Weight: Vital Signs (12 hours) Temp Pulse Resp Pulse Ox 04/13/20 14:06 91 04/13/20 14:00 24 H 04/13/20 13:00 98.4 F 04/13/20 12:00 22 H 04/13/20 10:54 80 04/13/20 10:00 22 H 04/13/20 08:06 80 04/13/20 08:00 22 H 94 L 04/13/20 07:00 99.9 F H 04/13/20 06:00 29 H 04/13/20 04:00 99.2 F 22 H Weight Admit Weight 212 lb Weight 199 lb 1.239 oz Most Recent Monitor Data Heart Rate from ECG 79 NIBP 100/57 NIBP BP-Mean 71 Respiration from ECG 22 SpO2 100 I&O: 04/12/20 04/13/20 04/14/20 06:59 06:59 06:59 Intake Total 1056 1127.3 Output Total 0 28 Balance 1056 1099.3 Result Diagrams: 04/13/20 03:39 04/13/20 03:39 Additional Labs: Accuchecks 04/13/20 04/13/20 04/12/20 09:35 03:40 21:17 POC Glucose 197 H 259 H 274 H Hospitalist ROS - Medication Medications: Active Medications Generic Name Dose Route Start Last Admin Trade Name Freq PRN Reason Stop Dose Admin Acetaminophen 650 mg 03/20/20 01:14 04/12/20 21:08 Acetaminophen 650 Mg/20.3 Ml Udcup PO 650 mg Q4H PRN Administration Fever>101/(Mi/Mod/Sev) Pain Albuterol Sulfate 4 puff 03/24/20 19:00 04/13/20 14:06 Proventil Inhaler 6.7 G (200 Inhalations) INH 4 puff [id number] NICOLASA Administration Aripiprazole 2 mg 04/05/20 21:00 04/12/20 20:55 Aripiprazole 2 Mg Tab PO 2 mg HS NICOLASA Administration Ascorbic Acid 1,000 mg 03/20/20 09:00 04/13/20 09:58 Ascorbic Acid 500 Mg Chewable Tablet PER TUBE 1,000 mg DAILY NICOLASA Administration Duloxetine HCl 60 mg 04/05/20 21:00 04/12/20 20:55 Duloxetine 60 Mg Cap PO 60 mg HS NICOLASA Administration Epoetin Raman-epbx 7,500 unit 03/27/20 09:00 04/12/20 09:09 Epoetin Raman-Epbx (Esrd) 4,000 Unit/Ml Vial IVP 7,500 unit TuThSa NICOLASA Administration Gabapentin 600 mg 04/05/20 21:00 04/13/20 09:58 Gabapentin 300 Mg Cap PO 600 mg BID NICOLASA Administration Heparin Sodium (Porcine) 5,000 units 03/19/20 21:00 04/13/20 09:59 Heparin 5,000 Units/Ml Vial SC 5,000 units BID NICOLASA Administration Norepinephrine Bitartrate 250 mls @ 0 mls/hr 03/19/20 20:35 04/10/20 15:08 Levophed IVPB 250 mls INF NICOLASA Administration Protocol Titrate Dexamethasone 10 mg/ Sodium 51 mls @ 100 mls/hr 03/20/20 09:00 04/13/20 09:57 Chloride IVPB 51 mls DAILY NICOLASA Administration Dexmedetomidine HCl 400 mcg/ 100 mls @ 0 mls/hr 04/01/20 13:45 04/13/20 04:38 Sodium Chloride IVPB 100 mls INF NICOLASA Administration Protocol Per Protocol Fentanyl Citrate 2,000 mcg/ 100 mls @ 0 mls/hr 04/04/20 13:15 04/12/20 09:22 Sodium Chloride IV 05/04/20 13:15 100 mls INF NICOLASA Administration Protocol Per Protocol Cefepime HCl 0.5 gm/ 100 mls @ 200 mls/hr 04/12/20 17:00 04/12/20 16:55 Miscellaneous Medication 1 IVPB 100 mls each/ Sodium Chloride 1700 NICOLASA Administration Insulin Human Lispro 0 units 03/19/20 20:35 04/13/20 10:01 Humalog 300 Units/3 Ml Vial SC 2 unit .MILD SLIDING SCALE PRN Administration Mild Correctional Scale Insulin Human Lispro 0 units 03/19/20 20:35 04/08/20 22:17 Humalog 300 Units/3 Ml Vial SC 2 unit .BEDTIME SLIDING SC PRN Administration Bedtime Correctional Scale Lorazepam 2 mg 04/04/20 13:15 04/09/20 10:17 Lorazepam 2 Mg/Ml Vial SLOW IVP 05/04/20 13:15 2 mg Q1H PRN Administration Breakthrough agitation Mometasone Furoate/Formoterol Fumar 2 puff 03/24/20 18:30 04/13/20 08:06 Mometasone 200 Mcg/Formoterol 5 Mcg 120 Puff Inhaler INH 2 puff BID-RT NICOLASA Administration Morphine Sulfate 2 mg 04/04/20 13:15 04/05/20 16:57 Morphine 2 Mg/Ml Vial SLOW IVP 05/04/20 13:15 2 mg Q1H PRN Administration Breakthrough Pain/Agitation Pantoprazole Sodium 40 mg 04/07/20 09:00 04/13/20 09:59 Pantoprazole 40 Mg Granules Packet PER TUBE 40 mg DAILY NICOLASA Administration Scopolamine 1.5 mg 03/30/20 15:00 04/11/20 15:16 Scopolamine 1.5 Mg/72 Hour Patch TOP 1.5 mg Q3D NICOLASA Administration Sodium Chloride 10 ml 04/02/20 11:30 04/09/20 09:20 Flush - Normal Saline 10 Ml Syringe IVF 10 ml PRN PRN Administration Saline Flush Zinc Sulfate 220 mg 03/20/20 09:00 04/13/20 09:58 Zinc Sulfate 220 Mg Cap PER TUBE 220 mg DAILY NICOLASA Administration - Exam General Appearance: NAD, awake alert General - other findings: Vent dependent Eye: PERRL ENT: normocephalic atraumatic Neck: supple Heart: RRR Respiratory: CTAB, normal chest expansion Gastrointestinal: normal bowel sounds Neurological: no new deficit Psychiatric: oriented to person Hosp A/P - Plan Acute respiratory failure with hypoxia and hypercapnia Code(s): J96.01 - ACUTE RESPIRATORY FAILURE WITH HYPOXIA; J96.02 - ACUTE RESPIRATORY FAILURE WITH HYPERCAPNIA Status: Acute (2) Pneumonia due to COVID-19 virus -On Decadron (3) Leukocytosis (leucocytosis) Code(s): D72.829 - ELEVATED WHITE BLOOD CELL COUNT, UNSPECIFIED Status: Acute Qualifiers: Eosinophilia type: drug rash with eosinophilia and systemic symptoms (4) Cardiac arrest Code(s): I46.9 - CARDIAC ARREST, CAUSE UNSPECIFIED Status: Acute (5) Severe sepsis with septic shock Code(s): A41.9 - SEPSIS, UNSPECIFIED ORGANISM; R65.21 - SEVERE SEPSIS WITH SEPTIC SHOCK Status: Acute (6) Diabetes mellitus treated with insulin Code(s): E11.9 - TYPE 2 DIABETES MELLITUS WITHOUT COMPLICATIONS; Z79.4 - PRODUCTION MACHINE OPERATOR (CURRENT) USE OF INSULIN Status: Acute (7) Metabolic encephalopathy Code(s): G93.41 - METABOLIC ENCEPHALOPATHY Status: Acute (8) End stage renal disease on dialysis Code(s): N18.6 - END STAGE RENAL DISEASE; Z99.2 - DEPENDENCE ON RENAL DIALYSIS Status: Chronic (9) Hypertension Code(s): I10 - ESSENTIAL (PRIMARY) HYPERTENSION Status: Chronic - Plan Today is her hospital day#25 She remains intubated. Her trach and peg was postponed d/t poor lung compliance. -History of track placement in the past Intermittent fever with Tmax of 102.7. -unlikely infectious from COVID-19 PNA given the duration; Probable ventilator associated pneumonia --Blood cultures grew gram-negative bill. started on Cefepime/Vanc, consulted pharmacy to dose and monitor Vanc trough --We will repeat the blood culture tomorrow for follow-up. -Continue the antibiotics until repeat cultures are negative. Cardiorenal syndrome likely due to Covid pneumonia requiring dialysis. Dr. Mcguire following with us. -Got dialysis on . Anemia of kidney disease -On Retacrit Bilateral above-knee amputation Obesity and deconditioning Full code
[2020-04-13] MEDS ORDERED: Heparin 10,000 UNITS/ 10 ML VIAL ONE (15:00)
--- NOTE | 2020-04-13 15:56 | PRG ---
DATE OF SERVICE: 04/13/2020 SUBJECTIVE: There has not been a significant change in her status. She will open her eyes to verbal stimuli but does not track nor does she follow commands at this time. She remains on the ventilator with rate of 22, bilevel 36/8 with FiO2 of 40%. PHYSICAL EXAMINATION: VITAL SIGNS: Blood pressure is 123/57, heart rate is 90, saturation 94, rate is as high as 35. She is intubated. HEENT: Eyes do open, but not following any commands. She has no icterus. LUNGS: Rhonchi, but no wheezing or rales. HEART: Regular rate and rhythm. ABDOMEN: Soft. There is no organomegaly. EXTREMITIES: She is status post bilateral [id number] amputation. LABORATORY DATA: Chest x-ray shows lines and tubes in good position. She has bilateral consolidative processes. White count is 13.2 with 61 segs and 19 bands. Hemoglobin is 8.1, hematocrit of 26. Chemistries include sodium 136, potassium 4.1, chloride 96, CO2 is 21, BUN is 82, creatinine 4.88. IMPRESSION: 1. Respiratory failure secondary to sepsis and COVID pneumonia. 2. History of bilateral [id number] amputation. PLAN: We will continue ventilatory support. I am not sure that we have much room to wean her FiO2. She will continue to receive maintenance dialysis. She may be a candidate for PEG and trach early this coming week. Critical care 30 minutes. Job ID: [id number]
[2020-04-13] MEDS: Cefepime 0.5 GM, Admixture Fee 1 EACH in Sodium Chloride 0.9% 100 ML IVPB SCH (17:40)
[2020-04-13] MEDS: DULoxetine 60 MG CAP PO SCH (20:26)
[2020-04-13] MEDS: Aripiprazole 2 MG TAB PO SCH (20:26)
[2020-04-14] MEDS: PROVENTIL INHALER 6.7 G (200 INHALATIONS) INH SCH ×4 (01:33→18:25)
[2020-04-14] MEDS: HumaLOG 300 UNITS/3 ML VIAL SC PRN ×4 (04:54→22:33)
[2020-04-14 05:08] LABS: Band 18 % (5-11); Hemoglobin 8.4 g/dL (12.0-16.0); Hypochromia SLIGHT = 6-15 cells (100X) (0-5/hpf); Lymphocytes 5 % (21-51); MDiff Complete? YES; Mean Corpuscular HGB CONC 31.6 g/dL (32.0-36.0); Mean Corpuscular Hemoglobin 28.7 pg (27.0-31.0); Mean Corpuscular Volume 90.8 fL (78.0-98.0); Mean Platelet Volume 10.9 fL (7.4-10.4); Monocytes 8 % (0-10); Neutrophil 69 % (42-75); Platelet Count 180 thou/uL (130-400); Platelet Morphology Comment Appears Adequate; RBC Distribution Width 15.9 % (11.5-14.5); Red Blood Cell (RBC) Count 2.92 mill/uL (4.20-5.40); White Blood Cell (WBC) Count 13.2 thou/uL (4.8-10.8)
[2020-04-14 05:19] LABS: Anion Gap 24 mmol/L (10-20); BUN (Urea Nitrogen) 96 mg/dL (7.0-18.7); Calc. Creatinine Clearance 20 mL/min (70-130); Calcium 11.2 mg/dL (7.8-10.44); Carbon Dioxide 21 mmol/L (22-29); Chloride 96 mmol/L (98-107); Estimated GFR-MDRD 11; Glucose 247 mg/dL (70-105); Potassium 4.3 mmol/L (3.5-5.1); Sodium 137 mmol/L (136-145)
--- NOTE | 2020-04-14 07:51 | RAD ---
Portable frontal chest radiograph: 04/14/2020 COMPARISON: 04/13/2020 HISTORY: Ventilated patient FINDINGS: Stable endotracheal tube, nasogastric tube, right-sided dialysis catheter, and left-sided v ascular catheter. Shallow inspiration limits detailed assessment. Nonspecific diffuse prominent interstitial and alveolar opacity with a perihilar and bibasilar predominance. IMPRESSION: No significant interval change.
[2020-04-14] MEDS: Mometasone 200 MCG/Formoterol 5 MCG 120 PUFF INHALER INH SCH ×2 (09:01→18:25)
[2020-04-14] MEDS ORDERED: Dexamethasone 4 MG in Sodium Chloride 0.9% 50 ML IVPB SCH (09:15)
--- NOTE | 2020-04-14 09:38 | PRG ---
DATE OF SERVICE: 04/14/2020 SUBJECTIVE: The patient remains on mechanical ventilation through a tracheostomy. She will wake up. She follows a few commands. OBJECTIVE: VITAL SIGNS: Temperature 99.1, pulse 81, blood pressure 137/89, O2 saturation 98%. HEENT: Unremarkable. NECK: Trach in good position. LUNGS: Clear. CARDIAC: S1 and S2. Regular. ABDOMEN: Soft. EXTREMITIES: She has no legs. LABORATORY DATA: White blood cell count 13.2, hematocrit 26.5, and platelet count 180. Sodium 137, potassium 4.3, chloride 96, CO2 of 21, BUN 96, creatinine 5.4, glucose 247. X-ray continued to show bilateral infiltrates. ASSESSMENT: 1. COVID-19 pneumonia. 2. Encephalopathy. 3. History of bilateral [id number] amputations. PLAN: 1. Continue supportive care with mechanical ventilation. 2. Try to wean off the fentanyl drip. 3. Dialysis is needed. 4. Discontinue norepinephrine from JUL. 5. Continue anticoagulation with heparin. 6. Decrease Decadron. Job ID: [id number]
[2020-04-14] MEDS: Heparin 5,000 UNITS/ML VIAL SC SCH ×2 (10:55→20:05)
[2020-04-14] MEDS: Ascorbic Acid 500 mg Chewable Tablet PER TUBE SCH (10:55)
[2020-04-14] MEDS: Zinc Sulfate 220 MG CAP PER TUBE SCH (10:55)
[2020-04-14] MEDS: Gabapentin 300 MG CAP PO SCH ×2 (10:56→20:05)
[2020-04-14] MEDS: Dexamethasone 4 mg/ml Vial SLOW IVP SCH (10:56)
[2020-04-14] MEDS: Pantoprazole 40 MG GRANULES PACKET PER TUBE SCH (10:57)
[2020-04-14] MEDS ORDERED: Morphine 2 MG/ML VIAL SLOW IVP PRN (13:40)
[2020-04-14] MEDS ORDERED: Fentanyl BOLUS 250 ML IVPB PRN (13:41)
[2020-04-14] MEDS ORDERED: fentaNYL Citrate/PF 2,000 MCG in Sodium Chloride 0.9% 60 ML IV SCH (13:45)
--- NOTE | 2020-04-14 13:53 | PDOC.HOSPP ---
- Subjective Encounter Date: 04/14/20 Encounter Time: 10:30 Subjective: No change in the clinical condition of this unfortunate 34-year-old female. On vent. She was dialyzed yesterday. - Objective Vital Signs & Weight: Vital Signs (12 hours) Temp Pulse Resp 04/14/20 11:05 71 04/14/20 09:01 81 04/14/20 06:00 22 H 04/14/20 04:00 99.1 F 22 H 04/14/20 02:32 83 04/14/20 02:00 22 H Weight Admit Weight 212 lb Weight 190 lb 11.198 oz Most Recent Monitor Data Heart Rate from ECG 73 NIBP 140/92 NIBP BP-Mean 108 Respiration from ECG 22 SpO2 98 I&O: 04/13/20 04/14/20 04/15/20 06:59 06:59 06:59 Intake Total 1127.3 1134 240 Output Total 28 40 Balance 1099.3 1094 240 Result Diagrams: 04/14/20 04:45 04/14/20 04:45 Additional Labs: Accuchecks 04/14/20 04/14/20 04/13/20 10:38 04:45 22:24 POC Glucose 193 H 232 H 261 H 04/13/20 04/12/20 04/12/20 16:13 16:52 10:19 POC Glucose 193 H 302 H 206 H Hospitalist ROS - Medication Medications: Active Medications Generic Name Dose Route Start Last Admin Trade Name Freq PRN Reason Stop Dose Admin Acetaminophen 650 mg 03/20/20 01:14 04/12/20 21:08 Acetaminophen 650 Mg/20.3 Ml Udcup PO 650 mg Q4H PRN Administration Fever>101/(Mi/Mod/Sev) Pain Albuterol Sulfate 4 puff 03/24/20 19:00 04/14/20 12:59 Proventil Inhaler 6.7 G (200 Inhalations) INH 4 puff [id number] NICOLASA Administration Aripiprazole 2 mg 04/05/20 21:00 04/13/20 20:26 Aripiprazole 2 Mg Tab PO 2 mg HS NICOLASA Administration Ascorbic Acid 1,000 mg 03/20/20 09:00 04/14/20 10:55 Ascorbic Acid 500 Mg Chewable Tablet PER TUBE 1,000 mg DAILY NICOLASA Administration Dexamethasone 4 mg 04/14/20 09:00 04/14/20 10:56 Dexamethasone 4 Mg/Ml Vial SLOW IVP 4 mg 0900 NICOLASA Administration Duloxetine HCl 60 mg 04/05/20 21:00 04/13/20 20:26 Duloxetine 60 Mg Cap PO 60 mg HS NICOLASA Administration Epoetin Raman-epbx 7,500 unit 03/27/20 09:00 04/12/20 09:09 Epoetin Raman-Epbx (Esrd) 4,000 Unit/Ml Vial IVP 7,500 unit TuThSa NICOLASA Administration Gabapentin 600 mg 04/05/20 21:00 04/14/20 10:56 Gabapentin 300 Mg Cap PO 600 mg BID NICOLASA Administration Heparin Sodium (Porcine) 5,000 units 03/19/20 21:00 04/14/20 10:55 Heparin 5,000 Units/Ml Vial SC 5,000 units BID NICOLASA Administration Dexmedetomidine HCl 400 mcg/ 100 mls @ 0 mls/hr 04/01/20 13:45 04/14/20 10:54 Sodium Chloride IVPB 100 mls INF NICOLASA Administration Protocol Per Protocol Cefepime HCl 0.5 gm/ 100 mls @ 200 mls/hr 04/12/20 17:00 04/13/20 17:40 Miscellaneous Medication 1 IVPB 100 mls each/ Sodium Chloride 1700 NICOLASA Administration Insulin Human Lispro 0 units 03/19/20 20:35 04/14/20 11:14 Humalog 300 Units/3 Ml Vial SC 2 unit .MILD SLIDING SCALE PRN Administration Mild Correctional Scale Insulin Human Lispro 0 units 03/19/20 20:35 04/08/20 22:17 Humalog 300 Units/3 Ml Vial SC 2 unit .BEDTIME SLIDING SC PRN Administration Bedtime Correctional Scale Mometasone Furoate/Formoterol Fumar 2 puff 03/24/20 18:30 04/14/20 09:01 Mometasone 200 Mcg/Formoterol 5 Mcg 120 Puff Inhaler INH 2 puff BID-RT NICOLASA Administration Pantoprazole Sodium 40 mg 04/07/20 09:00 04/14/20 10:57 Pantoprazole 40 Mg Granules Packet PER TUBE 40 mg DAILY NICOLASA Administration Scopolamine 1.5 mg 03/30/20 15:00 04/11/20 15:16 Scopolamine 1.5 Mg/72 Hour Patch TOP 1.5 mg Q3D NICOLASA Administration Sodium Chloride 10 ml 04/02/20 11:30 04/09/20 09:20 Flush - Normal Saline 10 Ml Syringe IVF 10 ml PRN PRN Administration Saline Flush Zinc Sulfate 220 mg 03/20/20 09:00 04/14/20 10:55 Zinc Sulfate 220 Mg Cap PER TUBE 220 mg DAILY NICOLASA Administration - Exam General Appearance: ill appearing General - other findings: On vent Eye: PERRL ENT: normocephalic atraumatic Neck: supple Respiratory: CTAB, normal chest expansion Gastrointestinal: soft Extremities - other findings: bilateral below-knee amputation Neurological: no new deficit Psychiatric: not oriented Hosp A/P - Plan Acute respiratory failure with hypoxia and hypercapnia Code(s): J96.01 - ACUTE RESPIRATORY FAILURE WITH HYPOXIA; J96.02 - ACUTE RESPIRATORY FAILURE WITH HYPERCAPNIA Status: Acute (2) Pneumonia due to COVID-19 virus -On Decadron (3) Leukocytosis (leucocytosis) Code(s): D72.829 - ELEVATED WHITE BLOOD CELL COUNT, UNSPECIFIED Status: Acute Qualifiers: Eosinophilia type: drug rash with eosinophilia and systemic symptoms (4) Cardiac arrest Code(s): I46.9 - CARDIAC ARREST, CAUSE UNSPECIFIED Status: Acute (5) Severe sepsis with septic shock Code(s): A41.9 - SEPSIS, UNSPECIFIED ORGANISM; R65.21 - SEVERE SEPSIS WITH SEPTIC SHOCK Status: Acute (6) Diabetes mellitus treated with insulin Code(s): E11.9 - TYPE 2 DIABETES MELLITUS WITHOUT COMPLICATIONS; Z79.4 - RETIREMENT (CURRENT) USE OF INSULIN Status: Acute (7) Metabolic encephalopathy Code(s): G93.41 - METABOLIC ENCEPHALOPATHY Status: Acute (8) End stage renal disease on dialysis Code(s): N18.6 - END STAGE RENAL DISEASE; Z99.2 - DEPENDENCE ON RENAL DIALYSIS Status: Chronic (9) Hypertension Code(s): I10 - ESSENTIAL (PRIMARY) HYPERTENSION Status: Chronic - Plan Today is her hospital day#25 She remains intubated. Her trach and peg was postponed d/t poor lung compliance. -------------> weaning off the fentanyl drip -History of track placement in the past Intermittent fever with Tmax of 102.7. -unlikely infectious from COVID-19 PNA given the duration; Probable ventilator associated pneumonia --Blood cultures grew gram-negative bill. started on Cefepime/Vanc, consulted pharmacy to dose and monitor Vanc trough --We will repeat the blood culture tomorrow for follow-up. -Continue the antibiotics until repeat cultures are negative. Cardiorenal syndrome likely due to Covid pneumonia requiring dialysis. Dr. Mcguire following with us. -Got dialysis on and . Anemia of kidney disease -On Retacrit Bilateral above-knee amputation Obesity and deconditioning Full code Repeat blood culture of 13 also growing staph aureus and the sputum growing E. coli and staph aureus and will continue her antibiotic at least for 7 days starting so stop date is on April 19, unless clinical conditions/mgmt changes.
[2020-04-14] MEDS: Dexamethasone 10 MG in Sodium Chloride 0.9% 50 ML IVPB SCH (13:56)
--- NOTE | 2020-04-14 15:43 | PRG ---
DATE OF SERVICE: 04/14/2020 SUBJECTIVE: The patient is dependent on vent, noted with the following vital signs. OBJECTIVE: VITAL SIGNS: Blood pressure 151/98, pulse of 79, FiO2 of 50, saturations 97%. HEENT: Remarkable for endotracheal tube in place. CARDIOVASCULAR SYSTEM: First and second heart sounds were heard. RESPIRATORY SYSTEM: Revealed vented sounds. DIGESTIVE SYSTEM: Revealed obese abdomen. IMPRESSION: 1. Cardiopulmonary failure in the context of COVID pneumonitis. 2. End-stage renal disease, on dialysis. PLAN: The patient to be dialyzed today with the current schedule of daily dialysis with ultrafiltration as tolerated by hemodynamics. Job ID: [id number]
[2020-04-14] MEDS: Scopolamine 1.5 mg/72 hour Patch TOP SCH (17:22)
[2020-04-14] MEDS: Cefepime 0.5 GM, Admixture Fee 1 EACH in Sodium Chloride 0.9% 100 ML IVPB SCH (17:59)
[2020-04-14] MEDS: Aripiprazole 2 MG TAB PO SCH (20:05)
[2020-04-14] MEDS: DULoxetine 60 MG CAP PO SCH (20:05)
[2020-04-15] MEDS: PROVENTIL INHALER 6.7 G (200 INHALATIONS) INH SCH ×5 (00:03→23:58)
[2020-04-15 05:01] LABS: Band 5 % (5-11); Eosinophils 4 % (0-10); Hemoglobin 8.1 g/dL (12.0-16.0); Lymphocytes 12 % (21-51); MDiff Complete? YES; Mean Corpuscular Hemoglobin 28.9 pg (27.0-31.0); Mean Corpuscular Volume 90.4 fL (78.0-98.0); Metamyelocyte 2 % (0-0); Monocytes 4 % (0-10); Neutrophil 73 % (42-75); Platelet Count 192 thou/uL (130-400); Platelet Morphology Comment Appears Adequate; RBC Distribution Width 15.5 % (11.5-14.5); Red Blood Cell (RBC) Count 2.79 mill/uL (4.20-5.40); White Blood Cell (WBC) Count 11.5 thou/uL (4.8-10.8)
[2020-04-15 05:22] LABS: Anion Gap 27 mmol/L (10-20); BUN (Urea Nitrogen) 118 mg/dL (7.0-18.7); Calc. Creatinine Clearance 17 mL/min (70-130); Carbon Dioxide 19 mmol/L (22-29); Chloride 96 mmol/L (98-107); Estimated GFR-MDRD 9; Glucose 212 mg/dL (70-105); Potassium 4.3 mmol/L (3.5-5.1); Sodium 138 mmol/L (136-145)
[2020-04-15] MEDS: HumaLOG 300 UNITS/3 ML VIAL SC PRN ×4 (05:29→20:42)
--- NOTE | 2020-04-15 08:01 | RAD ---
XR Chest 1 View Portable History: Ventilated patient Comparison: Radiograph prior day Findings: Endotracheal tube tip at the clavicular level. Enteric tube tip below diaphragm although ou t of field of view. Left IJ central venous catheter tip projects over the cavoatrial junction. Extensive perihilar opacities are present. Likely small effusions. Lung aeration is similar. Impression: Similar appearance of the chest.
[2020-04-15] MEDS ORDERED: Heparin 10,000 UNITS/ 10 ML VIAL ONE (08:37)
[2020-04-15] MEDS: Mometasone 200 MCG/Formoterol 5 MCG 120 PUFF INHALER INH SCH ×2 (08:47→18:16)
[2020-04-15] MEDS: Zinc Sulfate 220 MG CAP PER TUBE SCH (08:52)
[2020-04-15] MEDS: Ascorbic Acid 500 mg Chewable Tablet PER TUBE SCH (08:52)
[2020-04-15] MEDS: Pantoprazole 40 MG GRANULES PACKET PER TUBE SCH (08:52)
[2020-04-15] MEDS: Gabapentin 300 MG CAP PO SCH ×2 (08:52→20:44)
[2020-04-15] MEDS: Dexamethasone 4 mg/ml Vial SLOW IVP SCH (08:53)
[2020-04-15] MEDS: Heparin 5,000 UNITS/ML VIAL SC SCH ×2 (08:53→20:38)
[2020-04-15 10:37] LABS: Vancomycin, Random 9.6 ug/mL (See Comment)
[2020-04-15] MEDS: EPOETIN ALFA-EPBX (ESRD) 4,000 UNIT/ML VIAL IVP SCH (11:59)
[2020-04-15] MEDS: Fluconazole In NaCl,Iso-Osm 200 MG in Premix Bag 1 BAG IVPB SCH (15:03)
--- NOTE | 2020-04-15 15:04 | PDOC.HOSPP ---
- Subjective Encounter Date: 04/15/20 Encounter Time: 12:00 Subjective: pt being dialyzed this morning. - Objective Vital Signs & Weight: Vital Signs (12 hours) Temp Pulse Resp Pulse Ox 04/15/20 12:00 98.2 F 25 H 04/15/20 10:53 83 04/15/20 10:00 23 H 04/15/20 08:47 69 04/15/20 08:00 98.7 F 22 H 98 04/15/20 06:00 22 H 04/15/20 04:00 99.1 F 25 H Weight Admit Weight 212 lb Weight 190 lb 11.198 oz Most Recent Monitor Data Heart Rate from ECG 96 NIBP 129/84 NIBP BP-Mean 99 Respiration from ECG 28 SpO2 94 I&O: 04/14/20 04/15/20 04/16/20 06:59 06:59 06:59 Intake Total 1134 1348.1 120 Output Total 40 120 Balance 1094 1228.1 120 Result Diagrams: 04/15/20 04:26 04/15/20 04:26 Additional Labs: Accuchecks 04/15/20 04/14/20 04/14/20 11:17 22:32 16:11 POC Glucose 163 H 262 H 272 H Hospitalist ROS - Medication Medications: Active Medications Generic Name Dose Route Start Last Admin Trade Name Freq PRN Reason Stop Dose Admin Acetaminophen 650 mg 03/20/20 01:14 04/12/20 21:08 Acetaminophen 650 Mg/20.3 Ml Udcup PO 650 mg Q4H PRN Administration Fever>101/(Mi/Mod/Sev) Pain Albuterol Sulfate 4 puff 03/24/20 19:00 04/15/20 15:02 Proventil Inhaler 6.7 G (200 Inhalations) INH 4 puff [id number] NICOLASA Administration Aripiprazole 2 mg 04/05/20 21:00 04/14/20 20:05 Aripiprazole 2 Mg Tab PO 2 mg HS NICOLASA Administration Ascorbic Acid 1,000 mg 03/20/20 09:00 04/15/20 08:52 Ascorbic Acid 500 Mg Chewable Tablet PER TUBE 1,000 mg DAILY NICOLASA Administration Dexamethasone 4 mg 04/14/20 09:00 04/15/20 08:53 Dexamethasone 4 Mg/Ml Vial SLOW IVP 4 mg 09 NICOLASA Administration Duloxetine HCl 60 mg 04/05/20 21:00 04/14/20 20:05 Duloxetine 60 Mg Cap PO 60 mg HS NICOLASA Administration Epoetin Raman-epbx 7,500 unit 03/27/20 09:00 04/15/20 11:59 Epoetin Raman-Epbx (Esrd) 4,000 Unit/Ml Vial IVP 7,500 unit TuThSa NICOLASA Administration Gabapentin 600 mg 04/05/20 21:00 04/15/20 08:52 Gabapentin 300 Mg Cap PO 600 mg BID NICOLASA Administration Heparin Sodium (Porcine) 5,000 units 03/19/20 21:00 04/15/20 08:53 Heparin 5,000 Units/Ml Vial SC 5,000 units BID NICOLASA Administration Dexmedetomidine HCl 400 mcg/ 100 mls @ 0 mls/hr 04/01/20 13:45 04/15/20 11:59 Sodium Chloride IVPB 100 mls INF NICOLASA Administration Protocol Per Protocol Cefepime HCl 0.5 gm/ 100 mls @ 200 mls/hr 04/12/20 17:00 04/14/20 17:59 Miscellaneous Medication 1 IVPB 100 mls each/ Sodium Chloride 1700 NICOLASA Administration Vancomycin HCl 1 gm/ Device 200 mls @ 200 mls/hr 04/11/20 10:00 04/15/20 12:04 IVPB 200 mls WILLCALL NICOLASA Administration Insulin Human Lispro 0 units 03/19/20 20:35 04/15/20 11:22 Humalog 300 Units/3 Ml Vial SC 2 unit .MILD SLIDING SCALE PRN Administration Mild Correctional Scale Insulin Human Lispro 0 units 03/19/20 20:35 04/14/20 22:33 Humalog 300 Units/3 Ml Vial SC 3 unit .BEDTIME SLIDING SC PRN Administration Bedtime Correctional Scale Mometasone Furoate/Formoterol Fumar 2 puff 03/24/20 18:30 04/15/20 08:47 Mometasone 200 Mcg/Formoterol 5 Mcg 120 Puff Inhaler INH 2 puff BID-RT NICOLASA Administration Pantoprazole Sodium 40 mg 04/07/20 09:00 04/15/20 08:52 Pantoprazole 40 Mg Granules Packet PER TUBE 40 mg DAILY NICOLASA Administration Scopolamine 1.5 mg 03/30/20 15:00 04/14/20 17:22 Scopolamine 1.5 Mg/72 Hour Patch TOP 1.5 mg Q3D NICOLASA Administration Sodium Chloride 10 ml 04/02/20 11:30 04/09/20 09:20 Flush - Normal Saline 10 Ml Syringe IVF 10 ml PRN PRN Administration Saline Flush Zinc Sulfate 220 mg 03/20/20 09:00 04/15/20 08:52 Zinc Sulfate 220 Mg Cap PER TUBE 220 mg DAILY NICOLASA Administration - Exam General Appearance: NAD, awake alert Eye: PERRL ENT: normocephalic atraumatic Neck: supple Heart: RRR Respiratory: CTAB, normal chest expansion Gastrointestinal: soft, normal bowel sounds Extremities - other findings: Bilateral below-knee amputation Hosp A/P - Plan Acute respiratory failure with hypoxia and hypercapnia Code(s): J96.01 - ACUTE RESPIRATORY FAILURE WITH HYPOXIA; J96.02 - ACUTE RESPIRATORY FAILURE WITH HYPERCAPNIA Status: Acute (2) Pneumonia due to COVID-19 virus -On Decadron (3) Leukocytosis (leucocytosis) Code(s): D72.829 - ELEVATED WHITE BLOOD CELL COUNT, UNSPECIFIED Status: Acute Qualifiers: Eosinophilia type: drug rash with eosinophilia and systemic symptoms (4) Cardiac arrest Code(s): I46.9 - CARDIAC ARREST, CAUSE UNSPECIFIED Status: Acute (5) Severe sepsis with septic shock Code(s): A41.9 - SEPSIS, UNSPECIFIED ORGANISM; R65.21 - SEVERE SEPSIS WITH SEPTIC SHOCK Status: Acute (6) Diabetes mellitus treated with insulin Code(s): E11.9 - TYPE 2 DIABETES MELLITUS WITHOUT COMPLICATIONS; Z79.4 - SUPPORT ASSISTANT (CURRENT) USE OF INSULIN Status: Acute (7) Metabolic encephalopathy Code(s): G93.41 - METABOLIC ENCEPHALOPATHY Status: Acute (8) End stage renal disease on dialysis Code(s): N18.6 - END STAGE RENAL DISEASE; Z99.2 - DEPENDENCE ON RENAL DIALYSIS Status: Chronic (9) Hypertension Code(s): I10 - ESSENTIAL (PRIMARY) HYPERTENSION Status: Chronic - Plan Today is her hospital day#25 She remains intubated. Her trach and peg was postponed d/t poor lung compliance. -------------> weaning off the fentanyl drip -History of track placement in the past Intermittent fever with Tmax of 102.7. -unlikely infectious from COVID-19 PNA given the duration; Probable ventilator associated pneumonia --Blood cultures grew gram-negative bill. started on Cefepime/Vanc, consulted pharmacy to dose and monitor Vanc trough --We will repeat the blood culture tomorrow for follow-up. -Continue the antibiotics until repeat cultures are negative. Cardiorenal syndrome likely due to Covid pneumonia requiring dialysis. Dr. Mcguire following with us. -Got dialysis on and [id number]. Anemia of kidney disease -On Retacrit Bilateral above-knee amputation Obesity and deconditioning Full code Repeat blood culture of 13 also growing staph aureus and the sputum growing E. coli and staph aureus and will continue her antibiotic at least for 7 days starting so stop date is on April 19, unless clinical conditions/mgmt changes. Palliative consult
--- NOTE | 2020-04-15 15:49 | RAD ---
Portable chest: HISTORY: Central line placement COMPARISON: Film earlier today FINDINGS:Diffuse bilateral infiltrates again noted. ET tube and NG tube unchanged. There are now 2 ce ntral lines via the left subclavian. Both lines overlie the SVC. Large caliber right jugular vein overlies the right atrium. IMPRESSION:Bilateral infiltrates unchanged.
--- NOTE | 2020-04-15 17:16 | PRG ---
DATE OF SERVICE: 04/15/2020 SUBJECTIVE: The patient noted with the following vital signs. OBJECTIVE: VITAL SIGNS: Blood pressure 129/84, heart rate of 77. HEENT: Remarkable for endotracheal tube in place. CARDIOVASCULAR SYSTEM: First and second heart sounds were heard. RESPIRATORY SYSTEM: Revealed vented sounds. DIGESTIVE SYSTEM: Revealed obese abdomen. IMPRESSION: 1. Cardiopulmonary failure in the context of COVID pneumonitis. 2. End-stage renal disease. PLAN: The patient to be dialyzed today with ultrafiltration as tolerated by hemodynamics. Job ID: [id number]
--- NOTE | 2020-04-15 17:20 | PRG ---
DATE OF SERVICE: 04/15/2020 SUBJECTIVE: Razia Menjivar remains mechanically ventilated. Her pulmonary compliance is still quite poor. OBJECTIVE: VITAL SIGNS: Heart rates in the 70s, blood pressure 129/84, FiO2 is 50%. LUNGS: Unchanged. HEART: Unchanged. ABDOMEN: Unchanged. LABORATORY DATA: White count 11.5, hemoglobin 8.1, platelets 192. Sodium 138, potassium 4.3, chloride 96, bicarb 19, BUN 118, creatinine 6.27, glucose 212. IMPRESSION AND PLAN: 1. COVID pneumonia. 2. lung compliance, arguing that she will not wean from any mechanical ventilation any time soon. 3. End-stage renal disease. 4. Bilateral [id number] amputations. 5. History of CVA. 6. The mother is declining tunnel for permanent dialysis access. Today, she has a fungus growing from the central line. This situation will not end well, but the mother keeps telling the nurses that she has to keep her alive for the children. Apparently, she has three children and the father has already many years ago. Job ID: [id number]
[2020-04-15] MEDS: Cefepime 0.5 GM, Admixture Fee 1 EACH in Sodium Chloride 0.9% 100 ML IVPB SCH (17:27)
[2020-04-15] MEDS: DULoxetine 60 MG CAP PO SCH (20:44)
[2020-04-15] MEDS: Aripiprazole 2 MG TAB PO SCH (20:44)
[2020-04-16 04:36] LABS: Band 3 % (5-11); Eosinophils 7 % (0-10); Hemoglobin 8.7 g/dL (12.0-16.0); Hypochromia SLIGHT = 6-15 cells (100X) (0-5/hpf); Lymphocytes 6 % (21-51); MDiff Complete? YES; Mean Corpuscular HGB CONC 32.1 g/dL (32.0-36.0); Mean Corpuscular Hemoglobin 28.9 pg (27.0-31.0); Mean Corpuscular Volume 90.1 fL (78.0-98.0); Mean Platelet Volume 10.8 fL (7.4-10.4); Monocytes 10 % (0-10); Neutrophil 74 % (42-75); Platelet Count 215 thou/uL (130-400); Platelet Morphology Comment Appears Adequate; RBC Distribution Width 15.8 % (11.5-14.5); Red Blood Cell (RBC) Count 3.02 mill/uL (4.20-5.40); White Blood Cell (WBC) Count 12.9 thou/uL (4.8-10.8)
[2020-04-16 04:43] LABS: Anion Gap 20 mmol/L (10-20); BUN (Urea Nitrogen) 61 mg/dL (7.0-18.7); Calc. Creatinine Clearance 31 mL/min (70-130); Calcium 10.1 mg/dL (7.8-10.44); Carbon Dioxide 24 mmol/L (22-29); Chloride 97 mmol/L (98-107); Estimated GFR-MDRD 18; Glucose 161 mg/dL (70-105); Potassium 3.5 mmol/L (3.5-5.1); Sodium 137 mmol/L (136-145)
[2020-04-16 04:50] LABS: Vancomycin, Trough 19.6 ug/mL
[2020-04-16] MEDS: PROVENTIL INHALER 6.7 G (200 INHALATIONS) INH SCH ×3 (07:37→18:25)
[2020-04-16] MEDS: Mometasone 200 MCG/Formoterol 5 MCG 120 PUFF INHALER INH SCH ×2 (07:37→18:25)
--- NOTE | 2020-04-16 07:55 | RAD ---
EXAM: Single view of the chest HISTORY: Ventilated patient with respiratory failure COMPARISON: 04/15/2020 FINDINGS: Single view of the chest shows a normal sized cardiomediastinal silhouette. One of the pat ient's left subclavian central venous catheters has been removed. The other lines and tubes are unchanged in position. Scattered multifocal opacities are seen in the lungs, unchanged. No acute oss eous abnormality. IMPRESSION: Multifocal infiltrates
[2020-04-16] MEDS: Pantoprazole 40 MG GRANULES PACKET PER TUBE SCH (08:58)
[2020-04-16] MEDS: Dexamethasone 4 mg/ml Vial SLOW IVP SCH (08:58)
[2020-04-16] MEDS: Ascorbic Acid 500 mg Chewable Tablet PER TUBE SCH (08:58)
[2020-04-16] MEDS: Gabapentin 300 MG CAP PO SCH ×2 (08:58→21:33)
[2020-04-16] MEDS: Zinc Sulfate 220 MG CAP PER TUBE SCH (08:58)
[2020-04-16] MEDS: Heparin 5,000 UNITS/ML VIAL SC SCH ×2 (08:59→21:34)
--- NOTE | 2020-04-16 09:50 | OP ---
DATE OF PROCEDURE: 04/15/2020 PREOPERATIVE DIAGNOSES: Respiratory failure, COVID pneumonia recovering, off isolation, end-stage renal disease, positive Staphylococcus aureus bacteremia, Staphylococcus left IJ central line, recently placed right IJ hemodialysis catheter. ANESTHESIA: 1% Xylocaine. PROCEDURE PERFORMED: Placement of left subclavian vein triple-lumen catheter. DESCRIPTION OF PROCEDURE: With the patient at bedside, her left upper clavicular area was prepared with ChloraPrep and draped in routine fashion. Local anesthetic of 1% Xylocaine was infiltrated in the skin and subcutaneous tissue for infraclavicular subclavian approach, threading the J-wire, removing the trocar catheter once the subclavian vein was cannulated. Seldinger technique was used to place a triple-lumen catheter, secured with 3-0 silk suture. J-wire was removed. Each port was aspirated with blood, flushed with saline solution. Chest x-ray revealed good line placement. The patient tolerated the procedure well. Job ID: [id number]
[2020-04-16] MEDS: HumaLOG 300 UNITS/3 ML VIAL SC PRN ×3 (10:04→21:34)
[2020-04-16] MEDS: Lorazepam 2 MG/ML VIAL SLOW IVP PRN ×2 (11:22→21:33)
[2020-04-16] MEDS ORDERED: Heparin 10,000 UNITS/ 10 ML VIAL ONE (12:26)
[2020-04-16 14:33] VITALS: BMI 38.5
[2020-04-16] MEDS: Fluconazole In NaCl,Iso-Osm 200 MG in Premix Bag 1 BAG IVPB SCH (15:32)
--- NOTE | 2020-04-16 15:37 | PRG ---
DATE OF SERVICE: 04/16/2020 SUBJECTIVE: Razia Menjivar is awake and nods to questions. OBJECTIVE: VITAL SIGNS: Blood pressure is 147/72, heart rate is 93, FiO2 has gone up to 70%. LUNGS: Remarkable for coarse equal breath sounds. HEART: Regular rhythm. ABDOMEN: Soft. LABORATORY DATA: She had 2500 mL dialyzed. White count 12.9, hemoglobin 8.7, platelets 215,000. Electrolytes; potassium 3.5, BUN 61, and creatinine 3.46. Chest x-ray shows bilateral infiltrates. IMPRESSION: COVID-19 pneumonia with horrible lung compliance, likely indicative of interstitial fibrosis and developing chronic inflammatory changes. Her lung compliance is so poor at this point in time. She is not weanable. I do not believe she will ever be weanable from mechanical ventilation. We now have the complication of possible fungemia thrown in. She also has Staph aureus growing from her blood now. Placement in a long-term ventilator hospital would be the next step since the mother refuses to consider withdrawal support in this helpless unfortunate woman. The mother will not consent to a long-term IV access for dialysis, so we were forced to use temporary catheters which were prone to infections. This is not weanable situation, in my opinion, extremely unrealistic with her expectations. If she really cares, she should be up here every day, sitting with her daughter in my opinion. She has only been seen by my discussion with the nurses once. We relayed the above to the palliative care team as well. Job ID: [id number]
--- NOTE | 2020-04-16 16:04 | PDOC.HOSPP ---
- Subjective Encounter Date: 04/16/20 Encounter Time: 11:30 Subjective: Patient is completely vent dependent. She has a new left IJ placed yesterday's previous central line removed due to fungemia. She is tachypneic requiring more vent adjustment. Overall there is no clear indication for her getting better. - Objective Vital Signs & Weight: Vital Signs (12 hours) Temp Pulse Resp BP Pulse Ox 04/16/20 14:00 24 H 04/16/20 13:39 93 147/72 H 04/16/20 12:00 99.9 F H 27 H 04/16/20 10:31 96 129/59 L 04/16/20 10:00 24 H 04/16/20 08:00 22 H 04/16/20 07:47 95 04/16/20 07:37 75 138/50 L 04/16/20 07:00 99.2 F 04/16/20 06:00 22 H Weight Admit Weight 212 lb Weight 190 lb 11.198 oz Most Recent Monitor Data Heart Rate from ECG 90 NIBP 139/70 NIBP BP-Mean 93 Respiration from ECG 24 SpO2 98 I&O: 04/15/20 04/16/20 04/17/20 06:59 06:59 06:59 Intake Total 1348.1 1214 130 Output Total 120 250 Balance 1228.1 964 130 Result Diagrams: 04/16/20 03:40 04/16/20 03:40 Additional Labs: Accuchecks 04/16/20 04/15/20 10:02 17:23 POC Glucose 227 H 257 H Hospitalist ROS - Medication Medications: Active Medications Generic Name Dose Route Start Last Admin Trade Name Freq PRN Reason Stop Dose Admin Acetaminophen 650 mg 03/20/20 01:14 04/12/20 21:08 Acetaminophen 650 Mg/20.3 Ml Udcup PO 650 mg Q4H PRN Administration Fever>101/(Mi/Mod/Sev) Pain Albuterol Sulfate 4 puff 03/24/20 19:00 04/16/20 13:38 Proventil Inhaler 6.7 G (200 Inhalations) INH 4 puff [id number] NICOLASA Administration Aripiprazole 2 mg 04/05/20 21:00 04/15/20 20:44 Aripiprazole 2 Mg Tab PO 2 mg HS NICOLASA Administration Ascorbic Acid 1,000 mg 03/20/20 09:00 04/16/20 08:58 Ascorbic Acid 500 Mg Chewable Tablet PER TUBE 1,000 mg DAILY NICOLASA Administration Dexamethasone 4 mg 04/14/20 09:00 04/16/20 08:58 Dexamethasone 4 Mg/Ml Vial SLOW IVP 4 mg 0900 NICOLASA Administration Duloxetine HCl 60 mg 04/05/20 21:00 04/15/20 20:44 Duloxetine 60 Mg Cap PO 60 mg HS NICOLASA Administration Epoetin Raman-epbx 7,500 unit 03/27/20 09:00 04/15/20 11:59 Epoetin Raman-Epbx (Esrd) 4,000 Unit/Ml Vial IVP 7,500 unit TuThSa NICOLASA Administration Gabapentin 600 mg 04/05/20 21:00 04/16/20 08:58 Gabapentin 300 Mg Cap PO 600 mg BID NICOLASA Administration Heparin Sodium (Porcine) 5,000 units 03/19/20 21:00 04/16/20 08:59 Heparin 5,000 Units/Ml Vial SC 5,000 units BID NICOLASA Administration Dexmedetomidine HCl 400 mcg/ 100 mls @ 0 mls/hr 04/01/20 13:45 04/16/20 06:57 Sodium Chloride IVPB 100 mls INF NICOLASA Administration Protocol Per Protocol Cefepime HCl 0.5 gm/ 100 mls @ 200 mls/hr 04/12/20 17:00 04/15/20 17:27 Miscellaneous Medication 1 IVPB 100 mls each/ Sodium Chloride 1700 NICOLASA Administration Vancomycin HCl 1 gm/ Device 200 mls @ 200 mls/hr 04/11/20 10:00 04/15/20 12:04 IVPB 200 mls WILLCALL NICOLASA Administration Vancomycin HCl 500 mg/ Sodium 100 mls @ 100 mls/hr 04/11/20 10:00 04/16/20 15:28 Chloride IVPB 100 mls WILLCALL NICOLASA Administration Fluconazole/Sodium Chloride 100 mls @ 100 mls/hr 04/15/20 15:00 04/16/20 15:32 200 mg/ Device IVPB 100 mls 1500 NICOLASA Administration Insulin Human Lispro 0 units 03/19/20 20:35 04/16/20 10:04 Humalog 300 Units/3 Ml Vial SC 3 unit .MILD SLIDING SCALE PRN Administration Mild Correctional Scale Insulin Human Lispro 0 units 03/19/20 20:35 04/14/20 22:33 Humalog 300 Units/3 Ml Vial SC 3 unit .BEDTIME SLIDING SC PRN Administration Bedtime Correctional Scale Lorazepam 2 mg 04/14/20 13:41 04/16/20 11:22 Lorazepam 2 Mg/Ml Vial SLOW IVP 2 mg Q1H PRN Administration Breakthrough agitation Mometasone Furoate/Formoterol Fumar 2 puff 03/24/20 18:30 04/16/20 07:37 Mometasone 200 Mcg/Formoterol 5 Mcg 120 Puff Inhaler INH 2 puff BID-RT NICOLASA Administration Pantoprazole Sodium 40 mg 04/07/20 09:00 04/16/20 08:58 Pantoprazole 40 Mg Granules Packet PER TUBE 40 mg DAILY NICOLASA Administration Scopolamine 1.5 mg 03/30/20 15:00 04/14/20 17:22 Scopolamine 1.5 Mg/72 Hour Patch TOP 1.5 mg Q3D NICOLASA Administration Sodium Chloride 10 ml 04/02/20 11:30 04/09/20 09:20 Flush - Normal Saline 10 Ml Syringe IVF 10 ml PRN PRN Administration Saline Flush Zinc Sulfate 220 mg 03/20/20 09:00 04/16/20 08:58 Zinc Sulfate 220 Mg Cap PER TUBE 220 mg DAILY NICOLASA Administration - Exam General Appearance: awake alert, ill appearing General - other findings: Vent dependent Eye: PERRL ENT: normocephalic atraumatic Neck: supple Hosp A/P - Plan Acute respiratory failure with hypoxia and hypercapnia Code(s): J96.01 - ACUTE RESPIRATORY FAILURE WITH HYPOXIA; J96.02 - ACUTE RESPIRATORY FAILURE WITH HYPERCAPNIA Status: Acute (2) Pneumonia due to COVID-19 virus -On Decadron (3) Leukocytosis (leucocytosis) Code(s): D72.829 - ELEVATED WHITE BLOOD CELL COUNT, UNSPECIFIED Status: Acute Qualifiers: Eosinophilia type: drug rash with eosinophilia and systemic symptoms (4) Cardiac arrest Code(s): I46.9 - CARDIAC ARREST, CAUSE UNSPECIFIED Status: Acute (5) Severe sepsis with septic shock Code(s): A41.9 - SEPSIS, UNSPECIFIED ORGANISM; R65.21 - SEVERE SEPSIS WITH SEPTIC SHOCK Status: Acute (6) Diabetes mellitus treated with insulin Code(s): E11.9 - TYPE 2 DIABETES MELLITUS WITHOUT COMPLICATIONS; Z79.4 - INTERMEDIATE (CURRENT) USE OF INSULIN Status: Acute (7) Metabolic encephalopathy Code(s): G93.41 - METABOLIC ENCEPHALOPATHY Status: Acute (8) End stage renal disease on dialysis Code(s): N18.6 - END STAGE RENAL DISEASE; Z99.2 - DEPENDENCE ON RENAL DIALYSIS Status: Chronic (9) Hypertension Code(s): I10 - ESSENTIAL (PRIMARY) HYPERTENSION Status: Chronic - Plan Today is her hospital day#25 She remains intubated. Her trach and peg was postponed d/t poor lung compliance. -------------> weaning off the fentanyl drip -History of track placement in the past Intermittent fever with Tmax of 102.7. -unlikely infectious from COVID-19 PNA given the duration; Probable ventilator associated pneumonia --Blood cultures grew gram-negative bill. started on Cefepime/Vanc, consulted pharmacy to dose and monitor Vanc trough --We will repeat the blood culture tomorrow 15th for follow-up. -Continue the antibiotics until repeat cultures are negative. Cardiorenal syndrome likely due to Covid pneumonia requiring dialysis. Dr. Mcguire following with us. -Got dialysis on 13 and 15 [id number]. Anemia of kidney disease -On Retacrit Bilateral above-knee amputation Obesity and deconditioning Full code Repeat blood culture of 13 also growing staph aureus and yeast and the sputum growing E. coli and staph aureus bacteremia Fungemia -Vancomycin cefepime and fluconazole -Follow-up with the echo to rule out endocarditis. -given the medical complexity and severity is increasing, patient is a candidate to swing bed. Reviewed Dr. Qiu's note. Palliative consult placed given her overall poor prognosis and lack of immediate familly's active involvement in the care.
[2020-04-16] MEDS: Cefepime 0.5 GM, Admixture Fee 1 EACH in Sodium Chloride 0.9% 100 ML IVPB SCH (17:54)
--- NOTE | 2020-04-16 19:10 | PRG ---
DATE OF SERVICE: 04/16/2020 SUBJECTIVE: The patient noted with the following vital signs. Still on the life support. OBJECTIVE: VITAL SIGNS: Blood pressure 123/72, pulse 86, FiO2 of 60. HEENT: Remarkable for endotracheal tube in place. CARDIOVASCULAR SYSTEM: First and second heart sounds were heard. RESPIRATORY SYSTEM: Revealed vented sounds. DIGESTIVE SYSTEM: Revealed an obese abdomen. IMPRESSION: 1. End-stage renal disease, on dialysis. 2. Cardiopulmonary failure in the context COVID pneumonitis. PLAN: The patient to continue with daily dialysis. She therefore will be dialyzed today with emphasis on ultrafiltration. Job ID: [id number]
[2020-04-16] MEDS: Aripiprazole 2 MG TAB PO SCH (21:31)
[2020-04-16] MEDS: DULoxetine 60 MG CAP PO SCH (21:31)
[2020-04-17] MEDS: PROVENTIL INHALER 6.7 G (200 INHALATIONS) INH SCH ×3 (00:19→14:02)
[2020-04-17] MEDS: Lorazepam 2 MG/ML VIAL SLOW IVP PRN ×2 (02:00→16:23)
[2020-04-17 05:16] LABS: Hemoglobin 8.6 g/dL (12.0-16.0); Mean Corpuscular HGB CONC 30.2 g/dL (32.0-36.0); Mean Corpuscular Hemoglobin 27.4 pg (27.0-31.0); Mean Corpuscular Volume 90.6 fL (78.0-98.0); Mean Platelet Volume 10.9 fL (7.4-10.4); Platelet Count 249 thou/uL (130-400); Red Blood Cell (RBC) Count 3.12 mill/uL (4.20-5.40)
[2020-04-17 05:17] LABS: Band 1 % (5-11); Eosinophils 4 % (0-10); Lymphocytes 16 % (21-51); MDiff Complete? YES; Metamyelocyte 6 % (0-0); Monocytes 1 % (0-10); Neutrophil 72 % (42-75); Platelet Morphology Comment Appears Adequate
[2020-04-17 05:18] LABS: Anion Gap 21 mmol/L (10-20); BUN (Urea Nitrogen) 86 mg/dL (7.0-18.7); Calc. Creatinine Clearance 23 mL/min (70-130); Calcium 10.7 mg/dL (7.8-10.44); Carbon Dioxide 23 mmol/L (22-29); Chloride 98 mmol/L (98-107); Estimated GFR-MDRD 13; Glucose 206 mg/dL (70-105); Potassium 3.6 mmol/L (3.5-5.1); Sodium 138 mmol/L (136-145)
[2020-04-17 05:26] LABS: Vancomycin, Random 25.6 ug/mL (See Comment)
[2020-04-17] MEDS: HumaLOG 300 UNITS/3 ML VIAL SC PRN (06:02)
[2020-04-17] MEDS: Mometasone 200 MCG/Formoterol 5 MCG 120 PUFF INHALER INH SCH (06:35)
--- NOTE | 2020-04-17 06:44 | PRG ---
DATE OF SERVICE: 04/15/2020 SUBJECTIVE: I was asked to see Ms. Menjivar because she had turned positive in her blood cultures with multiple organisms. She is in the ICU and had tracheostomy and was having fevers, and blood cultures were submitted 2 days ago. They turned positive. Blood pressure has not dropped. She is not on pressors, and FiO2 continues to be at 50, and her sats anywhere from 94 to 97 to 100. She has a tunneled hemodialysis catheter in the right IJ, and she has a triple-lumen catheter in the left side. OBJECTIVE: LUNGS: With coarse breath sounds. HEART: S1, S2. ABDOMEN: Soft, mildly distended. She has a urostomy on the right side and a left-sided colostomy and bilateral AKAs with healed amputation sites. She has areas of skin breakdown in the gluteal region, I would say stage 2, small. LABORATORY DATA: White cell count 11.5, hemoglobin 8.1, and platelets 192 with normal differential. Creatinine 6.27. Will have the cultures with Staphylococcus aureus which is methicillin-susceptible. One sample from the central line in the left side and another sample from the right hand, she also has yeast growing from the IJ central line sample and Staphylococcus epidermidis. Chest x-ray with diffuse bilateral infiltrates. ASSESSMENT AND DISCUSSION: End-stage renal disease secondary to type 2 diabetes, SARS-CoV-2 infection, now many weeks after the onset of illness, more than a month actually. So, she is not considered infectious anymore. Now, she has the aftermath of the COVID infection with complications including complications related to line sepsis. Although, both catheters may be colonized, the only firm evidence implicates the triple-lumen catheter in the left side, so we will start by removing this and exchanging for another one. Continue vancomycin, sliding scale, and we will add Diflucan intravenously. Eventually, can be transitioned to gastric-administered Diflucan. The dose is 200 mg daily. We are waiting on the identification of the organism. Duration of therapy will be about 2 weeks of all the antimicrobials for this particular complication. Evidently, the line in the right side, which is used for dialysis, may eventually be demonstrated to also be colonized, so therefore she will need repeat blood cultures down the road to verify resolution of the process. If they return positive, then we will have to exchange the dialysis access as well. Job ID: [id number]
--- NOTE | 2020-04-17 08:26 | RAD ---
EXAM: Portable chest PROVIDED CLINICAL HISTORY: Respiratory insufficiency COMPARISON: 04/16/2020 FINDINGS: Significant interval change with respect to the prior examination is not apparent. IMPRESSION: As above.
[2020-04-17] MEDS: Zinc Sulfate 220 MG CAP PER TUBE SCH (09:09)
[2020-04-17] MEDS: Dexamethasone 4 mg/ml Vial SLOW IVP SCH (09:09)
[2020-04-17] MEDS: Heparin 5,000 UNITS/ML VIAL SC SCH (09:10)
[2020-04-17] MEDS: Gabapentin 300 MG CAP PO SCH (09:10)
[2020-04-17] MEDS: Pantoprazole 40 MG GRANULES PACKET PER TUBE SCH (09:10)
[2020-04-17] MEDS: Ascorbic Acid 500 mg Chewable Tablet PER TUBE SCH (09:10)
[2020-04-17] MEDS: EPOETIN ALFA-EPBX (ESRD) 4,000 UNIT/ML VIAL IVP SCH (10:55)
--- NOTE | 2020-04-17 11:01 | PDOC.FMACP ---
Advance Care Planning - Problem (1) Palliative care encounter Status: Acute Code(s): Z51.5 - ENCOUNTER FOR PALLIATIVE CARE (2) Acute respiratory failure with hypoxia and hypercapnia Status: Acute Code(s): J96.01 - ACUTE RESPIRATORY FAILURE WITH HYPOXIA; J96.02 - ACUTE RESPIRATORY FAILURE WITH HYPERCAPNIA (3) Cardiac arrest Status: Acute Code(s): I46.9 - CARDIAC ARREST, CAUSE UNSPECIFIED (4) Pneumonia due to COVID-19 virus Status: Acute Code(s): U07.1 - COVID-19; J12.89 - OTHER VIRAL PNEUMONIA (5) Diabetes mellitus treated with insulin Status: Acute Code(s): E11.9 - TYPE 2 DIABETES MELLITUS WITHOUT COMPLICATIONS; Z79.4 - PRISON (CURRENT) USE OF INSULIN (6) Metabolic encephalopathy Status: Acute Code(s): G93.41 - METABOLIC ENCEPHALOPATHY (7) End stage renal disease on dialysis Status: Chronic Code(s): N18.6 - END STAGE RENAL DISEASE; Z99.2 - DEPENDENCE O N RENAL DIALYSIS - Note Participants: patient, palliative care Summary: Palliative Care revisited Advanced Care Planning. Acknowledged patient directives in chart. Revisited diagnosis, prognosis and goals of care were discussed. Appropriate forms and documentation to accomplish the goals of care were discussed. Revisited poor prognosis. Ms Richard is able to slightly nod her head and close her eyes in response to questions. Using her closing her eyes to relay a yes answer we discussed consideration of extubation. When asked if she would desire to have the ET tube removed and allow for comfort measures at end of life she closed her eyes and nodded slightly. Affirmed that I would communicate this decision to her mother who is MPOA. Communicated with mother, however she relayed she was at work and will call on her break to further discuss. Awaiting return phone call. Communicated with primary RN and Dr Grande. Time Spent (mins): 45
--- NOTE | 2020-04-17 11:56 | PDOC.HOSPP ---
- Subjective Encounter Date: 04/17/20 Encounter Time: 10:10 Subjective: Patient's clinical condition has not changed. Vent dependent. Palliative at bedside. It appears that mother visited last evening. - Objective Vital Signs & Weight: Vital Signs (12 hours) Temp Pulse Resp BP Pulse Ox 04/17/20 10:47 82 112/52 L 04/17/20 10:00 26 H 04/17/20 08:00 23 H 96 04/17/20 07:00 99.8 F H 04/17/20 06:29 79 107/54 L 04/17/20 06:00 22 H 04/17/20 04:00 99.8 F H 22 H 04/17/20 02:18 82 124/66 04/17/20 02:00 22 H 04/17/20 00:20 90 123/47 L 04/17/20 00:00 99.5 F 25 H Weight Admit Weight 212 lb Weight 190 lb 11.198 oz Most Recent Monitor Data Heart Rate from ECG 90 NIBP 132/66 NIBP BP-Mean 88 Respiration from ECG 24 SpO2 94 I&O: 04/16/20 04/17/20 04/18/20 06:59 06:59 06:59 Intake Total 1214 1173 130 Output Total 250 100 Balance 964 1073 130 Result Diagrams: 04/17/20 04:45 04/17/20 04:45 Additional Labs: Accuchecks 04/16/20 04/16/20 04/15/20 21:30 16:56 20:35 POC Glucose 257 H 328 H 238 H Hospitalist ROS - Medication Medications: Active Medications Generic Name Dose Route Start Last Admin Trade Name Freq PRN Reason Stop Dose Admin Acetaminophen 650 mg 03/20/20 01:14 04/12/20 21:08 Acetaminophen 650 Mg/20.3 Ml Udcup PO 650 mg Q4H PRN Administration Fever>101/(Mi/Mod/Sev) Pain Albuterol Sulfate 4 puff 03/24/20 19:00 04/17/20 06:35 Proventil Inhaler 6.7 G (200 Inhalations) INH 4 puff [id number] NICOLASA Administration Aripiprazole 2 mg 04/05/20 21:00 04/16/20 21:31 Aripiprazole 2 Mg Tab PO 2 mg HS NICOLASA Administration Ascorbic Acid 1,000 mg 03/20/20 09:00 04/17/20 09:10 Ascorbic Acid 500 Mg Chewable Tablet PER TUBE 1,000 mg DAILY NICOLASA Administration Dexamethasone 4 mg 04/14/20 09:00 04/17/20 09:09 Dexamethasone 4 Mg/Ml Vial SLOW IVP 4 mg 0900 NICOLASA Administration Duloxetine HCl 60 mg 04/05/20 21:00 04/16/20 21:31 Duloxetine 60 Mg Cap PO 60 mg HS NICOLASA Administration Epoetin Raman-epbx 7,500 unit 03/27/20 09:00 04/17/20 10:55 Epoetin Raman-Epbx (Esrd) 4,000 Unit/Ml Vial IVP 7,500 unit TuThSa NICOLASA Administration Gabapentin 600 mg 04/05/20 21:00 04/17/20 09:10 Gabapentin 300 Mg Cap PO 600 mg BID NICOLASA Administration Heparin Sodium (Porcine) 5,000 units 03/19/20 21:00 04/17/20 09:10 Heparin 5,000 Units/Ml Vial SC 5,000 units BID NICOLASA Administration Dexmedetomidine HCl 400 mcg/ 100 mls @ 0 mls/hr 04/01/20 13:45 04/17/20 06:02 Sodium Chloride IVPB 100 mls INF NICOLASA Administration Protocol Per Protocol Cefepime HCl 0.5 gm/ 100 mls @ 200 mls/hr 04/12/20 17:00 04/16/20 17:54 Miscellaneous Medication 1 IVPB 100 mls each/ Sodium Chloride 1700 NICOLASA Administration Vancomycin HCl 1 gm/ Device 200 mls @ 200 mls/hr 04/11/20 10:00 04/15/20 12:04 IVPB 200 mls WILLCALL NICOLASA Administration Vancomycin HCl 500 mg/ Sodium 100 mls @ 100 mls/hr 04/11/20 10:00 04/16/20 15:28 Chloride IVPB 100 mls WILLCALL NICOLASA Administration Fluconazole/Sodium Chloride 100 mls @ 100 mls/hr 04/15/20 15:00 04/16/20 15:32 200 mg/ Device IVPB 100 mls 1500 NICOLASA Administration Insulin Human Lispro 0 units 03/19/20 20:35 04/17/20 06:02 Humalog 300 Units/3 Ml Vial SC 3 unit .MILD SLIDING SCALE PRN Administration Mild Correctional Scale Insulin Human Lispro 0 units 03/19/20 20:35 04/14/20 22:33 Humalog 300 Units/3 Ml Vial SC 3 unit .BEDTIME SLIDING SC PRN Administration Bedtime Correctional Scale Lorazepam 2 mg 04/14/20 13:41 04/17/20 02:00 Lorazepam 2 Mg/Ml Vial SLOW IVP 2 mg Q1H PRN Administration Breakthrough agitation Mometasone Furoate/Formoterol Fumar 2 puff 03/24/20 18:30 04/17/20 06:35 Mometasone 200 Mcg/Formoterol 5 Mcg 120 Puff Inhaler INH 2 puff BID-RT NICOLASA Administration Pantoprazole Sodium 40 mg 04/07/20 09:00 04/17/20 09:10 Pantoprazole 40 Mg Granules Packet PER TUBE 40 mg DAILY NICOLASA Administration Scopolamine 1.5 mg 03/30/20 15:00 04/14/20 17:22 Scopolamine 1.5 Mg/72 Hour Patch TOP 1.5 mg Q3D NICOLASA Administration Sodium Chloride 10 ml 04/02/20 11:30 04/09/20 09:20 Flush - Normal Saline 10 Ml Syringe IVF 10 ml PRN PRN Administration Saline Flush Zinc Sulfate 220 mg 03/20/20 09:00 04/17/20 09:09 Zinc Sulfate 220 Mg Cap PER TUBE 220 mg DAILY NICOLASA Administration - Exam General Appearance: ill appearing General - other findings: Vent dependent Eye: PERRL ENT: normocephalic atraumatic Neck: supple Heart: RRR Respiratory: normal chest expansion Extremities - other findings: Bilateral above-knee amputation Psychiatric: oriented to person Hosp A/P - Plan Acute respiratory failure with hypoxia and hypercapnia Code(s): J96.01 - ACUTE RESPIRATORY FAILURE WITH HYPOXIA; J96.02 - ACUTE RESPIRATORY FAILURE WITH HYPERCAPNIA Status: Acute (2) Pneumonia due to COVID-19 virus -On Decadron (3) Leukocytosis (leucocytosis) Code(s): D72.829 - ELEVATED WHITE BLOOD CELL COUNT, UNSPECIFIED Status: Acute Qualifiers: Eosinophilia type: drug rash with eosinophilia and systemic symptoms (4) Cardiac arrest Code(s): I46.9 - CARDIAC ARREST, CAUSE UNSPECIFIED Status: Acute (5) Severe sepsis with septic shock Code(s): A41.9 - SEPSIS, UNSPECIFIED ORGANISM; R65.21 - SEVERE SEPSIS WITH SEPTIC SHOCK Status: Acute (6) Diabetes mellitus treated with insulin Code(s): E11.9 - TYPE 2 DIABETES MELLITUS WITHOUT COMPLICATIONS; Z79.4 - LONGTERM (CURRENT) USE OF INSULIN Status: Acute (7) Metabolic encephalopathy Code(s): G93.41 - METABOLIC ENCEPHALOPATHY Status: Acute (8) End stage renal disease on dialysis Code(s): N18.6 - END STAGE RENAL DISEASE; Z99.2 - DEPENDENCE ON RENAL DIALYSIS Status: Chronic (9) Hypertension Code(s): I10 - ESSENTIAL (PRIMARY) HYPERTENSION Status: Chronic - Plan Today is her hospital day#25 She remains intubated. Her trach and peg was postponed d/t poor lung compliance. -------------> weaning off the fentanyl drip -History of track placement in the past Intermittent fever with Tmax of 102.7. -unlikely infectious from COVID-19 PNA given the duration; Probable ventilator associated pneumonia --Blood cultures grew gram-negative bill. started on Cefepime/Vanc, consulted pharmacy to dose and monitor Vanc trough --We will repeat the blood culture tomorrow 15th for follow-up. -Continue the antibiotics until repeat cultures are negative. Cardiorenal syndrome likely due to Covid pneumonia requiring dialysis. Dr. Mcguire following with us. -Got dialysis on 13 and 15 [id number]. Anemia of kidney disease -On Retacrit Bilateral above-knee amputation Obesity and deconditioning Full code Repeat blood culture of 13 also growing staph aureus and yeast and the sputum growing E. coli and staph aureus bacteremia Fungemia -Vancomycin cefepime and fluconazole -Follow-up with the echo to rule out endocarditis. -given the medical complexity and severity is increasing, patient is a candidate to swing bed. Reviewed Dr. Qiu's note. 19th Mother visited last evening. Palliative working with the family regarding CODE STATUS and placement where they can continue vent management [ swing bed versus a long-term acute facility].
[2020-04-17] MEDS: Acetaminophen 650 MG/20.3 ML UDCUP PO PRN (12:20)
[2020-04-17 12:30] VITALS: TEMP 101.1
--- NOTE | 2020-04-17 13:10 | PRG ---
DATE OF SERVICE: 04/17/2020 SUBJECTIVE: Razia Menjivar has communicated with the nurses that she wants to be allowed to pass. She is febrile today, blood pressure , heart rate is 82. Apparently, the mother is coming up to me with palliative care. OBJECTIVE: LUNGS: Unchanged. HEART: Unchanged. ABDOMEN: Unchanged. LABORATORY DATA: White count 14, hemoglobin 8.6, and platelets are 249. Electrolytes are unremarkable. BUN 86 and creatinine 4.65. IMPRESSION: 1. COVID pneumonia with respiratory failure. 2. Staph and yeast bacteremia secondary to central access secondary to mother's refusal to allow for peripheral shunt access. 3. End-stage renal disease. 4. Bilateral [id number] amputations. 5. History of cerebrovascular accident with unilateral weakness. 6. History of decubitus ulcers on presentation. 7. Chronically bedridden state. 8. Life-threatening obesity. We will see her back in followup, but family is contemplating withdrawal of care and I am hopeful that they decide to keep her comfortable and let her be at peace. Job ID: [id number]
[2020-04-17 14:01] VITALS: BP 142/67
[2020-04-17] MEDS: Fluconazole In NaCl,Iso-Osm 200 MG in Premix Bag 1 BAG IVPB SCH (14:44)
[2020-04-17] MEDS: Scopolamine 1.5 mg/72 hour Patch TOP SCH (14:44)
[2020-04-17] MEDS ORDERED: Morphine 4 MG/ML VIAL SLOW IVP PRN ×2 (16:16→16:19)
--- NOTE | 2020-04-17 16:59 | PDOC.PALFU ---
Palliative Care Follow-up Note Family meeting with spiritual care, patient mother and grandmother. Patient communicated through non verbal means that she wanted to have the ET tube removed and transition to end of life care. Communicated with Dr Qiu and Dr Seymour. Initially mother elected not to seek hospice care, however after removal of et tube and mechanical ventilation she was in agreement for transition to [facility]. Order written for Case management, A Queta [employer] rn care coordinator assisting with choice letter.
--- NOTE | 2020-04-17 18:25 | PRG ---
DATE OF SERVICE: 04/17/2020 OBJECTIVE: VITAL SIGNS: The patient noted to be febrile today with temperature of 101.1, blood pressure 142/67 with a pulse of 102. HEENT: Remarkable for endotracheal tube in place. CARDIOVASCULAR SYSTEM: First and second heart sounds were heard. RESPIRATORY SYSTEM: Revealed vented sounds. DIGESTIVE SYSTEM: Revealed an obese abdomen. IMPRESSION: 1. End-stage renal disease, on dialysis. 2. Cardiopulmonary failure in the context of COVID pneumonitis. 3. Morbid obesity. PLAN: We will continue dialysis on daily basis with ultrafiltration as tolerated by hemodynamics until the patient comes off ventilator. Job ID: [id number]
--- NOTE | 2020-04-18 15:49 | PDOC.DS.DS ---
Provider - Provider Date of Admission: 03/19/20 18:50 Admitting Provider: Andrew Ellison DO Primary Care Physician: SVETLANA MEEKS Course - Hospital Course Hospital Course: Acute respiratory failure with hypoxia and hypercapnia Code(s): J96.01 - ACUTE RESPIRATORY FAILURE WITH HYPOXIA; J96.02 - ACUTE RESPIRATORY FAILURE WITH HYPERCAPNIA Status: Acute (2) Pneumonia due to COVID-19 virus -On Decadron (3) Leukocytosis (leucocytosis) Code(s): D72.829 - ELEVATED WHITE BLOOD CELL COUNT, UNSPECIFIED Status: Acute Qualifiers: Eosinophilia type: drug rash with eosinophilia and systemic symptoms (4) Cardiac arrest Code(s): I46.9 - CARDIAC ARREST, CAUSE UNSPECIFIED Status: Acute (5) Severe sepsis with septic shock Code(s): A41.9 - SEPSIS, UNSPECIFIED ORGANISM; R65.21 - SEVERE SEPSIS WITH SEPT IC SHOCK Status: Acute (6) Diabetes mellitus treated with insulin Code(s): E11.9 - TYPE 2 DIABETES MELLITUS WITHOUT COMPLICATIONS; Z79.4 - [employer] OFFICER (CURRENT) USE OF INSULIN Status: Acute (7) Metabolic encephalopathy Code(s): G93.41 - METABOLIC ENCEPHALOPATHY Status: Acute (8) End stage renal disease on dialysis Code(s): N18.6 - END STAGE RENAL DISEASE; Z99.2 - DEPENDENCE ON RENAL DIALYSIS Status: Chronic (9) Hypertension Code(s): I10 - ESSENTIAL (PRIMARY) HYPERTENSION Status: Chronic - Plan Today is her hospital day#25 She remains intubated. Her trach and peg was postponed d/t poor lung compliance. -------------> weaning off the fentanyl drip -History of track placement in the past Intermittent fever with Tmax of 102.7. -unlikely infectious from COVID-19 PNA given the duration; Probable ventilator associated pneumonia --Blood cultures grew gram-negative bill. started on Cefepime/Vanc, consulted pharmacy to dose and monitor Vanc trough --We will repeat the blood culture tomorrow 15th for follow-up. -Continue the antibiotics until repeat cultures are negative. Cardiorenal syndrome likely due to Covid pneumonia requiring dialysis. Dr. Mcguire following with us. -Got dialysis on and [id number]. Anemia of kidney disease -On Retacrit Bilateral above-knee amputation Obesity and deconditioning Full code Repeat blood culture of 13 also growing staph aureus and yeast and the sputum growing E. coli and staph aureus bacteremia Fungemia -Vancomycin cefepime and fluconazole -Follow-up with the echo to rule out endocarditis. -given the medical complexity and severity is increasing, patient is a candidate to swing bed. Reviewed Dr. Qiu's note. 19th Mother visited last evening. Palliative working with the family regarding CODE STATUS and placement where they can continue vent management [ swing bed versus a long-term acute facility]. pt had demise in the late evening after withdrawl of care. primary cause of demise -- COVID pneumonia 2ary - ESRD no HD. Resuscitation Status: 04/17/20 17:23 Resuscitation Status Routine Resuscitation Status: DNAR: NO Resuscitation Discussed with: Pt. mother - Marysol Solano - Labs Lab Results: 04/17/20 04:45 04/17/20 04:45 Abnormal Lab Results - Last 48 hrs 04/17/20 04:45: Anion Gap 21 H, BUN 86 H, Creatinine 4.65 H, Calcium 10.7 H 04/17/20 04:45: WBC 14.0 H, RBC 3.12 L, Hgb 8.6 L, Hct 28.3 L, MCHC 30.2 L, RDW 16.0 H, MPV 10.9 H, Band Neuts % (Manual) 1 L, Lymphocytes % (Manual) 16 L, Metamyelocytes % (Man) 6 H Microbiology - Entire Visit 04/11/20 09:34 Central Line - Left Internal Jugular Vein Blood Culture - Final Staphylococcus aureus Staphylococcus epidermidis Yeast species 04/11/20 09:34 Venous blood - Right Hand Blood Culture - Final Staphylococcus aureus 04/11/20 11:04 Sputum - Unspecified Respiratory Culture - Final Staphylococcus aureus Escherichia coli 03/19/20 10:47 Venous blood - Right Hand Blood Culture - Final NO GROWTH IN 5 DAYS 03/19/20 10:47 Venous blood - Right Arm Blood Culture - Final Coagulase Neg Staphylococcus 03/19/20 10:49 Urine voided Urine Culture - Final - Physical Exam Vitals: Weight Admit Weight 212 lb Weight 190 lb 11.198 oz Most Recent Monitor Data Heart Rate from ECG 86 NIBP 155/76 NIBP BP-Mean 102 Respiration from ECG 26 SpO2 95 Physical Exam: The patient was seen and examined on the day of discharge. Plan - Discharge Medications Home Medications: Medication Instructions Recorded Confirmed Type Aspirin-Dipyridamole [Aggrenox] 1 cap PO BID 06/09/19 03/20/20 History Cholecalciferol (Vitamin D3) 5,000 unit PO DAILY 06/09/19 03/20/20 History [Vitamin D3] DULoxetine [Cymbalta] 60 mg PO HS 06/09/19 03/20/20 History Folic Acid/Vit B Comp W-C 1 tab PO DAILY 06/09/19 03/20/20 History [Nephro-Nydia] Gabapentin 600 mg PO BID 06/09/19 03/20/20 History medroxyPROGESTERone Acetate 10 mg PO DAILY 06/09/19 03/20/20 History [Provera] sitaGLIPtin Phosphate [Januvia] 25 mg PO BID 06/09/19 03/20/20 History Acetaminophen [Tylenol] 1,000 mg PO DAILY PRN 03/20/20 03/20/20 History Amlodipine [Norvasc] 10 mg PO DAILY 03/20/20 03/20/20 History Aripiprazole [Abilify] 2 mg PO HS 03/20/20 03/20/20 History Calcium Acetate 2 tablet PO ACHS 03/20/20 03/20/20 History Fexofenadine HCl [Liyah Allergy] 180 mg PO DAILY PRN 03/20/20 03/20/20 History Fluticasone Propionate [Flonase 1 spray NASAL BID 03/20/20 03/20/20 History Nasal Mccurtain] Insulin Regular [HumuLIN R Vial] 7 units SC AC 03/20/20 03/20/20 History Ipratropium/Albuterol Sulfate 3 ml NEB QID PRN 03/20/20 03/20/20 History Linagliptin [Tradjenta] 5 mg PO DAILY 03/20/20 03/20/20 History NPH, Human Insulin Isophane 24 units SC DAILY 03/20/20 03/20/20 History [HumuLIN N] Allergies: No Known Drug Allergies Allergy (Verified 03/20/20 01:41) - Follow up Plan Referrals: SVETLANA MEEKS [Primary Care Provider] - Disposition: Quality - Care Measures CORE MEASURES:: N/A
--- NOTE | 2020-04-19 05:15 | PQF ---
CLINICAL DOCUMENTATION CLARIFICATION FORM: Dear Dr: Mala Seymour Date / Time: 04/19/2020 05:13 Please exercise your independent, professional judgment in responding to the clarification form. Clinical indicators are provided on the bottom of this form for your review Please check appropriate box(es): [ x ] Sepsis with septic shock related to Covid19 infection [ ] Sepsis with septic shock not related to Covid19 infection [ ] Other diagnosis, please specify [ ] Unable to determine Physician Signature: Date/Time: For continuity of documentation, please document condition throughout progress notes and discharge summary. Thank You. To be completed by CDI/Coding staff for physician review: Present Clinical Indicators - Signs / Symptoms / Labs Results and Location in Medical Record [x] Severe sepsis with septic shock HP 03/19 [x] Pneumonia due to Covid19 HP 03/19 [x] CC: hypotension HP 03/19 [x] Acidosis HP 03/19 [x] Acute hypoxic respiratory failure HP 03/19 [x] Chest Xray: extensive airspace disease/consolidation Chest Xray 03/19 [x] Somnolent and lethargic PN 03/20 [x] Metabolic encephalopathy PN 03/20 [x] Uqfq=113.5 Sigxb=323 GU=795/50 Respi=20 Vital Signs 03/21 [x] WBC=20.0 Lactic=1.2 Laboratory 03/19 [x] Blood culture: Coagulase neg Stap Laboratory 03/19 Present Risk Factors Results and Location in Medical Record [x] DM ED Notes 03/19 [x] ESRD ED Notes 03/19 [x] Presence of urostomy ED Notes 03/19 [x] Presence of colostomy ED Notes 03/19 [x] Morbid Obesity HP 03/19 [x] Pressure ulcer coccyx stage 3 ED Notes 03/19 [x] Pneumonia due to Covid19 HP 03/19 Present Treatments Results and Location in Medical Record [x] Intubation with ventilation HP 03/19 [x] Vancomycin 500mg IV MAR 03/19 [x] Cefepime 2gm IV MAR 03/19 [x] Clindmycin 900mg IV MAR 03/19 [x] Epinephrine 3mg IV MAR 03/19 [x] Isolation HP 03/19 [x] ID consult Consult 03/20 CDS/Journalism Intern Signature: Daniella Oliveira Phone #: [phone] Date/Time: 04/19/2020 05: This is a permanent part of the Medical Record [facility]ITALFlaquita
== END 2020-04-17 17:40 | disposition expired | DRG 870 ==
LOC: ERS 10:28 → ERHOLD 18:50 → CCU 03-20 00:06
PROVIDERS: ADMIT Family Medicine; ATTEND Internal Medicine
PROC: 0BH17EZ Insertion of Endotracheal Airway into Trachea, Via Natural or Artificial Opening (ICD-10-PCS; principal; 2020-03-19)
PROC: 5A1955Z Respiratory Ventilation, Greater than 96 Consecutive Hours (ICD-10-PCS; 2020-03-19)
PROC: 02H633Z Insertion of Infusion Device into Right Atrium, Percutaneous Approach (ICD-10-PCS; 2020-03-19)
PROC: 3E033XZ Introduction of Vasopressor into Peripheral Vein, Percutaneous Approach (ICD-10-PCS; 2020-03-19)
PROC: 8E0ZXY6 Isolation (ICD-10-PCS; 2020-03-19)
PROC: 5A12012 Performance of Cardiac Output, Single, Manual (ICD-10-PCS; 2020-03-19)
PROC: 5A1D70Z Performance of Urinary Filtration, Intermittent, Less than 6 Hours Per Day (ICD-10-PCS; 2020-03-20)
PROC: 0JPT3XZ Removal of Tunneled Vascular Access Device from Trunk Subcutaneous Tissue and Fascia, Percutaneous Approach (ICD-10-PCS; 2020-04-03)
PROC: 02PY33Z Removal of Infusion Device from Great Vessel, Percutaneous Approach (ICD-10-PCS; 2020-04-03)
PROC: 0JH63XZ Insertion of Tunneled Vascular Access Device into Chest Subcutaneous Tissue and Fascia, Percutaneous Approach (ICD-10-PCS; 2020-04-03)
PROC: 02HV33Z Insertion of Infusion Device into Superior Vena Cava, Percutaneous Approach (ICD-10-PCS; 2020-04-03)
PROC: 30233N1 Transfusion of Nonautologous Red Blood Cells into Peripheral Vein, Percutaneous Approach (ICD-10-PCS; 2020-04-09)
PROC: 05H633Z Insertion of Infusion Device into Left Subclavian Vein, Percutaneous Approach (ICD-10-PCS; 2020-04-16)
DX: A41.89 Other specified sepsis (principal); T80.218A Other infection due to central venous catheter, initial encounter; L89.303 Pressure ulcer of unspecified buttock, stage 3; Z51.5 Encounter for palliative care; Z66 Do not resuscitate; N18.6 End stage renal disease; J96.01 Acute respiratory failure with hypoxia; J96.02 Acute respiratory failure with hypercapnia; R65.21 Severe sepsis with septic shock; U07.1 COVID-19; J12.89 Other viral pneumonia; G93.41 Metabolic encephalopathy; I13.2 Hypertensive heart and chronic kidney disease with heart failure and with stage 5 chronic kidney disease, or end stage renal disease; E87.2 Acidosis; I42.9 Cardiomyopathy, unspecified; N17.9 Acute kidney failure, unspecified; N25.81 Secondary hyperparathyroidism of renal origin; T82.898A Other specified complication of vascular prosthetic devices, implants and grafts, initial encounter; J95.851 Ventilator associated pneumonia; B37.89 Other sites of candidiasis; I69.351 Hemiplegia and hemiparesis following cerebral infarction affecting right dominant side; E11.22 Type 2 diabetes mellitus with diabetic chronic kidney disease; I50.9 Heart failure, unspecified; K21.9 Gastro-esophageal reflux disease without esophagitis; F20.9 Schizophrenia, unspecified; E11.51 Type 2 diabetes mellitus with diabetic peripheral angiopathy without gangrene; E66.01 Morbid (severe) obesity due to excess calories; I46.9 Cardiac arrest, cause unspecified; E87.5 Hyperkalemia; E83.51 Hypocalcemia; E87.6 Hypokalemia; Y84.8 Other medical procedures as the cause of abnormal reaction of the patient, or of later complication, without mention of misadventure at the time of the procedure; E87.70 Fluid overload, unspecified; B95.61 Methicillin susceptible Staphylococcus aureus infection as the cause of diseases classified elsewhere; B96.89 Other specified bacterial agents as the cause of diseases classified elsewhere; Z89.612 Acquired absence of left leg above knee; Z89.611 Acquired absence of right leg above knee; Z99.2 Dependence on renal dialysis; Z93.3 Colostomy status; Z93.6 Other artificial openings of urinary tract status; Z79.4 Long term (current) use of insulin; Z79.899 Other long term (current) drug therapy; Z68.38 Body mass index [BMI] 38.0-38.9, adult; Z74.01 Bed confinement status; Z79.51 Long term (current) use of inhaled steroids; Z83.3 Family history of diabetes mellitus; Z82.49 Family history of ischemic heart disease and other diseases of the circulatory system
CPT/HCPCS: 31500; 36415; 36416; 36430; 36556; 71045; 80048; 80053; 80202; 81003; 81015; 82728; 82805; 83605; 83735; 84100; 84145; 84484; 85007; 85025; 85027; 85379; 86140; 86850; 86900; 86901; 87040; 87070; 87077; 87086; 87106; 87147; 87149; 87186; 87205; 87340; 90935; 92950; 93005; 93970; 94002; 94003; 96365; 96366; 96367; 96368; 96374; 96375; 96376; 99292; C9113; G0257; J0171; J0282; J0456; J0692; J1100; J1450; J1642; J1644; J1720; J1956; J2001; J2060; J2250; J2270; J2704; J2997; J3010; J3370; J3490; J7030; J7050; J7070; P9016; Q5105; U0002